=== PATIENT | female | born 1935 | race Caucasian/White ===

== ENCOUNTER 2018-06-06 09:58 | Emergency (ER) | payer MEDICARE, BC ==
[2018-06-06] MEDS ORDERED: Ketorolac INJ* 30 MG/ML 1 ML VIAL IV PUSH ONE (10:26)
--- NOTE | 2018-06-06 10:32 | ED ---
Complex/Multi-Sys Presentation - HPI Summary HPI Summary: A 82 y/o female presents to ED c/o of pain on the right side of face reaching 8/ 10 in severity. According to the patient, yesterday the right-sided pain of her face was exhibited, however she decided to sleep it off. This morning however, the pain became more severe. The whole right-side of her face was in pain coupled with a headache. It was painful to talk and chew. She stated, "My pain is on the entire right side of my face from the head down, I can't even chew oatmeal". The left side of her face does not hurt, but chewing on the left side brings on pain on the right side. Additional symptoms include SOB, however, denies any CP or vision changes. It was noted that the patient has a long list of cardiac history. Additionally, she has a appointment for her pacemaker on 06/11/2018. PMHx of leaky valve, LBBB, rheumatoid arthritis, DM (4 shots/ day). She takes prescribed medications for her Thyroid and arthritis such as Eliquis and Sulfasalazine. No Hx of shingles. - History Of Current Complaint Chief Complaint: EDGeneral Time Seen by Provider: 06/06/18 10:06 Hx Obtained From: Patient Onset/Duration: Sudden Onset, Lasting Days - Since 1 day ago (yesterday), Still Present, Worse Since - Yesterday Timing: Constant Severity Currently: Severe - 8/10 Location: Pain At: - Right side of face, Radiates To: - Headache Aggravating Factor(s): NOTHING Alleviating Factor(s): NOTHING Associated Signs And Symptoms: Positive: Headache, SOB, Other - NEGATIVE: Vision changes. Negative: Chest Pain - Allergies/Home Medications Allergies/Adverse Reactions: Allergies Allergy/AdvReac Type Severity Reaction Status Date / Time atorvastatin Allergy Intermediate Leg Cramps Verified 06/06/18 11:29 ezetimibe [From Zetia] Allergy Intermediate Itching Verified 06/06/18 11:29 losartan Allergy Intermediate Rash Verified 06/06/18 11:29 ARB-Angiotensin Receptor Allergy Unknown Unknown Verified 06/06/18 11:29 Antagonist Reaction Details gold Au 198 Allergy Unknown Unknown Verified 06/06/18 11:29 Reaction Details methotrexate Allergy Unknown Unknown Verified 06/06/18 11:29 Reaction Details Penicillins Allergy Unknown Unknown Verified 06/06/18 11:29 Reaction Details pravastatin Allergy Unknown Unknown Verified 06/06/18 11:29 Reaction Details ramipril Allergy Unknown Unknown Verified 06/06/18 11:29 Reaction Details amlodipine AdvReac Intermediate Headache Verified 06/06/18 11:29 diltiazem AdvReac Intermediate See Comment Verified 06/06/18 11:29 valsartan AdvReac Intermediate Coughing Verified 06/06/18 11:29 Home Medications: Home Medications Calcium 1,000 + D3 Caplet 1 tab PO BEDTIME 06/06/18 [History Confirmed 06/06/18] Furosemide 20 mg PO SEE INSTRUCTIONS 06/06/18 [History Confirmed 06/06/18] Insulin Aspart [Novolog Flexpen] 3 - 10 units SQ TID 06/06/18 [History Confirmed 06/06/18] Levothyroxine Sodium 75 mcg PO DAILY 06/06/18 [History Confirmed 06/06/18] hydroCHLOROthiazide [Hydrochlorothiazide] 2 tab PO DAILY 06/06/18 [History Confirmed 06/06/18] PMH/Surg Hx/FS Hx/Imm Hx Endocrine/Hematology History: Reports: Hx Anticoagulant Therapy - new starting yesterday, Hx Diabetes Denies: Hx Anemia, Hx Unexplained Bleeding Cardiovascular History: Reports: Hx Hypercholesterolemia, Hx Hypertension, Hx Rheumatic Fever, Hx Valvular Heart Disease - pt states "leaky valve", Other Cardiovascular Problems/Disorders - Left BBB Denies: Hx Aneurysm, Hx Angina, Hx Angioplasty, Hx Auto Implanted Cardiovert Defib, Hx Cardiac Arrest, Hx Cardiomegaly, Hx Congenital Heart Disease, Hx Congestive Heart Failure, Hx Coronary Artery Disease, Hx Deep Vein Thrombosis, Hx Embolism, Hx Hypotension, Hx Pacemaker/ICD, Hx Peripheral Vascular Disease, Hx Syncope GI History: Denies: Hx Jaundice History: Denies: Hx Renal Disease Musculoskeletal History: Reports: Hx Rheumatoid Arthritis Denies: Hx Arthritis, Hx Back Problems, Hx Bursitis, Hx Fibromyalgia, Hx Gout , Hx Orthopedic Injury, Hx Osteoporosis, Hx Scoliosis, Hx Tendonitis, Other Musculoskeletal History Sensory History: Denies: Hx Cataracts, Hx Glaucoma Opthamlomology History: Denies: Hx Cataracts, Hx Glaucoma Neurological History: Denies: Hx Headaches, Hx Seizures, Hx Transient Ischemic Attacks (TIA) Psychiatric History: Denies: Hx Anxiety, Hx Depression - Cancer History Hx Chemotherapy: No Hx Radiation Therapy: No Infectious Disease History: No Infectious Disease History: Denies: Traveled Outside the [place] in Last 30 Days - Family History Known Family History: Positive: Other - Prostate, skin and colon cancer Negative: Hypertension, Diabetes - Social History Alcohol Use: Daily Alcohol Amount: 4oz wine every night with dinner Substance Use Type: Reports: None Smoking Status (MU): Former Smoker Type: Cigarettes Have You Smoked in the Last Year: No Review of Systems Negative: Fever Positive: Other - NEGATIVE: Vision changes Negative: Chest Pain Positive: Shortness Of Breath Positive: Other - POSITIVE: Pain on right side of face, 8/10 in severity Positive: Headache All Other Systems Reviewed And Are Negative: Yes Physical Exam - Summary Physical Exam Summary: GENERAL: Patient is a well developed and nourished female who is lying comfortable in the stretcher. Patient is not in any acute respiratory distress. HEAD AND FACE: Normocephalic. Tenderness to palpation on right side of face. In particular, tenderness to palpation on right temporal artery. no rash EYES: PERRLA, EOMI x 2. EARS: Hearing grossly intact. TM clear, no vesicles seen MOUTH: Oropharynx within normal limits. NECK: Supple, trachea is midline, no adenopathy, no JVD, no carotid bruit. CHEST: Symmetric, no tenderness at palpation LUNGS: Clear to auscultation bilaterally. No wheezing or crackles. CVS: Regular rate and rhythm, S1 and S2 present, no murmurs or gallops appreciated. ABDOMEN: Soft, non-tender. Bowel sounds are normal. No abdominal abnormal pulsations. EXTREMITIES: Full ROM in all major joints, no edema, no cyanosis or clubbing. NEURO: Alert and oriented x 3. No acute neurological deficits. Speech is normal and follows commands. SKIN: Dry and warm Neuro exam extended: Cranial nerves II-XII grossly intact, no dysmetria finger to nose, nml heel to carter GCS: 15 Triage Information Reviewed: Yes Vital Signs On Initial Exam: Initial Vitals Temp Pulse Resp BP Pulse Ox 97.4 F 80 20 154/46 95 06/06/18 09:59 06/06/18 09:59 06/06/18 09:59 06/06/18 09:59 06/06/18 09:59 Vital Signs Reviewed: Yes Diagnostics - Vital Signs Vital Signs Temp Pulse Resp BP Pulse Ox 06/06/18 09:59 97.4 F 80 20 154/46 95 - Laboratory Result Diagrams: 06/06/18 10:49 06/06/18 10:49 Lab Statement: Any lab studies that have been ordered have been reviewed, and results considered in the medical decision making process. - CT BRAIN CT CT Interpretation Completed By: Radiologist - CT findings are most consistent with periventricular and subcortical microvascular disease. There are no prior CT examinations for comparison to determine chronicity. If the patient is exhibiting focal neurologic deficits MRI of the brain is recommended. ED physician reviewed this radiology report. - EKG 1014 Cardiac Rate: NL - atrial paced 77 BPM EKG Rhythm: Sinus Rhythm EKG Interpretation: LBBB, normal axis, atrial paced 77 BPM. Re-Evaluation - Re-Evaluation First Eval Re-Evaluation Time: 12:56 Comment: DISCUSSED PLAN AND DISCHARGE WITH PATIENT. PATIENT IS ADAMENT THAT SHE DOES NOT WANT STEROIDS. Complex Multi-Symp Course/Dx Course Of Treatment: A 82 y/o female presents to ED c/o of pain on the right side of face reaching 8/10 in severity. According to the patient, yesterday the right-sided pain of her face was exhibited, however she decided to sleep it off. This morning however, the pain became more severe. The whole right-side of her face was in pain coupled with a headache. A EKG revealed atrial-paced of 77 BPM, LBBB and normal axis. A Brain CT revealed CT findings are most consistent with periventricular and subcortical microvascular disease. There are no prior CT examinations for comparison to determine chronicity. Laboratory data reviewed and is unremarkable for a sodium of 128, anemia with a hemoglobin of 9 October compared to previous, elevated inflammatory markers with a sedimentation rate of 75 and a C-reactive protein of 48. I suspect patient's right-sided pain is most likely secondary to giant cell arteritis given jaw claudication, right-sided headache, elevated inflammatory markers. I discussed the results with the patient and my concerns in great details. In the ED course , the patient recieved Toradol and Solu-Medrol 500 cc of normal saline and reports feeling better. Patient care was dicussed with Dr. Sparkle Strong of vascular surgery at [place] who refered patient to call local [facility] for a temporal artery biopsy and further evaluation tmrw. Dr. Strong provided direct contact for the department. Patient will be discharged with a diagnosis of right-sided facial pain. Patient was adament that she does not want steroids because of concern for her diabetes. Patient is to follow up with PCP in 2 days and contact [facility] to set up an appointment. Pt is agreeable with this plan. - Diagnoses Provider Diagnoses: Right sided facial pain - Physician Notifications Discussed Care Of Patient With: Sparkle Strong Time Discussed With Above Provider: 12:49 Instructed by Provider To: Other - Dr. Strong recommended patient to call [facility] with the provided phone numbers to schedule an appointment for Temporal Artery Biopsy and further evaluation. Discharge - Sign-Out/Discharge Documenting (check all that apply): Patient Departure - DISCHARGE - Discharge Plan Condition: Stable Disposition: HOME Prescriptions: traMADol TAB* [Ultram*] 50 mg PO Q8H PRN #15 tab MDD 3 PRN Reason: Pain Patient Education Materials: Arthritis (ED), Atypical Facial Pain (ED) Referrals: Ever Wallace MD [Primary Care Provider] - 2 Days (FOLLOW UP WITH PRIMARY CARE PHYSICIAN IN 2-3 days.) Additional Instructions: CALL [facility] TO SET UP APPOINTMENT. PLEASE CALL OR . RETURN TO ED FOR ANY NEW OR WORSENING SYMPTOMS. - Billing Disposition and Condition Condition: STABLE Disposition: Home
[2018-06-06 11:00] LABS: ABS Basophils 0 10^3/ul (0-0.2); ABS Eosinophils 0 10^3/ul (0-0.6); ABS Lymphocytes 0.7 10^3/ul (1.0-4.8); ABS Monocytes 0.6 10^3/ul (0-0.8); ABS Neutrophils 4.4 10^3/ul (1.5-7.7); ABS Nucleated RBC 0 10^3/ul; Eosinophil % 0.1 % (0-6); Hematocrit 27 % (35-47); Mean Corpuscular HGB Conc 33 g/dl (31-36); Mean Corpuscular Hemoglobin 29 pg (27-31); Mean Corpuscular Volume 87 fL (80-97); Mean Platelet Volume 7.5 um3 (7.4-10.4); Nucleated Red Blood Cells % 0; Platelet Count 286 10^3/ul (150-450); Red Blood Count 3.12 10^6/ul (4.00-5.40); Red Cell Distribution Width 18 % (10.5-15); White Blood Count 5.7 10^3/ul (3.5-10.8)
[2018-06-06 11:16] LABS: EGFR Non-African American 67.5 (>60)
[2018-06-06] MEDS: methylPREDNISolone SOD 40 MG* 1 ML VIAL IV ONE ×2 (11:20→11:28)
[2018-06-06] MEDS ORDERED: methylPREDNISolone 125 MG* 2 ML VIAL ONE (11:26)
[2018-06-06] MEDS ORDERED: methylPREDNISolone 125 MG* 2 ML VIAL IV ONE (11:27)
--- NOTE | 2018-06-06 11:29 | RAD ---
INDICATION: Right-sided face pain COMPARISON: None. TECHNIQUE: Contiguous axial sections of the brain were obtained from the skull base to the vertex without contrast. FINDINGS: The ventricles, cisterns and sulci exhibit symmetrical involutional changes appropriate for the patient's age.. There is overall mild periventricular and subcortical white matter hypoattenuation most consistent with chronic microvascular disease. There are subcentimeter hypoattenuating foci in the bilateral basal ganglia that could be perivascular spaces or age indeterminant lacunar infarctions. Otherwise the cabrera-white matter differentiation is adequately maintained and there is no sulcal effacement. No significant focal abnormality or mass effect is present. There is no evidence for intracranial hemorrhage. There is surgical material overlying the subcutaneous tissue of the left temporal bone. No significant focal osseous abnormality is present. The visualized portion of the paranasal sinuses appear clear. The mastoid air cells are well aerated bilaterally. IMPRESSION: CT findings are most consistent with periventricular and subcortical microvascular disease. There are no prior CT examinations for comparison to determine chronicity. If the patient is exhibiting focal neurologic deficits MRI of the brain is recommended.
[2018-06-06 13:37] VITALS: BP 147/76
== END 2018-06-06 13:37 | disposition home or self-care (01) ==
LOC: ED 09:58
DX: G50.1 Atypical facial pain (principal); R06.02 Shortness of breath; E11.9 Type 2 diabetes mellitus without complications; Z79.4 Long term (current) use of insulin; I10 Essential (primary) hypertension; E78.00 Pure hypercholesterolemia, unspecified; I44.7 Left bundle-branch block, unspecified; I38 Endocarditis, valve unspecified; M06.9 Rheumatoid arthritis, unspecified; Z88.0 Allergy status to penicillin; Z88.8 Allergy status to other drugs, medicaments and biological substances; Z80.42 Family history of malignant neoplasm of prostate; Z80.0 Family history of malignant neoplasm of digestive organs; Z87.891 Personal history of nicotine dependence
CPT/HCPCS: 36415; 70450; 80053; 84484; 85025; 85652; 86140; 93005; 96374; 96375; 99283; J1885; J2920; J2930

== ENCOUNTER 2019-02-18 00:14 | Observation (INO) | payer MEDICARE, BC ==
--- OUTSIDE RECORDS SUMMARY | 2019-02-18 00:20 | XMS REPORT | Continuity of Care Document ---
:1935 External Reference #:[id number] Author Name Francoise Delacruz Care Team Providers Name Role Phone Ever Wallace MD Primary Care Physician Unavailable Payers Date Identification Numbers Payment Provider Subscriber Effective: 1999 Policy Number: [id number] Medicare Katheryn Tatum PayID: [id number] [address] [place] [address] Policy Number: [id number] [facility] Sven Tatum PayID: [id number] [address] [place] [address] Advance Directives Description No Information Available Problems Date Description Provider Status Onset: 02/04/2012 Left bundle branch block Miles Alicia M.D. Active Onset: 02/04/2012 Primary cardiomyopathy Miles Alicia M.D. Active Onset: 02/04/2012 Mitral valve disorder Miles Alicia M.D. Active Onset: 02/04/2012 Type 2 diabetes mellitus Miles Alicia M.D. Active Onset: 08/29/2014 Essential hypertension Miles Alicia M.D. 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 [employer] Tobacco Use Start: Unknown End: Former Cigarette Smoker Unknown Smoking Status Reviewed: 01/28/19 Former Cigarette Smoker ETOH Use Consumes 1 glass of wine 4oz per day Tobacco Use Start: Unknown End: Patient is a former smoker Unknown Recreational Drug Use Denies Drug Use Exercise Type/Frequency Exercises rarely Allergies, Adverse Reactions, Alerts Date Description Reaction Status Severity Comments 09/10/2004 PCN Active rash 09/10/2004 Cozaar Active rash 09/10/2004 Cardizem CD Active felt poorly 04/30/2005 Lipitor Active leg aches 04/06/2006 zetia Active itchy, muscle pain 01/26/2008 Diovan Active cough 01/26/2008 Amlodipine Besylate Active cough headache 02/04/2012 Pravastatin leg cramps Active 08/24/2013 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 lasix Eliquis Active Tablets 5mg 60tabs 1 by I48.0 Miles 017 mouth F. Mauser, twice a M.D. day Aldactone Active Tablets 25mg 90tabs 2 by Miles Cannon mouth F. Maashish, every day M.D. Lasix Active Tablets 20mg 90tabs 2 tabs by Alesia Cannon mouth 3 Christiano, times N.P. weekly thu-thu- riday. may take an extra tab on non-lasix day if > 3lb weight gain. Coreg Active Tablets 12.5mg 270tab take 2 Miles Cannon s tablets F. Mauser, every M.D. morning, and 1 tablet every evening by mouth Vitamin B-12 Active Tablets 1000mcg 100tab 1 by Miles Reynolds Sub s mouth F. Mauser, every day M.D. Sulfasalazine Active Tablets 500mg 120tab take 2 Z79.899 Zsofia 004 s tabs in Eliecer, the [employer] morning and 2 tabs in the evening for a total of 4 daily tabs daily ongoing M05.79 multivitamin 09/09/2004 Active one po qd Miles Alicia M.D. Folic Acid 09/09/2004 Active Tablets 1mg 100 two times a Miles tab week nubia Rose M.D. Calcium + D Active Tablets 600-2 1 po qhs Unknown 00mg- Unit Flax Seed Meal Active 2 tablespoons Unknown per day Dandelion Root Active Capsules 520mg 1 po qd Unknown Garlic Active 2 cloves Unknown daily Novolog Flexpen Active Solution 100Un Inject 3-10 Unknown Pen-Inject it/ML Units Three Times Daily Or as Directed - Max Of 50 Units P Lantus Solostar Active Solution 100Un Inject 12 Unknown Pen-Inject it/ML Units AT Bedtime Levothyroxine Sodium Active Tablets 75mcg 1 by mouth Unknown every day Cpap Active Device 13 cm h2o Unknown Iron Active Tablets 325(6 1 by mouth Unknown 5Fe) every other mg day Vitamin C-Macy Hips Active Tablets ER 500mg 1 tablet by Unknown TR mouth daily Vitamin C 01/12/2019 - Hx Miles 01/11/2019 Luciano Alicia M.D. Hydroxychloroquine 06/22/2018 - Hx Tablets 200mg 180 take one Z7 Zsofia Sulfate 08/31/2018 tab tablet by 9. Eliecer, s mouth daily 89 [employer] for one week 9 than increase to 1 tab twice a day M05.79 Simponi Aria 10/23/2017 - Hx Solution 50mg/4ML 2 mg/kg iv Meet 03/05/2018 infusion at [facility], week 0, week M.D. 4 and then every 8 weeks (not taking) Leflunomide 09/11/2017 - Hx Tablets 10mg 30 take one M0 Meet 09/25/2017 ta capsule/table 5. angel Greene t daily by 78 M.D. mouth Hydrochlorothiazide 05/09/2016 - Hx Tablets 12.5mg 18 2 by mouth [facility] 01/12/2019 0t every day ab Beata Rose s Coreg 04/03/2016 - Hx Tablets 25mg 1 by mouth [facility] 04/29/2016 twice a day Luciano Alicia M.D. Ramipril 12/07/2013 - Hx Capsules 2.5mg 1 po qod [facility] 01/11/2014 Luciano Alicia M.D. Amlodipine Besylate 12/28/2007 - Hx Tablets 2.5mg 90 1 po qd [facility] 01/26/2008 angel Martinez M.D. Diovan 12/08/2007 - Hx Tablets 40mg 14 1 po qd [facility] 12/28/2007 angel Martinez M.D. Lisinopril 04/28/2007 - Hx Tablets 2.5mg 90 1 po qd [facility] 12/08/2007 angel Martinez M.D. Niaspan 01/11/2007 - Hx Tablets 500mg 90 1 Tablet By [facility] 02/16/2007 ta angel Garnica Bedtime Beata Zetia 12/04/2006 - Hx Tablets 10mg 90 1 po qd [facility] 01/26/2008 angel Martinez M.D. Questran 10/09/2006 - Hx Powder 4gm 60 1 po bid [facility] 11/01/2007 shane Quesada M.D. Flax Seed Meal 04/06/2006 - Hx Cream 2 tablespoons [facility] 09/26/2009 po qd Luciano Alicia M.D. Coreg 09/29/2005 - Hx Tablets 12.5mg 18 2 tabs po bid [facility] 04/03/2016 0t ab Beata Rose s Zetia 09/29/2005 - Hx Tablets 10mg 90 1 po qd [facility] 12/30/2005 angel Martinez M.D. Coreg 06/23/2005 - Hx Tablets 6.25mg 1 po bid Miles 09/29/2005 Luciano Alicia M.D. Coreg 04/30/2005 - Hx Tablets 12.5mg 18 1 po bid [facility] 06/23/2005 0t ab Beata Rose s Garlic 04/29/2005 - Hx 1000mg two po qd [facility] 09/26/2009 Luciano Alicia M.D. Coreg 03/13/2005 - Hx Tablets 6.25mg 1 po bid Miles 04/30/2005 Luciano Alicia M.D. Coreg 01/27/2005 - Hx Tablets 12.5mg 18 1 po bid [facility] 03/13/2005 0t ab Beata Rose s Lipitor 10/02/2004 - Hx Tablets 10mg 1 po qd [facility] 04/30/2005 Luciano Alicia M.D. Coreg 10/02/2004 - Hx Tablets 3.125mg 60 1 po bid [facility] 10/02/2004 angel Martinez M.D. Coreg 10/02/2004 - Hx Tablets 6.25mg 90 1 po bid [facility] 01/27/2005 angel Martinez M.D. Calcium 09/10/2004 - Hx Tablets 1 PO qd [facility] 04/04/2011 Luciano Alicia M.D. Humalog 09/10/2004 - Hx Injection 100Units/M tid [facility] 04/16/2015 Kelin Alicia M.D. Humulin N 09/10/2004 - Hx Injection 100Units/M hs [facility] 04/16/2015 Kelin Alicia M.D. Sulfasalazine 09/09/2004 - Hx Tablets 500mg 36 2 po bid [facility] 09/10/2004 0t ab Beata Rose s Evista 09/09/2004 - Hx Tablets 60mg 1 PO qd [facility] 09/15/2008 Luciano Alicia M.D. vitamin E 09/09/2004 - Hx 400iu one qd [facility] 09/10/2004 Luciano Alicia M.D. calcium and vitamin D 09/09/2004 - Hx 600mg bid [facility] 09/10/2004 Luciano Alicia M.D. HCTZ 09/09/2004 - Hx Capsules 12.5mg 18 2 by mouth [facility] 05/09/2016 0c every day julián Rose M.D. Lipitor 09/09/2004 - Hx Tablets 20mg 30 1 po qd Miles 10/02/2004 angel Martinez M.D. Flax Seed Oil - Hx Unknown 04/04/2011 Garlic - Hx Capsules 1000mg qd Unknown 05/04/2012 Simvastatin - Hx Tablets 10mg 1 po qhs Unknown 04/04/2011 Pravastatin Sodium - Hx Tablets 20mg 90 1 tablet by Unknown 02/04/2012 ta mouth once bs daily at bedtime Amoxicillin - Hx Capsules 1 tab by Unknown 04/02/2016 mouth 3 times per day every Vitamin C - Hx Tablets 500mg 1 by mouth Unknown 01/12/2019 every day Eliquis - Hx Tablets 5mg 1 by mouth Unknown 04/29/2016 twice a day 04/25/16 Hold Eliquis - Hx Tablets 5mg 18 1 by mouth Miles 10/08/2017 0t q12 hours ab Beata Rose s Turmeric Curcumin - Hx Capsules 500mg 1 by mouth Unknown 12/23/2017 every day Cinnamon - Hx Capsules 500mg 1 by mouth Unknown 03/05/2018 every day Immunizations CPT Code Status Date Vaccine Lot # [id number] Given 10/06/2007 Influenza Virus 3Yrs & Over [id number] Given 10/06/2007 Influenza Virus 3Yrs & Over [id number] Vital Signs Date Vital Result Comment 01/28/2019 11:01am Height 61 inches 5'1" Weight 177.00 lb Heart Rate 72 /min BP Systolic Sitting 142 mmHg Ra, reg BP Diastolic Sitting 78 mmHg Ra, reg BP Systolic Standing 152 mmHg Ra, reg BP Diastolic Standing 68 mmHg Ra, reg BMI (Body Mass Index) 33.4 kg/m2 Ejection Fraction 50%-55% 09/17/18 echo 01/12/2019 10:36am Height 61 inches 5'1" Weight 177.12 lb with shoes Heart Rate 70 /min BP Systolic Sitting 116 mmHg BP Diastolic Sitting 80 mmHg BMI (Body Mass Index) 33.5 kg/m2 Ejection Fraction 50-55% echo 09/17/18 10/12/2018 10:53am Height 61 inches 5'1" Weight 175.00 lb with shoes Heart Rate 68 /min BP Systolic Sitting 128 mmHg lue reg cuff BP Diastolic Sitting 58 mmHg lue reg cuff BP Systolic Standing 124 mmHg lue reg cuff BP Diastolic Standing 58 mmHg lue reg cuff BMI (Body Mass Index) 33.1 kg/m2 Ejection Fraction 50-55% 09/03/2018 2:27pm Height 61 inches 5'1" Weight 175.00 lb with shoes Heart Rate 64 /min BP Systolic 128 mmHg lue/reg cuff BP Diastolic 64 mmHg lue/reg cuff BMI (Body Mass Index) 33.1 kg/m2 Ejection Fraction 30-35% Echo. 04/28/2018 08/31/2018 1:24pm Height 61 inches 5'1" Weight 176.00 lb Heart Rate 60 /min BP Systolic Sitting 142 mmHg BP Diastolic Sitting 64 mmHg Respiratory Rate 14 /min BMI (Body Mass Index) 33.3 kg/m2 06/22/2018 2:51pm Height 61 inches 5'1" Weight 176.00 lb Heart Rate 61 /min BP Systolic Sitting 120 mmHg BP Diastolic Sitting 62 mmHg Pain Level 5 O2 % BldC Oximetry 94 % BMI (Body Mass Index) 33.3 kg/m2 06/22/2018 10:19am Height 61 inches 5'1" Weight 175.50 lb Heart Rate 72 /min BP Systolic Sitting 122 mmHg reu lg cuff BP Diastolic Sitting 68 mmHg reu lg cuff Respiratory Rate 16 /min BMI (Body Mass Index) 33.2 kg/m2 Ejection Fraction 30-35% 04/28/2018 echo 05/13/2018 10:12am Height 61 inches 5'1" Weight 172.00 lb per pt Heart Rate 70 /min BP Systolic Sitting 122 mmHg Lue lg cuff BP Diastolic Sitting 64 mmHg Lue lg cuff Respiratory Rate 18 /min BMI (Body Mass Index) 32.5 kg/m2 Ejection Fraction 30-35% as of 04/28/18 echo 05/12/2018 10:24am Height 61 inches 5'1" Weight 176.25 lb Heart Rate 66 /min BP Systolic Sitting 162 mmHg Lue reg cuff BP Diastolic Sitting 80 mmHg Lue reg cuff Respiratory Rate 18 /min O2 % BldC Oximetry 96 % On Ra BMI (Body Mass Index) 33.3 kg/m2 03/30/2018 1:26pm Height 61 inches 5'1" Weight 176.50 lb with shoes Heart Rate 80 /min BP Systolic Sitting 144 mmHg Lue reg cuff BP Diastolic Sitting 80 mmHg Lue reg cuff BMI (Body Mass Index) 33.3 kg/m2 Ejection Fraction 35-40% date 09/30/2017 ECHO 03/05/2018 10:54am Height 61 inches 5'1" Weight 176.00 lb Heart Rate 80 /min BP Systolic Sitting 152 mmHg BP Diastolic Sitting 66 mmHg Respiratory Rate 14 /min Pain Level 4 BMI (Body Mass Index) 33.3 kg/m2 10/20/2017 4:16pm Height 61 inches 5'1" Weight 171.00 lb Heart Rate 68 /min BP Systolic Sitting 136 mmHg BP Diastolic Sitting 76 mmHg Respiratory Rate 15 /min Pain Level 3 BMI (Body Mass Index) 32.3 kg/m2 10/09/2017 1:58pm Height 61 inches 5'1" Weight 173.50 lb with shoes Heart Rate 68 /min BP Systolic Sitting 135 mmHg LA reg cuff BP Diastolic Sitting 78 mmHg LA reg cuff BMI (Body Mass Index) 32.8 kg/m2 Ejection Fraction 35%-40% echo 09/30/17 09/11/2017 3:08pm Height 61 inches 5'1" Weight 169.00 lb w/ shoes Heart Rate 78 /min reg BP Systolic Sitting 130 mmHg Lue, lg cuff BP Diastolic Sitting 86 mmHg Lue, lg cuff Respiratory Rate 16 /min BMI (Body Mass Index) 31.9 kg/m2 Ejection Fraction 40-45% as of 04/08/17 echo 09/11/2017 10:43am Height 61 inches 5'1" Weight 172.00 lb Heart Rate 32 /min BP Systolic Sitting 140 mmHg BP Diastolic Sitting 66 mmHg Respiratory Rate 14 /min Pain Level 5 BMI (Body Mass Index) 32.5 kg/m2 05/06/2017 9:41am Height 61 inches 5'1" Weight 169.00 lb Heart Rate 80 /min BP Systolic Sitting 122 mmHg BP Diastolic Sitting 58 mmHg Respiratory Rate 16 /min O2 % BldC Oximetry 97 % room air BMI (Body Mass Index) 31.9 kg/m2 03/04/2017 10:46am Height 61 inches 5'1" Weight 165.00 lb w/shoes Heart Rate 88 /min BP Systolic Sitting 178 mmHg LA reg cuff BP Diastolic Sitting 76 mmHg LA reg cuff BP Systolic Standing 137 mmHg la repeat sitting BP Diastolic Standing 58 mmHg la repeat sitting BMI (Body Mass Index) 31.2 kg/m2 Ejection Fraction 55% Luca 08/07/16 12/05/2016 2:50pm Height 61 inches 5'1" Weight 164.00 lb with shoes Heart Rate 72 /min BP Systolic Sitting 138 mmHg LA, regular BP Diastolic Sitting 70 mmHg LA, regular BMI (Body Mass Index) 31.0 kg/m2 Ejection Fraction 55% Luca 08/07/16 11/07/2016 1:36pm Height 61 inches 5'1" Weight 164.00 lb with boots Heart Rate 78 /min BP Systolic Sitting 110 mmHg LA lrg cuff BP Diastolic Sitting 58 mmHg LA lrg cuff BMI (Body Mass Index) 31.0 kg/m2 Ejection Fraction 55% Luca 08/07/16 10/21/2016 1:13pm Height 61 inches 5'1" Weight 159.00 lb Heart Rate 76 /min BP Systolic Sitting 140 mmHg BP Diastolic Sitting 80 mmHg Respiratory Rate 16 /min O2 % BldC Oximetry 97 % BMI (Body Mass Index) 30.0 kg/m2 08/25/2016 8:22am Height 61 inches 5'1" Weight 159.00 lb Heart Rate 78 /min BP Systolic Sitting 142 mmHg left arm, reg cuff BP Diastolic Sitting 64 mmHg left arm, reg cuff Respiratory Rate 16 /min BMI (Body Mass Index) 30.0 kg/m2 Ejection Fraction 55% 08/07/16 Luca 07/22/2016 10:03am Height 61 inches 5'1" Weight 161.00 lb Heart Rate 66 /min BP Systolic 112 mmHg BP Diastolic 80 mmHg Respiratory Rate 14 /min O2 % BldC Oximetry 94 % BMI (Body Mass Index) 30.4 kg/m2 06/17/2016 8:43am Height 61 inches 5'1" Weight 161.00 lb w/ shoes Heart Rate 64 /min reg BP Systolic Sitting 114 mmHg Lue, reg cuff BP Diastolic Sitting 76 mmHg Lue, reg cuff BP Systolic Standing 110 mmHg Lue BP Diastolic Standing 80 mmHg Lue Respiratory Rate 16 /min BMI (Body Mass Index) 30.4 kg/m2 Ejection Fraction 40% as of 02/29/16 echo 06/09/2016 8:56am Height 61 inches 5'1" Weight 161.25 lb Heart Rate 97 /min BP Systolic 154 mmHg BP Diastolic 62 mmHg Respiratory Rate 14 /min O2 % BldC Oximetry 98 % BMI (Body Mass Index) 30.5 kg/m2 Neck Circumference in inches 15 05/14/2016 9:10am Height 61 inches 5'1" Weight 161.25 lb with shoes Heart Rate 64 /min irreg BP Systolic 161 mmHg home unit, [place] BP Diastolic 65 mmHg home unit, LA BP Systolic Sitting 162 mmHg LA, regular BP Diastolic Sitting 64 mmHg LA, regular BMI (Body Mass Index) 30.5 kg/m2 Ejection Fraction 55% echo 03/04/16 strong 04/29/2016 8:41am Height 61 inches 5'1" Weight 169.00 lb w/shoes Heart Rate 84 /min BP Systolic Sitting 172 mmHg LA reg cuff BP Diastolic Sitting 70 mmHg LA reg cuff BMI (Body Mass Index) 31.9 kg/m2 Ejection Fraction 55%-75% Echo 03/04/16 04/15/2016 4:59pm Height 61 inches 5'1" Heart Rate 80 /min BP Systolic 124 mmHg LA, home unit BP Diastolic 50 mmHg LA, home unit BP Systolic Sitting 116 mmHg LA BP Diastolic Sitting 64 mmHg LA BP Systolic Lying Down 118 mmHg BP Diastolic Lying Down 70 mmHg 04/03/2016 9:47am Height 61 inches 5'1" Weight 159.50 lb with shoes Heart Rate 82 /min BP Systolic 152 mmHg LA reg cuff BP Diastolic 68 mmHg LA reg cuff BMI (Body Mass Index) 30.1 kg/m2 Ejection Fraction 55%-75% echo 03/04/16 03/12/2016 11:13am Height 61 inches 5'1" Weight 159.00 lb w/shoes Heart Rate 62 /min BP Systolic Sitting 144 mmHg LA reg cuff BP Diastolic Sitting 70 mmHg LA reg cuff BMI (Body Mass Index) 30.0 kg/m2 Ejection Fraction 40% Echo 02/29/16 02/27/2016 10:34am Height 61 inches 5'1" Weight 162.25 lb w/shoes Heart Rate 80 /min BP Systolic Sitting 154 mmHg LA reg cuff BP Diastolic Sitting 66 mmHg LA reg cuff BMI (Body Mass Index) 30.7 kg/m2 Ejection Fraction 40-45% echo 11/03/14 04/17/2015 2:58pm Height 61 inches 5'1" Weight 154.75 lb with shoes Heart Rate 60 /min BP Systolic Sitting 136 mmHg LA reg cuff BP Diastolic Sitting 70 mmHg LA reg cuff BP Systolic Standing 134 mmHg LA reg cuff BP Diastolic Standing 70 mmHg LA reg cuff Respiratory Rate 16 /min BMI (Body Mass Index) 29.2 kg/m2 Ejection Fraction 40-45% date 11/03/14 08/29/2014 2:32pm Height 61 inches 5'1" Weight 151.75 lb Heart Rate 72 /min BP Systolic 160 mmHg LA reg cuff BP Diastolic 64 mmHg LA reg cuff Respiratory Rate 15 /min BMI (Body Mass Index) 28.7 kg/m2 02/22/2014 2:13pm Height 61 inches 5'1" Weight 159.25 lb with shoes ( 153lbs at home today) Heart Rate 56 /min 64 sit and stand HR reg BP Systolic Sitting 130 mmHg LA reg cuff BP Diastolic Sitting 70 mmHg LA reg cuff BP Systolic Standing 124 mmHg LA reg cuff BP Diastolic Standing 70 mmHg LA reg cuff Respiratory Rate 16 /min BMI (Body Mass Index) 30.1 kg/m2 10/07/2013 1:48pm Heart Rate 76 /min BP Systolic Sitting 156 mmHg BP Diastolic Sitting 68 mmHg Respiratory Rate 20 /min 08/24/2013 10:57am Height 62 inches 5'2" Weight 157.00 lb Heart Rate 57 /min BP Systolic 168 mmHg BP Diastolic 70 mmHg Respiratory Rate 16 /min BMI (Body Mass Index) 28.7 kg/m2 11/25/2012 2:18pm Height 62 inches 5'2" Weight 155.00 lb Heart Rate 60 /min BP Systolic 128 mmHg BP Diastolic 76 mmHg BMI (Body Mass Index) 28.3 kg/m2 05/12/2012 2:51pm Height 62 inches 5'2" Weight 155.00 lb Heart Rate 62 /min BP Systolic 122 mmHg BP Diastolic 64 mmHg BMI (Body Mass Index) 28.3 kg/m2 02/04/2012 11:15am Height 62 inches 5'2" Weight 158.00 lb Heart Rate 57 /min BP Systolic 122 mmHg BP Diastolic 74 mmHg BMI (Body Mass Index) 28.9 kg/m2 04/04/2011 2:50pm Height 62 inches 5'2" Weight 155.00 lb Heart Rate 66 /min BP Systolic Sitting 142 mmHg BP Diastolic Sitting 72 mmHg BMI (Body Mass Index) 28.3 kg/m2 09/26/2009 3:26pm Height 62 inches 5'2" Weight 152.00 lb Heart Rate 66 /min BP Systolic Sitting 130 mmHg BP Diastolic Sitting 75 mmHg BMI (Body Mass Index) 27.8 kg/m2 09/15/2008 9:08am Height 62 inches 5'2" Weight 151.00 lb Heart Rate 71 /min BP Systolic Sitting 164 mmHg L BP Diastolic Sitting 70 mmHg L BMI (Body Mass Index) 27.6 kg/m2 01/26/2008 10:29am Height 62 inches 5'2" Weight 152.00 lb Heart Rate 64 /min BP Systolic Sitting 130 mmHg L BP Diastolic Sitting 60 mmHg L BMI (Body Mass Index) 27.8 kg/m2 11/01/2007 3:17pm Height 62 inches 5'2" Weight 150.00 lb Heart Rate 72 /min BP Systolic Sitting 140 mmHg BP Diastolic Sitting 60 mmHg Respiratory Rate 16 /min BMI (Body Mass Index) 27.4 kg/m2 04/28/2007 2:38pm Height 62 inches 5'2" Weight 150.00 lb Heart Rate 65 /min BP Systolic Sitting 160 mmHg L BP Diastolic Sitting 72 mmHg L BMI (Body Mass Index) 27.4 kg/m2 10/07/2006 11:17am Height 62 inches 5'2" Weight 143.00 lb Heart Rate 69 /min BP Systolic Sitting 144 mmHg L BP Diastolic Sitting 60 mmHg L BMI (Body Mass Index) 26.2 kg/m2 04/06/2006 2:38pm Height 62 inches 5'2" Weight 154.00 lb Heart Rate 72 /min BP Systolic Sitting 130 mmHg BP Diastolic Sitting 70 mmHg Respiratory Rate 18 /min BMI (Body Mass Index) 28.2 kg/m2 09/29/2005 3:10pm Height 62 inches 5'2" Weight 154.00 lb Heart Rate 78 /min regular BP Systolic Sitting 130 mmHg BP Diastolic Sitting 70 mmHg BP Systolic Standing 110 mmHg BP Diastolic Standing 74 mmHg BMI (Body Mass Index) 28.2 kg/m2 06/23/2005 2:56pm Height 62 inches 5'2" Weight 153.00 lb Heart Rate 74 /min BP Systolic Sitting 122 mmHg BP Diastolic Sitting 74 mmHg BP Systolic Standing 126 mmHg BP Diastolic Standing 78 mmHg BMI (Body Mass Index) 28.0 kg/m2 04/30/2005 9:45am Height 62 inches 5'2" Weight 152.00 lb Heart Rate 71 /min BP Systolic Sitting 142 mmHg R BP Diastolic Sitting 70 mmHg R BP Systolic Standing 140 mmHg R BP Diastolic Standing 60 mmHg R O2 % BldC Oximetry 99 % BMI (Body Mass Index) 27.8 kg/m2 01/27/2005 1:55pm Height 62 inches 5'2" Weight 149.00 lb Heart Rate 68 /min BP Systolic Sitting 158 mmHg BP Diastolic Sitting 80 mmHg BP Systolic Standing 150 mmHg BP Diastolic Standing 80 mmHg BMI (Body Mass Index) 27.2 kg/m2 10/02/2004 10:27am Height 62 inches 5'2" Weight 148.00 lb Heart Rate 60 /min regular BP Systolic Sitting 130 mmHg BP Diastolic Sitting 70 mmHg BP Systolic Standing 134 mmHg BP Diastolic Standing 72 mmHg BMI (Body Mass Index) 27.1 kg/m2 09/10/2004 2:12pm Height 62 inches 5'2" Weight 148.00 lb Heart Rate 74 /min BP Systolic Sitting 168 mmHg left arm, right arm 164/70 BP Diastolic Sitting 78 mmHg left arm, right arm 164/70 BP Systolic Standing 162 mmHg BP Diastolic Standing 74 mmHg O2 % BldC Oximetry 98 % BMI (Body Mass Index) 27.1 kg/m2 Results Test Date Facility Test Result H/L Range Note Laboratory test 01/21/2019 [facility] B-Type 262 pg/mL High <= [address] [place] [address] Peptide BNP [phone] Basic Metabolic 01/21/2019 [facility] Sodium 131 mmol/L Low 135-[address] [place] [address] [phone] Potassium 4.1 mmol/L N 3.5-5.0 Chloride 98 mmol/L Low 101-111 Co2 Carbon Dioxide 25 mmol/L N 22-32 Anion Gap 8 mmol/L N 2-11 Glucose 99 mg/dL N 70-100 Blood Urea Nitrogen 12 mg/dL N 6-24 Creatinine 0.81 mg/dL N 0.51-0.95 BUN/Creatinine Ratio 14.8 N 8-20 Calcium 9.7 mg/dL N 8.6-10.3 Egfr Non- 67.4 >60 Egfr 81.5 >60 1 CBC Auto Diff 01/21/2019 [facility] White Blood 4.6 10^3/uL N 3.5-10.[address] [place] [address] [phone] Red Blood Count 3.06 10^6/uL Low 4.00-5.40 Hemoglobin 9.4 g/dL Low 12.0-16.0 Hematocrit 29 % Low 35-47 Mean Corpuscular Volume 94 fL N 80-97 Mean Corpuscular Hemoglobin 31 pg N 27-31 Mean Corpuscular HGB Conc 33 g/dL N 31-36 Red Cell Distribution Width 18 % High 10.5-15 Platelet Count 296 10^3/uL N 150-450 Mean Platelet Volume 8.2 fL N 7.4-10.4 Abs Neutrophils 3.3 10^3/uL N 1.5-7.7 Abs Lymphocytes 0.8 10^3/uL Low 1.0-4.8 Abs Monocytes 0.4 10^3/uL N 0-0.8 Abs Eosinophils 0 10^3/uL N 0-0.6 Abs Basophils 0 10^3/uL N 0-0.2 Abs Nucleated RBC 0 10^3/uL Granulocyte % 72.0 % Lymphocyte % 17.7 % Monocyte % 9.6 % Eosinophil % 0.1 % Basophil % 0.6 % Nucleated Red Blood Cells % 0.1 Laboratory test 01/21/2019 [facility] Erythrocyte Sed 68 mm/Hr High 0-30 [address] [place] [address] [phone] CBC Auto Diff 09/24/2018 [facility] White Blood 5.6 N 3.5- 10.[address] Count 10^3/[place] [address] [phone] Red Blood Count 3.29 10^6/uL Low 4.00-5.40 Hemoglobin 9.6 g/dL Low 12.0-16.0 Hematocrit 30 % Low 35-47 Mean Corpuscular Volume 90 fL N 80-97 Mean Corpuscular Hemoglobin 29 pg N 27-31 Mean Corpuscular HGB Conc 32 g/dL N 31-36 Red Cell Distribution Width 20 % High 10.5-15 Platelet Count 294 10^3/uL N 150-450 Mean Platelet Volume 8.0 um3 N 7.4-10.4 Abs Neutrophils 4.5 10^3/uL N 1.5-7.7 Abs Lymphocytes 0.6 10^3/uL Low 1.0-4.8 Abs Monocytes 0.5 10^3/uL N 0-0.8 Abs Eosinophils 0 10^3/uL N 0-0.6 Abs Basophils 0 10^3/uL N 0-0.2 Abs Nucleated RBC 0 10^3/uL Granulocyte % 79.3 % N 38-83 Lymphocyte % 11.3 % Low 25-47 Monocyte % 8.6 % High 0-7 Eosinophil % 0.1 % N 0-6 Basophil % 0.7 % N 0-2 Nucleated Red Blood Cells % 0 Iron & Iron Binding 09/24/2018 [facility] Iron 76 g/dL N 50- [address] [place] [address] [phone] Unsaturated Iron Binding < 360 g/dL Total Iron Binding Capacity 375 g/dL N 250-450 Transferrin 268 mg/dL N 203-362 % Iron Saturation 20 % N 15-55 Laboratory test 09/24/2018 [facility] Erythrocyte Sed 72 mm/Hr High 0-[address] [place] [address] [phone] CBC Auto Diff 09/15/2018 [facility] White Blood 4.5 N 3.5- 10.[address] Count 10^3/[place] [address] [phone] Red Blood Count 3.23 10^6/uL Low 4.00-5.40 Hemoglobin 9.4 g/dL Low 12.0-16.0 Hematocrit 29 % Low 35-47 Mean Corpuscular Volume 89 fL N 80-97 Mean Corpuscular Hemoglobin 29 pg N 27-31 Mean Corpuscular HGB Conc 33 g/dL N 31-36 Red Cell Distribution Width 21 % High 10.5-15 Platelet Count 317 10^3/uL N 150-450 Mean Platelet Volume 7.7 um3 N 7.4-10.4 Abs Neutrophils 3.2 10^3/uL N 1.5-7.7 Abs Lymphocytes 0.8 10^3/uL Low 1.0-4.8 Abs Monocytes 0.5 10^3/uL N 0-0.8 Abs Eosinophils 0 10^3/uL N 0-0.6 Abs Basophils 0 10^3/uL N 0-0.2 Abs Nucleated RBC 0 10^3/uL Granulocyte % 71.1 % N 38-83 Lymphocyte % 17.3 % Low 25-47 Monocyte % 10.7 % High 0-7 Eosinophil % 0.2 % N 0-6 Basophil % 0.7 % N 0-2 Nucleated Red Blood Cells % 0.1 Laboratory test 09/15/2018 [facility] B-Type 346 pg/mL High [address] [place] [address] Peptide BNP [phone] Basic Metabolic 09/15/2018 [facility] Sodium 133 mmol/L Low 135-[address] [place] [address] [phone] Potassium 4.0 mmol/L N 3.5-5.0 Chloride 95 mmol/L Low 101-111 Co2 Carbon Dioxide 30 mmol/L N 22-32 Anion Gap 8 mmol/L N 2-11 Glucose 146 mg/dL High 70-100 Blood Urea Nitrogen 14 mg/dL N 6-24 Creatinine 0.83 mg/dL N 0.51-0.95 BUN/Creatinine Ratio 16.9 N 8-20 Calcium 9.5 mg/dL N 8.6-10.3 Egfr Non- 65.5 >60 Egfr 79.2 >60 4 Iron & Iron Binding 09/15/2018 [facility] Iron 67 g/dL N 50- 212 Capacity [address] [place] [address] [phone] Unsaturated Iron Binding 324 g/dL Total Iron Binding Capacity 391 g/dL N 250-450 Transferrin 279 mg/dL N 203-362 % Iron Saturation 17 % N 15-55 Laboratory test 09/15/2018 [facility] Ferritin 40.4 ng/mL N 11 -[address] [place] [address] [phone] Erythrocyte Sed Rate 92 mm/Hr High 0-40 Basic Metabolic 08/10/2018 [facility] Sodium 128 mmol/L Low 135-[address] [place] [address] [phone] Potassium 3.8 mmol/L N 3.5-5.0 Chloride 92 mmol/L Low 101-111 Co2 Carbon Dioxide 27 mmol/L N 22-32 Anion Gap 9 mmol/L N 2-11 Glucose 277 mg/dL High 70-100 Blood Urea Nitrogen 11 mg/dL N 6-24 Creatinine 0.76 mg/dL N 0.51-0.95 BUN/Creatinine Ratio 14.5 N 8-20 Calcium 9.3 mg/dL N 8.6-10.3 Egfr Non- 72.7 >60 Egfr 87.9 >60 5 Laboratory test finding 08/10/2018 [facility] LDH 216 U/L N 140-[address] [place] [address] [phone] Iron & Iron Binding 08/10/2018 [facility] Iron 63 g/dL N 50- [address] [place] [address] [phone] Unsaturated Iron Binding 360 g/dL Total Iron Binding Capacity 423 g/dL N 250-450 Transferrin 302 mg/dL N 203-362 % Iron Saturation 15 % N 15-55 Laboratory test 08/10/2018 [facility] TSH (Thyroid 4.48 mcIU/mL N 0.34-5.[address] Stim Horm) [place] [address] [phone] Ferritin 23.1 ng/mL N 11-307 Folic Acid (Folate) > 20.00 ng/mL >3.99 CBC Auto 08/10/2018 [facility] White Blood 3.2 10^3/uL Low 3.5 -10.[address] [place] [address] [phone] Red Blood Count 3.52 10^6/uL Low 4.00-5.40 Hemoglobin 9.6 g/dL Low 12.0-16.0 Hematocrit 29 % Low 35-47 Mean Corpuscular Volume 84 fL N 80-97 Mean Corpuscular Hemoglobin 27 pg N 27-31 Mean Corpuscular HGB Conc 33 g/dL N 31-36 Red Cell Distribution Width 19 % High 10.5-15 Platelet Count 267 10^3/uL N 150-450 Mean Platelet Volume 8.1 um3 N 7.4-10.4 Abs Neutrophils 2.0 10^3/uL N 1.5-7.7 Abs Lymphocytes 0.8 10^3/uL Low 1.0-4.8 Abs Monocytes 0.5 10^3/uL N 0-0.8 Abs Eosinophils 0 10^3/uL N 0-0.6 Abs Basophils 0 10^3/uL N 0-0.2 Abs Nucleated RBC 0 10^3/uL Granulocyte % 60.3 % N 38-83 Lymphocyte % 24.2 % Low 25-47 Monocyte % 14.3 % High 0-7 Eosinophil % 0.1 % N 0-6 Basophil % 1.1 % N 0-2 Nucleated Red Blood Cells % 0.1 Laboratory test 08/10/2018 [facility] Erythrocyte Sed 68 mm/Hr High 0-[address] [place] [address] [phone] Fructosamine 315 mcmol/L Abnormal 200 - 285 6 Haptoglobin 189 mg/dL 30 - 200 7 Laboratory test 06/23/2018 [facility] Magnesium 1.9 mg/dL N 1.9-2.[address] [place] [address] [phone] Comp Metabolic 06/23/2018 [facility] Sodium 129 mmol/L Low 135 -[address] [place] [address] [phone] Potassium 3.8 mmol/L N 3.5-5.0 Chloride 92 mmol/L Low 101-111 Co2 Carbon Dioxide 29 mmol/L N 22-32 Anion Gap 8 mmol/L N 2-11 Glucose 264 mg/dL High 70-100 Blood Urea Nitrogen 13 mg/dL N 6-24 Creatinine 0.80 mg/dL N 0.51-0.95 BUN/Creatinine Ratio 16.3 N 8-20 Calcium 9.4 mg/dL N 8.6-10.3 Total Protein 6.6 g/dL N 6.4-8.9 Albumin 3.7 g/dL N 3.2-5.2 Globulin 2.9 g/dL N 2-4 Albumin/Globulin Ratio 1.3 N 1-3 Total Bilirubin 0.30 mg/dL N 0.2-1.0 Alkaline Phosphatase 89 U/L N 34-104 Alt 9 U/L N 7-52 Ast 19 U/L N 13-39 Egfr Non- 68.5 >60 Egfr 82.9 >60 8 Laboratory test 06/23/2018 [facility] C Reactive 22.29 mg/L High <8.[address] [place] [address] [phone] CBC Auto Diff 06/23/2018 [facility] White Blood 4.0 N 3.5- 10.[address] Count 10^3/[place] [address] [phone] Red Blood Count 3.20 10^6/uL Low 4.00-5.40 Hemoglobin 9.0 g/dL Low 12.0-16.0 Hematocrit 28 % Low 35-47 Mean Corpuscular Volume 86 fL N 80-97 Mean Corpuscular Hemoglobin 28 pg N 27-31 Mean Corpuscular HGB Conc 33 g/dL N 31-36 Red Cell Distribution Width 18 % High 10.5-15 Platelet Count 296 10^3/uL N 150-450 Mean Platelet Volume 7.9 um3 N 7.4-10.4 Abs Neutrophils 2.9 10^3/uL N 1.5-7.7 Abs Lymphocytes 0.7 10^3/uL Low 1.0-4.8 Abs Monocytes 0.4 10^3/uL N 0-0.8 Abs Eosinophils 0 10^3/uL N 0-0.6 Abs Basophils 0 10^3/uL N 0-0.2 Abs Nucleated RBC 0 10^3/uL Granulocyte % 71.4 % N 38-83 Lymphocyte % 17.4 % Low 25-47 Monocyte % 10.4 % High 0-7 Eosinophil % 0.1 % N 0-6 Basophil % 0.7 % N 0-2 Nucleated Red Blood Cells % 0.1 Laboratory test 06/23/2018 [facility] Erythrocyte Sed 76 mm/Hr High 0-[address] [place] [address] [phone] Basic Metabolic 05/29/2018 [facility] Sodium 131 Low 135-[address] mmol/[place] [address] [phone] Potassium 3.7 mmol/L N 3.5-5.0 Chloride 92 mmol/L Low 101-111 Co2 Carbon Dioxide 31 mmol/L N 22-32 Anion Gap 8 mmol/L N 2-11 Glucose 324 mg/dL High 70-100 Blood Urea Nitrogen 16 mg/dL N 6-24 Creatinine 0.91 mg/dL N 0.51-0.95 BUN/Creatinine Ratio 17.6 N 8-20 Calcium 9.5 mg/dL N 8.6-10.3 Egfr Non- 59.0 >60 Egfr 71.4 >60 9 CBC No Diff 05/29/2018 [facility] White Blood 3.1 10^3/uL Low 3.5-10.[address] [place] [address] [phone] Red Blood Count 4.02 10^6/uL N 4.00-5.40 Hemoglobin 11.4 g/dL Low 12.0-16.0 Hematocrit 36 % N 35-47 Mean Corpuscular Volume 90 fL N 80-97 Mean Corpuscular Hemoglobin 28 pg N 27-31 Mean Corpuscular HGB Conc 32 g/dL N 31-36 Red Cell Distribution Width 18 % High 10.5-15 Platelet Count 229 10^3/uL N 150-450 Mean Platelet Volume 7.8 um3 N 7.4-10.4 Laboratory test 05/29/2018 [facility] Erythrocyte Sed 78 mm/Hr High 0-[address] [place] [address] [phone] Laboratory test 05/29/2018 [facility] B-Type 230 pg/mL High [address] [place] [address] Peptide BNP [phone] Laboratory test 05/13/2018 [facility] B-Type <pending> finding [address] [place] [address] Peptide BNP [phone] CBC Auto Diff 03/05/2018 [facility] White Blood 5.0 N 3.5- 10.[address] Count 10^3/[place] [address] [phone] Red Blood Count 3.44 10^6/uL Low 4.0-5.4 Hemoglobin 9.8 g/dL Low 12.0-16.0 Hematocrit 30 % Low 35-47 Mean Corpuscular Volume 87 fL N 80-97 Mean Corpuscular Hemoglobin 28 pg N 27-31 Mean Corpuscular HGB Conc 33 g/dL N 31-36 Red Cell Distribution Width 19 % High 10.5-15 Platelet Count 316 10^3/uL N 150-450 Mean Platelet Volume 8.2 um3 N 7.4-10.4 Abs Neutrophils 3.4 10^3/uL N 1.5-7.7 Abs Lymphocytes 1.1 10^3/uL N 1.0-4.8 Abs Monocytes 0.5 10^3/uL N 0-0.8 Abs Eosinophils 0 10^3/uL N 0-0.6 Abs Basophils 0 10^3/uL N 0-0.2 Abs Nucleated RBC 0 10^3/uL Granulocyte % 68.3 % N 38-83 Lymphocyte % 22.1 % Low 25-47 Monocyte % 9.0 % High 0-7 Eosinophil % 0 % N 0-6 Basophil % 0.6 % N 0-2 Nucleated Red Blood Cells % 0.1 Laboratory test 03/05/2018 [facility] B-Type 265 pg/mL High [address] [place] [address] Peptide BNP [phone] Magnesium 2.1 mg/dL N 1.9-2.7 Laboratory test 03/05/2018 [facility] Erythrocyte Sed 69 mm/Hr High 0-[address] Rate [place], [place] [id number] [phone] C Reactive Protein 12.73 mg/L High < 5.00 12 Comp Metabolic Panel 03/05/2018 [facility] Sodium 132 mmol/L Low 139-[address] [place], [place] [id number] [phone] Potassium 4.1 mmol/L N 3.5-5.0 Chloride 96 mmol/L Low 101-111 Co2 Carbon Dioxide 29 mmol/L N 22-32 Anion Gap 7 mmol/L N 2-11 Glucose 209 mg/dL High 70-100 Blood Urea Nitrogen 16 mg/dL N 6-24 Creatinine 0.85 mg/dL N 0.51-0.95 BUN/Creatinine Ratio 18.8 N 8-20 Calcium 9.7 mg/dL N 8.6-10.3 Total Protein 7.3 g/dL N 6.4-8.9 Albumin 4.2 g/dL N 3.2-5.2 Globulin 3.1 g/dL N 2-4 Albumin/Globulin Ratio 1.4 N 1-3 Total Bilirubin 0.30 mg/dL N 0.2-1.0 Alkaline Phosphatase 91 U/L N 34-104 Alt 11 U/L N 7-52 Ast 21 U/L N 13-39 Egfr Non- 63.9 >60 Egfr 82.1 >60 13 Laboratory test 03/05/2018 [facility] TSH (Thyroid 8.13 High 0.34-5.[address] Stim Horm) mcIU/[place] [address] [phone] CBC Auto Diff 01/19/2018 [facility] White Blood 6.0 10^3/uL N 3.5-10.[address] [place] [address] [phone] Red Blood Count 3.37 10^6/uL Low 4.0-5.4 Hemoglobin 9.5 g/dL Low 12.0-16.0 Hematocrit 29 % Low 35-47 Mean Corpuscular Volume 87 fL N 80-97 Mean Corpuscular Hemoglobin 28 pg N 27-31 Mean Corpuscular HGB Conc 33 g/dL N 31-36 Red Cell Distribution Width 18 % High 10.5-15 Platelet Count 285 10^3/uL N 150-450 Mean Platelet Volume 8 um3 N 7.4-10.4 Abs Neutrophils 4.2 10^3/uL N 1.5-7.7 Abs Lymphocytes 1.1 10^3/uL N 1.0-4.8 Abs Monocytes 0.6 10^3/uL N 0-0.8 Abs Eosinophils 0 10^3/uL N 0-0.6 Abs Basophils 0 10^3/uL N 0-0.2 Abs Nucleated RBC 0 10^3/uL Granulocyte % 69.9 % N 38-83 Lymphocyte % 18.9 % Low 25-47 Monocyte % 10.6 % High 0-7 Eosinophil % 0.1 % N 0-6 Basophil % 0.5 % N 0-2 Nucleated Red Blood Cells % 0 Comp Metabolic Panel 01/19/2018 [facility] Sodium 131 mmol/L Low 133-[address] [place] [address] [phone] Potassium 4.2 mmol/L N 3.5-5.0 Chloride 94 mmol/L Low 101-111 Co2 Carbon Dioxide 30 mmol/L N 22-32 Anion Gap 7 mmol/L N 2-11 Glucose 97 mg/dL N 70-100 Blood Urea Nitrogen 14 mg/dL N 6-24 Creatinine 0.85 mg/dL N 0.51-0.95 BUN/Creatinine Ratio 16.5 N 8-20 Calcium 9.9 mg/dL N 8.6-10.3 Total Protein 7.2 g/dL N 6.4-8.9 Albumin 4.0 g/dL N 3.2-5.2 Globulin 3.2 g/dL N 2-4 Albumin/Globulin Ratio 1.3 N 1-3 Total Bilirubin 0.40 mg/dL N 0.2-1.0 Alkaline Phosphatase 68 U/L N 34-104 Alt 12 U/L N 7-52 Ast 20 U/L N 13-39 Egfr Non- 63.9 >60 Egfr 82.1 >60 14 Laboratory test 01/19/2018 [facility] Erythrocyte Sed 65 mm/Hr High 0-40 [address] [place] [address] [phone] C Reactive Protein 13.97 mg/L High < 5.00 16 Quantiferon Gold 10/22/2017 [facility] M tuberculosis Negative Negative [address] [place] [address] [phone] TB Ag minus Nil Result 0.01 IU/mL TB Mitogen minus Nil Result > 10.00 IU/mL TB Nil Result 0.06 IU/mL 18 Comp Metabolic Panel 10/22/2017 [facility] Sodium 131 mmol/L Low 133-[address] [place] [address] [phone] Potassium 4.1 mmol/L N 3.5-5.0 Chloride 95 mmol/L Low 101-111 Co2 Carbon Dioxide 30 mmol/L N 22-32 Anion Gap 6 mmol/L N 2-11 Glucose 117 mg/dL High 70-100 Blood Urea Nitrogen 13 mg/dL N 6-24 Creatinine 0.86 mg/dL N 0.51-0.95 BUN/Creatinine Ratio 15.1 N 8-20 Calcium 9.3 mg/dL N 8.6-10.3 Total Protein 7.1 g/dL N 6.4-8.9 Albumin 4.0 g/dL N 3.2-5.2 Globulin 3.1 g/dL N 2-4 Albumin/Globulin Ratio 1.3 N 1-3 Total Bilirubin 0.40 mg/dL N 0.2-1.0 Alkaline Phosphatase 78 U/L N 34-104 Alt 10 U/L N 7-52 Ast 21 U/L N 13-39 Egfr Non- 63.0 >60 Egfr 81.0 >60 19 Vitamin B12 And 10/22/2017 [facility] Vitamin B12 834 pg/mL N 180-914 20 Folate Serum [address] [place] [address] [phone] Folic Acid (Folate) > 20.00 ng/mL >3.99 21 Iron & Iron Binding 10/22/2017 [facility] Iron 75 g/dL N 50- [address] [place] [address] [phone] Unsaturated Iron Binding 344 g/dL Total Iron Binding Capacity 419 g/dL N 250-450 % Iron Saturation 18 % N 15-55 CBC Auto Diff 10/22/2017 [facility] White Blood 5.2 10^3/uL N 3.5-10.[address] [place] [address] [phone] Red Blood Count 3.05 10^6/uL Low 4.0-5.4 Hemoglobin 9.0 g/dL Low 12.0-16.0 Hematocrit 28 % Low 35-47 Mean Corpuscular Volume 91 fL N 80-97 Mean Corpuscular Hemoglobin 30 pg N 27-31 Mean Corpuscular HGB Conc 33 g/dL N 31-36 Red Cell Distribution Width 19 % High 10.5-15 Platelet Count 304 10^3/uL N 150-450 Mean Platelet Volume 8 um3 N 7.4-10.4 Abs Neutrophils 3.5 10^3/uL N 1.5-7.7 Abs Lymphocytes 1.1 10^3/uL N 1.0-4.8 Abs Monocytes 0.5 10^3/uL N 0-0.8 Abs Eosinophils 0 10^3/uL N 0-0.6 Abs Basophils 0 10^3/uL N 0-0.2 Abs Nucleated RBC 0 10^3/uL Granulocyte % 67.3 % N 38-83 Lymphocyte % 21.7 % Low 25-47 Monocyte % 10.4 % High 1-9 Eosinophil % 0.1 % N 0-6 Basophil % 0.5 % N 0-2 Nucleated Red Blood Cells % 0 Laboratory test 10/22/2017 [facility] C Reactive 12.78 mg/L High < 5.00 [address] [place] [address] [phone] Erythrocyte Sed Rate 77 mm/Hr High 0-40 23 Laboratory test 09/11/2017 [facility] Erythrocyte Sed 77 mm/Hr High 0-[address] [place] [address] [phone] C Reactive Protein 21.64 mg/L High < 5.00 24 Rheumatoid Factor 18 IU/mL Abnormal <15 25 Cyclic Citrullinated Pep Igg >250.0 U Abnormal 26 CBC Auto Diff 09/11/2017 [facility] White Blood 5.0 10^3/uL N 3.5-10.[address] [place] [address] [phone] Red Blood Count 3.39 10^6/uL Low 4.0-5.4 Hemoglobin 9.6 g/dL Low 12.0-16.0 Hematocrit 29 % Low 35-47 Mean Corpuscular Volume 87 fL N 80-97 Mean Corpuscular Hemoglobin 28 pg N 27-31 Mean Corpuscular HGB Conc 33 g/dL N 31-36 Red Cell Distribution Width 20 % High 10.5-15 Platelet Count 316 10^3/uL N 150-450 Mean Platelet Volume 8 um3 N 7.4-10.4 Abs Neutrophils 3.3 10^3/uL N 1.5-7.7 Abs Lymphocytes 1.2 10^3/uL N 1.0-4.8 Abs Monocytes 0.5 10^3/uL N 0-0.8 Abs Eosinophils 0 10^3/uL N 0-0.6 Abs Basophils 0 10^3/uL N 0-0.2 Abs Nucleated RBC 0 10^3/uL N Granulocyte % 66.4 % N 38-83 Lymphocyte % 23.5 % Low 25-47 Monocyte % 9.5 % High 1-9 Eosinophil % 0.1 % N 0-6 Basophil % 0.5 % N 0-2 Nucleated Red Blood Cells % 0 N Comp Metabolic Panel 09/11/2017 [facility] Sodium 132 mmol/L Low 133-[address] [place] [address] [phone] Potassium 3.9 mmol/L N 3.5-5.0 Chloride 95 mmol/L Low 101-111 Co2 Carbon Dioxide 31 mmol/L N 22-32 Anion Gap 6 mmol/L N 2-11 Glucose 118 mg/dL High 70-100 Blood Urea Nitrogen 14 mg/dL N 6-24 Creatinine 0.79 mg/dL N 0.51-0.95 BUN/Creatinine Ratio 17.7 N 8-20 Calcium 10.0 mg/dL N 8.6-10.3 Total Protein 7.4 g/dL N 6.4-8.9 Albumin 4.0 g/dL N 3.2-5.2 Globulin 3.4 g/dL N 2-4 Albumin/Globulin Ratio 1.2 N 1-3 Total Bilirubin 0.40 mg/dL N 0.2-1.0 Alkaline Phosphatase 82 U/L N 34-104 Alt 12 U/L N 7-52 Ast 20 U/L N 13-39 Egfr Non- 69.5 N >60 Egfr 89.4 N >60 27 Iron & Iron Binding 09/11/2017 [facility] Iron 67 g/dL N 50- [address] [place] [address] [phone] Unsaturated Iron Binding 347 g/dL N Total Iron Binding Capacity 414 g/dL N 250-450 % Iron Saturation 16 % N 15-55 Protein 09/11/2017 [facility] Total 7.6 g/dL N 6.3 - Electrophoresis [address] Protein(Pep) 7.9 [place] [address] [phone] Albumin 3.5 g/dL N 3.4-4.7 Alpha-1 Globulin 0.3 g/dL N 0.1-0.3 Alpha-2 Globulin 1.1 g/dL Abnormal 0.6-1.0 Beta Globulin 1.2 g/dL N 0.7-1.2 Gamma Globulin 1.6 g/dL N 0.6-1.6 Albumin/Globulin Ratio 0.84 N Impression See Comment N 28 Laboratory test 09/11/2017 [facility] Creatine 70 U/L N 10- [address] Kinase(CK) [place] [address] [phone] Laboratory test 03/06/2017 [facility] Erythrocyte Sed 81 mm/Hr High 0-[address] [place] [address] [phone] CBC Auto Diff 03/06/2017 [facility] White Blood 4.6 N 3.5- 10.[address] Count 10^3/[place] [address] [phone] Red Blood Count 3.55 10^6/uL Low 4.0-5.4 Hemoglobin 9.7 g/dL Low 12.0-16.0 Hematocrit 31 % Low 35-47 Mean Corpuscular Volume 86 fL N 80-97 Mean Corpuscular Hemoglobin 27 pg N 27-31 Mean Corpuscular HGB Conc 32 g/dL N 31-36 Red Cell Distribution Width 19 % High 10.5-15 Platelet Count 290 10^3/uL N 150-450 Mean Platelet Volume 8 um3 N 7.4-10.4 Abs Neutrophils 3.1 10^3/uL N 1.5-7.7 Abs Lymphocytes 1.0 10^3/uL N 1.0-4.8 Abs Monocytes 0.5 10^3/uL N 0-0.8 Abs Eosinophils 0 10^3/uL N 0-0.6 Abs Basophils 0 10^3/uL N 0-0.2 Abs Nucleated RBC 0 10^3/uL N Granulocyte % 67.8 % N 38-83 Lymphocyte % 20.5 % Low 25-47 Monocyte % 11.0 % High 1-9 Eosinophil % 0.1 % N 0-6 Basophil % 0.6 % N 0-2 Nucleated Red Blood Cells % 0 N Laboratory test 03/06/2017 [facility] Magnesium 2.0 mg/dL N 1.9-2.7 finding [address] [place] [address] [phone] B-Type Natriuretic Peptide BNP 174 pg/mL High 29 Comp Metabolic Panel 03/06/2017 [facility] Sodium 132 mmol/L Low 133-145 [address] [place] [address] [phone] Potassium 4.1 mmol/L N 3.5-5.0 Chloride 96 mmol/L Low 101-111 Co2 Carbon Dioxide 30 mmol/L N 22-32 Anion Gap 6 mmol/L N 2-11 Glucose 170 mg/dL High 70-100 Blood Urea Nitrogen 10 mg/dL N 6-24 Creatinine 0.79 mg/dL N 0.51-0.95 BUN/Creatinine Ratio 12.7 N 8-20 Calcium 9.7 mg/dL N 8.6-10.3 Total Protein 7.4 g/dL N 6.4-8.9 Albumin 3.9 g/dL N 3.2-5.2 Globulin 3.5 g/dL N 2-4 Albumin/Globulin Ratio 1.1 N 1-3 Total Bilirubin 0.40 mg/dL N 0.2-1.0 Alkaline Phosphatase 80 U/L N 34-104 Alt 11 U/L N 7-52 Ast 20 U/L N 13-39 Egfr Non- 69.7 N >60 Egfr 89.6 N >60 30 Lipid Profile 03/06/2017 [facility] Triglycerides 99 mg/dL N 31 (Trig/Chol/HDL) [address] [place] [address] [phone] Cholesterol 222 mg/dL N 32 HDL Cholesterol 62.3 mg/dL N 33 LDL Cholesterol 140 mg/dL N 34 Lipid Panel - 03/06/2017 [facility] Creatine 50 U/L N 10-[address] Kinase(CK) [place] [address] [phone] CBC Auto Diff 12/08/2016 [facility] White Blood Count 4.9 N 3.5-10.[address] 10^3/[place] [address] [phone] Red Blood Count 3.62 10^6/uL Low 4.0-5.4 Hemoglobin 10.0 g/dL Low 12.0-16.0 Hematocrit 32 % Low 35-47 Mean Corpuscular Volume 87 fL N 80-97 Mean Corpuscular Hemoglobin 28 pg N 27-31 Mean Corpuscular HGB Conc 32 g/dL N 31-36 Red Cell Distribution Width 18 % High 10.5-15 Platelet Count 290 10^3/uL N 150-450 Mean Platelet Volume 8 um3 N 7.4-10.4 Abs Neutrophils 3.5 10^3/uL N 1.5-7.7 Abs Lymphocytes 0.9 10^3/uL Low 1.0-4.8 Abs Monocytes 0.4 10^3/uL N 0-0.8 Abs Eosinophils 0 10^3/uL N 0-0.6 Abs Basophils 0 10^3/uL N 0-0.2 Abs Nucleated RBC 0 10^3/uL N Granulocyte % 71.1 % N 38-83 Lymphocyte % 19.3 % Low 25-47 Monocyte % 8.9 % N 1-9 Eosinophil % 0 % N 0-6 Basophil % 0.7 % N 0-2 Nucleated Red Blood Cells % 0 N Basic Metabolic 12/08/2016 [facility] Sodium 132 mmol/L Low 133-[address] [place] [address] [phone] Potassium 4.1 mmol/L N 3.5-5.0 Chloride 96 mmol/L Low 101-111 Co2 Carbon Dioxide 30 mmol/L N 22-32 Anion Gap 6 mmol/L N 2-11 Glucose 322 mg/dL High 70-100 Blood Urea Nitrogen 13 mg/dL N 6-24 Creatinine 0.78 mg/dL N 0.51-0.95 BUN/Creatinine Ratio 16.7 N 8-20 Calcium 9.5 mg/dL N 8.6-10.3 Egfr Non- 70.7 N >60 Egfr 90.9 N >60 35 Laboratory test 12/08/2016 [facility] B-Type 180 pg/mL High [address] [place] [address] Peptide BNP [phone] Magnesium 1.9 mg/dL N 1.9-2.7 37 Erythrocyte Sed Rate 78 mm/Hr High 0-40 Lipid Profile 12/08/2016 [facility] Triglycerides 84 mg/dL N 38 (Trig/Chol/HDL) [address] [place] [address] [phone] Cholesterol 209 mg/dL N 39 HDL Cholesterol 62.2 mg/dL N 40 LDL Cholesterol 130 mg/dL N 41 CBC No Diff 07/29/2016 [facility] White Blood 4.9 10^3/uL N 3.5-10.[address] [place] [address] [phone] Red Blood Count 3.64 10^6/uL Low 4.0-5.4 Hemoglobin 9.8 g/dL Low 12.0-16.0 Hematocrit 31 % Low 35-47 Mean Corpuscular Volume 84 fL N 80-97 Mean Corpuscular Hemoglobin 27 pg N 27-31 Mean Corpuscular HGB Conc 32 g/dL N 31-36 Red Cell Distribution Width 20 % High 10.5-15 Platelet Count 315 10^3/uL N 150-450 Mean Platelet Volume 8 um3 N 7.4-10.4 Inr/Protime 07/29/2016 [facility] Inr 1.00 N 0.89-1.[address] [place] [address] [phone] Laboratory test 07/29/2016 [facility] Partial 53.0 High 26.0- 36.[address] [address] Time PTT [phone] Basic Metabolic 07/29/2016 [facility] Sodium 131 mmol/L Low 133-[address] [place] [address] [phone] Potassium 4.3 mmol/L N 3.5-5.0 Chloride 97 mmol/L Low 101-111 Co2 Carbon Dioxide 28 mmol/L N 22-32 Anion Gap 6 mmol/L N 2-11 Glucose 186 mg/dL High 70-100 Blood Urea Nitrogen 13 mg/dL N 6-24 Creatinine 0.75 mg/dL N 0.51-0.95 BUN/Creatinine Ratio 17.3 N 8-20 Calcium 9.4 mg/dL N 8.6-10.3 Egfr Non- 74.2 N >60 Egfr 95.4 N >60 42 Laboratory test 07/18/2016 [facility] Point of Care 232 mg/dL High 74-106 43 finding 101 [facility] [place] [place] [address] [phone] Laboratory test 05/15/2016 [facility] Magnesium 2.1 mg/dL N 1.9-2.[address] [place] [address] [phone] CBC Auto Diff 05/15/2016 [facility] White Blood 5.2 N 3.5- 10.[address] Count 10^3/[place] [address] [phone] Red Blood Count 3.94 10^6/uL Low 4.0-5.4 Hemoglobin 10.0 g/dL Low 12.0-16.0 Hematocrit 32 % Low 35-47 Mean Corpuscular Volume 81 fL N 80-97 Mean Corpuscular Hemoglobin 25 pg Low 27-31 Mean Corpuscular HGB Conc 31 g/dL N 31-36 Red Cell Distribution Width 19 % High 10.5-15 Platelet Count 315 10^3/uL N 150-450 Mean Platelet Volume 8 um3 N 7.4-10.4 Abs Neutrophils 3.6 10^3/uL N 1.5-7.7 Abs Lymphocytes 1.0 10^3/uL N 1.0-4.8 Abs Monocytes 0.5 10^3/uL N 0-0.8 Abs Eosinophils 0 10^3/uL N 0-0.6 Abs Basophils 0 10^3/uL N 0-0.2 Abs Nucleated RBC 0 10^3/uL N Granulocyte % 69.8 % N 38-83 Lymphocyte % 19.9 % Low 25-47 Monocyte % 9.4 % High 1-9 Eosinophil % 0.1 % N 0-6 Basophil % 0.8 % N 0-2 Nucleated Red Blood Cells % 0 N Laboratory test 05/15/2016 [facility] Erythrocyte Sed 66 mm/Hr High 0-[address] [place] [address] [phone] CRP High Sensitivity 20.22 mg/L N 44 Comp Metabolic Panel 05/15/2016 [facility] Sodium 131 mmol/L Low 133-[address] [place] [address] [phone] Potassium 4.2 mmol/L N 3.5-5.0 Chloride 96 mmol/L Low 101-111 Co2 Carbon Dioxide 30 mmol/L N 22-32 Anion Gap 5 mmol/L N 2-11 Glucose 217 mg/dL High 70-100 Blood Urea Nitrogen 12 mg/dL N 6-24 Creatinine 0.74 mg/dL N 0.51-0.95 BUN/Creatinine Ratio 16.2 N 8-20 Calcium 9.6 mg/dL N 8.6-10.3 Total Protein 7.2 g/dL N 6.4-8.9 Albumin 3.9 g/dL N 3.2-5.2 Globulin 3.3 g/dL N 2-4 Albumin/Globulin Ratio 1.2 N 1-3 Total Bilirubin 0.40 mg/dL N 0.2-1.0 Alkaline Phosphatase 78 U/L N 34-104 Alt 8 U/L N 7-52 Ast 17 U/L N 13-39 Egfr Non- 75.3 N >60 Egfr 96.9 N >60 45 Laboratory test 05/15/2016 [facility] B-Type 458 pg/mL High [address] [place] [address] Peptide BNP [phone] Laboratory test 04/25/2016 [facility] Magnesium 1.9 mg/dL N 1.9-[address] [place] [address] [phone] Comp Metabolic 04/25/2016 [facility] Sodium 131 mmol/L Low 133 -[address] [place] [address] [phone] Potassium 4.2 mmol/L N 3.5-5.0 Chloride 97 mmol/L Low 101-111 Co2 Carbon Dioxide 28 mmol/L N 22-32 Anion Gap 6 mmol/L N 2-11 Glucose 183 mg/dL High 70-100 Blood Urea Nitrogen 12 mg/dL N 6-24 Creatinine 0.69 mg/dL N 0.51-0.95 BUN/Creatinine Ratio 17.4 N 8-20 Calcium 9.3 mg/dL N 8.6-10.3 Total Protein 6.8 g/dL N 6.4-8.9 Albumin 3.7 g/dL N 3.2-5.2 Globulin 3.1 g/dL N 2-4 Albumin/Globulin Ratio 1.2 N 1-3 Total Bilirubin 0.30 mg/dL N 0.2-1.0 Alkaline Phosphatase 73 U/L N 34-104 Alt 8 U/L N 7-52 Ast 16 U/L N 13-39 Egfr Non- 81.7 N >60 Egfr 105.0 N >60 47 Laboratory test 04/25/2016 [facility] B-Type 391 pg/mL High [address] [place] [address] Peptide BNP [phone] Order 04/04/2016 [facility] Overnight <pending> [address] [place] [address] [phone] Laboratory test 03/12/2016 [facility] TSH (Thyroid 3.58 N 0.34 - finding [address] Stim Horm) ?IU/mL 5.60 [place] [place] [address] [phone] Erythrocyte Sed Rate 69 mm/Hr High 0-40 C Reactive Protein 24.66 mg/L High < 5.00 49 CBC Auto Diff 03/12/2016 [facility] White Blood 4.5 10^3/uL N 3.5-10.[address] [place] [address] [phone] Red Blood Count 3.73 10^6/uL Low 4.0-5.4 Hemoglobin 9.8 g/dL Low 12.0-16.0 Hematocrit 31 % Low 35-47 Mean Corpuscular Volume 84 fL N 80-97 Mean Corpuscular Hemoglobin 26 pg Low 27-31 Mean Corpuscular HGB Conc 31 g/dL N 31-36 Red Cell Distribution Width 18 % High 10.5-15 Platelet Count 260 10^3/uL N 150-450 Mean Platelet Volume 9 um3 N 7.4-10.4 Abs Neutrophils 2.8 10^3/uL N 1.5-7.7 Abs Lymphocytes 1.1 10^3/uL N 1.0-4.8 Abs Monocytes 0.5 10^3/uL N 0-0.8 Abs Eosinophils 0 10^3/uL N 0-0.6 Abs Basophils 0 10^3/uL N 0-0.2 Abs Nucleated RBC 0 10^3/uL N Granulocyte % 63.2 % N 38-83 Lymphocyte % 24.6 % Low 25-47 Monocyte % 11.4 % High 1-9 Eosinophil % 0 % N 0-6 Basophil % 0.8 % N 0-2 Nucleated Red Blood Cells % 0.1 N Comp Metabolic Panel 03/12/2016 [facility] Sodium 130 mmol/L Low 133-[address] [place] [address] [phone] Potassium 4.1 mmol/L N 3.5-5.0 Chloride 95 mmol/L Low 101-111 Co2 Carbon Dioxide 29 mmol/L N 22-32 Anion Gap 6 mmol/L N 2-11 Glucose 239 mg/dL High 70-100 Blood Urea Nitrogen 12 mg/dL N 6-24 Creatinine 0.77 mg/dL N 0.51-0.95 BUN/Creatinine Ratio 15.6 N 8-20 Calcium 9.3 mg/dL N 8.6-10.3 Total Protein 7.0 g/dL N 6.4-8.9 Albumin 3.8 g/dL N 3.2-5.2 Globulin 3.2 g/dL N 2-4 Albumin/Globulin Ratio 1.2 N 1-3 Total Bilirubin 0.30 mg/dL N 0.2-1.0 Alkaline Phosphatase 78 U/L N 34-104 Alt 10 U/L N 7-52 Ast 18 U/L N 13-39 Egfr Non- 71.9 N >60 Egfr 92.5 N >60 50 Surgical 01/12/2015 [facility] S RUN DATE: [address] 01/16/ <[place] [address] NOTE> [phone] Laboratory test 12/13/2014 [facility] Erythrocyte Sed 75 mm/Hr High 0-[address] [place] [address] [phone] CBC No Diff 11/26/2013 [facility] White Blood 4.9 10^3/uL 4.8 -[address] Count 0.8 [place] [address] [phone] Red Blood Count 3.85 10^6/uL Low 4.0-5.4 Hemoglobin 11.2 g/dL Low 12.0-16.0 Hematocrit 34 % Low 35-47 Mean Corpuscular Volume 88 fL 80-97 Mean Corpuscular Hemoglobin 29 pg 27-31 Mean Corpuscular HGB Conc 33 g/dL 31-36 Red Cell Distribution Width 17 % High 10.5-15 Platelet Count 294 10^3/uL 150-450 Mean Platelet Volume 9 um3 7.4-10.4 Laboratory test 11/26/2013 [facility] Erythrocyte Sed 61 mm/Hr High 0-[address] [place] [address] [phone] Comp Metabolic 11/26/2013 [facility] Sodium 131 Low 133-[address] mmol/[place] [address] [phone] Potassium 4.1 mmol/L 3.5-5.0 Chloride 97 mmol/L Low 101-111 Co2 Carbon Dioxide 29.0 mmol/L 22-32 Anion Gap 5.0 mmol/L 2-11 Glucose 363 mg/dL High 70-100 Blood Urea Nitrogen 13 mg/dL 6-24 Creatinine 0.80 mg/dL 0.50-1.40 BUN/Creatinine Ratio 16.3 8-20 Calcium 9.4 mg/dL 8.1-9.9 Total Protein 6.5 g/dL 6.2-8.1 Albumin 3.6 g/dL 3.2-5.2 Globulin 2.9 g/dL 2-4 Albumin/Globulin Ratio 1.2 1-3 Total Bilirubin 0.6 mg/dL 0.4-1.5 Alkaline Phosphatase 80 U/L 30-110 Alt 14 U/L 14-54 Ast 21 U/L 12-42 Egfr Non- 69.2 >60 Egfr 89.0 >60 52 Lipid Profile 11/26/2013 [facility] Triglycerides 56 mg/dL 40 -200 (Trig/Chol/HDL) [address] [place] [address] [phone] Cholesterol 228 mg/dL High Less than 200 HDL Cholesterol 72 mg/dL High 40-60 53 Cholesterol/HDL Ratio 3.2 Average 1-4.44 LDL Cholesterol 144.8 High Less Than 100 54 Liver Function 11/26/2013 [facility] Direct < 0.1 mg/dL Low 0.1-0.[address] Bilirubin [place], [place] [id number] [phone] Indirect Bilirubin (SEE NOTE) mg/dL 0.3-1.0 55 Laboratory test 11/26/2013 [facility] TSH (Thyroid 3.60 0.34- 5.[address] Stimulating miu/[place] [address] Horm) [phone] Urine 11/26/2013 [facility] Ur Microalbumin 100.0 [address] (mg/L) mg/[place] [address] [phone] Urine Creatinine 53.7 mg/dL Urine Microalbumin/Creatinine 186.2 High Less Than 31 Laboratory test 10/29/2012 [facility] Erythrocyte Sed 64 mm/Hr High 0-[address] Rate [place], [place] [id number] [phone] CBC Auto Diff 10/29/2012 [facility] White Blood 4.7 Low 4.8- 10.[address] Count 10^3/[place] [address] [phone] Red Blood Count 3.64 10^6/uL Low 4.0-5.4 Hemoglobin 10.5 g/dL Low 12.0-16.0 Hematocrit 32 % Low 35-47 Mean Corpuscular Volume 87 fL 80-97 Mean Corpuscular Hemoglobin 29 pg 27-31 Mean Corpuscular HGB Conc 33 g/dL 31-36 Red Cell Distribution Width 17 % High 10.5-15 Platelet Count 278 10^3/uL 150-450 Mean Platelet Volume 9 um3 7.4-10.4 Abs Neutrophils 3.0 10^3/uL 1.5-7.7 Abs Lymphocytes 1.2 10^3/uL 1.0-4.8 Abs Monocytes 0.5 10^3/uL 0-0.8 Abs Eosinophils 0 10^3/uL 0-0.6 Abs Basophils 0 10^3/uL 0-0.2 Abs Nucleated RBC 0 10^3/uL Granulocyte % 63.8 % 38-83 Lymphocyte % 24.7 % Low 25-47 Monocyte % 10.6 % High 1-9 Eosinophil % 0.2 % 0-6 Basophil % 0.7 % 0-2 Nucleated Red Blood Cells % 0 Laboratory test 10/29/2012 [facility] Liver Panel 0 mg/dL Low 0.1-0.5 57 finding [address] [place] [address] [phone] TSH (Thyroid Stimulating Horm) 5.13 MIU/ML 0.34-5.60 58 Direct Bilirubin 0 mg/dL Low 0.1-0.5 59 Lipid Profile 10/29/2012 [facility] Triglycerides 79 mg/dL 40 -200 (Trig/Chol/HDL) [address] [place] [address] [phone] Cholesterol 236 mg/dL High Less than 200 HDL Cholesterol 60 mg/dL 40-60 60 Cholesterol/HDL Ratio 3.9 Average 1-4.44 LDL Cholesterol 160.2 mg/dL High Less Than 100 61 Comp Metabolic Panel 10/29/2012 [facility] Sodium 132 mmol/L Low 133-145 [address] [place] [address] [phone] Potassium 4.4 mmol/L 3.5-5.0 Chloride 95 mmol/L Low 101-111 Co2 Carbon Dioxide 29.0 mmol/L 22-32 Anion Gap 8.0 mmol/L 2-11 Glucose 303 mg/dL High 70-100 Blood Urea Nitrogen 14 mg/dL 6-24 Creatinine 0.80 mg/dL 0.50-1.40 BUN/Creatinine Ratio 17.5 8-20 Calcium 9.3 mg/dL 8.1-9.9 Total Protein 6.7 g/dL 6.2-8.1 Albumin 3.5 g/dL 3.2-5.2 Globulin 3.2 g/dL 2-4 Albumin/Globulin Ratio 1.1 1-3 Total Bilirubin 0.7 mg/dL 0.4-1.5 Alkaline Phosphatase 100 U/L 30-110 Alt 14 U/L 14-54 Ast 23 U/L 12-42 Egfr Non- 69.4 >60 Egfr 89.2 >60 62 Urine Microalbumin 10/29/2012 [facility] Ur Microalbumin 36.0 mg /L [address] (Mg/L) [place] [address] [phone] Urine Creatinine 53.0 mg/dL Urine Microalbumin/Creatinine 67.9 UG/MG High Less Than 31 CBC Auto Diff 05/04/2012 [facility] White Blood 5.1 CUMM 4.8- 10.[address] [place] [address] [phone] Red Cell Count 3.76 CUMM Low 4.2-5.4 Hemoglobin 10.6 g/dL Low 12.0-16.0 Hematocrit 32 % Low 35-47 Mean Corpuscular Volume 85 um3 79-97 Mean Corpuscular Hemoglob 28 pg 27-31 Mean Corpuscular HGB Cone 33 g/dL 32-36 Redcell Distribution WDTH 17 % High 10.5-15 Platelet Count 281 CUMM 150-450 Mean Platelet Volume 7.9 um3 7.4-10.4 Gran % 66.0 % 38-83 Lymph % 24.8 % Low 25-47 Mononuclear % 8.7 % 1-9 Eosinophil % 0.1 % 0-6 Basophil % 0.4 % 0-2 Abs Lymphs 1.3 1.0-4.8 Abs Mononuclear 0.4 0-0.8 Absolute Neutrophil Count 3.4 1.5-7.7 Abs Eosinophils 0 0-0.6 Abs Basophils 0 0-0.2 Laboratory test 05/04/2012 [facility] Troponin-I 0.03 NG/ML 0 -0.06 [address] [place] [address] [phone] Basic Metabolic 05/04/2012 [facility] Sodium 133 mmol/L Low 135-[address] [place] [address] [phone] Potassium 4.0 mmol/L 3.5-5.0 Chloride 95 mmol/L Low 101-111 Co2 (Carbon Dioxide) 30.0 mmol/L 22-32 Anion Gap 8.0 mmol/L 2-11 65 Glucose 196 mg/dL High 70-100 BUN 14 mg/dL 6-24 Creatinine 0.7 mg/dL 0.50-1.40 One Over Creatinine 1.42 BUN/Creatinine Ratio 20.0 8-20 Calcium 9.4 mg/dL 8.1-9.9 eGFR Non- 81.1 > 60 eGFR 104.3 > 60 66 Laboratory test finding 02/26/2011 [facility] Alt (SGPT) 15 U/L 14-54 [address] [place] [address] [phone] Ast (Sgot) 20 U/L 12-42 Lipid Profile 02/26/2011 [facility] Triglyceride 61 mg/dL 40- 200 (Trig/Chol/HDL) [address] [place] [address] [phone] Cholesterol 188 mg/dL Less Than 200 67 High Density Lipoprotein 70 mg/dL High 40-60 68 Cholesterol/HDL Ratio 2.69 AVERAGE 1-4.44 Low Density Lipoprotein 106 mg/dL High Less Than 100 69 Basic Metabolic 10/24/2009 [facility] Sodium 134 mmol/L Low 135-145 Panel [address] [place] [address] [phone] Potassium 4.3 mmol/L 3.5-5.0 Chloride 98 mmol/L Low 101-111 Co2 (Carbon Dioxide) 31.0 mmol/L 22-32 Anion Gap 5.0 mmol/L 2-11 70 Glucose 256 mg/dL High 70-100 71 BUN 13 mg/dL 6-24 Creatinine 0.80 mg/dL 0.50-1.40 One Over Creatinine 1.20 BUN/Creatinine Ratio 16.3 8-20 Calcium 9.4 mg/dL 8.1-9.9 72 eGFR Non- 74.3 > 60 eGFR 89.9 > 60 73 Lipid Profile 10/24/2009 [facility] Triglyceride 66 mg/dL 40- 200 (Trig/Chol/HDL) [address] [place] [address] [phone] Cholesterol 205 mg/dL High Less Than 200 74 High Density Lipoprotein 68 mg/dL High 40-60 75 Cholesterol/HDL Ratio 3.01 AVERAGE 1-4.44 Low Density Lipoprotein 124 mg/dL High Less Than 100 76 Laboratory test 10/24/2009 [facility] LDL Direct 126 mg/dL High Less Than [address] [place] [address] [phone] Alt (SGPT) 16 U/L 14-54 Ast (Sgot) 25 U/L 12-42 Erythrocyte Sed Rate 54 MM/HR High 0-40 Lipid Profile 06/08/2009 [facility] Triglyceride 69 mg/dL 40- 200 78 (Trig/Chol/HDL) [address] [place] [address] [phone] Cholesterol 218 mg/dL High Less Than 200 79 High Density Lipoprotein 56 mg/dL 40-60 80 Cholesterol/HDL Ratio 3.89 AVERAGE 1-4.44 Low Density Lipoprotein 148 mg/dL High Less Than 100 81 Lipid Panel - 06/08/2009 [facility] CPK (Creatine 53 U/L 0- [address] Kinase) [place] [address] [phone] Comp Metabolic 06/08/2009 [facility] Sodium 137 135-[address] mmol/[place] [address] [phone] Potassium 5.5 mmol/L High 3.5-5.0 Chloride 99 mmol/L Low 101-111 Co2 (Carbon Dioxide) 31.0 mmol/L 22-32 Anion Gap 7.0 mmol/L 2-11 82 Glucose 198 mg/dL High 70-100 83 BUN 9 mg/dL 6-24 Creatinine 0.80 mg/dL 0.50-1.40 One Over Creatinine 1.20 BUN/Creatinine Ratio 11.3 8-20 Calcium 9.8 mg/dL 8.1-9.9 84 Total Protein 6.8 GM/DL 6.2-8.1 Albumin 3.6 GM/DL 3.2-5.2 Globulin 3.2 GM/DL 2-4 Albumin/Globulin Ratio 1.1 1-3 Bilirubin Total 0.5 mg/dL 0.4-1.5 85 Alkaline Phosphatase 78 U/L 30-110 Alt (SGPT) 16 U/L 14-54 Ast (Sgot) 20 U/L 12-42 eGFR Non- 74.5 > 60 eGFR 90.2 > 60 86 Laboratory 06/08/2009 [facility] TSH 3.97 0.34-5.60 test finding [address] MIU/[place] [address] [phone] Laboratory 10/19/2007 [facility] Hemoglobin A1c 6.3 % High < 6.0 87 test finding [address] [place] [address] [phone] Lipid Profile 10/19/2007 [facility] Cholesterol/HD 3.39 1- 4.44 (Trig/Chol/HDL [address] L Ratio AVERAGE ) [place] [address] [phone] Cholesterol 193 mg/dL Less Than 200 88 Triglyceride 81 mg/dL 40-200 High Density Lipoprotein 57 mg/dL 40-60 Low Density Lipoprotein 120 mg/dL High Less Than 100 89 Comp Metabolic Panel 10/19/2007 [facility] One Over Creatinine 1.[address] [place] [address] [phone] Anion Gap 5.0 mmol/L 2-11 90 Albumin/Globulin Ratio 0.9 Low 1-3 Albumin 3.4 GM/DL 3.2-5.2 Alkaline Phosphatase 61 U/L 30-110 Alt (SGPT) 16 U/L 14-54 Ast (Sgot) 22 U/L 12-42 BUN 12 mg/dL 6-24 Calcium 9.3 mg/dL 8.7-10.2 Chloride 98 mmol/L Low 101-111 Co2 (Carbon Dioxide) 31.0 mmol/L 22-32 Globulin 3.6 GM/DL 2-4 Glucose 240 mg/dL High 70-105 Potassium 4.5 mmol/L 3.5-5.0 Sodium 134 mmol/L Low 135-145 Bilirubin Total 0.5 mg/dL 0.4-1.5 Total Protein 7.0 GM/DL 6.2-8.1 BUN/Creatinine Ratio 12.0 8-20 Creatinine 1.0 mg/dL 0.5-1.4 Laboratory test 10/19/2007 [facility] Erythrocyte Sed 55 MM/HR High 0-[address] [place] [address] [phone] CPK (Creatine Kinase) 66 U/L 0-170 Lipid Profile 03/10/2007 [facility] Cholesterol/HDL 3.25 1- 4.44 (Trig/Chol/HDL) [address] [place] [address] [phone] Cholesterol 192 mg/dL Less Than 200 91 Triglyceride 54 mg/dL 40-200 High Density Lipoprotein 59 mg/dL 40-60 Low Density Lipoprotein 122 mg/dL High Less Than 100 92 Comp Metabolic Panel 03/10/2007 [facility] One Over Creatinine 1.[address] [place] [address] [phone] Anion Gap 8.0 mmol/L 2-11 93 Albumin/Globulin Ratio 1.1 1-3 Albumin 3.5 GM/DL 3.2-5.2 Alkaline Phosphatase 75 U/L 30-110 Alt (SGPT) 15 U/L 14-54 Ast (Sgot) 19 U/L 12-42 BUN 13 mg/dL 6-24 Calcium 9.5 mg/dL 8.7-10.2 Chloride 100 mmol/L Low 101-111 Co2 (Carbon Dioxide) 30.0 mmol/L 22-32 Globulin 3.3 GM/DL 2-4 Glucose 358 mg/dL High 70-105 Potassium 4.5 mmol/L 3.5-5.0 Sodium 138 mmol/L 135-145 Bilirubin Total 0.5 mg/dL 0.4-1.5 Total Protein 6.8 GM/DL 6.2-8.1 BUN/Creatinine Ratio 16.3 8-20 Creatinine 0.8 mg/dL 0.5-1.4 Laboratory test 03/10/2007 [facility] CPK (Creatine 56 U/L 0- [address] Kinase) [place] [address] [phone] Laboratory test 03/10/2007 [facility] Erythrocyte Sed 63 MM/HR High 0-[address] [place] [address] [phone] Hemoglobin A1c 7.4 % High <6.0 94 Comp Metabolic Panel 10/08/2006 [facility] One Over Creatinine 1.[address] [place] [address] [phone] Anion Gap 2.0 mmol/L 2-11 95 Albumin/Globulin Ratio 1.0 1-3 Albumin 3.5 GM/DL 3.2-5.2 Alkaline Phosphatase 82 U/L 30-110 Alt (SGPT) 19 U/L 14-54 Ast (Sgot) 27 U/L 12-42 BUN 16 mg/dL 6-24 Calcium 8.9 mg/dL 8.7-10.2 Chloride 98 mmol/L Low 101-111 Co2 (Carbon Dioxide) 32.0 mmol/L 22-32 Globulin 3.4 GM/DL 2-4 Glucose 283 mg/dL High 70-105 Potassium 4.1 mmol/L 3.5-5.0 Sodium 132 mmol/L Low 135-145 Bilirubin Total 0.5 mg/dL 0.4-1.5 Total Protein 6.9 GM/DL 6.2-8.1 BUN/Creatinine Ratio 16.0 8-20 Creatinine 1.0 mg/dL 0.5-1.4 Lipid Profile 10/08/2006 [facility] Cholesterol/HDL 3.55 1- 4.44 (Trig/Chol/HDL) [address] [place] [address] [phone] Cholesterol 213 mg/dL High Less Than 200 96 Triglyceride 79 mg/dL 40-200 High Density Lipoprotein 60 mg/dL 40-60 97 Low Density Lipoprotein 137 mg/dL High Less Than 100 98 Laboratory test 10/08/2006 [facility] CPK (Creatine 50 U/L 0- [address] Kinase) [place] [address] [phone] Erythrocyte Sed Rate 59 MM/HR High 0-40 Hemoglobin A1c 7.2 % High <6.0 99 Laboratory test 04/27/2006 [facility] BNP Evaluatr 135.75 High 7.5-[address] pg/[place] [address] [phone] Basic Metabolic 04/27/2006 [facility] One Over 1.[address] [place] [address] [phone] Anion Gap 7.0 mmol/L 2-11 100 BUN 11 mg/dL 6-24 Calcium 9.6 mg/dL 8.7-10.2 Chloride 102 mmol/L 101-111 Co2 (Carbon Dioxide) 30.0 mmol/L 22-32 Glucose 137 mg/dL High 70-105 Potassium 4.3 mmol/L 3.5-5.0 Sodium 139 mmol/L 135-145 BUN/Creatinine Ratio 15.7 8-20 Creatinine 0.7 mg/dL 0.5-1.4 Liver Function 04/27/2006 [facility] Albumin/Globulin Ratio 1.2 1-[address] [place] [address] [phone] Albumin 3.6 GM/DL 3.2-5.2 Alkaline Phosphatase 69 U/L 30-110 Alt (SGPT) 16 U/L 14-54 Ast (Sgot) 22 U/L 12-42 Bilirubin Direct < 0.1 mg/dL Low 0.1-0.5 Globulin 3.1 GM/DL 2-4 Bilirubin Total 0.5 mg/dL 0.4-1.5 Total Protein 6.7 GM/DL 6.2-8.1 Laboratory test 04/27/2006 [facility] Erythrocyte Sed 52 MM/HR High 0-[address] [place] [address] [phone] Lipid Profile 04/27/2006 [facility] Cholesterol/HDL 3.58 1- 4.44 (Trig/Chol/HDL) [address] [place] [address] [phone] Cholesterol 222 mg/dL High Less Than 200 101 Triglyceride 76 mg/dL 40-200 High Density Lipoprotein 62 mg/dL High 40-60 102 Low Density Lipoprotein 145 mg/dL High Less Than 100 103 Laboratory test 04/27/2006 [facility] Hemoglobin A1c 6.9 % High <6.0 [address] [place] [address] [phone] 1 Because ethnic data is not always readily available, this report includes an eGFR for both -Americans and non- Americans. The National Kidney Disease Education Program (NKDEP) does not endorse the use of the MDRD equation for patients that are not between the ages of 18 and 70, are , have extremes of body size, muscle mass, or nutritional status, or are non- or non-. According to the National Kidney Foundation, irrespective of diagnosis, the stage of the disease is based on the level of kidney function: Stage Description GFR(mL/min/1.73 m(2)) 1 Kidney damage with normal or decreased GFR 90 2 Kidney damage with mild decrease in GFR 60-89 3 Moderate decrease in GFR 30-59 4 Severe decrease in GFR 15-29 5 Kidney failure <15 (or dialysis) 2 Test Performed by: [facility] [address] [place], [place] [address] Bola Quinones M.D. Director of Laboratory 3 >100 to <200 pg/mL: likely compensated congestive heart failure (CHF) 200 to 400 pg/mL: likely moderate CHF >400 pg/mL: likely moderate to severe CHF 4 Because ethnic data is not always readily available, this report includes an eGFR for both -Americans and non- Americans. The National Kidney Disease Education Program (NKDEP) does not endorse the use of the MDRD equation for patients that are not between the ages of 18 and 70, are , have extremes of body size, muscle mass, or nutritional status, or are non- or non-. According to the National Kidney Foundation, irrespective of diagnosis, the stage of the disease is based on the level of kidney function: Stage Description GFR(mL/min/1.73 m(2)) 1 Kidney damage with normal or decreased GFR 90 2 Kidney damage with mild decrease in GFR 60-89 3 Moderate decrease in GFR 30-59 4 Severe decrease in GFR 15-29 5 Kidney failure <15 (or dialysis) 5 Because ethnic data is not always readily available, this report includes an eGFR for both -Americans and non- Americans. The National Kidney Disease Education Program (NKDEP) does not endorse the use of the MDRD equation for patients that are not between the ages of 18 and 70, are , have extremes of body size, muscle mass, or nutritional status, or are non- or non-. According to the National Kidney Foundation, irrespective of diagnosis, the stage of the disease is based on the level of kidney function: Stage Description GFR(mL/min/1.73 m(2)) 1 Kidney damage with normal or decreased GFR 90 2 Kidney damage with mild decrease in GFR 60-89 3 Moderate decrease in GFR 30-59 4 Severe decrease in GFR 15-29 5 Kidney failure <15 (or dialysis) 6 Test Performed by: [address] [address] 7 Test Performed by: [address] [address] 8 Because ethnic data is not always readily available, this report includes an eGFR for both -Americans and non- Americans. The National Kidney Disease Education Program (NKDEP) does not endorse the use of the MDRD equation for patients that are not between the ages of 18 and 70, are , have extremes of body size, muscle mass, or nutritional status, or are non- or non-. According to the National Kidney Foundation, irrespective of diagnosis, the stage of the disease is based on the level of kidney function: Stage Description GFR(mL/min/1.73 m(2)) 1 Kidney damage with normal or decreased GFR 90 2 Kidney damage with mild decrease in GFR 60-89 3 Moderate decrease in GFR 30-59 4 Severe decrease in GFR 15-29 5 Kidney failure <15 (or dialysis) 9 Because ethnic data is not always readily available, this report includes an eGFR for both -Americans and non- Americans. The National Kidney Disease Education Program (NKDEP) does not endorse the use of the MDRD equation for patients that are not between the ages of 18 and 70, are , have extremes of body size, muscle mass, or nutritional status, or are non- or non-. According to the National Kidney Foundation, irrespective of diagnosis, the stage of the disease is based on the level of kidney function: Stage Description GFR(mL/min/1.73 m(2)) 1 Kidney damage with normal or decreased GFR 90 2 Kidney damage with mild decrease in GFR 60-89 3 Moderate decrease in GFR 30-59 4 Severe decrease in GFR 15-29 5 Kidney failure <15 (or dialysis) 10 >100 to <200 pg/mL: likely compensated congestive heart failure (CHF) 200 to 400 pg/mL: likely moderate CHF >400 pg/mL: likely moderate to severe CHF 11 >100 to <200 pg/mL: likely compensated congestive heart failure (CHF) 200 to 400 pg/mL: likely moderate CHF >400 pg/mL: likely moderate to severe CHF 12 Acute inflammation: >10.00 13 Because ethnic data is not always readily available, this report includes an eGFR for both -Americans and non- Americans. The National Kidney Disease Education Program (NKDEP) does not endorse the use of the MDRD equation for patients that are not between the ages of 18 and 70, are , have extremes of body size, muscle mass, or nutritional status, or are non- or non-. According to the National Kidney Foundation, irrespective of diagnosis, the stage of the disease is based on the level of kidney function: Stage Description GFR(mL/min/1.73 m(2)) 1 Kidney damage with normal or decreased GFR 90 2 Kidney damage with mild decrease in GFR 60-89 3 Moderate decrease in GFR 30-59 4 Severe decrease in GFR 15-29 5 Kidney failure <15 (or dialysis) 14 Because ethnic data is not always readily available, this report includes an eGFR for both -Americans and non- Americans. The National Kidney Disease Education Program (NKDEP) does not endorse the use of the MDRD equation for patients that are not between the ages of 18 and 70, are , have extremes of body size, muscle mass, or nutritional status, or are non- or non-. According to the National Kidney Foundation, irrespective of diagnosis, the stage of the disease is based on the level of kidney function: Stage Description GFR(mL/min/1.73 m(2)) 1 Kidney damage with normal or decreased GFR 90 2 Kidney damage with mild decrease in GFR 60-89 3 Moderate decrease in GFR 30-59 4 Severe decrease in GFR 15-29 5 Kidney failure <15 (or dialysis) 15 System Event: N Abn NRBC Pattern Low Events: N 16 Acute inflammation: >10.00 17 No interferon-gamma response to M. tuberculosis antigens was detected. Infection with M. tuberculosis is unlikely. A negative result alone does not exclude infection with M. tuberculosis. For detailed information regarding test interpretation see: [email or web address] 18 Test Performed by: [facility] [address] [place] [address] 19 Because ethnic data is not always readily available, this report includes an eGFR for both -Americans and non- Americans. The National Kidney Disease Education Program (NKDEP) does not endorse the use of the MDRD equation for patients that are not between the ages of 18 and 70, are , have extremes of body size, muscle mass, or nutritional status, or are non- or non-. According to the National Kidney Foundation, irrespective of diagnosis, the stage of the disease is based on the level of kidney function: Stage Description GFR(mL/min/1.73 m(2)) 1 Kidney damage with normal or decreased GFR 90 2 Kidney damage with mild decrease in GFR 60-89 3 Moderate decrease in GFR 30-59 4 Severe decrease in GFR 15-29 5 Kidney failure <15 (or dialysis) 20 Normal Range 180 to 914 Indeterminate Range 145 to 180 Deficient Range <145 21 Please check labs this month 22 Acute inflammation: >10.00 23 Please check labs this month 24 Acute inflammation: >10.00 25 Test Performed by: [place] [address] 26 Interpretation: Strong Positive (>=60.0) REFERENCE VALUE <20.0 (Negative) Test Performed by: [place] [address] 27 Because ethnic data is not always readily available, this report includes an eGFR for both -Americans and non- Americans. The National Kidney Disease Education Program (NKDEP) does not endorse the use of the MDRD equation for patients that are not between the ages of 18 and 70, are , have extremes of body size, muscle mass, or nutritional status, or are non- or non-. According to the National Kidney Foundation, irrespective of diagnosis, the stage of the disease is based on the level of kidney function: Stage Description GFR(mL/min/1.73 m(2)) 1 Kidney damage with normal or decreased GFR 90 2 Kidney damage with mild decrease in GFR 60-89 3 Moderate decrease in GFR 30-59 4 Severe decrease in GFR 15-29 5 Kidney failure <15 (or dialysis) 28 RESULT: No apparent monoclonal protein on serum electrophoresis. Test Performed by: [address] [address] 29 >100 to <200 pg/mL: likely compensated congestive heart failure (CHF) 200 to 400 pg/mL: likely moderate CHF >400 pg/mL: likely moderate to severe CHF 30 Because ethnic data is not always readily available, this report includes an eGFR for both -Americans and non- Americans. The National Kidney Disease Education Program (NKDEP) does not endorse the use of the MDRD equation for patients that are not between the ages of 18 and 70, are , have extremes of body size, muscle mass, or nutritional status, or are non- or non-. According to the National Kidney Foundation, irrespective of diagnosis, the stage of the disease is based on the level of kidney function: Stage Description GFR(mL/min/1.73 m(2)) 1 Kidney damage with normal or decreased GFR 90 2 Kidney damage with mild decrease in GFR 60-89 3 Moderate decrease in GFR 30-59 4 Severe decrease in GFR 15-29 5 Kidney failure <15 (or dialysis) 31 Desirable <150 Borderline high 150-199 High 200-499 Very High >500 32 Desirable <200 Borderline high 200-239 High >239 33 Low <40 Desirable: 40-60 High: >60 34 Desirable: <100 mg/dL Near Optimal: 100-129 mg/dL Borderline High: 130-159 mg/dL High: 160-189 mg/dL Very High: >189 mg/dL 35 Because ethnic data is not always readily available, this report includes an eGFR for both -Americans and non- Americans. The National Kidney Disease Education Program (NKDEP) does not endorse the use of the MDRD equation for patients that are not between the ages of 18 and 70, are , have extremes of body size, muscle mass, or nutritional status, or are non- or non-. According to the National Kidney Foundation, irrespective of diagnosis, the stage of the disease is based on the level of kidney function: Stage Description GFR(mL/min/1.73 m(2)) 1 Kidney damage with normal or decreased GFR 90 2 Kidney damage with mild decrease in GFR 60-89 3 Moderate decrease in GFR 30-59 4 Severe decrease in GFR 15-29 5 Kidney failure <15 (or dialysis) 36 >100 to <200 pg/mL: likely compensated congestive heart failure (CHF) 200 to 400 pg/mL: likely moderate CHF >400 pg/mL: likely moderate to severe CHF 37 FASTING 38 Desirable <150 Borderline high 150-199 High 200-499 Very High >500 39 Desirable <200 Borderline high 200-239 High >239 40 Low <40 Desirable: 40-60 High: >60 41 Desirable: <100 mg/dL Near Optimal: 100-129 mg/dL Borderline High: 130-159 mg/dL High: 160-189 mg/dL Very High: >189 mg/dL 42 Because ethnic data is not always readily available, this report includes an eGFR for both -Americans and non- Americans. The National Kidney Disease Education Program (NKDEP) does not endorse the use of the MDRD equation for patients that are not between the ages of 18 and 70, are , have extremes of body size, muscle mass, or nutritional status, or are non- or non-. According to the National Kidney Foundation, irrespective of diagnosis, the stage of the disease is based on the level of kidney function: Stage Description GFR(mL/min/1.73 m(2)) 1 Kidney damage with normal or decreased GFR 90 2 Kidney damage with mild decrease in GFR 60-89 3 Moderate decrease in GFR 30-59 4 Severe decrease in GFR 15-29 5 Kidney failure <15 (or dialysis) 43 Repair Service Dispatcher: [id number] KAVIN ALLEN 44 Low risk: <1.00 Average risk: 1.00-3.00 High risk: >3.00 45 Because ethnic data is not always readily available, this report includes an eGFR for both -Americans and non- Americans. The National Kidney Disease Education Program (NKDEP) does not endorse the use of the MDRD equation for patients that are not between the ages of 18 and 70, are , have extremes of body size, muscle mass, or nutritional status, or are non- or non-. According to the National Kidney Foundation, irrespective of diagnosis, the stage of the disease is based on the level of kidney function: Stage Description GFR(mL/min/1.73 m(2)) 1 Kidney damage with normal or decreased GFR 90 2 Kidney damage with mild decrease in GFR 60-89 3 Moderate decrease in GFR 30-59 4 Severe decrease in GFR 15-29 5 Kidney failure <15 (or dialysis) 46 >100 to <200 pg/mL: likely compensated congestive heart failure (CHF) 200 to 400 pg/mL: likely moderate CHF >400 pg/mL: likely moderate to severe CHF 47 Because ethnic data is not always readily available, this report includes an eGFR for both -Americans and non- Americans. The National Kidney Disease Education Program (NKDEP) does not endorse the use of the MDRD equation for patients that are not between the ages of 18 and 70, are , have extremes of body size, muscle mass, or nutritional status, or are non- or non-. According to the National Kidney Foundation, irrespective of diagnosis, the stage of the disease is based on the level of kidney function: Stage Description GFR(mL/min/1.73 m(2)) 1 Kidney damage with normal or decreased GFR 90 2 Kidney damage with mild decrease in GFR 60-89 3 Moderate decrease in GFR 30-59 4 Severe decrease in GFR 15-29 5 Kidney failure <15 (or dialysis) 48 >100 to <200 pg/mL: likely compensated congestive heart failure (CHF) 200 to 400 pg/mL: likely moderate CHF >400 pg/mL: likely moderate to severe CHF 49 Acute inflammation: >10.00 50 Because ethnic data is not always readily available, this report includes an eGFR for both -Americans and non- Americans. The National Kidney Disease Education Program (NKDEP) does not endorse the use of the MDRD equation for patients that are not between the ages of 18 and 70, are , have extremes of body size, muscle mass, or nutritional status, or are non- or non-. According to the National Kidney Foundation, irrespective of diagnosis, the stage of the disease is based on the level of kidney function: Stage Description GFR(mL/min/1.73 m(2)) 1 Kidney damage with normal or decreased GFR 90 2 Kidney damage with mild decrease in GFR 60-89 3 Moderate decrease in GFR 30-59 4 Severe decrease in GFR 15-29 5 Kidney failure <15 (or dialysis) 51 RUN DATE: 01/16/15 [facility] LAB LIVE PAGE 1 RUN TIME: [address] [place] [id number] Specimen Inquiry Name: KATHERYN TATUM : [address]: Floyd Lucero MD Acct: [id number] Unit: [id number] AGE: 79 Location: ENDO Re01/12/15 SEX: F Status: REG REF SPEC: [id number] CESIA: 01/12/[address] [facility] [address]: Floyd Lucero MD REQ: [id number] RECD: 01/12/15 STATUS: ANAT PATEL DR: Miles Contreras ASSOCIATE FINANCIAL REPRESENTATIVE _ ORDERED: [facility], LEVEL IV/2 An H. pylori immunostain, with appropriately reacting controls, is negative for Helicobacter organisms. Addendum Signed (signature on file) Ara Wilkerson MD 1556 FINAL DIAGNOSIS 1. Duodenum, biopsy: -- Benign duodenal mucosa with no significant pathologic abnormalities. -- No evidence of villous blunting or increased intraepithelial lymphocytes. 2. Stomach, biopsy: -- Antral-type gastric mucosa with mild to moderate chronic gastritis. COMMENT: An H. pylori immunostain is pending and the results will be reported in an addendum. CLINICAL HISTORY Anemia POST-OPERATIVE DIAGNOSIS Esophagus - normal, medium hiatal hernia; stomach - gastritis, biopsied; duodenum - biopsied GROSS DESCRIPTION 1. The specimen is received in formalin labeled, Biopsies Duodenum, and consists of three palmer irregular soft tissue fragments averaging 0.3 x 0.2 x 0.2 cm, which are submitted entirely in one cassette. CONTINUED ON NEXT PAGE * ML=Testing performed at Main Lab DEPARTMENT OF PATHOLOGY, [address] [place] [address] Bola Quinones M.D. Director [facility] # [id number] RUN DATE: 01/16/15 [facility] LAB LIVE PAGE 2 RUN TIME: [address] [place] [id number] Specimen Inquiry Patient: KATHERYN TATUM [id number] (Continued) GROSS DESCRIPTION (Continued) GROSS DESCRIPTION (Continued) 2. The specimen is received in formalin labeled, Biopsies Gastric, and consists of a 0.6 x 0.5 x 0.2 cm aggregate of multiple palmer irregular soft tissue fragments, which is submitted entirely in one cassette. Signed (signature on file) Ara Wilkerson MD 0938 END OF REPORT * ML=Testing performed at Main Lab DEPARTMENT OF PATHOLOGY, [address] [place] [address] Bola Quinones M.D. Director [facility] # [id number] 52 Because ethnic data is not always readily available, this report includes an eGFR for both -Americans and non- Americans. The National Kidney Disease Education Program (NKDEP) does not endorse the use of the MDRD equation for patients that are not between the ages of 18 and 70, are , have extremes of body size, muscle mass, or nutritional status, or are non- or non-. According to the National Kidney Foundation, irrespective of diagnosis, the stage of the disease is based on the level of kidney function: Stage Description GFR(mL/min/1.73 m(2)) 1 Kidney damage with normal or decreased GFR 90 2 Kidney damage with mild decrease in GFR 60-89 3 Moderate decrease in GFR 30-59 4 Severe decrease in GFR 15-29 5 Kidney failure <15 (or dialysis) 53 HDL Interpretation: Undesirable: High Risk: Less than 40 mg/dL Desirable: Low Risk: Greater than 60 mg/dL 54 LDL Interpretation: Low Risk Optimal Level: LDL Less than 100 mg/dL Near or Above Optimal: LDL 100-129 mg/dL Borderline High Risk: LDL 130-159 mg/dL High Risk: LDL 160-189 mg/dL Very High Risk: LDL Greater than 189 mg/dL 55 Unable to calculate Ind Bili as D Bili is <0.1 Unable to calculate Ind Bili as D Bili is <0.1 56 Microalbuminuria in a random sample is defined as: Microalbumin/Creatinine ratio of 30-299 ug/mg. 57 Fasting 58 Fasting 59 Fasting 60 HDL Interpretation: Undesirable: High Risk: Less than 40 MG/DL Desirable: Low Risk: Greater than 60 MG/DL 61 LDL Interpretation: Low Risk Optimal Level: LDL Less than 100 MG/DL Near or Above Optimal: LDL 100-129 MG/DL Borderline High Risk: LDL 130-159 MG/DL High Risk: LDL 160-189 MG/DL Very High Risk: LDL Greater than 189 MG/DL 62 Because ethnic data is not always readily available, this report includes an eGFR for both -Americans and non- Americans. The National Kidney Disease Education Program (NKDEP) does not endorse the use of the MDRD equation for patients that are not between the ages of 18 and 70, are , have extremes of body size, muscle mass, or nutritional status, or are non- or non-. According to the National Kidney Foundation, irrespective of diagnosis, the stage of the disease is based on the level of kidney function: Stage Description GFR(mL/min/1.73 m(2)) 1 Kidney damage with normal or decreased GFR 90 2 Kidney damage with mild decrease in GFR 60-89 3 Moderate decrease in GFR 30-59 4 Severe decrease in GFR 15-29 5 Kidney failure <15 (or dialysis) 63 Microalbuminuria in a random sample is defined as: Microalbumin/Creatinine ratio of 30-299 ug/mg. 64 New Reference Range and Interpretation effective 08/26/2002 TnI (ng/ml) INTERPRETATION Less Than 0.06 ng/mL NOT SUPPORTIVE OF DIAGNOSIS OF NM 0.06 - 0.50 ng/ml INDETERMINATE: SUGGEST SERIAL STUDIES IF CLINICALLY INDICATED. Greater than 0.5 ng/mL CONSISTENT WITH DIAGNOSIS OF NM . 65 Anion gap measurement may be of limited value in the presence of any alkalosis, especially in a combined acid base disorder. . 66 Because ethnic data is not always readily available, this report includes an eGFR for both -Americans and non- Americans. The National Kidney Disease Education Program (NKDEP) does not endorse the use of the MDRD equation for patients that are not between the ages of 18 and 70, are , have extremes of body size, muscle mass, or nutritional status, or are non- or non-. According to the National Kidney Foundation, irrespective of diagnosis, the stage of the disease is based on the level of kidney function: Stage Description GFR(mL/min/1.73 m(2)) 1 Kidney damage with normal or decreased GFR 90 2 Kidney damage with mild decrease in GFR 60-89 3 Moderate decrease in GFR 30-59 4 Severe decrease in GFR 15-29 5 Kidney failure <15 (or dialysis) 67 CHOLESTEROL INTERPRETATION: Desirable: Less than 200 MG/DL Borderline-High Risk: 200-239 MG/DL High-Risk: 240 MG/DL and over 68 HDL INTERPRETATION: Undesirable: High Risk: Less than 40 MG/DL Desirable: Low Risk: Greater than 60 MG/DL 69 LDL INTERPRETATION: Low Risk Optimal Level: LDL Less than 100 MG/DL Near or Above Optimal: LDL 100-129 MG/DL Borderline High Risk: LDL 130-159 MG/DL High Risk: LDL 160-189 MG/DL Very High Risk: LDL Greater than 189 MG/DL 70 Anion gap measurement may be of limited value in the presence of any alkalosis, especially in a combined acid base disorder. . 71 Note change in reference range as of 07/13/08. The change was based on recommendations from the [place] [employer]. 72 Please note change in reference range effective 08 . 73 Because ethnic data is not always readily available, this report includes an eGFR for both -Americans and non- Americans. The National Kidney Disease Education Program (NKDEP) does not endorse the use of the MDRD equation for patients that are not between the ages of 18 and 70, are , have extremes of body size, muscle mass, or nutritional status, or are non- or non-. According to the National Kidney Foundation, irrespective of diagnosis, the stage of the disease is based on the level of kidney function: Stage Description GFR(mL/min/1.73 m(2)) 1 Kidney damage with normal or decreased GFR 90 2 Kidney damage with mild decrease in GFR 60-89 3 Moderate decrease in GFR 30-59 4 Severe decrease in GFR 15-29 5 Kidney failure <15 (or dialysis) 74 CHOLESTEROL INTERPRETATION: Desirable: Less than 200 MG/DL Borderline-High Risk: 200-239 MG/DL High-Risk: 240 MG/DL and over 75 HDL INTERPRETATION: Undesirable: High Risk: Less than 40 MG/DL Desirable: Low Risk: Greater than 60 MG/DL 76 LDL INTERPRETATION: Low Risk Optimal Level: LDL Less than 100 MG/DL Near or Above Optimal: LDL 100-129 MG/DL Borderline High Risk: LDL 130-159 MG/DL High Risk: LDL 160-189 MG/DL Very High Risk: LDL Greater than 189 MG/DL 77 LDL INTERPRETATION: Low Risk Optimal Level: LDL Less than 100 MG/DL Near or Above Optimal: LDL 100-129 MG/DL Borderline High Risk: LDL 130-159 MG/DL High Risk: LDL 160-189 MG/DL Very High Risk: LDL Greater than 189 MG/DL 78 FASTING 79 CHOLESTEROL INTERPRETATION: Desirable: Less than 200 MG/DL Borderline-High Risk: 200-239 MG/DL High-Risk: 240 MG/DL and over 80 HDL INTERPRETATION: Undesirable: High Risk: Less than 40 MG/DL Desirable: Low Risk: Greater than 60 MG/DL 81 LDL INTERPRETATION: Low Risk Optimal Level: LDL Less than 100 MG/DL Near or Above Optimal: LDL 100-129 MG/DL Borderline High Risk: LDL 130-159 MG/DL High Risk: LDL 160-189 MG/DL Very High Risk: LDL Greater than 189 MG/DL 82 Anion gap measurement may be of limited value in the presence of any alkalosis, especially in a combined acid base disorder. . 83 Note change in reference range as of 07/13/08. The change was based on recommendations from the [place] [employer]. 84 Please note change in reference range effective 08 . 85 A metabolite of Naproxen, O-desmethylnaproxen, has been shown to interfere with the Jendrassik-Adrian method for measuring total bilirubin. Samples from patients who have taken Naproxen have shown spurious elevation in total bilirubin levels. 86 Because ethnic data is not always readily available, this report includes an eGFR for both -Americans and non- Americans. The National Kidney Disease Education Program (NKDEP) does not endorse the use of the MDRD equation for patients that are not between the ages of 18 and 70, are , have extremes of body size, muscle mass, or nutritional status, or are non- or non-. According to the National Kidney Foundation, irrespective of diagnosis, the stage of the disease is based on the level of kidney function: Stage Description GFR(mL/min/1.73 m(2)) 1 Kidney damage with normal or decreased GFR 90 2 Kidney damage with mild decrease in GFR 60-89 3 Moderate decrease in GFR 30-59 4 Severe decrease in GFR 15-29 5 Kidney failure <15 (or dialysis) 87 THERAPEUTIC TARGET FOR THE TREATMENT OF DIABETES MELLITUS PATIENTS IS <7% HBA1C, AND IN SELECTIVE PATIENTS <6.0%. PLEASE REFER TO [place] [employer] DIABETIC CARE GUIDELINES FOR FURTHER INFORMATION. 88 Classification: Desirable . 89 CALCULATED LDL APPROXIMATES THE VALUE OF A DIRECT LDL MEASUREMENT. Classification: Near or above optimal . 90 Anion gap measurement may be of limited value in the presence of any alkalosis, especially in a combined acid base disorder. . 91 Classification: Desirable . 92 CALCULATED LDL APPROXIMATES THE VALUE OF A DIRECT LDL MEASUREMENT. Classification: Near or above optimal . 93 Anion gap measurement may be of limited value in the presence of any alkalosis, especially in a combined acid base disorder. . 94 THERAPEUTIC TARGET FOR THE TREATMENT OF DIABETES MELLITUS PATIENTS IS <7% HBA1C, AND IN SELECTIVE PATIENTS <6.0%. PLEASE REFER TO [place] [employer] DIABETIC CARE GUIDELINES FOR FURTHER INFORMATION. 95 Anion gap measurement may be of limited value in the presence of any alkalosis, especially in a combined acid base disorder. . 96 Classification: Borderline High . 97 Classification: High . 98 CALCULATED LDL APPROXIMATES THE VALUE OF A DIRECT LDL MEASUREMENT. Classification: Borderline High . 99 THERAPEUTIC TARGET FOR THE TREATMENT OF DIABETES MELLITUS PATIENTS IS <7% HBA1C, AND IN SELECTIVE PATIENTS <6.0%. PLEASE REFER TO [place] [employer] DIABETIC CARE GUIDELINES FOR FURTHER INFORMATION. 100 Anion gap measurement may be of limited value in the presence of any alkalosis, especially in a combined acid base disorder. . 101 Classification: Borderline High . 102 Classification: High . 103 CALCULATED LDL APPROXIMATES THE VALUE OF A DIRECT LDL MEASUREMENT. Classification: Borderline High . 104 THERAPEUTIC TARGET FOR THE TREATMENT OF DIABETES MELLITUS PATIENTS IS <7% HBA1C, AND IN SELECTIVE PATIENTS <6.0%. PLEASE REFER TO [place] DIABETIC CARE GUIDELINES FOR FURTHER INFORMATION. Procedures Date Code Description Status 01/14/2019 [id number] Diabetic Retinal Eye Exam Completed 01/12/2019 92948 EKG Tracing & Interpretation Completed 12/16/2018 95318 Icd Check Remote Up To 90 Days Single,Dual,Multiple Completed Lead 12/16/2018 36717 Icd Check Remote Up To 90 Days Single,Dual,Multiple Completed Lead 12/16/2018 26413 Interrogation Device Eval Remote Up To 30 Days Completed Analysis,Rev,RP 12/16/2018 89434 Interrogation Device Eval Remote Up To 30 Days Completed Analysis,Rev,RP 12/16/2018 48627 Icd Eval Sing,Dual,Multi Lead Remote Recpt Transm Tech Completed Rev Tech S 12/16/2018 58691 Icd Eval Sing,Dual,Multi Lead Remote Recpt Transm Tech Completed Rev Tech S 10/18/2018 38202 Interrogation Device Eval Remote Up To 30 Days Completed Analysis,Rev,RP 10/18/2018 82937 Implantable Cardio System Loop Recorder Sys Remota Completed Data Acquistio 10/18/2018 95996 Interrogation Device Eval Remote Up To [address] Completed Analysis,Rev,RP 10/18/2018 78469 Implantable Cardio System Loop Recorder Sys Remota Completed Data Acquistio 09/17/2018 60791 ECHO Transthoracic, Real-Time 2D With Doppler And Completed Color Flow 09/17/2018 99159 ECHO Transthoracic, Real-Time 2D With Doppler And Completed Color Flow 09/14/2018 55619 Icd Eval With Iterative Adjustmt Multiple Lead System Completed 09/14/2018 80716 Interrogation Implant Cardiovasc Monitor System Incl Completed Analysis Int 09/14/2018 37653 Icd Eval With Iterative Adjustmt Multiple Lead System Completed 09/14/2018 54948 Interrogation Implant Cardiovasc Monitor System Incl Completed Analysis Int 09/03/2018 72411 EKG Tracing & Interpretation Completed 05/03/2018 91102 Pace Maker Eval W/Iterative Adjment Dual Lead Completed 05/03/2018 36235 Pace Maker Eval W/Iterative Adjment Dual Lead Completed 04/28/2018 99346 ECHO Transthoracic, Real-Time 2D With Doppler And Completed Color Flow 04/28/2018 27229 ECHO Transthoracic, Real-Time 2D With Doppler And Completed Color Flow 03/30/2018 77934 EKG Tracing & Interpretation Completed 10/29/2017 38108 Pace Maker Eval W/Iterative Adjment Dual Lead Completed 10/09/2017 40888 EKG Tracing & Interpretation Completed 09/30/2017 71405 ECHO Transthoracic, Real-Time 2D With Doppler And Completed Color Flow 09/30/2017 04682 ECHO Transthoracic, Real-Time 2D With Doppler And Completed Color Flow 09/29/2017 05338 Holter Monitor Review (24 hr)dr review & interp only Completed 09/28/2017 84855 ECG Monitor/Recording W/Visual Superimposition Completed Scanning 09/11/2017 63618 Interrogation Device Eval In Person W/DR Completed Analysis,Single,Dual,Mul 09/11/2017 96077 EKG Tracing & Interpretation Completed 05/07/2017 63724 Pace Maker Eval W/Iterative Adjment Dual Lead Completed 04/08/2017 90108 ECHO Transthoracic, Real-Time 2D With Doppler And Completed Color Flow 03/04/2017 39567 EKG Tracing & Interpretation Completed 12/25/2016 [id number] Diabetic Retinal Eye Exam Completed 11/11/2016 65026 Pace Maker Eval W/Iterative Adjment Dual Lead Completed 11/07/2016 42756 EKG Tracing & Interpretation Completed 09/23/2016 40772 Pace Maker Eval W/Iterative Adjment Dual Lead Completed 07/25/2016 09783 ECHO Transthoracic, Real-Time 2D With Doppler And Completed Color Flow 07/18/2016 06051 Color Flow Doppler/Interp & Reprt Completed 07/18/2016 40128 Pulse Wave/Continuous-Interp.RPT Completed 07/18/2016 24791 Echocardiography, Transesophageal, Real Time W/Image Completed 2D W/W/O M-M 07/14/2016 99115 ECHO Stress Test Incl Perf Contiuous ekg Monitoring Completed W/Phys Superv 06/26/2016 21252 Polysomnography Sleep Staging 4+ Parameters Completed 05/09/2016 77941 Treadmill Interp/Report Only Completed 05/09/2016 78029 Stress Test Supervsn W/Out I/R Completed 04/29/2016 52775 EKG Tracing & Interpretation Completed 04/15/2016 95225 Pace Maker Eval W/Iterative Adjment Dual Lead Completed 03/12/2016 34918 EKG Tracing & Interpretation Completed 03/02/2016 42289 EKG, Interpretation Only Completed 02/29/2016 04648 ECHO Transthorasic Realtime 2D W Doppler & Color Flow Completed Hosp 02/29/2016 58859 EKG, Interpretation Only Completed 02/27/2016 27462 EKG Tracing & Interpretation Completed 04/17/2015 88330 EKG Tracing & Interpretation Completed 11/03/2014 28067 ECHO Transthoracic, Real-Time 2D With Doppler And Completed Color Flow 08/29/2014 45219 EKG Tracing & Interpretation Completed 02/22/2014 81492 EKG Tracing & Interpretation Completed 12/09/2013 97161 ECHO Transthoracic, Real-Time 2D With Doppler And Completed Color Flow 08/24/2013 16210 EKG Tracing & Interpretation Completed 11/25/2012 54703 EKG Tracing & Interpretation Completed 10/25/2012 60657 Rad Exam; Forearm Completed 09/01/2012 61170 Long Arm Cast Application Completed 09/01/2012 47228 Rad Exam; Forearm Completed 08/11/2012 21812 Long Arm Cast Application Completed 08/11/2012 42703 CLSD TRMT Radial & Ulnar Shaft Completed 08/11/2012 09237 Closed Treatment Ulnar Shaft Fracture Completed 05/12/2012 75354 EKG Tracing & Interpretation Completed 04/13/2012 92561 ECHO Transthoracic, Real-Time 2D With Doppler And Completed Color Flow 02/04/2012 93252 EKG Tracing & Interpretation Completed 06/04/2011 07029 ECHO Transthoracic, Real-Time 2D With Doppler And Completed Color Flow 04/04/2011 35093 EKG Tracing & Interpretation Completed 10/24/2009 85181 ECHO Transthoracic, Real-Time 2D With Doppler And Completed Color Flow 09/26/2009 15496 EKG Tracing & Interpretation Completed 10/31/2008 47625 Color Doppler Completed 10/31/2008 70364 Pulse Doppler & Continuous Wave Completed 10/31/2008 76809 Echocardiogram Completed 10/31/2008 53598 Echocardiogram Completed 10/31/2008 46121 Color Doppler Completed 09/15/2008 87224 EKG Tracing & Interpretation Completed 12/27/2007 98853 Color Doppler Completed 12/27/2007 87118 Color Doppler Completed 12/27/2007 46700 Color Doppler Completed 12/27/2007 50614 Pulse Doppler & Continuous Wave Completed 12/27/2007 40736 Pulse Doppler & Continuous Wave Completed 12/27/2007 83356 Echocardiogram Completed 12/27/2007 97382 Echocardiogram Completed 12/27/2007 40990 Echocardiogram Completed 11/01/2007 77581 EKG Tracing & Interpretation Completed 04/28/2007 48325 EKG Tracing & Interpretation Completed 04/28/2007 18677 EKG Tracing & Interpretation Completed 10/07/2006 48971 EKG Tracing & Interpretation Completed 10/07/2006 97267 EKG Tracing & Interpretation Completed 05/06/2006 78695 Color Doppler Completed 05/06/2006 70556 Pulse Doppler & Continuous Wave Completed 05/06/2006 25129 Pulse Doppler & Continuous Wave Completed 05/06/2006 11545 Echocardiogram Completed 04/06/2006 75869 EKG Tracing & Interpretation Completed 04/30/2005 90442 EKG Tracing & Interpretation Completed 02/07/2005 50865 Color Doppler Completed 02/07/2005 61918 Pulse Doppler & Continuous Wave Completed 02/07/2005 52281 Echocardiogram Completed 01/27/2005 37371 EKG Tracing & Interpretation Completed 09/10/2004 82280 EKG Tracing & Interpretation Completed 08/12/2004 44324 Color Doppler Completed 08/12/2004 53863 Pulse Doppler & Continuous Wave Completed 08/12/2004 20002 Echocardiogram Completed Encounters Type Date Location Provider Dx Diagnosis Office Visit 01/12/2019 [facility] Miles Wolf I42.9 Cardiomyopathy , 11:00a Beata Alicia unspecified I48.0 Paroxysmal atrial fibrillation I49.5 Sick sinus syndrome Z95.810 Presence of automatic (implantable) cardiac defibrillator I34.0 Nonrheumatic mitral (valve) insufficiency E11.65 Type 2 diabetes mellitus with hyperglycemia I50.22 Chronic systolic (congestive) heart failure I44.7 Left bundle-branch block, unspecified Office Visit 10/12/2018 Zara Segovia I42.9 Cardiomyopathy, 11:00a Cardiology Magdiel Alvarado N.P. 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 I34.0 Nonrheumatic mitral (valve) insufficiency I48.0 Paroxysmal atrial fibrillation I49.5 Sick sinus syndrome E11.65 Type 2 diabetes mellitus with hyperglycemia Office Visit 09/03/2018 [facility] Miles Wolf E11.65 Type 2 diabetes 2:40p Cardiology Beata Alicia mellitus with hyperglycemia M05.79 Rheu arthritis w rheu factor mult site w/o org/sys involv I50.22 Chronic systolic (congestive) heart failure E66.09 Other obesity due to excess calories M06.9 Rheumatoid arthritis, unspecified I42.9 Cardiomyopathy, unspecified Z95.810 Presence of automatic (implantable) cardiac defibrillator I34.0 Nonrheumatic mitral (valve) insufficiency Office Visit 08/31/2018 1:30p Rheumatology Divya Gonzáles M05.79 Rheu arthritis [facility] rheu factor mult site w/o org/sys involv E11.65 Type 2 diabetes mellitus with hyperglycemia R21 Rash and other nonspecific skin eruption E66.09 Other obesity due to excess calories Z79.899 Other longterm (current) drug therapy Office Visit 06/22/2018 3:00p Rheumatology Divya Gonzáles M05.79 Rheu arthritis [facility] rheu factor mult site w/o org/sys involv Z79.899 Other longterm (current) drug therapy Office Visit 06/22/2018 Zara Segovia I42.9 Cardiomyopathy, 10:30a [facility]iology Of Christiano N.P. unspecified [facility] I48.0 Paroxysmal atrial fibrillation I49.5 Sick sinus syndrome R06.02 Shortness of breath I34.0 Nonrheumatic mitral (valve) insufficiency Z95.0 Presence of cardiac pacemaker Office Visit 05/13/2018 Zara Segovia I42.9 Cardiomyopathy, 10:30a [facility] Of Christiano, N.P. unspecified [facility] I48.0 Paroxysmal atrial fibrillation I49.5 Sick sinus syndrome Z95.0 Presence of cardiac pacemaker I34.0 Nonrheumatic mitral (valve) insufficiency R06.02 Shortness of breath Office Visit 05/12/2018 10:30a Pulmonology And Daphne G47.33 Obstructive sleep Sleep Services Of [facility] Anita apnea (adult) [facility] (pediatric) E66.09 Other obesity due to excess calories Office Visit 03/30/2018 1:40p [facility] Miles Wolf M06.9 Rheumatoid Beata Alicia arthritis, unspecified D64.9 Anemia, unspecified I42.9 Cardiomyopathy, unspecified I49.5 Sick sinus syndrome I48.0 Paroxysmal atrial fibrillation I50.22 Chronic systolic (congestive) heart failure Office Visit 03/05/2018 10:40a Rheumatology Meet M06.9 Rheumatoid Services Of [facility] Beata Greene arthritis, unspecified D64.9 Anemia, unspecified Z79.899 Other longterm (current) drug therapy M79.1 Myalgia R63.5 Abnormal weight gain Office Visit 10/20/2017 4:00p Rheumatology Meet M06.9 Rheumatoid Services Of Gini Greene M.D. arthritis, unspecified D64.9 Anemia, unspecified M25.552 Pain in left hip Z79.899 Other terminal supervisor (current) drug therapy Office Visit 10/09/2017 2:00p [facility] Miles Wolf I44.7 Left bundle-branch Cardiology Beata Alicia block, unspecified I42.9 Cardiomyopathy, unspecified I34.0 Nonrheumatic mitral (valve) insufficiency I48.0 Paroxysmal atrial fibrillation Office Visit 09/11/2017 3:20p Shanta Wolf I44.7 Left bundle-branch Cardiology Beata Alicia block, unspecified M06.9 Rheumatoid arthritis, unspecified R94.31 Abnormal electrocardiogram [ECG] [EKG] I42.9 Cardiomyopathy, unspecified Z95.0 Presence of cardiac pacemaker R00.1 Bradycardia, unspecified Office Visit 09/11/2017 11:00a Rheumatology Meet M06.9 Rheumatoid Services Of Gini Greene M.D. arthritis, unspecified Z79.899 Other terminal supervisor (current) drug therapy D64.9 Anemia, unspecified M25.552 Pain in left hip M79.1 Myalgia Office Visit 05/06/2017 9:45a Pulmonology And Daphne G47.33 Obstructive sleep [facility] Anita apnea (adult) 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 (pediatric) Office Visit 07/14/2016 8:15a [facility] Miles Wolf G47.33 Obstructive sleep Of Gini Alicia M.D. apnea (adult) (pediatric) I10 Essential (primary) hypertension I34.0 Nonrheumatic mitral (valve) insufficiency R06.00 Dyspnea, unspecified E66.9 Obesity, unspecified R60.0 Localized edema I49.5 Sick sinus syndrome I42.9 Cardiomyopathy, unspecified Office Visit 06/17/2016 9:00a [facility] Fior Chavez, I10 Essential (primary) Of [facility] PA hypertension I34.0 Nonrheumatic mitral (valve) insufficiency I48.0 Paroxysmal atrial fibrillation Z95.0 Presence of cardiac pacemaker D64.9 Anemia, unspecified Office Visit 06/09/2016 8:45a [facility] And Daphne G47.9 Sleep disorder, [facility] Anita 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 R09.02 Hypoxemia Office Visit 05/14/2016 9:00a [facility] Miles Wolf I10 Essential (primary) Beata Alicia hypertension I34.0 Nonrheumatic mitral (valve) insufficiency I50.9 Heart failure, unspecified R06.02 Shortness of breath Office Visit 04/29/2016 8:40a [facility] Miles Wolf I10 Essential (primary) Beata Alicia hypertension Z95.0 Presence of cardiac pacemaker I48.0 Paroxysmal atrial fibrillation I50.9 Heart failure, unspecified G47.9 Sleep disorder, unspecified Office Visit 04/15/2016 2:00p [facility] Nurse Visit I10 Essential (primary) cc hypertension Office Visit 04/03/2016 10:00a [facility] Fior Chavez I48.91 Unspecified atrial PA fibrillation I49.5 Sick sinus syndrome Z95.0 Presence of cardiac pacemaker I34.0 Nonrheumatic mitral (valve) insufficiency D64.9 Anemia, unspecified I10 Essential (primary) hypertension Office Visit 03/12/2016 11:00a [facility] Miles Wolf I49.5 Sick sinus Beata Alicia syndrome I48.0 Paroxysmal atrial fibrillation I48.91 Unspecified atrial fibrillation M06.9 Rheumatoid arthritis, unspecified I34.0 Nonrheumatic mitral (valve) insufficiency Office Visit 03/03/2016 1:46p [facility] Calvin Brambila I49.5 Sick sinus Of Gini Ludwig M.D. syndrome I48.0 Paroxysmal atrial fibrillation I42.9 Cardiomyopathy, unspecified Office Visit 03/02/2016 [facility] Diego SSarah I48.0 Paroxysmal atrial 11:35a Camila Bray M.D. fibrillation Office Visit 03/01/2016 [facility] Diego SSarah I42.9 Cardiomyopathy, 11:25a Cardiology Beata Bray unspecified I34.0 Nonrheumatic mitral (valve) insufficiency I48.0 Paroxysmal atrial fibrillation Office Visit 02/29/2016 [facility] Michelle I48.91 Unspecified atrial 10:03a Assoc,pc Rooth, DO fibrillation Hospitalists I45.5 Other specified heart block M06.9 Rheumatoid arthritis, unspecified Office Visit 02/29/2016 4:39p [facility] Fletcher Segovia I48.0 Paroxysmal atrial Of Sql Application Developer Arana, DO fibrillation FACC R55 Syncope and collapse I42.9 Cardiomyopathy, unspecified I49.5 Sick sinus syndrome Office Visit 02/27/2016 10:30a [facility] Fior Chavez I42.9 Cardiomyopathy, Cardiology PA unspecified I44.7 Left bundle-branch block, unspecified I34.0 Nonrheumatic mitral (valve) insufficiency I36.1 Nonrheumatic tricuspid (valve) insufficiency I48.0 Paroxysmal atrial fibrillation Office Visit 04/17/2015 Zara Wolf 425.4 Cardiomyopathy Other 3:20p Cardiology Magdiel Alicia M.D. Prim Sql Application Developer 424.0 Mitral Valve Disorder 426.3 Left Bundle Branch Block Other Office Visit 08/29/2014 2:20p [facility] Miles Wolf 426.3 Left Bundle Beata Alicia Branch Block Other 425.4 Cardiomyopathy Other Prim 401.9 Hypertension Unspec Office Visit 02/22/2014 [facility] Miles Wolf 425.4 Cardiomyopathy Other 2:20p Cardiology Beata Alicia Prim 426.3 Left Bundle Branch Block Other 401.1 Hypertension Benign 714.0 Rheumatoid Arthritis Office Visit 10/07/2013 1:30p [facility] Nurse Visit cc 401.1 Hypertension Benign Office Visit 08/24/2013 10:40a [facility] Miles Wolf 424.0 Mitral Valve Beata Alicia Disorder 425.4 Cardiomyopathy Other Prim 426.3 Left Bundle Branch Block Other Office Visit 11/25/2012 2:20p [facility] Miles Wolf 714.0 Rheumatoid Beata Alicia Arthritis 424.0 Mitral Valve Disorder 425.4 Cardiomyopathy Other Prim 426.3 Left Bundle Branch Block Other Office Visit 05/12/2012 3:00p [facility] Miles Wolf 424.0 Mitral Valve Beata Alicia Disorder 425.4 Cardiomyopathy Other Prim 426.3 Left Bundle Branch Block Other 250.00 Diabetes Mellitus W/O Compl Type II Or Unspec Controlled 272.0 Hypercholesterolemia Pure Office Visit 02/04/2012 11:20a [facility] Miles Wolf 426.3 Left Bundle Beata Alicia Branch Block Other 425.4 Cardiomyopathy Other Prim 424.0 Mitral Valve Disorder 250.00 Diabetes Mellitus W/O Compl Type II Or Unspec Controlled Office Visit 04/04/2011 3:00p [facility] Miles Wolf 424.0 Mitral Valve Beata Alicia Disorder 426.3 Left Bundle Branch Block Other 425.4 Cardiomyopathy Other Prim 272.0 Hypercholesterolemia Pure 250.00 Diabetes Mellitus W/O Compl Type II Or Unspec Controlled Office Visit 09/26/2009 3:20p [facility] Miles Wolf 426.3 Left Bundle Mauser MSarahD. Branch Block Other 424.0 Mitral Valve Disorder 425.4 Cardiomyopathy Other Prim 401.1 Hypertension Benign Office Visit 09/15/2008 9:00a [facility] Miles Wolf 426.3 Left Bundle Mauser MSarahD. Branch Block Other 424.0 Mitral Valve Disorder 425.4 Cardiomyopathy Other Prim 272.0 Hypercholesterolemia Pure 401.1 Hypertension Benign Office Visit 01/26/2008 10:10a [facility] Miles Wolf 426.3 Left Bundle Mauser MSarahD. Branch Block Other 424.0 Mitral Valve Disorder 425.4 Cardiomyopathy Other Prim 401.1 Hypertension Benign Office Visit 11/01/2007 3:00p [facility] Miles Wolf 426.3 Left Bundle Madanisr MSarahD. Branch Block Other 424.0 Mitral Valve Disorder 401.1 Hypertension Benign 272.0 Hypercholesterolemia Pure Office Visit 04/28/2007 2:00p [facility] Miles Wolf 426.3 Left Bundle Maral MSarahDSarah Branch Block Other 424.0 Mitral Valve Disorder Office Visit 10/07/2006 11:00a [facility] Miles Wolf 424.0 Mitral Valve Tre Alicia. Disorder 401.1 Hypertension Benign 272.0 Hypercholesterolemia Pure 250.00 Diabetes Mellitus W/O Compl Type II Or Unspec Controlled Office Visit 04/06/2006 Shanta Wlof 786.09 Dyspnea & 2:20p Camila Alicia M.D. Respiratory Abnormalities Other 424.0 Mitral Valve Disorder 401.1 Hypertension Benign Office Visit 09/29/2005 3:00p [facility] Miles Wolf 414.8 Ischemic Heart Beata Alicia Disease Chronic Other Spec Forms 424.0 Mitral Valve Disorder Office Visit 06/23/2005 Shanta Wolf 425.4 Cardiomyopathy Other 2:40p Camila Alicia M.D. 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 Office Visit 01/27/2005 1:40p [facility] Miles Wolf 424.0 Mitral Valve Beata Alicia Disorder 425.9 Cardiomyopathy Secondary Unspecified 250.00 Diabetes Mellitus W/O Compl Type II Or Unspec Controlled Office Visit 10/02/2004 [facility] Miles Wolf 425.4 Cardiomyopathy Other 10:30a Cardiology Beata Alicia Prim 401.1 Hypertension Benign 250.00 Diabetes Mellitus W/O Compl Type II Or Unspec Controlled Office Visit 09/10/2004 [facility] Miles Wolf 425.9 Cardiomyopathy 2:20p Cardiology Beata Alicia Secondary Unspecified 401.1 Hypertension Benign 250.00 Diabetes Mellitus W/O Compl Type II Or Unspec Controlled Plan of Treatment Future Appointment(s):05/03/2019 3:20 pm - Miles Alicia M.D. at [facility]02/25/2019 11:00 am - [facility] Pacer Schedule at [facility] 11:00 am - [place] ECHO Schedule at [facility]03/21/2019 6:00 am - Remote Device Checks at [facility]02/16/2019 7:40 am - Remote Device Checks at [facility]05/12/2019 10:45 am - Daphne Howard MD at [facility]01/28/2019 - Alesia Alvarado N.P.I42.9 Cardiomyopathy, unspecifiedFollow up:04/2019 JF keep echo appt.Recommendations:Continue aldactone 2 tabs daily. Check BPs at home and bring in list to echo appt on 02/11 If BP is elevated at home, we can try to increase carvedilol (evening dose ideally BP should be close to 120s/70s.I48.0 Paroxysmal atrial vmiwaoobhxflV82.5 Sick sinus wnjyuurhY99.810 Presence of automatic (implantable) cardiac mzegxkaqszmdnZ08.0 Nonrheumatic mitral (valve) wabsmgdrfzjelO29.7 Left bundle-branch block, unspecified
[2019-02-18] MEDS ORDERED: Morphine 4 MG/ML VIAL (1 ml) 4 MG/ML VIAL IV ONE (00:28)
--- NOTE | 2019-02-18 00:39 | ED ---
Lower Extremity - HPI Summary HPI Summary: This patient is a 83 year old female brought in by ambulance to [facility] with a chief complaint of right thigh pain since 2300 tonight. Patient denies any mechanism of injury. 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 Patient states she sat down and couldnt get up. The pain is localized in her right thigh and radiates down. The pain is rated 10/10 in severity. Symptoms aggravated by nothing. Symptoms alleviated by nothing. Patient denies any other medical complaints at this time. - History of Current Complaint Stated Complaint: CANT MOVE HER LEG PER PT Time Seen by Provider: 02/18/19 00:24 Hx Obtained From: Patient Mechanism Of Injury: Unknown Onset of Pain: Immediate Onset/Duration: Hours Severity Currently: Severe Pain Intensity: 10 Pain Scale Used: 0-10 Numeric Timing: Constant Location: Is Discrete @ - right thigh Associated Signs And Symptoms: Positive: Negative - Fever Aggravating Factor(s): Nothing Alleviating Factor(s): Nothing - Allergies/Home Medications Allergies/Adverse Reactions: Allergies Allergy/AdvReac Type Severity Reaction Status Date / Time ciprofloxacin Allergy Severe Rash Verified 02/18/19 15:05 atorvastatin Allergy Intermediate Leg Cramps Verified 06/06/18 11:29 ezetimibe [From Zetia] Allergy Intermediate Itching Verified 06/06/18 11:29 losartan Allergy Intermediate Rash Verified 06/06/18 11:29 ARB-Angiotensin Receptor Allergy Unknown Unknown Verified 06/06/18 11:29 Antagonist Reaction Details gold Au 198 Allergy Unknown Unknown Verified 06/06/18 11:29 Reaction Details methotrexate Allergy Unknown Unknown Verified 06/06/18 11:29 Reaction Details Penicillins Allergy Unknown Unknown Verified 06/06/18 11:29 Reaction Details pravastatin Allergy Unknown Unknown Verified 06/06/18 11:29 Reaction Details ramipril Allergy Unknown Unknown Verified 06/06/18 11:29 Reaction Details amlodipine AdvReac Intermediate Headache Verified 06/06/18 11:29 diltiazem AdvReac Intermediate See Comment Verified 06/06/18 11:29 valsartan AdvReac Intermediate Coughing Verified 06/06/18 11:29 PMH/Surg Hx/FS Hx/Imm Hx Previously Healthy: No Endocrine/Hematology History: Reports: Hx Anticoagulant Therapy - new starting yesterday, Hx Diabetes Denies: Hx Anemia, Hx Unexplained Bleeding Cardiovascular History: Reports: Hx Hypercholesterolemia, Hx Hypertension, Hx Rheumatic Fever, Hx Valvular Heart Disease - pt states "leaky valve", Other Cardiovascular Problems/Disorders - Left BBB Denies: Hx Aneurysm, Hx Angina, Hx Angioplasty, Hx Auto Implanted Cardiovert Defib, Hx Cardiac Arrest, Hx Cardiomegaly, Hx Congenital Heart Disease, Hx Congestive Heart Failure, Hx Coronary Artery Disease, Hx Deep Vein Thrombosis, Hx Embolism, Hx Hypotension, Hx Pacemaker/ICD, Hx Peripheral Vascular Disease, Hx Syncope GI History: Denies: Hx Jaundice History: Denies: Hx Renal Disease Musculoskeletal History: Reports: Hx Rheumatoid Arthritis Denies: Hx Arthritis, Hx Back Problems, Hx Bursitis, Hx Fibromyalgia, Hx Gout , Hx Orthopedic Injury, Hx Osteoporosis, Hx Scoliosis, Hx Tendonitis, Other Musculoskeletal History Sensory History: Denies: Hx Cataracts, Hx Glaucoma Opthamlomology History: Denies: Hx Cataracts, Hx Glaucoma Neurological History: Denies: Hx Headaches, Hx Seizures, Hx Transient Ischemic Attacks (TIA) Psychiatric History: Denies: Hx Anxiety, Hx Depression - Cancer History Hx Chemotherapy: No Hx Radiation Therapy: No Infectious Disease History: No Infectious Disease History: Denies: Traveled Outside the [place] in Last 30 Days - Family History Known Family History: Positive: Other - Prostate, skin and colon cancer Negative: Hypertension, Diabetes - Social History Lives: With Family Alcohol Use: Daily Alcohol Amount: 4oz wine every night with dinner Hx Substance Use: No Substance Use Type: Reports: None Hx Tobacco Use: Yes Smoking Status (MU): Former Smoker Type: Cigarettes Have You Smoked in the Last Year: No Review of Systems Negative: Fever Positive: Other - right thigh pain All Other Systems Reviewed And Are Negative: Yes Physical Exam - Summary Physical Exam Summary: Appearance: Well-appearing, Well-nourished, lying in bed comfortably Skin: Warm, dry, no obvious rash Eyes: sclera anicteric, no conjunctival pallor ENT: mucous membranes moist, pharynx appears normal Neck: Supple, nontender Respiratory: Clear to auscultation, no signs of respiratory distress Cardiovascular: Normal S1, S2. No murmurs. Normal distal pulses in tibial and radial bilaterally. Abdomen: Soft, nontender, normal active bowel sounds present Musculoskeletal: Right leg is warm, no swelling noted, Diffuse tenderness about thigh, Pain with ROM of hip. Good perfusion all the down to foot Neurological: A&Ox3, awake and alert, mentation is normal, speech is fluent and appropriate Psychiatric: affect is normal, does not appear anxious or depressed Triage Information Reviewed: Yes Vital Signs On Initial Exam: Initial Vitals Temp Pulse Resp BP Pulse Ox 98.7 F 75 22 203/101 97 02/18/19 00:20 02/18/19 00:20 02/18/19 00:20 02/18/19 00:20 02/18/19 00:20 Vital Signs Reviewed: Yes Diagnostics - Vital Signs Vital Signs Temp Pulse Resp BP Pulse Ox 02/18/19 00:21 74 203/101 98 02/18/19 00:20 98.7 F 75 22 203/101 97 - Laboratory Result Diagrams: 02/18/19 01:12 02/18/19 01:12 Lab Statement: Any lab studies that have been ordered have been reviewed, and results considered in the medical decision making process. Lower Extremity Course/Dx - Course Course Of Treatment: This patient is a 83 year old female brought in by ambulance to [facility] with a chief complaint of right thigh pain since 2300 tonight. Patient denies any mechanism of injury. 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 Patient states she sat down and couldnt get up. The pain is localized in her right thigh and radiates down. Bloodwork Obtained. Urinalysis Obtained. Patient will be signed out to Dr. Hernandez at end of shift, pending Knee XR, Femur XR, Hip/Pelvis XR. - Diagnoses Provider Diagnoses: Right thigh pain Discharge - Sign-Out/Discharge Documenting (check all that apply): Sign-Out Patient Signing out patient TO: Shen Hernandez Patient Received Moderate/Deep Sedation with Procedure: No - Discharge Plan Condition: Stable Disposition: ADMITTED TO [facility] - Billing Disposition and Condition Condition: STABLE Disposition: Admitted to [facility] - Attestation Statements Document Initiated by Scribe: Yes Documenting Scribe: Zach Bryant Provider For Whom Scribe is Documenting (Include Credential): Ahmet Marquez MD Scribe Attestation: Zach Harper, scribed for Ahmet Marquez MD on 02/19/19 at 0218. Scribe Documentation Reviewed: Yes Provider Attestation: The documentation as recorded by the scribe, Zach Bryant accurately reflects the service I personally performed and the decisions made by me, Ahmet Marquez MD Status of Elizabeth Document: Viewed
[2019-02-18 01:20] LABS: ABS Basophils 0 10^3/ul (0-0.2); ABS Eosinophils 0 10^3/ul (0-0.6); ABS Lymphocytes 0.7 10^3/ul (1.0-4.8); ABS Monocytes 0.6 10^3/ul (0-0.8); ABS Neutrophils 4.7 10^3/ul (1.5-7.7); ABS Nucleated RBC 0 10^3/ul; Eosinophil % 0 %; Hematocrit 27 % (33-41); Lymphocyte % 11.3 %; Mean Corpuscular HGB Conc 33 g/dL (31-36); Mean Corpuscular Hemoglobin 30 pg (27-31); Mean Corpuscular Volume 92 fL (80-97); Mean Platelet Volume 7.7 fL (7.4-10.4); Nucleated Red Blood Cells % 0; Platelet Count 258 10^3/uL (150-450); Red Blood Count 2.96 10^6 /uL (3.70-4.87); Red Cell Distribution Width 17 % (10.5-15)
[2019-02-18 01:38] LABS: Calcium 9.5 mg/dL (8.6-10.3); EGFR African American 89.1 (>60); EGFR Non-African American 73.6 (>60); Potassium 3.9 mmol/L (3.5-5.0)
[2019-02-18] MEDS ORDERED: oxyCODONE/Acetamin 5/325 MG* TAB PO ONE ×2 (04:48→06:43)
[2019-02-18] MEDS ORDERED: Levothyroxine TAB* 75 MCG TAB PO ONE (06:00)
[2019-02-18 06:50] LABS: C Reactive Protein 22.99 mg/L (<8.01)
--- NOTE | 2019-02-18 07:49 | ED ---
Progress - Progress Note Progress Note: Re-evaluation done at 0723. Pt is an 83 y/o F signed out from Dr. Marquez pending imaging results. The pt states that she usually walks 30 minutes a day throughout her house, and after she did that yesterday, she was in intense pain on sitting down. The pain is located beginning at her pubic region and spreading through her R hip and thigh. She denies falling or twisting anything, and denies pain in her R knee, calf, or foot, back pain, cough, sob, significant weight gain from baseline, fever, chills, erythema of eyes, sore throat, CP, abdominal pain, N/V, dysuria, hematuria, rash, or dizziness. She was in [facility] two years ago to fix her heart valve, and since then she has gained about 30 pounds. She has hx of rheumatoid arthritis that causes normal pain when she sits for too long, but she sees Dr. Greene and has not experienced this acute pain before. Lying still alleviates sx, and movement or touch aggravates the sx. She also reports hx of edema, using a cpap at night, and she has a pacemaker, defibrillator, leaky valve, and LBBB. She is on anticoagulant therapy (eliquis) and has DM. - Results/Orders Results/Orders: Knee XR No joint effusion or fracture is noted. Femur XR No fracture of the R femur is noted. Hip/Pelvis XR No fracture of the R hip. Moderate degenerative changes are noted. ED physician has reviewed these reports. Lower Extremity CT 1. No cortical disruption or suspicious trabecular irregularity to suggest fracture. 2. The RIGHT hip is remarkable for severe superior and axial joint space narrowing with associated subchondral cystic change with dominant 1.4 cm subchondral cyst at the femoral head. Only minimal osteophytosis. Evidence for small hip joint effusion. 3. The RIGHT knee is remarkable for mild to moderate tricompartmental joint space narrowing. Paucity of osteophytosis. Chondrocalcinosis at the lateral meniscus indicating degeneration. 4. Diffuse moderate skeletal muscle atrophy. Peripheral vascular calcifications. 5. Incidental complex appearing 3.9 x 5.2 cm RIGHT ovarian lesion with hypodense , hyperdense, and calcified elements. Consider pelvic ultrasound for further assessment. 7. Negative for ascites within the [id number]. Pelvic CT Degenerative changes of both hips. Subchondral cyst formation in the right acetabulum and right femoral head is noted. - Consult/PCP Time Called: 09:46 Consult/PCP: Dr. Beasley Consult Reason/Comments: Spoke with Dr. Beasley who will accept the pt to [facility]. Course/Dx - Course Course Of Treatment: Pt is an 83 y/o F signed out from Dr. Marquez pending imaging results. The pain is located beginning at her pubic region and spreading through her R hip and thigh. She denies falling or twisting anything, and denies pain in her R knee, calf, or foot, back pain, cough, sob, significant weight gain from baseline, fever, chills, erythema of eyes, sore throat, CP, abdominal pain, N/V, dysuria, hematuria, rash, or dizziness. Lying still alleviates sx, and movement or touch aggravates the sx. Hx includes rheumatoid arthritis, DM, pacemaker, defibrillator, leaky valve, valve replacement, LBBB, anticoagulant therapy (eliquis), and chronic edema. Current plan is to pend results from knee, hip, and femur X-rays, as well as order a US to rule out DVT, check the pt's BNP, and order a CXR. The pt's BNP is 331. A CXR shows: 1. Stigmata of obstructive lung disease. 2. Mild cardiomegaly. 3. No acute cardiopulmonary process evident. A venous doppler study shows no evidence for DVT. Spoke with Dr. Beasley at 0946 who will be the accepting physician to [facility]. - Diagnoses Provider Diagnoses: Right thigh pain Discharge - Sign-Out/Discharge Documenting (check all that apply): Patient Departure, Receiving Sign-Out Receiving patient FROM: Ahmet Marquez - Discharge Plan Condition: Good Disposition: ADMITTED TO [facility] - Billing Disposition and Condition Condition: GOOD Disposition: Admitted to [facility] - Attestation Statements Document Initiated by Scribe: Yes Documenting Scribe: Michelle Dodson Provider For Whom Elizabeth is Documenting (Include Credential): Shen Hernandez MD. Scribe Attestation: Michelle Harper scribed for Shen Hernandez MD. on 02/21/19 at 1043. Scribe Documentation Reviewed: Yes Provider Attestation: The documentation as recorded by the Michelle benavidez accurately reflects the service I personally performed and the decisions made by me, Shen Hernandez MD. Status of Scribe Document: Viewed
[2019-02-18] MEDS ORDERED: Hydrochlorothiazide TAB* 25 MG PO ONE (07:50)
[2019-02-18] MEDS ORDERED: Carvedilol TAB* 6.25 MG PO ONE ×2 (07:51→11:00)
[2019-02-18] MEDS ORDERED: Insulin ASPART (NF) 100 UNIT/ML VIAL SUBCUT ONE (09:18)
[2019-02-18] MEDS ORDERED: Carvedilol TAB* 25 MG PO ONE (09:18)
[2019-02-18] MEDS ORDERED: HYDROcodone/ACETAMIN 5-325 MG* 1 TAB PO ONE (09:23)
[2019-02-18] MEDS ORDERED: Morphine 4 MG/ML VIAL (1 ml) 4 MG/ML VIAL IV PRN (12:13)
[2019-02-18] MEDS ORDERED: HYDROcodone/ACETAMIN 5-325 MG* 1 TAB PO PRN (12:20)
[2019-02-18] MEDS ORDERED: Dextrose 50% Syringe 50 ML* 25 GM/50 ML SYRINGE IV PUSH PRN (12:20)
[2019-02-18 12:42] LABS: Urine Appearance Cloudy; Urine Bacteria Absent (Absent); Urine Bilirubin Negative (Negative); Urine Blood Negative (Negative); Urine Color Amber; Urine Glucose 1+(50 mg/dL) (Negative); Urine Ketones Trace (Negative); Urine Nitrite Negative (Negative); Urine Protein 2+(100 mg/dL) (Negative); Urine Red Blood Cell Absent (Absent); Urine Squamous Epithelial Cell Present (Absent); Urine Transitional Epithelial Present (Absent); Urine Urobilinogen Negative (Negative); Urine White Blood Cell 2+(11-20/hpf) (Absent)
[2019-02-18] MEDS ORDERED: Furosemide TAB* 40 MG PO SCH (14:00)
[2019-02-18] MEDS ORDERED: Potassium Chlor TAB* 20 MEQ TAB.ER PO SCH (14:00)
[2019-02-18] MEDS: Insulin LISPRO* 1 UNITS UNIT SUBCUT SCH ×3 (15:00→17:57)
--- NOTE | 2019-02-18 15:18 | HP ---
CC: Dr. Wallace; Dr. Alicia.* HISTORY AND PHYSICAL: DATE OF ADMISSION: 02/18/19 PRIMARY CARE PROVIDER: Dr. Wallace. ATTENDING PHYSICIAN: Dr. Beasley * (dictated by Jyoti Randle NP) CHIEF COMPLAINT: Right hip pain. HISTORY OF PRESENT ILLNESS: Ms. Tatum is an 83-year-old female with a past medical history significant for atrial fibrillation, diabetes, RA; she presented to the ED on 02/18/19 at 0000. The patient presented to the ED due to right thigh pain and "sat down and could not get up." The patient reports she was in her normal state of health, did her normal 30 minutes of walking prior to dinner. The patient sat down at dinner and afterwards could not get up due to pain. The patient's helped her move the chair and slide onto the couch, but when she could not get up off the couch, they decided to call 911. It should be mentioned that patient did take a tramadol in the meantime with no relief prior to calling 911. The patient presented to the emergency department and rated pain at 10/10. The patient required morphine IV and Percocet p.o. The patient reports pain is still not improved with movement, but is less severe now with rest. While in the emergency department, the patient had multiple imaging including knee x-ray, femur x-ray, hip pelvis x-ray , which were unremarkable. Given continuation of pain and severity patient underwent CT of her pelvis and lower extremity. The patient was initially considered for MRI, but cannot have one due to her pacemaker. The patient's CT of her pelvis revealed degenerative changes in both hips and a subchondral cyst formation in the right acetabulum and right femoral head. The patient's pelvic x-ray did not suggest fracture, but did reveal that the right hip is remarkable for severe superior and axial joint space narrowing with associated subchondral cyst change with dominant 1.4 cm subchondral cyst at the femoral head, only minimal osteophytosis and evidence of small hip joint effusion. The patient also had an incidental finding of a 3.9 x 5.2 cm right ovarian lesion with hypodense, hyperdense, and calcified elements. Given these findings and her uncontrolled pain and inability to move, the hospitalist team are asked to admit. PAST MEDICAL HISTORY: 1. Atrial fibrillation with pacemaker/defibrillator and on Eliquis. 2. Diabetes, insulin independent. 3. Rheumatoid arthritis. 4. Leaky mitral valve. 5. Left bundle-branch block. 6. ZABRINA, with CPAP. PAST SURGICAL HISTORY: Unknown. HOME MEDICATIONS: 1. Vitamin C. 2. Potassium chloride 20 mEq Thursday, Thursday, Thursday with Lasix. 3. Eliquis 5 mg 1 by mouth twice a day. 4. Spironolactone 2 tabs by mouth every day 25 mg. 5. Lasix 20 mg 2 tabs by mouth 3 times weekly Thursday, Thursday, and Thursday. May take extra tab on non Lasix days if greater than 3 pound weight gain. 6. Coreg 12.5 mg, take 2 tabs every morning and 1 tablet every evening. 7. Vitamin B12, 1000 mcg 1 by mouth every day. 8. Sulfazine 500 mg two 2 tabs in the morning and 2 tabs in the evening for a total of 4 daily tabs. 9. Multivitamin 1 tab by mouth every day. 10. Folic acid 1 mg 2 times a week. 11. Calcium Plus D 600/200 mg 1 by mouth every night. 12. Flaxseed Meal 1 to 2 tablespoons per day. 13. Dandelion Root 520 mg 1 by mouth every day. 14. Garlic 2 cloves daily. 15. NovoLog FlexPen 3 to 10 units 3 times daily or as directed, max 50 units. 15. Lantus SoloSTAR 12 units at bedtime. 17. Levothyroxine 75 mcg 1 by mouth every day. 18. CPAP every night 13 cm H2O. 19. Iron 325 mg 1 by mouth every day. ALLERGIES: PENICILLIN, COZAAR CARDIZEM, LIPITOR, ZETIA, DIOVAN, AMLODIPINE, PRAVASTATIN, ARB'S, RAMIPRIL, HYDROXYCHLOROQUINE SULFATE, CIPROFLOXACIN. FAMILY HISTORY: Mother at age 40 due to pulmonary embolism. Father due to an accident at a young age. SOCIAL HISTORY: The patient lives at home with her of 50 years. 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 She quit smoking about 40 years ago. She only smoked about 10 years at a time. The patient reports 4 ounces of wine every evening. Healthcare proxy will be her , [place]. She is a full code. REVIEW OF SYSTEMS: The patient reports 10/10 pain in right hip and anterior thigh with movement. The patient reports 1/10 pain with lying still. The patient denies numbness and tingling. The patient denies weakness. A 14-point review of systems and all others were negative PHYSICAL EXAMINATION GENERAL: Ms. Tatum is an 83-year-old well-developed, well-nourished elderly woman sitting in bed, in no acute distress, is lying still, appears stated age. VITAL SIGNS: Temp 98.7, HR 64, RR 16, O2 saturation 99% on room air, BP 152/88. HEENT: PERRLA. EOMs intact. Oral mucosa is moist without lesion. Posterior pharynx is clear. NECK: Supple. No lymphadenopathy. RESPIRATORY: Symmetrical chest expansion. No accessory muscle use. Lungs are clear to auscultation. No wheezes, rubs or rhonchi. CARDIOVASCULAR: S1 and S2 present. No murmurs, rubs or gallops. No JVD. ABDOMEN: Soft, nontender to palpation. Bowel sounds normoactive throughout. No bruits appreciated. EXTREMITIES: Skin is warm and smooth bilaterally. No edema. No clubbing or cyanosis. Pedal pulses are 2+ bilaterally. MUSCULOSKELETAL: Very limited range of motion to left lower extremity, reports "severe pain" with any movement of right hip. No pain or deformities palpated. NEURO: She is awake, alert and oriented x4. Motor strength is 4/5 in upper and lower extremities. Sensation intact. SKIN: Grossly intact, no lesions. LABORATORY DATA/DIAGNOSTIC STUDIES: Sodium 132, potassium 3.9, chloride 100, carbon dioxide 26, BUN 12, creatinine 0.75, glucose 180. C-reactive protein is 22.99. BNP is 331. WBC 6, hemoglobin 9, hematocrit 27, platelets 258. Knee x-ray: No effusion or fracture noted. Femur x-ray: No fracture of right femur is noted. Hip or pelvis x-ray no fracture of right hip, moderate degenerative changes are noted. Lower extremity CT: No cortical disruption or suspicious trabecular irregularities suggest fracture. The right hip is remarkable for severe superior and axial joint space narrowing with associated subchondral cyst change with dominant 1.4 cm subchondral cyst at the femoral head, only minimal osteophytosis evidenced for a hip small effusion. Right knee is remarkable for mild to moderate tricompartmental space narrowing, paucity of osteophytes. Chondrocalcinosis at the lateral meniscus indicating degeneration. Diffuse moderate skeletomuscular atrophy. Peripheral vascular calcifications. Incidental complex appearing 3.9 x 5.2 right ovarian lesion with hypodense, hyperdense calcified elements, consider pelvic ultrasound for further assessment. Negative for ascites within field of view. Pelvic CT: Degenerative changes in both hip. Subchondral cyst information in the right acetabulum and right femoral head is noted. ASSESSMENT AND PLAN: Ms. Tatum is an 83-year-old female with a past medical history significant for atrial fibrillation, diabetes, rheumatoid arthritis, obstructive sleep apnea; who presented to the emergency department today with right hip pain, inability to walk, and was found to have a right subchondral cyst. The patient will be admitted OBV. 1. Right hip pain: The patient has a right subchondral cyst as mentioned above on CT. The patient will be admitted for physical therapy, occupational therapy, and pain control. I will contact Ortho for a consultation. 2. Incidental complex-appearing right ovarian lesion. I have ordered a pelvic ultrasound for further assessment. 3. Atrial fibrillation: The patient has a pacemaker and defibrillator. The patient is on Eliquis, which she will continue. The patient does not require tele at at this time. 4. Diabetes. We will continue patient's home regimen, but slightly reduced, given possibly different eating style here in the hospital and current pain. The patient will be given 10 units of Lantus in the evening and be placed on a sliding scale. The patient will be placed on consistent carb diet. 5. Rheumatoid arthritis. We will continue the patient's sulfasalazine. 6. Mitral valve leakage: Follow up with Cardiology, Dr. Alicia, as needed. 7. Left bundle-branch block. The patient has history of this. No need for further intervention at this time. 8. Obstructive sleep apnea: The patient has a CPAP at home, which she wears religiously, but unfortunately she has not brought it with her. I have ordered the patient to have a hospital CPAP while in the hospital. 9. Pain control: The patient reports morphine to help relieve pain. Therefore , it will be ordered p.r.n. I also ordered oral pain medications. 10. FEN: As mentioned above, the patient will be placed on a consistent carb diet. 11. Code status: The patient is a full code. 12. DVT prophylaxis: Based on the DVT risk assessment, the patient is a high risk. The patient is already on Eliquis. TIME SPENT: Approximately 60 minutes was spent on this admission, greater than half of that spent with the patient and caregiver obtaining my history and performing physical exam and reviewing my plan of care. The case has been reviewed with my attending, Dr. Beasley, who agrees with my plan. JYOTI RANDLE, CLINICAL SUPPORT ASSOCIATE [id number]/CPS #: [id number] EVAN
--- NOTE | 2019-02-18 16:44 | CONSULT ---
Consult Consult: HPI Summary: This patient is a 83 year old female brought in by ambulance to [facility] with a chief complaint of right thigh pain since 2300 yesterday evening. Patient denies any mechanism of injury. 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 Pt states that she walked down 17 steps and started to feel pain. She then was walking around her house praying for 30 min. She states that she then sat down for dinner and that she was unable to get back up due to groin and thigh pain. The pain is rated 10/10 in severity. Symptoms aggravated by nothing. Symptoms alleviated by nothing. Patient denies any other medical complaints at this time. Allergies Allergy/AdvReac Type Severity Reaction Status Date / Time atorvastatin Allergy Intermediate Leg Cramps Verified 06/06/18 11:29 ezetimibe [From Zetia] Allergy Intermediate Itching Verified 06/06/18 11:29 losartan Allergy Intermediate Rash Verified 06/06/18 11:29 ARB-Angiotensin Receptor Allergy Unknown Unknown Verified 06/06/18 11:29 Antagonist Reaction Details gold Au 198 Allergy Unknown Unknown Verified 06/06/18 11:29 Reaction Details methotrexate Allergy Unknown Unknown Verified 06/06/18 11:29 Reaction Details Penicillins Allergy Unknown Unknown Verified 06/06/18 11:29 Reaction Details pravastatin Allergy Unknown Unknown Verified 06/06/18 11:29 Reaction Details ramipril Allergy Unknown Unknown Verified 06/06/18 11:29 Reaction Details amlodipine AdvReac Intermediate Headache Verified 06/06/18 11:29 diltiazem AdvReac Intermediate See Comment Verified 06/06/18 11:29 valsartan AdvReac Intermediate Coughing Verified 06/06/18 11:29 PMHx: 1. Rheumatoid arthritis 2. Diabetes Mellitus 3. Left Bundle Branch Block 4. Hypercholesterolemia 5. Hypertension 6.Rheumatic Fever 7.Valvular Heart Disease Active Medications Generic Name Dose Route Start Last Admin Trade Name Freq PRN Reason Stop Dose Admin Hydrocodone Bitart/Acetaminophen 1 tab 02/18/19 12:20 [place] 5-325 Tab* PO Q4H PRN PAIN Apixaban 5 mg 02/18/19 21:00 Eliquis* PO BID BARBIE Calcium/Vitamin D 1 tab 02/18/19 21:00 [place] D Tab 250/125* PO BEDTIME BARBIE Carvedilol 25 mg 02/19/19 09:00 Coreg Tab* PO DAILY [facility] Carvedilol 12.5 mg 02/18/19 21:00 Coreg Tab* PO 2100 [facility] Cyanocobalamin 1,000 mcg 02/19/19 09:00 Vitamin B12 Tab* PO DAILY [facility] Dextrose 12.5 gm 02/18/19 12:20 D50w Syringe 50 Ml* IV PUSH .FOR FS < 60 - SS PRN FS < 60 Ferrous Sulfate 325 mg 02/19/19 09:00 Ferrous Sulfate Tab* PO Q48H BARBIE Folic Acid 1 mg 02/20/19 09:00 Folvite Tab* PO SuWe BARBIE Furosemide 40 mg 02/18/19 14:00 02/18/19 14:46 Lasix Tab* PO 40 mg MoWeFr BARBIE Administration Insulin Glargine 10 units 02/18/19 21:00 Lantus(*) SUBCUT BEDTIME [facility] Insulin Human Lispro 0 units 02/18/19 16:30 02/18/19 15:00 Humalog* SUBCUT 3 units AC [facility] Administration Protocol Levothyroxine Sodium 75 mcg 02/19/19 06:00 Synthroid Tab* PO DAILY@0600 [facility] Morphine Sulfate 2 mg 02/18/19 12:13 Morphine 4 Mg/Ml Vial (1 Ml) IV Q4H PRN PAIN - MILD Potassium Chloride 20 meq 02/18/19 14:00 02/18/19 14:46 Klor Con Er Tab* PO 20 meq MoWeFr BARBIE Administration Spironolactone 50 mg 02/19/19 09:00 Aldactone Tab* PO DAILY [facility] Sulfasalazine 1,000 mg 02/18/19 21:00 Azulfidine Tab* PO BID [facility] Family Hx: Admits to a family history of prostate cancer, skin cancer and colon cancer. Social Hx: Lives with . Drinks 4oz of wine every night. Denies any current smoking. Denies nay drug use. ROS: General: Denies fevers, chills or night sweats HEENT: Denies RAMSAY or lightheadedness Cardiothoracic: Denies chest pain, heart palpitations Pulmonary: Denies any SOB or cough GI: Denies any N/V/C/D MSK: Admits to right groin and anterior thigh pain Physical Exam Summary: Appearance: Well-appearing, Well-nourished, lying in bed comfortably Skin: Warm, dry, no obvious rash Musculoskeletal: Right leg is warm, no swelling noted, Diffuse tenderness about thigh, Pain with ROM of hip. Flexion to 45, IR and ER are 10 each with severe pain. Good perfusion all the down to foot Neurological: A&Ox3, awake and alert, mentation is normal, speech is fluent and appropriate Psychiatric: affect is normal, does not appear anxious or depressed Imaging: Xrays of the femur, knee and hip were obtained and reviewed. There is no evidence of fracture. No acute osseous abnormalities are seen. There is narrowing of joint spaces in the knee and in the hip. Spurring is present tri compartmental in the knee. Ct scan of the pelvis and the hip were obtained and reviewed today. Degenerative changes of both hips. Subchondral cyst formation in the right acetabulum and right femoral head is noted Assessment/Plan: Possible rheumatoid arthritis pain of the hip. Given her history of RA and that this pain has occurred before we feel this is an exacerbation of hip pain resulting from rheumatoid. Given her concomitant medical problems and medications we do not recommend a cortisone injection at this time. We feel supportive care and possibly obtaining input from her primary portfolio accountant to discuss treatment options. She is welcome to follow up with the orthopedic office at any time.
[2019-02-18] MEDS ORDERED: sulfaSALAzine TAB* 500 MG PO SCH (21:00)
[2019-02-18] MEDS ORDERED: Insulin GLARGINE(*) 1 UNITS UNIT SUBCUT SCH (21:00)
[2019-02-18] MEDS: Apixaban* 5 MG TAB PO SCH (21:06)
[2019-02-18] MEDS: Carvedilol TAB* 25 MG PO SCH (21:07)
[2019-02-18] MEDS: Calcium/Vitamin D TAB 250/125* TAB PO SCH (21:08)
[2019-02-19] MEDS ORDERED: Levothyroxine TAB* 75 MCG TAB PO ONE (06:00)
[2019-02-19 06:11] LABS: ABS Basophils 0 10^3/ul (0-0.2); ABS Eosinophils 0 10^3/ul (0-0.6); ABS Lymphocytes 0.7 10^3/ul (1.0-4.8); ABS Monocytes 0.5 10^3/ul (0-0.8); ABS Nucleated RBC 0 10^3/ul; Eosinophil % 0 %; Hematocrit 27 % (33-41); Lymphocyte % 10.7 %; Mean Corpuscular HGB Conc 33 g/dL (31-36); Mean Corpuscular Hemoglobin 31 pg (27-31); Mean Corpuscular Volume 93 fL (80-97); Mean Platelet Volume 8.2 fL (7.4-10.4); Nucleated Red Blood Cells % 0.1; Platelet Count 254 10^3/uL (150-450); Red Blood Count 2.95 10^6 /uL (3.70-4.87); Red Cell Distribution Width 17 % (10.5-15); White Blood Count 6.2 10^3/uL (3.5-10.8)
[2019-02-19 06:28] LABS: BUN/Creatinine Ratio 16.5 (8-20); Calcium 9.3 mg/dL (8.6-10.3); EGFR African American 71.3 (>60); EGFR Non-African American 58.9 (>60); Potassium 4.3 mmol/L (3.5-5.0)
[2019-02-19] MEDS: Levothyroxine TAB* 75 MCG TAB PO SCH (06:42)
--- NOTE | 2019-02-19 08:09 | PN ---
Progress Note - Progress Note Date of Service: 02/19/19 Note: Pt seen and examined. at bedside. Patient with history of RA, cardiac issues, and diabetes (runs 200-300s). She has hip pain periodically but worse after sitting yesterday. No falls. No numbness or tingling. no fevers or chills. Temp Pulse Resp BP Pulse Ox 98.1 F 80 16 151/41 94 02/19/19 07:26 02/19/19 07:26 02/19/19 07:26 02/19/19 07:26 02/19/19 07:26 NAD. bilateral hips skin intact. no erythema or warmth. SILT grossly about 1st dws, medial, lateral, dorsal, and plantar foot. 2+ PT pulse. calf soft nontender. Some discomfort on log roll. Flexion to about 45 degrees with discomfort. AAOx3. pleasant mood. normal affect. conversant Laboratory Results - last 24 hr 02/18/19 02/18/19 02/18/19 01:12 09:34 12:26 WBC RBC Hgb Hct MCV MCH MCHC RDW Plt Count MPV Neut % (Auto) Lymph % (Auto) [place] % (Auto) Eos % (Auto) Baso % (Auto) Absolute Neuts (auto) Absolute Lymphs (auto) Absolute Monos (auto) Absolute Eos (auto) Absolute Basos (auto) Absolute Nucleated RBC Nucleated RBC % Sodium Potassium Chloride Carbon Dioxide Anion Gap BUN Creatinine Est GFR ( Amer) Est GFR (Non-Af Amer) BUN/Creatinine Ratio Glucose POC Glucose (mg/dL) 149 H Calcium B-Natriuretic Peptide 331 H Urine Color Abbi Urine Appearance Cloudy Urine pH 5.0 Ur Specific [place] 1.020 Urine Protein 2+(100 mg/dl) A Urine Ketones Trace A Urine Blood Negative Urine Nitrate Negative Urine Bilirubin Negative Urine Urobilinogen Negative Ur Leukocyte Esterase Trace A Urine WBC (Auto) 2+(11-20/hpf) A Urine RBC (Auto) Absent Ur Squamous Epith Cells Present A Ur Transition Epith Cell Present A Urine Bacteria Absent Urine Glucose 1+(50 mg/dl) A Urine Ascorbic Acid * A 02/18/19 02/18/19 02/18/19 14:27 17:48 21:12 WBC RBC Hgb Hct MCV MCH MCHC RDW Plt Count MPV Neut % (Auto) Lymph % (Auto) [place] % (Auto) Eos % (Auto) Baso % (Auto) Absolute Neuts (auto) Absolute Lymphs (auto) Absolute Monos (auto) Absolute Eos (auto) Absolute Basos (auto) Absolute Nucleated RBC Nucleated RBC % Sodium Potassium Chloride Carbon Dioxide Anion Gap BUN Creatinine Est GFR ( Amer) Est GFR (Non-Af Amer) BUN/Creatinine Ratio Glucose POC Glucose (mg/dL) 153 H 118 H 248 H Calcium B-Natriuretic Peptide Urine Color Urine Appearance Urine pH Ur Specific [place] Urine Protein Urine Ketones Urine Blood Urine Nitrate Urine Bilirubin Urine Urobilinogen Ur Leukocyte Esterase Urine WBC (Auto) Urine RBC (Auto) Ur Squamous Epith Cells Ur Transition Epith Cell Urine Bacteria Urine Glucose Urine Ascorbic Acid 02/19/19 02/19/19 05:38 05:38 WBC 6.2 RBC 2.95 L Hgb 9.0 L Hct 27 L MCV 93 MCH 31 MCHC 33 RDW 17 H Plt Count 254 MPV 8.2 Neut % (Auto) 80.5 Lymph % (Auto) 10.7 [place] % (Auto) 8.4 Eos % (Auto) 0 Baso % (Auto) 0.4 Absolute Neuts (auto) 5.0 Absolute Lymphs (auto) 0.7 L Absolute Monos (auto) 0.5 Absolute Eos (auto) 0 Absolute Basos (auto) 0 Absolute Nucleated RBC 0 Nucleated RBC % 0.1 Sodium 130 L Potassium 4.3 Chloride 97 L Carbon Dioxide 23 Anion Gap 10 BUN 15 Creatinine 0.91 Est GFR ( Amer) 71.3 Est GFR (Non-Af Amer) 58.9 BUN/Creatinine Ratio 16.5 Glucose 427 H POC Glucose (mg/dL) Calcium 9.3 B-Natriuretic Peptide Urine Color Urine Appearance Urine pH Ur Specific [place] Urine Protein Urine Ketones Urine Blood Urine Nitrate Urine Bilirubin Urine Urobilinogen Ur Leukocyte Esterase Urine WBC (Auto) Urine RBC (Auto) Ur Squamous Epith Cells Ur Transition Epith Cell Urine Bacteria Urine Glucose Urine Ascorbic Acid CRP 22 CT scans negative for fracture or effusion. Advanced DJD of both hips A/P 83 yo F with bilateral severe hip OA and hip pain PT/OT WBAT consider intraarticular steroid injection although warned risks of spiking sugars for about 1 week. would probably wait until sugars better controlled and can be done in my office analgesia no evidence for fracture or infection. would consider conservative care. Please call with any questions and she can see me outpatient in 1 week [phone] discussed plan with patient who verbalized understanding. will see as needed
[2019-02-19] MEDS ORDERED: Ferrous Sulfate TAB* 325 MG PO SCH ×2 (09:00→18:00)
[2019-02-19] MEDS: Insulin LISPRO* 1 UNITS UNIT SUBCUT SCH ×5 (09:15→18:28)
[2019-02-19] MEDS ORDERED: Insulin LISPRO* 1 UNITS UNIT SUBCUT ONE (10:00)
[2019-02-19] MEDS: Cyanocobalamin TAB* 500 MCG PO SCH (10:01)
[2019-02-19] MEDS: Carvedilol TAB* 25 MG PO SCH ×2 (10:01→20:50)
[2019-02-19] MEDS: Spironolactone TAB* 25 MG PO SCH (10:04)
[2019-02-19] MEDS: Apixaban* 5 MG TAB PO SCH ×2 (10:28→22:23)
--- NOTE | 2019-02-19 11:28 | PN ---
Subjective - Subjective Reason for Note: Progress Note History: I am Katheryn Tatum's primary care physician and software design analyst. I last saw her in my office 02/14/2019 and she described no pain - she was doing well. She has longstanding labile T2D insulin dependent. I have reviewed the H and P and also the patient's account. She had a sudden onset of right hip/thigh pain. This has required IV opioids for pain relief. Any movement exacerbates the pain. She has not had pain like this before. She was given less insulin than usual and hence is hyperglycemic today Active Problems: Active Problems Acute right hip pain (Acute) M25.551 Pacemaker (Acute) Z95.0 Atrial fibrillation (Chronic) I48.91 Cardiomyopathy (Chronic) I42.9 Chronic anticoagulation (Chronic) Z79.01 Diabetes mellitus with insulin therapy (Chronic) E11.9, Z79.4 Essential hypertension (Chronic) I10 Hypercholesteremia (Chronic) E78.00 Mitral regurgitation (Chronic) Primary hypothyroidism (Chronic) E03.9 Rheumatoid arthritis (Chronic) M06.9 Type 2 diabetes mellitus (Chronic) Current Medications: Current Medications Hydrocodone Bitart/Acetaminophen ([place] 5-325 Tab*) 1 tab PO Q4H PRN PRN Reason: PAIN Apixaban (Eliquis*) 5 mg PO BID [facility] Last Admin: 02/19/19 10:28 Dose: 5 mg Calcium/Vitamin D (Oscal D Tab 250/125*) 1 tab PO BEDTIME [facility] Last Admin: 02/18/19 21:08 Dose: 1 tab Carvedilol (Coreg Tab*) 25 mg PO DAILY [facility] Last Admin: 02/19/19 10:01 Dose: 25 mg Carvedilol (Coreg Tab*) 12.5 mg PO 2100 [facility] Last Admin: 02/18/19 21:07 Dose: 12.5 mg Cyanocobalamin (Vitamin B12 Tab*) 1,000 mcg PO DAILY [facility] Last Admin: 02/19/19 10:01 Dose: 1,000 mcg Dextrose (D50w Syringe 50 Ml*) 12.5 gm IV PUSH .FOR FS < 60 - SS PRN PRN Reason: FS < 60 Ferrous Sulfate (Ferrous Sulfate Tab*) 325 mg PO Q48H [facility] Last Admin: 02/19/19 10:21 Dose: Not Given Folic Acid (Folvite Tab*) 1 mg PO SuWe [facility] Furosemide (Lasix Tab*) 40 mg PO MoWe [facility] Last Admin: 02/18/19 14:46 Dose: 40 mg Insulin Glargine (Lantus(*)) 10 units SUBCUT BEDTIME [facility] Last Admin: 02/18/19 22:39 Dose: 10 units Insulin Human Lispro (Humalog*) 0 units SUBCUT AC [facility]; Protocol Last Admin: 02/19/19 09:15 Dose: 6 units Levothyroxine Sodium (Synthroid Tab*) 75 mcg PO DAILY@0600 [facility] Last Admin: 02/19/19 06:42 Dose: 75 mcg Morphine Sulfate (Morphine 4 Mg/Ml Vial (1 Ml)) 2 mg IV Q4H PRN PRN Reason: PAIN - MILD Potassium Chloride (Klor Con Er Tab*) 20 meq PO Mo [facility] Last Admin: 02/18/19 14:46 Dose: 20 meq Spironolactone (Aldactone Tab*) 50 mg PO DAILY [facility] Last Admin: 02/19/19 10:04 Dose: 50 mg Sulfasalazine (Azulfidine Tab*) 1,000 mg PO BID [facility] Last Admin: 02/18/19 22:39 Dose: 1,000 mg Home Medications: Home Medications Medication Instructions Recorded Confirmed Type Apixaban* [Eliquis*] 5 mg PO BID 05/08/16 02/18/19 History Ascorbic Acid [Vitamin C] 1 tab PO QPM 05/08/16 02/18/19 History Carvedilol [Coreg] 2 tab PO SEE INSTRUCTIONS 05/08/16 02/18/19 History Flaxseed [Flax Seeds] 2 bulkform PO SEE INSTRUCTIONS 05/08/16 02/18/19 History Folic Acid TAB* [Folvite TAB*] 1 mg PO SEE INSTRUCTIONS 05/08/16 02/18/19 History Multivitamin [Multivitamins] 1 cap PO DAILY 05/08/16 02/18/19 History sulfaSALAzine TAB* [Azulfidine 1,000 mg PO BID 07/17/16 02/18/19 History TAB*] Calcium 1,000 + D3 Caplet 1 tab PO BEDTIME 06/06/18 02/18/19 History Insulin Aspart [Novolog Flexpen] 3 - 10 units SQ TID 06/06/18 02/18/19 History Levothyroxine Sodium 75 mcg PO DAILY 06/06/18 02/18/19 History Aldactone TAB 25 MG* 50 mg PO DAILY 02/18/19 02/18/19 History Garlic 2 each PO SEE INSTRUCTIONS 02/18/19 02/18/19 History Herbal Drugs 520 mg PO DAILY 02/18/19 02/18/19 History Iron 325 mg PO SEE INSTRUCTIONS 02/18/19 02/18/19 History Lantus Solostar 5x3 ML PENS 12 units SUBCUT QPM 02/18/19 02/18/19 History Lasix 40 mg PO SEE INSTRUCTIONS 02/18/19 02/18/19 History Potassium Chlor TAB 20 MEQ* 20 meq PO SEE INSTRUCTIONS 02/18/19 02/18/19 History Vitamin B-12 1,000 mcg PO DAILY 02/18/19 02/18/19 History Allergies: Allergies Allergy/AdvReac Type Severity Reaction Status Date / Time ciprofloxacin Allergy Severe Rash Verified 02/18/19 15:05 atorvastatin Allergy Intermediate Leg Cramps Verified 06/06/18 11:29 ezetimibe [From Zetia] Allergy Intermediate Itching Verified 06/06/18 11:29 losartan Allergy Intermediate Rash Verified 06/06/18 11:29 ARB-Angiotensin Receptor Allergy Unknown Unknown Verified 06/06/18 11:29 Antagonist Reaction Details gold Au 198 Allergy Unknown Unknown Verified 06/06/18 11:29 Reaction Details methotrexate Allergy Unknown Unknown Verified 06/06/18 11:29 Reaction Details Penicillins Allergy Unknown Unknown Verified 06/06/18 11:29 Reaction Details pravastatin Allergy Unknown Unknown Verified 06/06/18 11:29 Reaction Details ramipril Allergy Unknown Unknown Verified 06/06/18 11:29 Reaction Details amlodipine AdvReac Intermediate Headache Verified 06/06/18 11:29 diltiazem AdvReac Intermediate See Comment Verified 06/06/18 11:29 valsartan AdvReac Intermediate Coughing Verified 06/06/18 11:29 Objective - Vital Signs Vital Signs: Vital Signs 02/18/19 02/18/19 02/18/19 11:36 11:37 11:51 Temperature Pulse Rate 60 60 64 Respiratory Rate Blood Pressure 154/67 152/88 (mmHg) O2 Sat by Pulse 99 97 99 Oximetry 02/18/19 02/18/19 02/18/19 12:00 12:22 12:51 Temperature Pulse Rate 63 68 63 Respiratory Rate Blood Pressure 95/63 122/47 (mmHg) O2 Sat by Pulse 97 96 98 Oximetry 02/18/19 02/18/19 02/18/19 13:00 13:21 13:39 Temperature 97.0 F Pulse Rate 59 66 59 Respiratory 18 Rate Blood Pressure 149/75 141/44 (mmHg) O2 Sat by Pulse 97 99 Oximetry 02/18/19 02/18/19 02/18/19 13:57 14:00 20:05 Temperature 98.9 F 97.0 F 98.0 F Pulse Rate 66 59 69 Respiratory 18 18 20 Rate Blood Pressure 149/75 141/44 134/54 (mmHg) O2 Sat by Pulse 97 94 96 Oximetry 02/18/19 02/19/19 23:36 07:26 Temperature 97.7 F 98.1 F Pulse Rate 80 80 Respiratory 17 16 Rate Blood Pressure 148/46 151/41 (mmHg) O2 Sat by Pulse 97 94 Oximetry - Intake and Output Intake and Output: Intake & Output 02/16/19 02/17/19 02/18/19 02/19/19 11:59 11:59 11:59 11:59 Intake Total 230 Balance 230 Weight 171 lb 174 lb 9.6 oz Intake: Oral 230 Other: Estimated Void Medium # Bowel Movements 0 Estimated Stool Amount Medium # Voids 1 ADLs: Meal Record Start: 02/18/19 13: 39 Freq: DAILY@0900,1400,1800 Status: Active Protocol: Created 02/18/19 13:39 System (Rec: 02/18/19 13:39 System MED-M19) Document 02/18/19 14:00 [id number] (Rec: 02/18/19 16:50 [id number] MED-C02) Document 02/18/19 18:00 [id number] (Rec: 02/18/19 21:01 [id number] MED-C02) Intake and Output Start: 02/18/19 00: 29 Freq: Status: Active Protocol: Created 02/18/19 00:29 System (Rec: 02/18/19 00:29 System ED-C35) Intake and Output Start: 02/18/19 13: 39 Freq: DAILY@0600,1400,2200 Status: Active Protocol: Created 02/18/19 13:39 System (Rec: 02/18/19 13:39 System MED-M19) Document 02/18/19 22:00 [id number] (Rec: 02/18/19 23:03 [id number] MED-C02) Document 02/19/19 05:58 [id number] (Rec: 02/19/19 06:05 [id number] MED-C09) - Physical Exam General Physical Exam Comment: She has tenderness on her anterior right thigh and also over the hip. Her left hip has a full range of passive movement. The right hip starts to hurt after about 5 degrees of movement. There are no skin lesions/shingles. She has no swelling or warmth General: No Cyanosis, Yes Anemia, No Jaundice, No Lymphadenopathy, No Clubbing Lungs and Chest: Yes: Chest Expansion Full, Chest Expansion Symetrica, Percussion Note Resonant, Vessicular Breath Sounds. No: Crackles, Wheezes Heart Rate and Rhythm: Regular Additional Cardiovascular: Yes: Normal Heart Sounds. No: Heart Murmur, Pedal Edema Abdominal Exam: Yes: Soft, Bowel Sounds Present. No: Distention, Abdominal Tenderness Results - Results Lab Results: Laboratory Results - last 24 hr 02/18/19 02/18/19 02/18/19 12:26 14:27 17:48 WBC RBC Hgb Hct MCV MCH MCHC RDW Plt Count MPV Neut % (Auto) Lymph % (Auto) [place] % (Auto) Eos % (Auto) Baso % (Auto) Absolute Neuts (auto) Absolute Lymphs (auto) Absolute Monos (auto) Absolute Eos (auto) Absolute Basos (auto) Absolute Nucleated RBC Nucleated RBC % Sodium Potassium Chloride Carbon Dioxide Anion Gap BUN Creatinine Est GFR ( Amer) Est GFR (Non-Af Amer) BUN/Creatinine Ratio Glucose POC Glucose (mg/dL) 153 H 118 H Glucose Meter Confirm Calcium Urine Color Abbi Urine Appearance Cloudy Urine pH 5.0 Ur Specific [place] 1.020 Urine Protein 2+(100 mg/dl) A Urine Ketones Trace A Urine Blood Negative Urine Nitrate Negative Urine Bilirubin Negative Urine Urobilinogen Negative Ur Leukocyte Esterase Trace A Urine WBC (Auto) 2+(11-20/hpf) A Urine RBC (Auto) Absent Ur Squamous Epith Cells Present A Ur Transition Epith Cell Present A Urine Bacteria Absent Urine Glucose 1+(50 mg/dl) A Urine Ascorbic Acid * A 02/18/19 02/19/19 02/19/19 21:12 05:38 05:38 WBC 6.2 RBC 2.95 L Hgb 9.0 L Hct 27 L MCV 93 MCH 31 MCHC 33 RDW 17 H Plt Count 254 MPV 8.2 Neut % (Auto) 80.5 Lymph % (Auto) 10.7 [place] % (Auto) 8.4 Eos % (Auto) 0 Baso % (Auto) 0.4 Absolute Neuts (auto) 5.0 Absolute Lymphs (auto) 0.7 L Absolute Monos (auto) 0.5 Absolute Eos (auto) 0 Absolute Basos (auto) 0 Absolute Nucleated RBC 0 Nucleated RBC % 0.1 Sodium 130 L Potassium 4.3 Chloride 97 L Carbon Dioxide 23 Anion Gap 10 BUN 15 Creatinine 0.91 Est GFR ( Amer) 71.3 Est GFR (Non-Af Amer) 58.9 BUN/Creatinine Ratio 16.5 Glucose 427 H POC Glucose (mg/dL) 248 H Glucose Meter Confirm Calcium 9.3 Urine Color Urine Appearance Urine pH Ur Specific [place] Urine Protein Urine Ketones Urine Blood Urine Nitrate Urine Bilirubin Urine Urobilinogen Ur Leukocyte Esterase Urine WBC (Auto) Urine RBC (Auto) Ur Squamous Epith Cells Ur Transition Epith Cell Urine Bacteria Urine Glucose Urine Ascorbic Acid 02/19/19 02/19/19 08:04 08:23 WBC RBC Hgb Hct MCV MCH MCHC RDW Plt Count MPV Neut % (Auto) Lymph % (Auto) [place] % (Auto) Eos % (Auto) Baso % (Auto) Absolute Neuts (auto) Absolute Lymphs (auto) Absolute Monos (auto) Absolute Eos (auto) Absolute Basos (auto) Absolute Nucleated RBC Nucleated RBC % Sodium Potassium Chloride Carbon Dioxide Anion Gap BUN Creatinine Est GFR ( Amer) Est GFR (Non-Af Amer) BUN/Creatinine Ratio Glucose POC Glucose (mg/dL) > 444 H* Glucose Meter Confirm 433 H Calcium Urine Color Urine Appearance Urine pH Ur Specific [place] Urine Protein Urine Ketones Urine Blood Urine Nitrate Urine Bilirubin Urine Urobilinogen Ur Leukocyte Esterase Urine WBC (Auto) Urine RBC (Auto) Ur Squamous Epith Cells Ur Transition Epith Cell Urine Bacteria Urine Glucose Urine Ascorbic Acid Assessment - Problem List Assessment: Patient Problems Acute right hip pain (Acute) Pacemaker (Acute) Atrial fibrillation (Chronic) Cardiomyopathy (Chronic) Chronic anticoagulation (Chronic) Diabetes mellitus with insulin therapy (Chronic) Essential hypertension (Chronic) Hypercholesteremia (Chronic) Mitral regurgitation (Chronic) Primary hypothyroidism (Chronic) Rheumatoid arthritis (Chronic) Type 2 diabetes mellitus (Chronic) Heart block (Chronic) Plan: Acute right hip pain (Acute) She had a sudden onset of right hip and thigh pain. This was unprovoked. There is no evidence of any bony lesions. She has tenderness over her thigh and hip. She is unable to weight bear. 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 It isn't clear to me if this is due to a muscle/ligamental problem or whether it is pain from her severe hip disease. We are proceeding as if it is from the right hip joint. At present she is receiving analgesics. She is anticoagulated - I discussed with pharmacy the use of NSAIDs. This is not contraindicated. I discussed this with the patient - she was told not to take them with sulfasalazine, but she has not had any adverse problems. I will give her IV toradol followed by nabumetone- if this doesn't work I will try her on a pulse of steroids. Diabetes mellitus with insulin therapy (Chronic) I will restore her usual prescription. secondary diagnoses Pacemaker (Acute) Atrial fibrillation (Chronic) Cardiomyopathy (Chronic) Chronic anticoagulation (Chronic) Essential hypertension (Chronic) Hypercholesteremia (Chronic) Mitral regurgitation (Chronic) Primary hypothyroidism (Chronic) Rheumatoid arthritis (Chronic) Type 2 diabetes mellitus (Chronic) Heart block (Chronic) I discussed the above with the patient and her
[2019-02-19] MEDS ORDERED: Ketorolac INJ* 30 MG/ML 1 ML VIAL IM ONE (11:44)
[2019-02-19] MEDS ORDERED: Dextrose 50% Syringe 50 ML* 25 GM/50 ML SYRINGE IV PUSH PRN (11:50)
[2019-02-19] MEDS ORDERED: Ketorolac INJ* 30 MG/ML 1 ML VIAL IV ONE (12:30)
[2019-02-19] MEDS: Calcium/Vitamin D TAB 250/125* TAB PO SCH (20:50)
[2019-02-19] MEDS ORDERED: Insulin GLARGINE(*) 1 UNITS UNIT SUBCUT SCH (21:00)
[2019-02-20 03:38] VITALS: BP 152/42
[2019-02-20] MEDS: Levothyroxine TAB* 75 MCG TAB PO SCH (06:05)
[2019-02-20 08:22] LABS: ABS Basophils 0 10^3/ul (0-0.2); ABS Eosinophils 0 10^3/ul (0-0.6); ABS Lymphocytes 0.9 10^3/ul (1.0-4.8); ABS Monocytes 0.5 10^3/ul (0-0.8); ABS Neutrophils 3.2 10^3/ul (1.5-7.7); ABS Nucleated RBC 0 10^3/ul; Eosinophil % 0 %; Hematocrit 28 % (33-41); Hemoglobin 9.3 g/dL (12.0-16.0); Lymphocyte % 19.3 %; Mean Corpuscular HGB Conc 33 g/dL (31-36); Mean Corpuscular Hemoglobin 30 pg (27-31); Mean Corpuscular Volume 92 fL (80-97); Nucleated Red Blood Cells % 0.1; Platelet Count 252 10^3/uL (150-450); Red Blood Count 3.08 10^6 /uL (3.70-4.87); Red Cell Distribution Width 17 % (10.5-15); White Blood Count 4.7 10^3/uL (3.5-10.8)
[2019-02-20 08:30] LABS: BUN/Creatinine Ratio 23.6 (8-20); C Reactive Protein 114.37 mg/L (<8.01); Calcium 9.3 mg/dL (8.6-10.3); EGFR African American 73.1 (>60); EGFR Non-African American 60.4 (>60); Potassium 3.9 mmol/L (3.5-5.0)
[2019-02-20] MEDS: Spironolactone TAB* 25 MG PO SCH (08:58)
[2019-02-20] MEDS: Insulin LISPRO* 1 UNITS UNIT SUBCUT SCH ×4 (08:58→13:15)
[2019-02-20] MEDS: Cyanocobalamin TAB* 500 MCG PO SCH (08:58)
[2019-02-20] MEDS: Carvedilol TAB* 25 MG PO SCH (08:58)
[2019-02-20] MEDS ORDERED: Folic Acid TAB* 1 MG PO SCH (09:00)
[2019-02-20] MEDS ORDERED: Nabumetone TAB* 500 MG PO SCH ×2 (09:00→21:00)
[2019-02-20] MEDS: Apixaban* 5 MG TAB PO SCH (11:16)
--- NOTE | 2019-02-20 11:39 | PN ---
Subjective - Subjective Reason for Note: Discharge Note History: Discharge summary: She responded very well to the IV ketorelac. She has some residual pain, but it is very much better. She is asking to go home. She had her first dose of nabumetone. Thus far, no bleeding complications/cardiac symptoms. She is feeling well - no fevers/sweats. Appetite is good - dislikes the food!. She has no other aches/pains. Active Problems: Active Problems Acute right hip pain (Acute) M25.551 Pacemaker (Acute) Z95.0 Atrial fibrillation (Chronic) I48.91 Cardiomyopathy (Chronic) I42.9 Chronic anticoagulation (Chronic) Z79.01 Diabetes mellitus with insulin therapy (Chronic) E11.9, Z79.4 Essential hypertension (Chronic) I10 Hypercholesteremia (Chronic) E78.00 Mitral regurgitation (Chronic) Primary hypothyroidism (Chronic) E03.9 Rheumatoid arthritis (Chronic) M06.9 Type 2 diabetes mellitus (Chronic) Current Medications: Current Medications Hydrocodone Bitart/Acetaminophen ([place] 5-325 Tab*) 1 tab PO Q4H PRN PRN Reason: PAIN Apixaban (Eliquis*) 5 mg PO BID@1030,2230 [facility] Last Admin: 02/20/19 11:16 Dose: 5 mg Calcium/Vitamin D (Oscal D Tab 250/125*) 1 tab PO BEDTIME [facility] Last Admin: 02/19/19 20:50 Dose: 1 tab Carvedilol (Coreg Tab*) 25 mg PO DAILY [facility] Last Admin: 02/20/19 08:58 Dose: 25 mg Carvedilol (Coreg Tab*) 12.5 mg PO 2100 [facility] Last Admin: 02/19/19 20:50 Dose: 12.5 mg Cyanocobalamin (Vitamin B12 Tab*) 1,000 mcg PO DAILY [facility] Last Admin: 02/20/19 08:58 Dose: 1,000 mcg Dextrose (D50w Syringe 50 Ml*) 12.5 gm IV PUSH .FOR FS < 60 - SS PRN PRN Reason: FS < 60 Ferrous Sulfate (Ferrous Sulfate Tab*) 325 mg PO Q48HR@1800 [facility] Last Admin: 02/19/19 20:57 Dose: 325 mg Folic Acid (Folvite Tab*) 1 mg PO SuWe [facility] Last Admin: 02/20/19 08:58 Dose: 1 mg Furosemide (Lasix Tab*) 40 mg PO MoWeFr [facility] Last Admin: 02/18/19 14:46 Dose: 40 mg Insulin Glargine (Lantus(*)) 14 units SUBCUT BEDTIME [facility] Last Admin: 02/19/19 22:24 Dose: 14 units Insulin Human Lispro (Humalog*) 0 units SUBCUT [facility]; Protocol Last Admin: 02/20/19 08:58 Dose: 9 units Insulin Human Lispro (Humalog*) 0 units SUBCUT [facility]; Protocol Last Admin: 02/20/19 08:59 Dose: 5 units Levothyroxine Sodium (Synthroid Tab*) 75 mcg PO DAILY@0600 [facility] Last Admin: 02/20/19 06:05 Dose: 75 mcg Morphine Sulfate (Morphine 4 Mg/Ml Vial (1 Ml)) 2 mg IV Q4H PRN PRN Reason: PAIN - MILD Nabumetone (Relafen Tab*) 500 mg PO BID [facility] Last Admin: 02/20/19 09:07 Dose: 500 mg Potassium Chloride (Klor Con Er Tab*) 20 meq PO MoWeFr [facility] Last Admin: 02/18/19 14:46 Dose: 20 meq Spironolactone (Aldactone Tab*) 50 mg PO DAILY [facility] Last Admin: 02/20/19 08:58 Dose: 50 mg Home Medications: Home Medications Medication Instructions Recorded Confirmed Type Apixaban* [Eliquis*] 5 mg PO BID 05/08/16 02/18/19 History Ascorbic Acid [Vitamin C] 1 tab PO QPM 05/08/16 02/18/19 History Carvedilol [Coreg] 2 tab PO SEE INSTRUCTIONS 05/08/16 02/18/19 History Flaxseed [Flax Seeds] 2 bulkform PO SEE INSTRUCTIONS 05/08/16 02/18/19 History Folic Acid TAB* [Folvite TAB*] 1 mg PO SEE INSTRUCTIONS 05/08/16 02/18/19 History Multivitamin [Multivitamins] 1 cap PO DAILY 05/08/16 02/18/19 History sulfaSALAzine TAB* [Azulfidine 1,000 mg PO BID 07/17/16 02/18/19 History TAB*] Calcium 1,000 + D3 Caplet 1 tab PO BEDTIME 06/06/18 02/18/19 History Insulin Aspart [Novolog Flexpen] 3 - 10 units SQ TID 06/06/18 02/18/19 History Levothyroxine Sodium 75 mcg PO DAILY 06/06/18 02/18/19 History Aldactone TAB 25 MG* 50 mg PO DAILY 02/18/19 02/18/19 History Garlic 2 each PO SEE INSTRUCTIONS 02/18/19 02/18/19 History Herbal Drugs 520 mg PO DAILY 02/18/19 02/18/19 History Iron 325 mg PO SEE INSTRUCTIONS 02/18/19 02/18/19 History Lantus Solostar 5x3 ML PENS 12 units SUBCUT QPM 02/18/19 02/18/19 History Lasix 40 mg PO SEE INSTRUCTIONS 02/18/19 02/18/19 History Potassium Chlor TAB 20 MEQ* 20 meq PO SEE INSTRUCTIONS 02/18/19 02/18/19 History Vitamin B-12 1,000 mcg PO DAILY 02/18/19 02/18/19 History Allergies: Allergies Allergy/AdvReac Type Severity Reaction Status Date / Time ciprofloxacin Allergy Severe Rash Verified 02/18/19 15:05 atorvastatin Allergy Intermediate Leg Cramps Verified 06/06/18 11:29 ezetimibe [From Zetia] Allergy Intermediate Itching Verified 06/06/18 11:29 losartan Allergy Intermediate Rash Verified 06/06/18 11:29 ARB-Angiotensin Receptor Allergy Unknown Unknown Verified 06/06/18 11:29 Antagonist Reaction Details gold Au 198 Allergy Unknown Unknown Verified 06/06/18 11:29 Reaction Details methotrexate Allergy Unknown Unknown Verified 06/06/18 11:29 Reaction Details Penicillins Allergy Unknown Unknown Verified 06/06/18 11:29 Reaction Details pravastatin Allergy Unknown Unknown Verified 06/06/18 11:29 Reaction Details ramipril Allergy Unknown Unknown Verified 06/06/18 11:29 Reaction Details amlodipine AdvReac Intermediate Headache Verified 06/06/18 11:29 diltiazem AdvReac Intermediate See Comment Verified 06/06/18 11:29 valsartan AdvReac Intermediate Coughing Verified 06/06/18 11:29 Objective - Vital Signs Vital Signs: Vital Signs 02/19/19 02/19/19 02/19/19 15:30 15:40 19:48 Temperature 97.7 F 98.3 F Pulse Rate 64 78 Respiratory 20 22 Rate Blood Pressure 118/43 132/50 132/41 (mmHg) O2 Sat by Pulse 94 95 Oximetry 02/19/19 02/19/19 02/20/19 20:00 23:02 00:27 Temperature 99.1 F 99.1 F Pulse Rate 65 66 Respiratory 22 16 16 Rate Blood Pressure 137/40 137/40 (mmHg) O2 Sat by Pulse 96 95 Oximetry 02/20/19 02/20/19 03:25 03:44 Temperature 98.5 F 98.5 F Pulse Rate 72 72 Respiratory 18 18 Rate Blood Pressure 152/42 152/42 (mmHg) O2 Sat by Pulse 97 97 Oximetry - Intake and Output Intake and Output: Intake & Output 02/17/19 02/18/19 02/19/19 02/20/19 11:59 11:59 11:59 11:59 Intake Total 230 1070 Balance 230 1070 Weight 171 lb 174 lb 9.6 oz Intake: IVPB 10 NS 10 Oral 230 1060 Other: Estimated Void Medium Small # Bowel Movements 0 Estimated Stool Amount Medium # Voids 1 0 ADLs: Meal Record Start: 02/18/19 13: 39 Freq: DAILY@0900,1400,1800 Status: Active Protocol: Created 02/18/19 13:39 System (Rec: 02/18/19 13:39 System MED-M19) Document 02/18/19 14:00 [id number] (Rec: 02/18/19 16:50 [id number] MED-C02) Document 02/18/19 18:00 [id number] (Rec: 02/18/19 21:01 [id number] MED-C02) Document 02/19/19 09:00 [id number] (Rec: 02/19/19 11:35 [id number] MED-C09) Document 02/19/19 14:00 [id number] (Rec: 02/19/19 14:24 [id number] MED-C09) Document 02/19/19 18:00 [id number] (Rec: 02/19/19 19:01 [id number] MED-C11) Document 02/20/19 09:00 [id number] (Rec: 02/20/19 10:21 [id number] MED-C09) Intake and Output Start: 02/18/19 00: 29 Freq: Status: Active Protocol: Created 02/18/19 00:29 System (Rec: 02/18/19 00:29 System ED-C35) Intake and Output Start: 02/18/19 13: 39 Freq: DAILY@0600,1400,2200 Status: Active Protocol: Created 02/18/19 13:39 System (Rec: 02/18/19 13:39 System MED-M19) Document 02/18/19 22:00 [id number] (Rec: 02/18/19 23:03 [id number] MED-C02) Document 02/19/19 05:58 [id number] (Rec: 02/19/19 06:05 [id number] MED-C09) Document 02/19/19 21:39 [id number] (Rec: 02/19/19 23:15 [id number] MED-C09) Document 02/20/19 05:50 [id number] (Rec: 02/20/19 05:50 [id number] MED-C02) - Physical Exam General Physical Exam Comment: She has mild tenderness of the right thigh, but normal active ROM of hip. General: No Cyanosis, Yes Anemia, No Jaundice, No Clubbing Lungs and Chest: Yes: Chest Expansion Full, Chest Expansion Symetrica, Percussion Note Resonant, Vessicular Breath Sounds. No: Crackles, Wheezes Heart Rate and Rhythm: Regular Additional Cardiovascular: Yes: Normal Heart Sounds. No: Heart Murmur, Pedal Edema Abdominal Exam: Yes: Bowel Sounds Present. No: Distention, Abdominal Mass, Abdominal Tenderness Results - Results Lab Results: Laboratory Results - last 24 hr 02/19/19 02/19/19 02/19/19 12:11 17:38 22:24 WBC RBC Hgb Hct MCV MCH MCHC RDW Plt Count MPV Neut % (Auto) Lymph % (Auto) [place] % (Auto) Eos % (Auto) Baso % (Auto) Absolute Neuts (auto) Absolute Lymphs (auto) Absolute Monos (auto) Absolute Eos (auto) Absolute Basos (auto) Absolute Nucleated RBC Nucleated RBC % Sodium Potassium Chloride Carbon Dioxide Anion Gap BUN Creatinine Est GFR ( Amer) Est GFR (Non-Af Amer) BUN/Creatinine Ratio Glucose POC Glucose (mg/dL) 340 H 262 H 208 H Calcium C-Reactive Protein 02/20/19 02/20/19 02/20/19 08:07 08:07 08:32 WBC 4.7 RBC 3.08 L Hgb 9.3 L Hct 28 L MCV 92 MCH 30 MCHC 33 RDW 17 H Plt Count 252 MPV 8.0 Neut % (Auto) 69.7 Lymph % (Auto) 19.3 [place] % (Auto) 10.6 Eos % (Auto) 0 Baso % (Auto) 0.4 Absolute Neuts (auto) 3.2 Absolute Lymphs (auto) 0.9 L Absolute Monos (auto) 0.5 Absolute Eos (auto) 0 Absolute Basos (auto) 0 Absolute Nucleated RBC 0 Nucleated RBC % 0.1 Sodium 131 L Potassium 3.9 Chloride 97 L Carbon Dioxide 25 Anion Gap 9 BUN 21 Creatinine 0.89 Est GFR ( Amer) 73.1 Est GFR (Non-Af Amer) 60.4 BUN/Creatinine Ratio 23.6 H Glucose 284 H POC Glucose (mg/dL) 294 H Calcium 9.3 C-Reactive Protein 114.37 H Assessment - Problem List Assessment: Patient Problems Acute right hip pain (Acute) Pacemaker (Acute) Atrial fibrillation (Chronic) Cardiomyopathy (Chronic) Chronic anticoagulation (Chronic) Diabetes mellitus with insulin therapy (Chronic) Essential hypertension (Chronic) Hypercholesteremia (Chronic) Mitral regurgitation (Chronic) Primary hypothyroidism (Chronic) Rheumatoid arthritis (Chronic) Type 2 diabetes mellitus (Chronic) Heart block (Chronic) Plan: Acute right hip pain (Acute) She has had great improvement of her pain with a single injection of IV ketorelac 30 mg. I have followed this with nabumetone. Clearly, I want to limit NSAIDs in a patient with heart disease who is taking an oral anticoagulant. I will taper this MARIBEL - I have warned her to contact me with any evidence of bruising/bleeding. She has had a significant jump in her CRP since admission She has no evidence of infection. This may be a result of the acute inflammatory injury, it may represent an acute exacerbation of RA manifest in her right hip. I am copying this note to her protein chemist, Dr. Greene. I will follow her in my office in 2 days and repeat the CRP. She is unable to have an MRI due to a pacemaker. I will hold back on other testing owing to her improved symptoms secondary diagnoses Pacemaker (Acute) Atrial fibrillation (Chronic) Cardiomyopathy (Chronic) Chronic anticoagulation (Chronic) Diabetes mellitus with insulin therapy (Chronic) Essential hypertension (Chronic) Hypercholesteremia (Chronic) Mitral regurgitation (Chronic) Primary hypothyroidism (Chronic) Rheumatoid arthritis (Chronic) Type 2 diabetes mellitus (Chronic) Heart block (Chronic) I explained the above to the patient and to her Sven and they agree with the plan
== END 2019-02-20 15:00 | disposition home or self-care (01) ==
LOC: ED 00:14 → MED 12:13
PROVIDERS: ADMIT Student in an Organized Health Care Education/Training Program; ATTEND Internal Medicine
DX: M25.551 Pain in right hip (principal); I48.91 Unspecified atrial fibrillation; Z79.01 Long term (current) use of anticoagulants; Z95.0 Presence of cardiac pacemaker; E11.9 Type 2 diabetes mellitus without complications; Z79.4 Long term (current) use of insulin; M06.9 Rheumatoid arthritis, unspecified; I05.9 Rheumatic mitral valve disease, unspecified; I44.7 Left bundle-branch block, unspecified; G47.33 Obstructive sleep apnea (adult) (pediatric); Z79.899 Other long term (current) drug therapy; Z88.0 Allergy status to penicillin; E03.9 Hypothyroidism, unspecified; E78.00 Pure hypercholesterolemia, unspecified; Z88.2 Allergy status to sulfonamides
CPT/HCPCS: 36415; 71045; 72192; 76856; 80048; 81003; 81015; 82550; 82947; 83880; 85025; 86140; 87077; 87086; 87186; 94660; 96372; 96374; 96375; 99285; A9270-GY; G0378; G8978-GP-CK; G8979-GP-CI; J1885; J2270

== ENCOUNTER → 2019-04-13 18:14 | Emergency (ER) | payer MEDICARE, BC ==
[~2019-04-13 18:14] MED LIST: Lidocaine 1% MPF* 2 ML VIAL INJ ONE; Lidocaine 1%* 5 ML VIAL ONE; Tetan/Diph/Pertus SYR(Tdap)* 0.5 ML SYR(BOOSTRIX) use SYR IM ONE
--- OUTSIDE RECORDS SUMMARY | 2019-04-13 18:40 | XMS REPORT | Continuity of Care Document ---
:1935 External Reference #:[id number] Author Name Vicenta Muñoz Care Team Providers Name Role Phone Ever Wallace MD Primary Care Physician Unavailable Payers Date Identification Numbers Payment Provider Subscriber Effective: 1999 Policy Number: [id number] Medicare Katheryn Tatum PayID: [id number] [address] [place] [address] Policy Number: [id number] [facility] Sven Tatum PayID: [id number] [address] [place] [address] Advance Directives Description No Information Available Problems Active Problems Provider Date Left bundle branch block Francisca Cota M.D. Onset: 02/04/2012 Primary cardiomyopathy Francisca Cota M.D. Onset: 02/04/2012 Mitral valve disorder Francisca Cota M.D. Onset: 02/04/2012 Type 2 diabetes mellitus Francisca Cota M.D. Onset: 02/04/2012 Essential hypertension Francisca Cota M.D. 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 [employer] Tobacco Use Start: Unknown End: Former Cigarette Smoker Unknown Smoking Status Reviewed: 03/25/19 Former Cigarette Smoker ETOH Use Consumes 1 glass of wine 4oz per day Tobacco Use Start: Unknown End: Patient is a former smoker Unknown Recreational Drug Use Denies Drug Use Exercise Type/Frequency Exercises rarely Allergies, Adverse Reactions, Alerts Active Allergies Reaction Severity Comments Date PCN rash 09/10/2004 Cozaar rash 09/10/2004 Cardizem CD felt poorly 09/10/2004 Lipitor leg aches 04/30/2005 zetia itchy, muscle 04/06/2006 pain Diovan cough 01/26/2008 Amlodipine Besylate cough headache 01/26/2008 Pravastatin leg cramps 02/04/2012 Angiotensin Receptor ?worsening of lichen 08/24/2013 Blockers planus Ramipril persistent cough Moderate 02/22/2014 Hydroxychloroquine Sulfate rash and pruritis 09/03/2018 Ciprofloxacin ithching 10/12/2018 Medications Active Medications SIG Qnty Indications Ordering Date Provider Leflunomide 1 by mouth every 30tabs M05.79 Zsofidoug Gonzáles, 03/25/2019 10mg day [employer] Tablets Potassium Chloride ER 1 by mouth mwf 90tabs Alesia Alvarado, 06/23/2018 with lasix N.P. 20Meq Tablets ER Eliquis 1 by mouth twice a 60tabs I48.0 Calvin Brambila 10/09/2017 5mg Tablets brant Ludwig M.D. Aldactone 2 by mouth every 90tabs Francisca Wolf 07/14/2016 25mg Tablets day Beata Cota Lasix 2 tabs by mouth 3 90tabs Alesia Alvarado, 05/09/2016 20mg Tablets times weekly N.P. [id number]. may take an extra tab on non-lasix day if > 3lb weight gain. Coreg take 2 tablets 270tabs Francisac Wolf 04/29/2016 12.5mg Tablets every morning, and Beata Cota 1 tablet every evening by mouth Vitamin B-12 1 by mouth every 100tabs Francisca Wolf 04/17/2015 1000mcg day Beata Cota Tablets Sub multivitamin one po qd Francisca Wolf 09/09/2004 Beata Cota Folic Acid two times a week 100tabs Francisca Wolf 09/09/2004 1mg Tablets Beata Cota Vitamin C-Macy Hips 1 tablet by mouth Unknown TR daily 500mg Tablets ER Iron 1 by mouth every Unknown 325(65Fe) mg other day Tablets Cpap 13 cm h2o Unknown Device Levothyroxine Sodium 1 by mouth every Unknown day 75mcg Tablets Lantus Solostar Inject 12 Units AT Unknown Bedtime 100Unit/ML Solution Pen-Inject Novolog Flexpen Inject 3-10 Units Unknown Three Times Daily 100Unit/ML Solution Or as Directed - Pen-Inject Max Of 50 Units P Garlic 2 cloves daily Unknown Dandelion Root 1 po qd Unknown 520mg Capsules Flax Seed Meal 2 tablespoons per Unknown day Calcium + D 1 po qhs Unknown [id number] Tablets History Medications Vitamin C Francisca Wolf 01/12/2019 - eBata Cota 01/11/2019 Hydroxychloroquine take one tablet 180tabs Z79.899 Divya Gonzáles, 2017 - Sulfate by mouth daily [employer] 08/31/2018 200mg Tablets for one week than increase to 1 tab twice a day M05.79 Simponi Aria 2 mg/kg iv Meet Greene, 10/23/2017 - 50mg/4ML Solution infusion at week M.D. 03/05/2018 0, week 4 and then every 8 weeks (not taking) Leflunomide take one 30tabs M05.79 Meet Greene, 09/11/2017 - 10mg Tablets capsule/tablet M.DSarah 09/25/2017 daily by mouth Hydrochlorothiazide 2 by mouth every 180tab Francisca Wolf 05/09/2016 - 12.5mg day s Beata Coat 01/12/2019 Tablets Coreg 1 by mouth twice Francisca Wolf 04/03/2016 - 25mg Tablets a day Beata Cota 04/29/2016 Ramipril 1 po qod Francisca Wolf 12/07/2013 - 2.5mg Capsules Beata Cota 01/11/2014 Amlodipine Besylate 1 po qd 90tabs Francisca Wolf 12/28/2007 - 2.5mg Tablets Beata Cota 01/26/2008 Diovan 1 po qd 14tabs Francisca Wolf 12/08/2007 - 40mg Tablets Beata Cota 12/28/2007 Lisinopril 1 po qd 90tabs Francisca Wolf 04/28/2007 - 2.5mg Tablets Beata Cota 12/08/2007 Niaspan 1 Tablet By Mouth 90tabs Francisca Wolf 01/11/2007 - 500mg Tablets At Bedtime Beata Cota 02/16/2007 Zetia 1 po qd 90tabs Francisca Wolf 12/04/2006 - 10mg Tablets Beata Cota 01/26/2008 Questran 1 po bid 60unit Francisca Wolf 10/09/2006 - 4gm Powder nubia Cota M.D. 11/01/2007 Flax Seed Meal 2 tablespoons po Francisca Wolf 04/06/2006 - Cream qd Beata Cota 09/26/2009 Coreg 2 tabs po bid 180tab Francisca FSarah 09/29/2005 - 12.5mg Tablets nubia Cota M.D. 04/03/2016 Zetia 1 po qd 90tabs Francisca FSarah 09/29/2005 - 10mg Tablets Beata Cota 12/30/2005 Coreg 1 po bid Francisca F. 06/23/2005 - 6.25mg Tablets Beata Cota 09/29/2005 Coreg 1 po bid 180tab Francisca FSarah 04/30/2005 - 12.5mg Tablets s Beata Cota 06/23/2005 Garlic two po qd Francisca FSarah 04/29/2005 - 1000mg Beata Cota 09/26/2009 Coreg 1 po bid Francisca FSarah 03/13/2005 - 6.25mg Tablets Beata Cota 04/30/2005 Coreg 1 po bid 180tab Francisca Wolf 01/27/2005 - 12.5mg Tablets s Beata Cota 03/13/2005 Coreg 1 po bid 90tabs Francisca Wolf 10/02/2004 - 6.25mg Tablets Beata Cota 01/27/2005 Coreg 1 po bid 60tabs Francisca Wolf 10/02/2004 - 3.125mg Tablets Beata Cota 10/02/2004 Lipitor 1 po qd Francisca Wolf 10/02/2004 - 10mg Tablets Beata Cota 04/30/2005 Calcium 1 PO qd Francisca Wolf 09/10/2004 - Tablets Beata Cota 04/04/2011 Sulfasalazine take 2 tabs in 120tab Z79.89 Zsofia Eliecer, 09/10/2004 - 500mg Tablets the morning and 2 s 9 [employer] 03/25/2019 tabs in the evening for a total of 4 daily tabs daily ongoing M05.79 Humalog tid Francisca Wolf 09/10/2004 - 100Units/ML Beata Cota 04/16/2015 Injection Humulin N hs Francisca Wolf 09/10/2004 - 100Units/ML Beata Cota 04/16/2015 Injection Lipitor 1 po qd 30tabs Francisca Wolf 09/09/2004 - 20mg Tablets Beata Cota 10/02/2004 HCTZ 2 by mouth every 180caps Francisca Wolf 09/09/2004 - 12.5mg Capsules day Beata Cota 05/09/2016 calcium and vitamin D bid Francisca Wolf 09/09/2004 - 600mg Beata Cota 09/10/2004 vitamin E one qd Francisca Wolf 09/09/2004 - 400iu Beata Cota 09/10/2004 Evista 1 PO qd Francisca Wolf 09/09/2004 - 60mg Tablets Beata Cota 09/15/2008 Sulfasalazine 2 po bid 360tabs Francisca Wolf 09/09/2004 - 500mg Tablets Beata Cota 09/10/2004 Flax Seed Oil Unknown - 04/04/2011 Garlic qd Unknown - 1000mg Capsules 05/04/2012 Simvastatin 1 po qhs Unknown - 10mg Tablets 04/04/2011 Pravastatin Sodium 1 tablet by 90tabs Unknown - 20mg mouth once daily 02/04/2012 Tablets at bedtime Amoxicillin 1 tab by mouth 3 Unknown - Capsules times per day 04/02/2016 every Vitamin C 1 by mouth every Unknown - 500mg Tablets day 01/12/2019 Eliquis 1 by mouth twice Unknown - 5mg Tablets a day 04/25/16 04/29/2016 Hold Eliquis 1 by mouth q12 180tabs Francisca Britt. - 5mg Tablets hours Beata Cota 10/08/2017 Turmeric Curcumin 1 by mouth every Unknown - 500mg day 12/23/2017 Capsules Cinnamon 1 by mouth every Unknown - 500mg Capsules day 03/05/2018 Immunizations CPT Code Status Date Vaccine Lot # [id number] Given 10/06/2007 Influenza Virus 3Yrs & Over 06131 Given 10/06/2007 Influenza Virus 3Yrs & Over [id number] Vital Signs Date Vital Result Comment 03/25/2019 10:56am Height 61 inches 5'1" Weight 170.25 lb Heart Rate 63 /min BP Systolic Sitting 132 mmHg BP Diastolic Sitting 66 mmHg O2 % BldC Oximetry 98 % BMI (Body Mass Index) 32.2 kg/m2 03/01/2019 3:26pm Height 61 inches 5'1" Weight 173.25 lb Heart Rate 67 /min BP Systolic Sitting 134 mmHg BP Diastolic Sitting 64 mmHg O2 % BldC Oximetry 97 % BMI (Body Mass Index) 32.7 kg/m2 01/28/2019 11:01am Height 61 inches 5'1" Weight [...] Test Result H/L Range Note Laboratory test 03/22/2019 [facility] Vitamin B12 659 pg/mL N 180-914 1 finding [address] [place] [address] [phone] Ferritin 63.9 ng/mL N 11-307 2 Hemoglobin A1c (Glyco HGB) 5.6 % N 4.0-5.6 3 Iron & Iron Binding 03/22/2019 [facility] Iron 61 g/dL N 50- 212 [address] [place] [address] [phone] Unsaturated Iron Binding < 320 g/dL Total Iron Binding Capacity 335 g/dL N 250-450 Transferrin 239 mg/dL N 203-362 % Iron Saturation 18 % N 15-55 Lipid Profile 03/22/2019 [facility] Triglycerides 77 mg/dL 4 (Trig/Chol/HDL) [address] [place] [address] [phone] Cholesterol 217 mg/dL 5 HDL Cholesterol 65.5 mg/dL 6 LDL Cholesterol 136 mg/dL 7 Laboratory test 03/22/2019 [facility] Erythrocyte Sed 59 mm/Hr High 0-[address] [place] [address] [phone] C Reactive Protein 12.08 mg/L High <8.01 8 Comp Metabolic Panel 03/22/2019 [facility] Sodium 134 mmol/L Low 135-[address] [place] [address] [phone] Potassium 4.4 mmol/L N 3.5-5.0 Chloride 99 mmol/L Low 101-111 Co2 Carbon Dioxide 27 mmol/L N 22-32 Anion Gap 8 mmol/L N 2-11 Glucose 347 mg/dL High 70-100 Blood Urea Nitrogen 16 mg/dL N 6-24 Creatinine 0.87 mg/dL N 0.51-0.95 BUN/Creatinine Ratio 18.4 N 8-20 Calcium 9.6 mg/dL N 8.6-10.3 Total Protein 6.9 g/dL N 6.4-8.9 Albumin 3.9 g/dL N 3.2-5.2 Globulin 3.0 g/dL N 2-4 Albumin/Globulin Ratio 1.3 N 1-3 Total Bilirubin 0.40 mg/dL N 0.2-1.0 Alkaline Phosphatase 75 U/L N 34-104 Alt 11 U/L N 7-52 Ast 19 U/L N 13-39 Egfr Non- 62.0 >60 Egfr 75.1 >60 9 CBC Auto Diff 03/22/2019 [facility] White Blood 4.2 10^3/uL N 3.5-10.[address] [place] [address] [phone] Red Blood Count 3.37 10^6/uL Low 3.70-4.87 Hemoglobin 9.6 g/dL Low 12.0-16.0 Hematocrit 30 % Low 33-41 Mean Corpuscular Volume 90 fL N 80-97 Mean Corpuscular Hemoglobin 28 pg N 27-31 Mean Corpuscular HGB Conc 32 g/dL N 31-36 Red Cell Distribution Width 17 % High 10.5-15 Platelet Count 275 10^3/uL N 150-450 Mean Platelet Volume 8.3 fL N 7.4-10.4 Abs Neutrophils 3.0 10^3/uL N 1.5-7.7 Abs Lymphocytes 0.8 10^3/uL Low 1.0-4.8 Abs Monocytes 0.4 10^3/uL N 0-0.8 Abs Eosinophils 0 10^3/uL N 0-0.6 Abs Basophils 0 10^3/uL N 0-0.2 Abs Nucleated RBC 0 10^3/uL Granulocyte % 71.7 % Lymphocyte % 17.8 % Monocyte % 9.9 % Eosinophil % 0 % Basophil % 0.6 % Nucleated Red Blood Cells % 0 Laboratory test 02/22/2019 [facility] C Reactive 39.80 High < 8.01 10, [address] Protein mg/[place] [address] [phone] Erythrocyte Sed Rate 75 mm/Hr High 0-30 12 Laboratory test 01/21/2019 [facility] B-Type 262 pg/mL High <= [address] [place] [address] Peptide BNP [phone] Basic Metabolic 01/21/2019 [facility] Sodium 131 Low 135-[address] mmol/[place] [address] [phone] Potassium 4.1 mmol/L N 3.5-5.0 Chloride 98 mmol/L Low 101-111 Co2 Carbon Dioxide 25 mmol/L N 22-32 Anion Gap 8 mmol/L N 2-11 Glucose 99 mg/dL N 70-100 Blood Urea Nitrogen 12 mg/dL N 6-24 Creatinine 0.81 mg/dL N 0.51-0.95 BUN/Creatinine Ratio 14.8 N 8-20 Calcium 9.7 mg/dL N 8.6-10.3 Egfr Non- 67.4 >60 Egfr 81.5 >60 13 CBC Auto Diff 01/21/2019 [facility] White Blood 4.6 10^3/uL N 3.5-10.[address] [place] [address] [phone] Red Blood Count 3.06 10^6/uL Low 4.00-5.40 [...] Blood Cells % 0.1 Laboratory test 01/21/2019 [facility] Erythrocyte Sed 68 mm/Hr High 0-30 [address] [place] [address] [phone] CBC Auto Diff 09/24/2018 [facility] White Blood 5.6 N 3.5- 10.[address] Count 10^3/[place] [address] [phone] Red Blood Count 3.29 10^6/uL Low 4.00-5.40 [...] % 0 Iron & Iron Binding 09/24/2018 [facility] Iron 76 g/dL N 50- [address] [place], [place] [id number] [phone] Unsaturated Iron Binding < 360 g/dL Total Iron Binding Capacity 375 g/dL N 250-450 Transferrin 268 mg/dL N 203-362 % Iron Saturation 20 % N 15-55 Laboratory test 09/24/2018 [facility] Erythrocyte Sed 72 mm/Hr High 0-[address] [place] [address] [phone] Laboratory test 09/15/2018 [facility] Ferritin 40.4 ng/mL N 11 -[address] [place] [address] [phone] Erythrocyte Sed Rate 92 mm/Hr High 0-40 Iron & Iron Binding 09/15/2018 [facility] Iron 67 g/dL N 50- [address] [place] [address] [phone] Unsaturated Iron Binding 324 g/dL Total Iron Binding Capacity 391 g/dL N 250-450 Transferrin 279 mg/dL N 203-362 % Iron Saturation 17 % N 15-55 Basic Metabolic 09/15/2018 [facility] Sodium 133 mmol/L Low 135-[address] [place] [address] [phone] Potassium 4.0 mmol/L N 3.5-5.0 Chloride 95 mmol/L Low 101-111 Co2 Carbon Dioxide 30 mmol/L N 22-32 Anion Gap 8 mmol/L N 2-11 Glucose 146 mg/dL High 70-100 Blood Urea Nitrogen 14 mg/dL N 6-24 Creatinine 0.83 mg/dL N 0.51-0.95 BUN/Creatinine Ratio 16.9 N 8-20 Calcium 9.5 mg/dL N 8.6-10.3 Egfr Non- 65.5 >60 Egfr 79.2 >60 15 Laboratory test 09/15/2018 [facility] B-Type 346 pg/mL High [address] [place] [address] Peptide BNP [phone] CBC Auto Diff 09/15/2018 [facility] White Blood 4.5 N 3.5-[address] Count 10^3/uL 0.8 [place], [place] [phone] Red Blood Count 3.23 10^6/uL Low 4.00-5.40 [...] Red Blood Cells % 0.1 Laboratory test finding 08/10/2018 [facility] LDH 216 U/L N 140-[address] [place] [address] [phone] Iron & Iron Binding 08/10/2018 [facility] Iron 63 g/dL N 50- [address] [place] [address] [phone] Unsaturated Iron Binding 360 g/dL Total Iron Binding Capacity 423 g/dL N 250-450 Transferrin 302 mg/dL N 203-362 % Iron Saturation 15 % N 15-55 Laboratory test 08/10/2018 [facility] TSH (Thyroid 4.48 mcIU/mL N 0.34-5.[address] Stim [place]) [place] [address] [phone] Ferritin 23.1 ng/mL N 11-307 Folic Acid (Folate) > 20.00 ng/mL >3.99 CBC Auto 08/10/2018 [facility] White Blood 3.2 10^3/uL Low 3.5 -10.[address] [place] [address] [phone] Red Blood Count 3.52 10^6/uL Low 4.00-5.40 [...] Blood Cells % 0.1 Laboratory test 08/10/2018 [facility] Erythrocyte Sed 68 mm/Hr High 0-[address] [place] [address] [phone] Fructosamine 315 mcmol/L Abnormal 200 - 285 17 Haptoglobin 189 mg/dL 30 - 200 18 Basic Metabolic 08/10/2018 [facility] Sodium 128 mmol/L Low 135-[address] [place] [address] [phone] Potassium 3.8 mmol/L N 3.5-5.0 Chloride 92 mmol/L Low 101-111 Co2 Carbon Dioxide 27 mmol/L N 22-32 Anion Gap 9 mmol/L N 2-11 Glucose 277 mg/dL High 70-100 Blood Urea Nitrogen 11 mg/dL N 6-24 Creatinine 0.76 mg/dL N 0.51-0.95 BUN/Creatinine Ratio 14.5 N 8-20 Calcium 9.3 mg/dL N 8.6-10.3 Egfr Non- 72.7 >60 Egfr 87.9 >60 19 Laboratory test 06/23/2018 [facility] Erythrocyte Sed 76 mm/Hr High 0-[address] [place] [address] [phone] CBC Auto Diff 06/23/2018 [facility] White Blood 4.0 N 3.5- 10.[address] Count 10^3/[place] [address] [phone] Red Blood Count 3.20 10^6/uL Low 4.00-5.40 [...] Blood Cells % 0.1 Laboratory test 06/23/2018 [facility] C Reactive 22.29 mg/L High <8.[address] [place] [address] [phone] Comp Metabolic 06/23/2018 [facility] Sodium 129 mmol/L Low 135 -[address] [place] [address] [phone] Potassium 3.8 mmol/L N 3.5-5.0 Chloride 92 [...] Egfr Non- 68.5 >60 Egfr 82.9 >60 20 Laboratory test 06/23/2018 [facility] Magnesium 1.9 mg/dL N 1.9-2.[address] [place] [address] [phone] Laboratory test 05/29/2018 [facility] B-Type 230 pg/mL High [address] [place] [address] Peptide BNP [phone] Laboratory test 05/29/2018 [facility] Erythrocyte Sed 78 mm/Hr High 0-[address] [place] [address] [phone] CBC No Diff 05/29/2018 [facility] White Blood 3.1 Low 3.5- 10.[address] Count 10^3/[place] [address] [phone] Red Blood Count 4.02 10^6/uL N 4.00-5.40 Hemoglobin 11.4 g/dL Low 12.0-16.0 Hematocrit 36 % N 35-47 Mean Corpuscular Volume 90 fL N 80-97 Mean Corpuscular Hemoglobin 28 pg N 27-31 Mean Corpuscular HGB Conc 32 g/dL N 31-36 Red Cell Distribution Width 18 % High 10.5-15 Platelet Count 229 10^3/uL N 150-450 Mean Platelet Volume 7.8 um3 N 7.4-10.4 Basic Metabolic 05/29/2018 [facility] Sodium 131 mmol/L Low 135-[address] [place] [address] [phone] Potassium 3.7 mmol/L N 3.5-5.0 Chloride 92 mmol/L Low 101-111 Co2 Carbon Dioxide 31 mmol/L N 22-32 Anion Gap 8 mmol/L N 2-11 Glucose 324 mg/dL High 70-100 Blood Urea Nitrogen 16 mg/dL N 6-24 Creatinine 0.91 mg/dL N 0.51-0.95 BUN/Creatinine Ratio 17.6 N 8-20 Calcium 9.5 mg/dL N 8.6-10.3 Egfr Non- 59.0 >60 Egfr 71.4 >60 22 Laboratory test 05/13/2018 [facility] B-Type <pending> finding [address] [place] [address] Peptide BNP [phone] CBC Auto Diff 03/05/2018 [facility] White Blood Count 5.0 10^3/ uL N 3.5-[address] 0.8 [place] [address] [phone] Red Blood Count 3.44 10^6/uL Low 4.0-5.4 [...] Blood Cells % 0.1 Laboratory test 03/05/2018 [facility] B-Type 265 pg/mL High [address] [place] [address] Peptide BNP [phone] Magnesium 2.1 mg/dL N 1.9-2.7 Laboratory test 03/05/2018 [facility] Erythrocyte Sed 69 mm/Hr High 0-[address] [place] [address] [phone] C Reactive Protein 12.73 mg/L High < 5.00 24 Comp Metabolic Panel 03/05/2018 [facility] Sodium 132 mmol/L Low 139-[address] [place] [address] [phone] Potassium 4.1 mmol/L N 3.5-5.0 Chloride 96 [...] Egfr Non- 63.9 >60 Egfr 82.1 >60 25 Laboratory test 03/05/2018 [facility] TSH (Thyroid 8.13 High 0.34-5.[address] Stim Horm) mcIU/[place] [address] [phone] CBC Auto Diff 01/19/2018 [facility] White Blood 6.0 10^3/uL N 3.5-10.[address] [place] [address] [phone] Red Blood Count 3.37 10^6/uL Low 4.0-5.4 [...] Cells % 0 Comp Metabolic Panel 01/19/2018 [facility] Sodium 131 mmol/L Low 133-[address] [place] [address] [phone] Potassium 4.2 mmol/L N 3.5-5.0 Chloride 94 [...] Egfr Non- 63.9 >60 Egfr 82.1 >60 26 Laboratory test 01/19/2018 [facility] Erythrocyte Sed 65 mm/Hr High 0-40 [address] [place] [address] [phone] C Reactive Protein 13.97 mg/L High < 5.00 28 Laboratory test 10/22/2017 [facility] C Reactive 12.78 mg/L High < 5.00 [address] [place] [address] [phone] Erythrocyte Sed Rate 77 mm/Hr High 0-40 30 CBC Auto Diff 10/22/2017 [facility] White Blood 5.2 10^3/uL N 3.5-10.[address] [place], [place] [address] [phone] Red Blood Count 3.05 10^6/uL Low 4.0-5.4 [...] Cells % 0 Iron & Iron Binding 10/22/2017 [facility] Iron 75 g/dL N 50- [address] [place] [address] [phone] Unsaturated Iron Binding 344 g/dL Total Iron Binding Capacity 419 g/dL N 250-450 % Iron Saturation 18 % N 15-55 Vitamin B12 And 10/22/2017 [facility] Vitamin B12 834 pg/mL N 180-914 31 Folate Serum [address] [place] [address] [phone] Folic Acid (Folate) > 20.00 ng/mL >3.99 32 Comp Metabolic Panel 10/22/2017 [facility] Sodium 131 mmol/L Low 133-[address] [place] [address] [phone] Potassium 4.1 mmol/L N 3.5-5.0 Chloride 95 [...] Egfr Non- 63.0 >60 Egfr 81.0 >60 33 Quantiferon Gold 10/22/2017 [facility] M tuberculosis Negative Negative [address] [place] [address] [phone] TB Ag minus Nil Result 0.01 IU/mL TB Mitogen minus Nil Result > 10.00 IU/mL TB Nil Result 0.06 IU/mL 35 Laboratory test 09/11/2017 [facility] Creatine 70 U/L N 10- [address] Kinase(CK) [place] [address] [phone] Protein 09/11/2017 [facility] Total 7.6 N 6.3 - 7.[address] Protein(Pep) g/[place] [address] [phone] Albumin 3.5 g/dL N 3.4-4.7 Alpha-1 Globulin 0.3 g/dL N 0.1-0.3 Alpha-2 Globulin 1.1 g/dL Abnormal 0.6-1.0 Beta Globulin 1.2 g/dL N 0.7-1.2 Gamma Globulin 1.6 g/dL N 0.6-1.6 Albumin/Globulin Ratio 0.84 N Impression See Comment N 36 Iron & Iron Binding 09/11/2017 [facility] Iron 67 g/dL N 50- 212 [address] [place] [address] [phone] Unsaturated Iron Binding 347 g/dL N Total Iron Binding Capacity 414 g/dL N 250-450 % Iron Saturation 16 % N 15-55 Comp Metabolic Panel 09/11/2017 [facility] Sodium 132 mmol/L Low 133-145 [address] [place] [address] [phone] Potassium 3.9 mmol/L N 3.5-5.0 Chloride 95 [...] 69.5 N >60 Egfr 89.4 N >60 37 CBC Auto Diff 09/11/2017 [facility] White Blood 5.0 10^3/uL N 3.5-10.[address] [place] [address] [phone] Red Blood Count 3.39 10^6/uL Low 4.0-5.4 [...] Blood Cells % 0 N Laboratory test 09/11/2017 [facility] Erythrocyte Sed 77 mm/Hr High 0-[address] [place] [address] [phone] C Reactive Protein 21.64 mg/L High < 5.00 38 Rheumatoid Factor 18 IU/mL Abnormal <15 39 Cyclic Citrullinated Pep Igg >250.0 U Abnormal 40 Lipid Panel - 03/06/2017 [facility] Creatine Kinase(CK) 50 U/L N 10-[address] [place] [address] [phone] Lipid Profile 03/06/2017 [facility] Triglycerides 99 mg/dL N 41 (Trig/Chol/HDL [address] ) [place] [address] [phone] Cholesterol 222 mg/dL N 42 HDL Cholesterol 62.3 mg/dL N 43 LDL Cholesterol 140 mg/dL N 44 Comp Metabolic Panel 03/06/2017 [facility] Sodium 132 mmol/L Low 133-[address] [place] [address] [phone] Potassium 4.1 mmol/L N 3.5-5.0 Chloride 96 [...] 69.7 N >60 Egfr 89.6 N >60 45 Laboratory test 03/06/2017 [facility] Magnesium 2.0 mg/dL N 1.9-2.[address] [place] [address] [phone] B-Type Natriuretic Peptide BNP 174 pg/mL High 46 CBC Auto Diff 03/06/2017 [facility] White Blood 4.6 10^3/uL N 3.5-10.[address] [place] [address] [phone] Red Blood Count 3.55 10^6/uL Low 4.0-5.4 [...] Cells % 0 N Laboratory test 03/06/2017 [facility] Erythrocyte Sed 81 mm/Hr High 0-[address] [place] [address] [phone] Lipid Profile 12/08/2016 [facility] Triglycerides 84 mg/dL N 47 (Trig/Chol/HDL) [address] [place], [place] [address] [phone] Cholesterol 209 mg/dL N 48 HDL Cholesterol 62.2 mg/dL N 49 LDL Cholesterol 130 mg/dL N 50 Laboratory test 12/08/2016 [facility] B-Type 180 pg/mL High [address] [place] [address] Peptide BNP [phone] Magnesium 1.9 mg/dL N 1.9-2.7 52 Erythrocyte Sed Rate 78 mm/Hr High 0-40 CBC Auto Diff 12/08/2016 [facility] White Blood 4.9 10^3/uL N 3.5-10.[address] [place] [address] [phone] Red Blood Count 3.62 10^6/uL Low 4.0-5.4 [...] Cells % 0 N Basic Metabolic 12/08/2016 [facility] Sodium 132 mmol/L Low 133-[address] [place] [address] [phone] Potassium 4.1 mmol/L N 3.5-5.0 Chloride 96 mmol/L Low 101-111 Co2 Carbon Dioxide 30 mmol/L N 22-32 Anion Gap 6 mmol/L N 2-11 Glucose 322 mg/dL High 70-100 Blood Urea Nitrogen 13 mg/dL N 6-24 Creatinine 0.78 mg/dL N 0.51-0.95 BUN/Creatinine Ratio 16.7 N 8-20 Calcium 9.5 mg/dL N 8.6-10.3 Egfr Non- 70.7 N >60 Egfr 90.9 N >60 53 Basic Metabolic 07/29/2016 [facility] Sodium 131 mmol/L Low 133-[address] [place] [address] [phone] Potassium 4.3 mmol/L N 3.5-5.0 Chloride 97 mmol/L Low 101-111 Co2 Carbon Dioxide 28 mmol/L N 22-32 Anion Gap 6 mmol/L N 2-11 Glucose 186 mg/dL High 70-100 Blood Urea Nitrogen 13 mg/dL N 6-24 Creatinine 0.75 mg/dL N 0.51-0.95 BUN/Creatinine Ratio 17.3 N 8-20 Calcium 9.4 mg/dL N 8.6-10.3 Egfr Non- 74.2 N >60 Egfr 95.4 N >60 54 Laboratory test 07/29/2016 [facility] Partial 53.0 High 26.0- 36.[address] [place] [address] PTT [phone] Inr/Protime 07/29/2016 [facility] Inr 1.00 N 0.89-1.[address] [place] [address] [phone] CBC No Diff 07/29/2016 [facility] White Blood 4.9 10^3/uL N 3.5-10.[address] [place] [address] [phone] Red Blood Count 3.64 10^6/uL Low 4.0-5.4 Hemoglobin 9.8 g/dL Low 12.0-16.0 Hematocrit 31 % Low 35-47 Mean Corpuscular Volume 84 fL N 80-97 Mean Corpuscular Hemoglobin 27 pg N 27-31 Mean Corpuscular HGB Conc 32 g/dL N 31-36 Red Cell Distribution Width 20 % High 10.5-15 Platelet Count 315 10^3/uL N 150-450 Mean Platelet Volume 8 um3 N 7.4-10.4 Laboratory test 07/18/2016 [facility] Point of Care 232 mg/dL High 74-106 [address] [place] [address] [phone] Laboratory test 05/15/2016 [facility] B-Type 458 pg/mL High [address] [place] [address] Peptide BNP [phone] Comp Metabolic 05/15/2016 [facility] Sodium 131 Low 133-[address] mmol/[place] [address] [phone] Potassium 4.2 mmol/L N 3.5-5.0 Chloride 96 [...] 75.3 N >60 Egfr 96.9 N >60 57 Laboratory test 05/15/2016 [facility] Magnesium 2.1 mg/dL N 1.9-2.[address] [place] [address] [phone] CBC Auto Diff 05/15/2016 [facility] White Blood 5.2 N 3.5- 10.[address] Count 10^3/[place] [address] [phone] Red Blood Count 3.94 10^6/uL Low 4.0-5.4 [...] Cells % 0 N Laboratory test 05/15/2016 [facility] Erythrocyte Sed 66 mm/Hr High 0-[address] [place] [address] [phone] CRP High Sensitivity 20.22 mg/L N 58 Laboratory test 04/25/2016 [facility] B-Type 391 pg/mL High [address] [place] [address] Peptide BNP [phone] Comp Metabolic 04/25/2016 [facility] Sodium 131 mmol/L Low 133 -[address] [place] [address] [phone] Potassium 4.2 mmol/L N 3.5-5.0 Chloride 97 [...] 81.7 N >60 Egfr 105.0 N >60 60 Laboratory test 04/25/2016 [facility] Magnesium 1.9 mg/dL N 1.9-2.[address] [place] [address] [phone] Order 04/04/2016 [facility] Overnight <pending> [address] [place] [address] [phone] Comp Metabolic 03/12/2016 [facility] Sodium 130 mmol/L Low 133 -[address] [place] [address] [phone] Potassium 4.1 mmol/L N 3.5-5.0 Chloride 95 [...] 71.9 N >60 Egfr 92.5 N >60 61 CBC Auto Diff 03/12/2016 [facility] White Blood 4.5 10^3/uL N 3.5-10.[address] [place] [address] [phone] Red Blood Count 3.73 10^6/uL Low 4.0-5.4 [...] Nucleated Red Blood Cells % 0.1 N Laboratory test 03/12/2016 [facility] TSH (Thyroid 3.58 ?IU/mL N 0.34-5.[address] [place]) [place] [address] [phone] Erythrocyte Sed Rate 69 mm/Hr High 0-40 C Reactive Protein 24.66 mg/L High < 5.00 62 Surgical 01/12/2015 [facility] S RUN DATE: [address] 02/24/ <[place] [address] NOTE> [phone] Laboratory test 12/13/2014 [facility] Erythrocyte Sed 75 mm/Hr High 0-[address] [place] [address] [phone] CBC No Diff 11/26/2013 [facility] White Blood 4.9 10^3/uL 4.8 -[address] Count 0.8 [place] [address] [phone] Red Blood Count 3.85 10^6/uL Low 4.0-5.4 Hemoglobin 11.2 g/dL Low 12.0-16.0 Hematocrit 34 % Low 35-47 Mean Corpuscular Volume 88 fL 80-97 Mean Corpuscular Hemoglobin 29 pg 27-31 Mean Corpuscular HGB Conc 33 g/dL 31-36 Red Cell Distribution Width 17 % High 10.5-15 Platelet Count 294 10^3/uL 150-450 Mean Platelet Volume 9 um3 7.4-10.4 Laboratory test 11/26/2013 [facility] Erythrocyte Sed 61 mm/Hr High 0-[address] [place] [address] [phone] Comp Metabolic 11/26/2013 [facility] Sodium 131 Low 133-[address] mmol/[place] [address] [phone] Potassium 4.1 mmol/L 3.5-5.0 Chloride 97 mmol/L [...] Egfr Non- 69.2 >60 Egfr 89.0 >60 64 Lipid Profile 11/26/2013 [facility] Triglycerides 56 mg/dL 40 -200 (Trig/Chol/HDL) [address] [place], [place] [id number] [phone] Cholesterol 228 mg/dL High Less than 200 HDL Cholesterol 72 mg/dL High 40-60 65 Cholesterol/HDL Ratio 3.2 Average 1-4.44 LDL Cholesterol 144.8 High Less Than 100 66 Liver Function 11/26/2013 [facility] Direct < 0.1 mg/dL Low 0.1-0.[address] [place] [address] [phone] Indirect Bilirubin (SEE NOTE) mg/dL 0.3-1.0 67 Laboratory test 11/26/2013 [facility] TSH (Thyroid 3.60 0.34- 5.[address] Stimulating miu/[place] [address] Horm) [phone] Urine 11/26/2013 [facility] Ur Microalbumin 100.0 [address] (mg/L) mg/L [place], [place] [address] [phone] Urine Creatinine 53.7 mg/dL Urine Microalbumin/Creatinine 186.2 High Less Than 31 Laboratory test 10/29/2012 [facility] Erythrocyte Sed 64 mm/Hr High 0-[address] [place] [address] [phone] CBC Auto Diff 10/29/2012 [facility] White Blood 4.7 Low 4.8- 10.[address] Count 10^3/uL [place], [place] [address]4042 [phone] Red Blood Count 3.64 10^6/uL Low 4.0-5.4 [...] Blood Cells % 0 Laboratory test 10/29/2012 [facility] Liver Panel 0 mg/dL Low 0.1-0.5 69 finding [address] [place] [address] [phone] TSH (Thyroid Stimulating Horm) 5.13 MIU/ML 0.34-5.60 70 Direct Bilirubin 0 mg/dL Low 0.1-0.5 71 Lipid Profile 10/29/2012 [facility] Triglycerides 79 mg/dL 40 -200 (Trig/Chol/HDL) [address] [place] [address] [phone] Cholesterol 236 mg/dL High Less than 200 HDL Cholesterol 60 mg/dL 40-60 72 Cholesterol/HDL Ratio 3.9 Average 1-4.44 LDL Cholesterol 160.2 mg/dL High Less Than 100 73 Comp Metabolic Panel 10/29/2012 [facility] Sodium 132 mmol/L Low 133-145 [address] [place] [address] [phone] Potassium 4.4 mmol/L 3.5-5.0 Chloride 95 mmol/L [...] Egfr Non- 69.4 >60 Egfr 89.2 >60 74 Urine Microalbumin 10/29/2012 [facility] Ur Microalbumin 36.0 mg /L [address] (Mg/[place]) [place] [address] [phone] Urine Creatinine 53.0 mg/dL Urine Microalbumin/Creatinine 67.9 UG/MG High Less Than 31 CBC Auto Diff 05/04/2012 [facility] White Blood 5.1 CUMM 4.8- 10.[address] [place] [address] [phone] Red Cell Count 3.76 CUMM Low 4.2-5.4 [...] Abs Basophils 0 0-0.2 Laboratory test 05/04/2012 [facility] Troponin-I 0.03 NG/ML 0 -0.06 [address] [place] [address] [phone] Basic Metabolic 05/04/2012 [facility] Sodium 133 mmol/L Low 135-[address] [place] [address] [phone] Potassium 4.0 mmol/L 3.5-5.0 Chloride 95 mmol/L Low 101-111 Co2 (Carbon Dioxide) 30.0 mmol/L 22-32 Anion Gap 8.0 mmol/L 2-11 77 Glucose 196 mg/dL High 70-100 BUN 14 mg/dL 6-24 Creatinine 0.7 mg/dL 0.50-1.40 One Over Creatinine 1.42 BUN/Creatinine Ratio 20.0 8-20 Calcium 9.4 mg/dL 8.1-9.9 eGFR Non- 81.1 > 60 eGFR 104.3 > 60 78 Laboratory test finding 02/26/2011 [facility] Alt (SGPT) 15 U/L 14-[address] [place] [address] [phone] Ast (Sgot) 20 U/L 12-42 Lipid Profile 02/26/2011 [facility] Triglyceride 61 mg/dL 40- 200 (Trig/Chol/HDL) [address] [place] [address] [phone] Cholesterol 188 mg/dL Less Than 200 79 High Density Lipoprotein 70 mg/dL High 40-60 80 Cholesterol/HDL Ratio 2.69 AVERAGE 1-4.44 Low Density Lipoprotein 106 mg/dL High Less Than 100 81 Laboratory test 10/24/2009 [facility] LDL Direct 126 mg/dL High Less Than [address] [place] [address] [phone] Alt (SGPT) 16 U/L 14-54 Ast (Sgot) 25 U/L 12-42 Erythrocyte Sed Rate 54 MM/HR High 0-40 Lipid Profile 10/24/2009 [facility] Triglyceride 66 mg/dL 40- 200 (Trig/Chol/HDL) [address] [place] [address] [phone] Cholesterol 205 mg/dL High Less Than 200 83 High Density Lipoprotein 68 mg/dL High 40-60 84 Cholesterol/HDL Ratio 3.01 AVERAGE 1-4.44 Low Density Lipoprotein 124 mg/dL High Less Than 100 85 Basic Metabolic 10/24/2009 [facility] Sodium 134 mmol/L Low 135-[address] [place] [address] [phone] Potassium 4.3 mmol/L 3.5-5.0 Chloride 98 mmol/L Low 101-111 Co2 (Carbon Dioxide) 31.0 mmol/L 22-32 Anion Gap 5.0 mmol/L 2-11 86 Glucose 256 mg/dL High 70-100 87 BUN 13 mg/dL 6-24 Creatinine 0.80 mg/dL 0.50-1.40 One Over Creatinine 1.20 BUN/Creatinine Ratio 16.3 8-20 Calcium 9.4 mg/dL 8.1-9.9 88 eGFR Non- 74.3 > 60 eGFR 89.9 > 60 89 Laboratory test 06/08/2009 [facility] TSH 3.97 MIU/ML 0.34- 5.60 [address] [place] [address] [phone] Lipid Panel - 06/08/2009 [facility] CPK 53 U/L 0-[address] ([place] [address] Kinase) [phone] Comp Metabolic 06/08/2009 [facility] Sodium 137 mmol/L 135- [address] [place] [address] [phone] Potassium 5.5 mmol/L High 3.5-5.0 Chloride 99 mmol/L Low 101-111 Co2 (Carbon Dioxide) 31.0 mmol/L 22-32 Anion Gap 7.0 mmol/L 2-11 91 Glucose 198 mg/dL High 70-100 92 BUN 9 mg/dL 6-24 Creatinine 0.80 mg/dL 0.50-1.40 One Over Creatinine 1.20 BUN/Creatinine Ratio 11.3 8-20 Calcium 9.8 mg/dL 8.1-9.9 93 Total Protein 6.8 GM/DL 6.2-8.1 Albumin 3.6 GM/DL 3.2-5.2 Globulin 3.2 GM/DL 2-4 Albumin/Globulin Ratio 1.1 1-3 Bilirubin Total 0.5 mg/dL 0.4-1.5 94 Alkaline Phosphatase 78 U/L 30-110 Alt (SGPT) 16 U/L 14-54 Ast (Sgot) 20 U/L 12-42 eGFR Non- 74.5 > 60 eGFR 90.2 > 60 95 Lipid Profile 06/08/2009 [facility] Triglyceride 69 mg/dL 40- 200 (Trig/Chol/HDL) [address] [place] [address] [phone] Cholesterol 218 mg/dL High Less Than 200 96 High Density Lipoprotein 56 mg/dL 40-60 97 Cholesterol/HDL Ratio 3.89 AVERAGE 1-4.44 Low Density Lipoprotein 148 mg/dL High Less Than 100 98 Laboratory test 10/19/2007 [facility] Hemoglobin A1c 6.3 % High <6.0 [address] [place] [address] [phone] Lipid Profile 10/19/2007 [facility] Cholesterol/HD 3.39 1- 4.44 (Trig/Chol/HDL) [address] [place] [address] [phone] Cholesterol 193 mg/dL Less Than 200 100 Triglyceride 81 mg/dL 40-200 High Density Lipoprotein 57 mg/dL 40-60 Low Density Lipoprotein 120 mg/dL High Less Than 100 101 Comp Metabolic Panel 10/19/2007 [facility] One Over Creatinine 1.[address] [place] [address] [phone] Anion Gap 5.0 mmol/L 2-11 102 Albumin/Globulin Ratio 0.9 Low 1-3 Albumin 3.4 [...] Creatinine 1.0 mg/dL 0.5-1.4 Laboratory test 10/19/2007 [facility] Erythrocyte Sed 55 MM/HR High 0-[address] [place] [address] [phone] CPK (Creatine Kinase) 66 U/L 0-170 Laboratory test 03/10/2007 [facility] CPK (Creatine 56 U/L 0- [address] Kinase) [place] [address] [phone] Comp Metabolic 03/10/2007 [facility] One Over 1.[address] [place] [address] [phone] Anion Gap 8.0 mmol/L 2-11 103 Albumin/Globulin Ratio 1.1 1-3 Albumin 3.5 GM/DL [...] Ratio 16.3 8-20 Creatinine 0.8 mg/dL 0.5-1.4 Lipid Profile 03/10/2007 [facility] Cholesterol/HDL 3.25 1- 4.44 (Trig/Chol/HDL) [address] [place] [address] [phone] Cholesterol 192 mg/dL Less Than 200 104 Triglyceride 54 mg/dL 40-200 High Density Lipoprotein 59 mg/dL 40-60 Low Density Lipoprotein 122 mg/dL High Less Than 100 105 Laboratory test 03/10/2007 [facility] Erythrocyte Sed 63 MM/HR High 0-[address] [place] [address] [phone] Hemoglobin A1c 7.4 % High <6.0 106 Comp Metabolic Panel 10/08/2006 [facility] One Over Creatinine 1.[address] [place] [address] [phone] Anion Gap 2.0 mmol/L 2-11 107 Albumin/Globulin Ratio 1.0 1-3 Albumin 3.5 GM/DL [...] Creatinine 1.0 mg/dL 0.5-1.4 Lipid Profile 10/08/2006 [facility] Cholesterol/HDL 3.55 1- 4.44 (Trig/Chol/HDL) [address] [place] [address] [phone] Cholesterol 213 mg/dL High Less Than 200 108 Triglyceride 79 mg/dL 40-200 High Density Lipoprotein 60 mg/dL 40-60 109 Low Density Lipoprotein 137 mg/dL High Less Than 100 110 Laboratory test 10/08/2006 [facility] CPK (Creatine 50 U/L 0- [address] Kinase) [place], [place] [id number] [phone] Erythrocyte Sed Rate 59 MM/HR High 0-40 Hemoglobin A1c 7.2 % High <6.0 111 Laboratory test 04/27/2006 [facility] Hemoglobin A1c 6.9 % High <6.0 [address] [place] [address] [phone] Lipid Profile 04/27/2006 [facility] Cholesterol/HD 3.58 1- 4.44 (Trig/Chol/HDL) [address] L Ratio [place]AGE [place], [place] [address] [phone] Cholesterol 222 mg/dL High Less Than 200 113 Triglyceride 76 mg/dL 40-200 High Density Lipoprotein 62 mg/dL High 40-60 114 Low Density Lipoprotein 145 mg/dL High Less Than 100 115 Laboratory test 04/27/2006 [facility] Erythrocyte Sed 52 MM/HR High 0-[address] [place], [place] [address] [phone] Liver Function 04/27/2006 [facility] Albumin/Globulin 1.2 1- [address] [place] [address] [phone] Albumin 3.6 GM/DL 3.2-5.2 Alkaline Phosphatase 69 U/L 30-110 Alt (SGPT) 16 U/L 14-54 Ast (Sgot) 22 U/L 12-42 Bilirubin Direct < 0.1 mg/dL Low 0.1-0.5 Globulin 3.1 GM/DL 2-4 Bilirubin Total 0.5 mg/dL 0.4-1.5 Total Protein 6.7 GM/DL 6.2-8.1 Basic Metabolic 04/27/2006 [facility] One Over Creatinine 1.[address] [place] [address] [phone] Anion Gap 7.0 mmol/L 2-11 116 BUN 11 mg/dL 6-24 Calcium 9.6 mg/dL 8.7-10.2 Chloride 102 mmol/L 101-111 Co2 (Carbon Dioxide) 30.0 mmol/L 22-32 Glucose 137 mg/dL High 70-105 Potassium 4.3 mmol/L 3.5-5.0 Sodium 139 mmol/L 135-145 BUN/Creatinine Ratio 15.7 8-20 Creatinine 0.7 mg/dL 0.5-1.4 Laboratory test 04/27/2006 [facility] BNP Evaluatr 135.75 High 7.5-[address] pg/[place] [address] [phone] 1 Normal Range 180 to 914 Indeterminate Range 145 to 180 Deficient Range <145 2 FASTING 3 Therapeutic target for the treatment of diabetes mellitus patients is <7% HBA1C, and in selective patients <6.0%. Please refer to [place] [employer] diabetic care guidelines for further information. 4 Desirable: <150 Borderline High: 150-199 High: 200-499 Very High: >500 5 Desirable: <200 Borderline High: 200-239 High: >239 6 Low: <40 Desirable: 40-60 High: >60 7 Desirable: <100 Near Optimal: 100-129 Borderline High: 130-159 High: 160-189 Very High: >189 8 FASTING 9 Because ethnic data is not always [...] 5 Kidney failure <15 (or dialysis) 10 CC RESULTS TO: FRANCISCA COTA [phone] [facility] [phone] 11 CC RESULTS TO: FRANCISCA COTA [phone] [facility] [phone] 12 Test Performed by: [facility] [address], [place] [address] Bola Quinones M.D. Director of Laboratory 13 Because ethnic data is not always [...] 5 Kidney failure <15 (or dialysis) 14 Test Performed by: [facility] [address] [place], [place] [address] Bola Quinones M.D. Director of Laboratory 15 Because ethnic data is not always readily [...] 15-29 5 Kidney failure <15 (or dialysis) 16 >100 to <200 pg/mL: likely compensated congestive heart failure (CHF) 200 to 400 pg/mL: likely moderate CHF >400 pg/mL: likely moderate to severe CHF 17 Test Performed by: [facility] [address] [place] [address] 18 Test Performed by: [facility] [address] [place] [address] 19 Because ethnic data is not always [...] 5 Kidney failure <15 (or dialysis) 20 Because ethnic data is not always readily [...] 15-29 5 Kidney failure <15 (or dialysis) 21 >100 to <200 pg/mL: likely compensated congestive heart failure (CHF) 200 to 400 pg/mL: likely moderate CHF >400 pg/mL: likely moderate to severe CHF 22 Because ethnic data is not always readily [...] 15-29 5 Kidney failure <15 (or dialysis) 23 >100 to <200 pg/mL: likely compensated congestive heart failure (CHF) 200 to 400 pg/mL: likely moderate CHF >400 pg/mL: likely moderate to severe CHF 24 Acute inflammation: >10.00 25 Because ethnic data is not always readily [...] 15-29 5 Kidney failure <15 (or dialysis) 26 Because ethnic data is not always readily [...] 15-29 5 Kidney failure <15 (or dialysis) 27 System Event: N Abn NRBC Pattern Low Events: N 28 Acute inflammation: >10.00 29 Acute inflammation: >10.00 30 Please check labs this month 31 Normal Range 180 to 914 Indeterminate Range 145 to 180 Deficient Range <145 32 Please check labs this month 33 Because ethnic data is not always readily [...] 15-29 5 Kidney failure <15 (or dialysis) 34 No interferon-gamma response to M. tuberculosis antigens was detected. Infection with M. tuberculosis is unlikely. A negative result alone does not exclude infection with M. tuberculosis. For detailed information regarding test interpretation see: [email or web address] 35 Test Performed by: [facility] [address] [place] [address] 36 RESULT: No apparent monoclonal protein on serum electrophoresis. Test Performed by: [facility] [id number] 37 Because ethnic data is not always readily [...] 15-29 5 Kidney failure <15 (or dialysis) 38 Acute inflammation: >10.00 39 Test Performed by: [place] [id number] Interpretation: Strong Positive (>=60.0) REFERENCE VALUE <20.0 (Negative) Test Performed by: [address] [address] 41 Desirable <150 Borderline high 150-199 High 200-499 Very High >500 42 Desirable <200 Borderline high 200-239 High >239 43 Low <40 Desirable: 40-60 High: >60 44 Desirable: <100 mg/dL Near Optimal: 100-129 mg/dL Borderline High: 130-159 mg/dL High: 160-189 mg/dL Very High: >189 mg/dL 45 Because ethnic data is not always [...] pg/mL: likely moderate to severe CHF 47 Desirable <150 Borderline high 150-199 High 200-499 Very High >500 48 Desirable <200 Borderline high 200-239 High >239 49 Low <40 Desirable: 40-60 High: >60 50 Desirable: <100 mg/dL Near Optimal: 100-129 mg/dL Borderline High: 130-159 mg/dL High: 160-189 mg/dL Very High: >189 mg/dL 51 >100 to <200 pg/mL: likely compensated congestive heart failure (CHF) 200 to 400 pg/mL: likely moderate CHF >400 pg/mL: likely moderate to severe CHF 52 FASTING 53 Because ethnic data is not always readily [...] 15-29 5 Kidney failure <15 (or dialysis) 54 Because ethnic data is not always readily [...] 15-29 5 Kidney failure <15 (or dialysis) 55 Summer Law Clerk: [id number] ALLEN 56 >100 to <200 pg/mL: likely compensated congestive heart failure (CHF) 200 to 400 pg/mL: likely moderate CHF >400 pg/mL: likely moderate to severe CHF 57 Because ethnic data is not always readily [...] 15-29 5 Kidney failure <15 (or dialysis) 58 Low risk: <1.00 Average risk: 1.00-3.00 High risk: >3.00 59 >100 to <200 pg/mL: likely compensated congestive heart failure (CHF) 200 to 400 pg/mL: likely moderate CHF >400 pg/mL: likely moderate to severe CHF 60 Because ethnic data is not always readily [...] 15-29 5 Kidney failure <15 (or dialysis) 61 Because ethnic data is not always readily [...] 15-29 5 Kidney failure <15 (or dialysis) 62 Acute inflammation: >10.00 63 RUN DATE: 01/16/15 [facility] LAB LIVE PAGE 1 RUN TIME: [address] [place] [id number] Specimen Inquiry Name: KATHERYN TATUM : [address]: Floyd Lucero MD Acct: [id number] Unit: [id number] AGE: 79 Location: ENDO Re01/12/15 SEX: F Status: REG REF SPEC: [id number] CESIA: 01/12/15-854 [facility] DR: Floyd Lucero MD REQ: [id number] RECD: 01/12/15 STATUS: ANAT PATEL DR: Francisca Contreras ANCILLARY SERVICES MANAGER _ ORDERED: [facility], LEVEL IV/2 An H. pylori [...] performed at Main Lab DEPARTMENT OF PATHOLOGY, [facility] [employer] [place], [place] [address] Bola Quinones M.D. Director [facility] # [id number] RUN DATE: 01/16/15 [facility] LAB LIVE PAGE 2 RUN TIME: 1878 [facility] [employer] [place], [place] [address] Specimen Inquiry Patient: KATHERYN TATUM [id number] (Continued) GROSS DESCRIPTION (Continued) GROSS DESCRIPTION (Continued) 2. The specimen is received in formalin labeled, Biopsies Gastric, and consists of a 0.6 x 0.5 x 0.2 cm aggregate of multiple palmer irregular soft tissue fragments, which is submitted entirely in one cassette. Signed (signature on file) Ara Wilkerson MD [id number] END OF REPORT * ML=Testing performed at Main Lab DEPARTMENT OF PATHOLOGY, [address] [place] [address] Bola Quinones M.D. Director [facility] # [id number] 64 Because ethnic data is not always readily [...] 15-29 5 Kidney failure <15 (or dialysis) 65 HDL Interpretation: Undesirable: High Risk: Less than 40 mg/dL Desirable: Low Risk: Greater than 60 mg/dL 66 LDL Interpretation: Low Risk Optimal Level: LDL Less than 100 mg/dL Near or Above Optimal: LDL 100-129 mg/dL Borderline High Risk: LDL 130-159 mg/dL High Risk: LDL 160-189 mg/dL Very High Risk: LDL Greater than 189 mg/dL 67 Unable to calculate Ind Bili as D Bili is <0.1 Unable to calculate Ind Bili as D Bili is <0.1 68 Microalbuminuria in a random sample is defined as: Microalbumin/Creatinine ratio of 30-299 ug/mg. 69 Fasting 70 Fasting 71 Fasting 72 HDL Interpretation: Undesirable: High Risk: Less than 40 MG/DL Desirable: Low Risk: Greater than 60 MG/DL 73 LDL Interpretation: Low Risk Optimal Level: LDL Less than 100 MG/DL Near or Above Optimal: LDL 100-129 MG/DL Borderline High Risk: LDL 130-159 MG/DL High Risk: LDL 160-189 MG/DL Very High Risk: LDL Greater than 189 MG/DL 74 Because ethnic data is not always readily [...] 15-29 5 Kidney failure <15 (or dialysis) 75 Microalbuminuria in a random sample is defined as: Microalbumin/Creatinine ratio of 30-299 ug/mg. 76 New Reference Range and Interpretation effective 08/26/2002 TnI (ng/ml) INTERPRETATION Less Than 0.06 ng/mL NOT SUPPORTIVE OF DIAGNOSIS OF RI 0.06 - 0.50 ng/ml INDETERMINATE: SUGGEST SERIAL STUDIES IF CLINICALLY INDICATED. Greater than 0.5 ng/mL CONSISTENT WITH DIAGNOSIS OF RI . 77 Anion gap measurement may be of limited value in the presence of any alkalosis, especially in a combined acid base disorder. . 78 Because ethnic data is not always readily [...] 15-29 5 Kidney failure <15 (or dialysis) 79 CHOLESTEROL INTERPRETATION: Desirable: Less than 200 [...] Risk: LDL Greater than 189 MG/DL 82 LDL INTERPRETATION: Low Risk Optimal Level: LDL Less than 100 MG/DL Near or Above Optimal: LDL 100-129 MG/DL Borderline High Risk: LDL 130-159 MG/DL High Risk: LDL 160-189 MG/DL Very High Risk: LDL Greater than 189 MG/DL 83 CHOLESTEROL INTERPRETATION: Desirable: Less than 200 MG/DL Borderline-High Risk: 200-239 MG/DL High-Risk: 240 MG/DL and over 84 HDL INTERPRETATION: Undesirable: High Risk: Less than 40 MG/DL Desirable: Low Risk: Greater than 60 MG/DL 85 LDL INTERPRETATION: Low Risk Optimal Level: LDL Less than 100 MG/DL Near or Above Optimal: LDL 100-129 MG/DL Borderline High Risk: LDL 130-159 MG/DL High Risk: LDL 160-189 MG/DL Very High Risk: LDL Greater than 189 MG/DL 86 Anion gap measurement may be of limited value in the presence of any alkalosis, especially in a combined acid base disorder. . 87 Note change in reference range as of 07/13/08. The change was based on recommendations from the [place] [employer]. 88 Please note change in reference range effective 08 . 89 Because ethnic data is not always readily [...] 15-29 5 Kidney failure <15 (or dialysis) 90 FASTING 91 Anion gap measurement may be of limited value in the presence of any alkalosis, especially in a combined acid base disorder. . 92 Note change in reference range as of 07/13/08. The change was based on recommendations from the [place] [employer]. 93 Please note change in reference range effective 08 . 94 A metabolite of Naproxen, O-desmethylnaproxen, has been shown to interfere with the Jendrassik-Adrian method for measuring total bilirubin. Samples from patients who have taken Naproxen have shown spurious elevation in total bilirubin levels. 95 Because ethnic data is not always readily [...] 15-29 5 Kidney failure <15 (or dialysis) 96 CHOLESTEROL INTERPRETATION: Desirable: Less than 200 MG/DL Borderline-High Risk: 200-239 MG/DL High-Risk: 240 MG/DL and over 97 HDL INTERPRETATION: Undesirable: High Risk: Less than 40 MG/DL Desirable: Low Risk: Greater than 60 MG/DL 98 LDL INTERPRETATION: Low Risk Optimal Level: LDL Less than 100 MG/DL Near or Above Optimal: LDL 100-129 MG/DL Borderline High Risk: LDL 130-159 MG/DL High Risk: LDL 160-189 MG/DL Very High Risk: LDL Greater than 189 MG/DL 99 THERAPEUTIC TARGET FOR THE TREATMENT OF DIABETES MELLITUS PATIENTS IS <7% HBA1C, AND IN SELECTIVE PATIENTS <6.0%. PLEASE REFER TO [employer] DIABETIC CARE GUIDELINES FOR FURTHER INFORMATION. 100 Classification: Desirable . 101 CALCULATED LDL APPROXIMATES THE VALUE OF A DIRECT LDL MEASUREMENT. Classification: Near or above optimal . 102 Anion gap measurement may be of limited value in the presence of any alkalosis, especially in a combined acid base disorder. . 103 Anion gap measurement may be of limited value in the presence of any alkalosis, especially in a combined acid base disorder. . 104 Classification: Desirable . 105 CALCULATED LDL APPROXIMATES THE VALUE OF A DIRECT LDL MEASUREMENT. Classification: Near or above optimal . 106 THERAPEUTIC TARGET FOR THE TREATMENT OF DIABETES MELLITUS PATIENTS IS <7% HBA1C, AND IN SELECTIVE PATIENTS <6.0%. PLEASE REFER TO [employer] [employer] DIABETIC CARE GUIDELINES FOR FURTHER INFORMATION. 107 Anion gap measurement may be of limited value in the presence of any alkalosis, especially in a combined acid base disorder. . 108 Classification: Borderline High . 109 Classification: High . 110 CALCULATED LDL APPROXIMATES THE VALUE OF A DIRECT LDL MEASUREMENT. Classification: Borderline High . 111 THERAPEUTIC TARGET FOR THE TREATMENT OF DIABETES MELLITUS PATIENTS IS <7% HBA1C, AND IN SELECTIVE PATIENTS <6.0%. PLEASE REFER TO [employer] DIABETIC CARE GUIDELINES FOR FURTHER INFORMATION. 112 THERAPEUTIC TARGET FOR THE TREATMENT OF DIABETES MELLITUS PATIENTS IS <7% HBA1C, AND IN SELECTIVE PATIENTS <6.0%. PLEASE REFER TO [employer] DIABETIC CARE GUIDELINES FOR FURTHER INFORMATION. 113 Classification: Borderline High . 114 Classification: High . 115 CALCULATED LDL APPROXIMATES THE VALUE OF A DIRECT LDL MEASUREMENT. Classification: Borderline High . 116 Anion gap measurement may be of limited value in the presence of any alkalosis, especially in a combined acid base disorder. . Procedures Date Code Description Status 02/25/2019 88047 Interrogation Implant Cardiovasc Monitor System Incl Completed Analysis Int 02/25/2019 49176 Interrogation Implant Cardiovasc Monitor System Incl Completed Analysis Int 02/25/2019 12342 Icd Eval With Iterative Adjustmt Multiple Lead System Completed 02/25/2019 54803 Icd Eval With Iterative Adjustmt Multiple Lead System Completed 02/11/2019 36071 ECHO Transthoracic, Real-Time 2D With Doppler And Completed Color Flow 02/11/2019 63861 ECHO Transthoracic, Real-Time 2D With Doppler And Completed Color Flow 01/14/2019 [id number] Diabetic Retinal Eye Exam Completed 01/12/2019 66633 EKG Tracing & Interpretation Completed 12/16/2018 44226 Icd Check Remote Up To 90 Days Single,Dual,Multiple Completed Lead 12/16/2018 07895 Icd Check Remote Up To 90 Days Single,Dual,Multiple Completed Lead 12/16/2018 23547 Interrogation Device Eval Remote Up To 30 Days Completed Analysis,Rev,RP 12/16/2018 71954 Interrogation Device Eval Remote Up To [address] Completed Analysis,Rev,RP 12/16/2018 59581 Icd Eval Sing,Dual,Multi Lead Remote Recpt Transm Tech Completed Rev Tech S 12/16/2018 12850 Icd Eval Sing,Dual,Multi Lead Remote Recpt Transm Tech Completed Rev Tech S 10/18/2018 13158 Interrogation Device Eval Remote Up To 30 Days Completed Analysis,Rev,RP 10/18/2018 52570 Implantable Cardio System Loop Recorder Sys Remota Completed Data Acquistio 10/18/2018 94229 Interrogation Device Eval Remote Up To [address] Completed Analysis,Rev,RP 10/18/2018 49948 Implantable Cardio System Loop Recorder Sys Remota Completed Data Acquistio 09/17/2018 83849 ECHO Transthoracic, Real-Time 2D With Doppler And Completed Color Flow 09/17/2018 81901 ECHO Transthoracic, Real-Time 2D With Doppler And Completed Color Flow 09/14/2018 88188 Icd Eval With Iterative Adjustmt Multiple Lead System Completed 09/14/2018 29738 Interrogation Implant Cardiovasc Monitor System Incl Completed Analysis Int 09/14/2018 74801 Icd Eval With Iterative Adjustmt Multiple Lead System Completed 09/14/2018 93491 Interrogation Implant Cardiovasc Monitor System Incl Completed Analysis Int 09/03/2018 33321 EKG Tracing & Interpretation Completed 05/03/2018 76851 Pace Maker Eval W/Iterative Adjment Dual Lead Completed 05/03/2018 69447 Pace Maker Eval W/Iterative Adjment Dual Lead Completed 04/28/2018 75034 ECHO Transthoracic, Real-Time 2D With Doppler And Completed Color Flow 04/28/2018 87343 ECHO Transthoracic, Real-Time 2D With Doppler And Completed Color Flow 03/30/2018 53329 EKG Tracing & Interpretation Completed 10/29/2017 77571 Pace Maker Eval W/Iterative Adjment Dual Lead Completed 10/09/2017 55015 EKG Tracing & Interpretation Completed 09/30/2017 65181 ECHO Transthoracic, Real-Time 2D With Doppler And Completed Color Flow 09/30/2017 61962 ECHO Transthoracic, Real-Time 2D With Doppler And Completed Color Flow 09/29/2017 30091 Holter Monitor Review (24 hr)dr review & interp only Completed 09/28/2017 49005 ECG Monitor/Recording W/Visual Superimposition Completed Scanning 09/11/2017 53931 Interrogation Device Eval In Person W/DR Completed Analysis,Single,Dual,Mul 09/11/2017 10069 EKG Tracing & Interpretation Completed 05/07/2017 99055 Pace Maker Eval W/Iterative Adjment Dual Lead Completed 04/08/2017 34676 ECHO Transthoracic, Real-Time 2D With Doppler And Completed Color Flow 03/04/2017 76082 EKG Tracing & Interpretation Completed 12/25/2016 [id number] Diabetic Retinal Eye Exam Completed 11/11/2016 58453 Pace Maker Eval W/Iterative Adjment Dual Lead Completed 11/07/2016 91534 EKG Tracing & Interpretation Completed 09/23/2016 64107 Pace Maker Eval W/Iterative Adjment Dual Lead Completed 07/25/2016 36427 ECHO Transthoracic, Real-Time 2D With Doppler And Completed Color Flow 07/18/2016 57712 Color Flow Doppler/Interp & Reprt Completed 07/18/2016 51341 Pulse Wave/Continuous-Interp.RPT Completed 07/18/2016 65105 Echocardiography, Transesophageal, Real Time W/Image Completed 2D W/W/O M-M 07/14/2016 76185 ECHO Stress Test Incl Perf Contiuous ekg Monitoring Completed W/Phys Superv 06/26/2016 62579 Polysomnography Sleep Staging 4+ Parameters Completed 05/09/2016 52554 Treadmill Interp/Report Only Completed 05/09/2016 23306 Stress Test Supervsn W/Out I/R Completed 04/29/2016 00149 EKG Tracing & Interpretation Completed 04/15/2016 77619 Pace Maker Eval W/Iterative Adjment Dual Lead Completed 03/12/2016 22865 EKG Tracing & Interpretation Completed 03/02/2016 76152 EKG, Interpretation Only Completed 02/29/2016 33544 ECHO Transthorasic Realtime 2D W Doppler & Color Flow Completed Hosp 02/29/2016 48868 EKG, Interpretation Only Completed 02/27/2016 46795 EKG Tracing & Interpretation Completed 04/17/2015 03320 EKG Tracing & Interpretation Completed 11/03/2014 36039 ECHO Transthoracic, Real-Time 2D With Doppler And Completed Color Flow 08/29/2014 57820 EKG Tracing & Interpretation Completed 02/22/2014 55849 EKG Tracing & Interpretation Completed 12/09/2013 07887 ECHO Transthoracic, Real-Time 2D With Doppler And Completed Color Flow 08/24/2013 90352 EKG Tracing & Interpretation Completed 11/25/2012 86258 EKG Tracing & Interpretation Completed 10/25/2012 76179 Rad Exam; Forearm Completed 09/01/2012 40201 Long Arm Cast Application Completed 09/01/2012 18433 Rad Exam; Forearm Completed 08/11/2012 59617 Long Arm Cast Application Completed 08/11/2012 62132 CLSD TRMT Radial & Ulnar Shaft Completed 08/11/2012 87330 Closed Treatment Ulnar Shaft Fracture Completed 05/12/2012 10395 EKG Tracing & Interpretation Completed 04/13/2012 21503 ECHO Transthoracic, Real-Time 2D With Doppler And Completed Color Flow 02/04/2012 13968 EKG Tracing & Interpretation Completed 06/04/2011 87360 ECHO Transthoracic, Real-Time 2D With Doppler And Completed Color Flow 04/04/2011 61511 EKG Tracing & Interpretation Completed 10/24/2009 55772 ECHO Transthoracic, Real-Time 2D With Doppler And Completed Color Flow 09/26/2009 54479 EKG Tracing & Interpretation Completed 10/31/2008 27337 Color Doppler Completed 10/31/2008 75562 Pulse Doppler & Continuous Wave Completed 10/31/2008 30956 Echocardiogram Completed 10/31/2008 71069 Echocardiogram Completed 10/31/2008 32522 Color Doppler Completed 09/15/2008 56510 EKG Tracing & Interpretation Completed 12/27/2007 20422 Color Doppler Completed 12/27/2007 95713 Color Doppler Completed 12/27/2007 88524 Color Doppler Completed 12/27/2007 07047 Pulse Doppler & Continuous Wave Completed 12/27/2007 48072 Pulse Doppler & Continuous Wave Completed 12/27/2007 79743 Echocardiogram Completed 12/27/2007 24286 Echocardiogram Completed 12/27/2007 40097 Echocardiogram Completed 11/01/2007 75081 EKG Tracing & Interpretation Completed 04/28/2007 88306 EKG Tracing & Interpretation Completed 04/28/2007 44240 EKG Tracing & Interpretation Completed 10/07/2006 68768 EKG Tracing & Interpretation Completed 10/07/2006 01846 EKG Tracing & Interpretation Completed 05/06/2006 49039 Color Doppler Completed 05/06/2006 49140 Pulse Doppler & Continuous Wave Completed 05/06/2006 77828 Pulse Doppler & Continuous Wave Completed 05/06/2006 76632 Echocardiogram Completed 04/06/2006 74788 EKG Tracing & Interpretation Completed 04/30/2005 48028 EKG Tracing & Interpretation Completed 02/07/2005 04290 Color Doppler Completed 02/07/2005 66321 Pulse Doppler & Continuous Wave Completed 02/07/2005 38977 Echocardiogram Completed 01/27/2005 48002 EKG Tracing & Interpretation Completed 09/10/2004 88939 EKG Tracing & Interpretation Completed 08/12/2004 51316 Color Doppler Completed 08/12/2004 04610 Pulse Doppler & Continuous Wave Completed 08/12/2004 55904 Echocardiogram Completed Encounters Type Date Location Provider Dx Diagnosis Office Visit 03/01/2019 Rheumatology Divya Gonzáles, M05.79 Rheu arthritis w 3:30p Services Of [facility] rheu factor mult site w/o org/sys involv I48.0 Paroxysmal atrial fibrillation I42.9 Cardiomyopathy, unspecified E11.9 Type 2 diabetes mellitus without complications Z79.899 Other [facility] (current) drug therapy M16.11 Unilateral primary osteoarthritis, right hip Office Visit 02/19/2019 Orthopedic Willie Mckinnon, M16.0 Bilateral primary 1:37p Services Of osteoarthritis of [place] hip Office Visit 02/18/2019 [facility] M25.551 Pain in right hip 8:44a Assoc,margret Duran, PSYCHIATRIC MENTAL HEALTH NURSE Hospitalists R26.2 Difficulty in walking, not elsewhere classified E11.9 Type 2 diabetes mellitus without complications M06.9 Rheumatoid arthritis, unspecified Office Visit 02/18/2019 1:35p Orthopedic Bladimir Mercer M05.751 Rheu arthritis w [facility] rheu factor of [place] right hip w/o org/sys involv Office Visit 01/28/2019 11:00a [facility] Alesia Segovia I42.9 Cardiomyopathy, Foster, N.P. unspecified I48.0 Paroxysmal atrial fibrillation I49.5 Sick sinus syndrome Z95.810 Presence of automatic (implantable) cardiac defibrillator I34.0 Nonrheumatic mitral (valve) insufficiency I44.7 Left bundle-branch block, unspecified Office Visit 01/12/2019 Shanta Wolf I42.9 Cardiomyopathy, 11:00a Cardiology Beata Cota unspecified I48.0 Paroxysmal atrial fibrillation I49.5 Sick sinus syndrome Z95.810 Presence of automatic (implantable) cardiac defibrillator I34.0 Nonrheumatic mitral (valve) insufficiency E11.65 Type 2 diabetes mellitus with hyperglycemia I50.22 Chronic systolic (congestive) heart failure I44.7 Left bundle-branch block, unspecified Office Visit 10/12/2018 Zara Segovia I42.9 Cardiomyopathy, 11:00a Cardiology Magdiel Alvarado N.Josue unspecified [facility] I34.0 Nonrheumatic mitral (valve) insufficiency I48.0 Paroxysmal atrial fibrillation I49.5 Sick sinus syndrome E11.65 Type 2 diabetes mellitus with hyperglycemia Office Visit 09/03/2018 Shanta Wolf E11.65 Type 2 diabetes 2:40p Cardiology Beata Cota mellitus with hyperglycemia M05.79 Rheu arthritis rheu factor mult site w/o org/sys involv I50.22 Chronic systolic (congestive) heart failure E66.09 Other obesity due to excess calories M06.9 Rheumatoid arthritis, unspecified I42.9 Cardiomyopathy, unspecified Z95.810 Presence of automatic (implantable) cardiac defibrillator I34.0 Nonrheumatic mitral (valve) insufficiency Office Visit 08/31/2018 1:30p Rheumatology Divya Gonzáles M05.79 Rheu arthritis Services Of [facility] rheu factor mult site w/o org/sys involv E11.65 Type 2 diabetes mellitus with hyperglycemia R21 Rash and other nonspecific skin eruption E66.09 Other obesity due to excess calories Z79.899 Other [facility] (current) drug therapy Office Visit 06/22/2018 3:00p Rheumatology Divya Gonzáles M05.79 Rheu arthritis [facility] Of [facility] rheu factor mult site w/o org/sys involv Z79.899 Other [facility]p (current) drug therapy Office Visit 06/22/2018 Zara Segovia I42.9 Cardiomyopathy, 10:30a Cardiology Of Christiano, N.P. unspecified [facility] I48.0 Paroxysmal atrial fibrillation I49.5 Sick sinus syndrome R06.02 Shortness of breath I34.0 Nonrheumatic mitral (valve) insufficiency Z95.0 Presence of cardiac pacemaker Office Visit 05/13/2018 Zara Segovia I42.9 Cardiomyopathy, 10:30a Cardiology Of Christiano, N.P. unspecified [facility] I48.0 Paroxysmal atrial fibrillation I49.5 Sick sinus syndrome Z95.0 Presence of cardiac pacemaker I34.0 Nonrheumatic mitral (valve) insufficiency R06.02 Shortness of breath Office Visit 05/12/2018 10:30a Pulmonology And Daphne G47.33 Obstructive sleep Sleep Services Of MD Anita apnea (adult) [facility] (pediatric) E66.09 Other obesity due to excess calories Office Visit 03/30/2018 1:40p [facility] Francisca Wolf M06.9 Rheumatoid Beata Cota arthritis, unspecified D64.9 Anemia, unspecified I42.9 Cardiomyopathy, unspecified I49.5 Sick sinus syndrome I48.0 Paroxysmal atrial fibrillation I50.22 Chronic systolic (congestive) heart failure Office Visit 03/05/2018 10:40a Rheumatology Meet Castellano6.9 Rheumatoid Services Of Gini Greene M.D. arthritis, unspecified D64.9 Anemia, unspecified Z79.899 Other parts counterman (current) drug therapy M79.1 Myalgia R63.5 Abnormal weight gain Office Visit 10/20/2017 4:00p Rheumatology Meet M06.9 Rheumatoid Services Of Gini Greene M.D. arthritis, unspecified D64.9 Anemia, unspecified M25.552 Pain in left hip Z79.899 Other m[facility]p (current) drug therapy Office Visit 10/09/2017 2:00p [facility] Francisca Wolf I44.7 Left bundle-branch Cardiology Beata Cota block, unspecified I42.9 Cardiomyopathy, unspecified I34.0 Nonrheumatic mitral (valve) insufficiency I48.0 Paroxysmal atrial fibrillation Office Visit 09/11/2017 11:00a Rheumatology Meet M06.9 Rheumatoid Services Of Gini Greene M.D. arthritis, unspecified Z79.899 Other parts counterman (current) drug therapy D64.9 Anemia, unspecified M25.552 Pain in left hip M79.1 Myalgia Office Visit 09/11/2017 3:20p [facility] Francisca Wolf I44.7 Left bundle-branch Cardiology Beata Cota block, unspecified M06.9 Rheumatoid arthritis, unspecified R94.31 Abnormal electrocardiogram [ECG] [EKG] I42.9 Cardiomyopathy, unspecified Z95.0 Presence of cardiac pacemaker R00.1 Bradycardia, unspecified Office Visit 05/06/2017 9:45a Pulmonology And Daphne G47.33 Obstructive sleep Sleep Services Of MD Anita apnea (adult) [facility] (pediatric) Office Visit 03/04/2017 11:00a [facility] Francisca Wolf 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 I34.0 Nonrheumatic mitral (valve) insufficiency Z95.0 Presence of cardiac pacemaker I42.9 Cardiomyopathy, unspecified Office Visit 12/05/2016 3:00p [facility] DAR Lei Z95.0 Presence of cardiac pacemaker I25.10 Athscl heart disease of [place] coronary artery w/o ang pctrs I34.0 Nonrheumatic mitral (valve) insufficiency I48.91 Unspecified atrial fibrillation E78.5 Hyperlipidemia, unspecified Office Visit 11/07/2016 2:00p [facility] Francisca Wolf I49.5 Sick sinus Beata Cota syndrome I25.10 Athscl heart disease of [place] coronary artery w/o ang pctrs I34.0 Nonrheumatic mitral (valve) insufficiency I44.7 Left bundle-branch block, unspecified G47.33 Obstructive sleep apnea (adult) (pediatric) I10 Essential (primary) hypertension I50.22 Chronic systolic (congestive) heart failure Office Visit 10/21/2016 Pulmonology And Daphne G47.33 Obstructive sleep 1:15p Sleep Services Of MD Anita apnea (adult) [facility] (pediatric) Office Visit 08/25/2016 [facility] Fior Chavez I34.0 Nonrheumatic mitral 8:30a PA (valve) insufficiency I48.91 Unspecified atrial fibrillation I25.10 Athscl heart disease of [place] coronary artery w/o ang pctrs Office Visit 07/22/2016 10:00a Pulmonology And Daphne G47.33 Obstructive sleep Sleep Services Of MD Anita apnea (adult) 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 apnea (adult) (pediatric) I10 Essential (primary) hypertension I34.0 Nonrheumatic mitral (valve) insufficiency R06.00 Dyspnea, unspecified E66.9 Obesity, unspecified R60.0 Localized edema I49.5 Sick sinus syndrome I42.9 Cardiomyopathy, unspecified Office Visit 06/17/2016 9:00a [facility] Fior Chavez I10 Essential (primary) Of [facility] PA hypertension I34.0 Nonrheumatic mitral (valve) insufficiency I48.0 Paroxysmal atrial fibrillation Z95.0 Presence of cardiac pacemaker D64.9 Anemia, unspecified Office Visit 06/09/2016 8:45a Pulmonology And Daphne G47.9 Sleep disorder, Sleep Services Of MD Anita unspecified Principal Account Clerk R09.02 Hypoxemia Office Visit 05/14/2016 9:00a [facility] Francisca Wolf I10 Essential (primary) Beata Cota hypertension I34.0 Nonrheumatic mitral (valve) insufficiency I50.9 Heart failure, unspecified R06.02 Shortness of breath Office Visit 04/29/2016 8:40a [facility] Francisca Wolf I10 Essential (primary) Beata Cota hypertension Z95.0 Presence of cardiac pacemaker I48.0 Paroxysmal atrial fibrillation I50.9 Heart failure, unspecified G47.9 Sleep disorder, unspecified Office Visit 04/15/2016 2:00p [facility] Nurse Visit I10 Essential (primary) cc hypertension Office Visit 04/03/2016 10:00a [facility] Fior Chavez, I48.91 Unspecified atrial PA fibrillation I49.5 Sick sinus syndrome Z95.0 Presence of cardiac pacemaker I34.0 Nonrheumatic mitral (valve) insufficiency D64.9 Anemia, unspecified I10 Essential (primary) hypertension Office Visit 03/12/2016 11:00a [facility] Francisca Wolf I49.5 Sick sinus Mauser, M.D. syndrome I48.0 Paroxysmal atrial fibrillation I48.91 Unspecified atrial fibrillation M06.9 Rheumatoid arthritis, unspecified I34.0 Nonrheumatic mitral (valve) insufficiency Office Visit 03/03/2016 1:46p [facility] Calvin Brambila I49.5 Sick sinus Of Gini Ludwig M.D. syndrome I48.0 Paroxysmal atrial fibrillation I42.9 Cardiomyopathy, unspecified Office Visit 03/02/2016 [facility] Diego S. I48.0 Paroxysmal atrial 11:35a Cardiology Beata Bray fibrillation Office Visit 03/01/2016 [facility] Diego SSarah I42.9 Cardiomyopathy, 11:25a Cardiology Beata Bray unspecified I34.0 Nonrheumatic mitral (valve) insufficiency I48.0 Paroxysmal atrial fibrillation Office Visit 02/29/2016 [facility] Michelle I48.91 Unspecified atrial 10:03a Assoc,pc Root, DO fibrillation Hospitalists I45.5 Other specified heart block M06.9 Rheumatoid arthritis, unspecified Office Visit 02/29/2016 4:39p [facility] Fletcher SSarah I48.0 Paroxysmal atrial Of Gini Arana, DO fibrillation FAC R55 Syncope and collapse I42.9 Cardiomyopathy, unspecified I49.5 Sick sinus syndrome Office Visit 02/27/2016 10:30a [facility] Fior Chavez, I42.9 Cardiomyopathy, Cardiology [place] unspecified I44.7 Left bundle-branch block, unspecified I34.0 Nonrheumatic mitral (valve) insufficiency I36.1 Nonrheumatic tricuspid (valve) insufficiency I48.0 Paroxysmal atrial fibrillation Office Visit 04/17/2015 [facility] Franicsca Wolf 425.4 Cardiomyopathy Other 3:20p Cardiology Magdiel Cota M.D. Prim Principal Account Clerk 424.0 Mitral Valve Disorder 426.3 Left Bundle Branch Block Other Office Visit 08/29/2014 2:20p [facility] Camila Wolf 426.3 Left Bundle Beata Cota Branch Block Other 425.4 Cardiomyopathy Other Prim 401.9 Hypertension Unspec Office Visit 02/22/2014 [facility] Francisca Wolf 425.4 Cardiomyopathy Other 2:20p Cardiology Beata Cota Prim 426.3 Left Bundle Branch Block Other 401.1 Hypertension Benign 714.0 Rheumatoid Arthritis Office Visit 10/07/2013 1:30p [facility] Nurse Visit cc 401.1 Hypertension Benign Office Visit 08/24/2013 10:40a [facility] Francisca Wolf 424.0 Mitral Valve Mauser, M.D. Disorder 425.4 Cardiomyopathy Other Prim 426.3 Left Bundle Branch Block Other Office Visit 11/25/2012 2:20p [facility] Francisca Wolf 714.0 Rheumatoid Mauser MSarahD. Arthritis 424.0 Mitral Valve Disorder 425.4 Cardiomyopathy Other Prim 426.3 Left Bundle Branch Block Other Office Visit 05/12/2012 3:00p [facility] Francisca Wolf 424.0 Mitral Valve Mauser, M.D. Disorder 425.4 Cardiomyopathy Other Prim 426.3 Left Bundle Branch Block Other 250.00 Diabetes Mellitus W/O Compl Type II Or Unspec Controlled 272.0 Hypercholesterolemia Pure Office Visit 02/04/2012 11:20a [facility] Francisca Wolf 426.3 Left Bundle Mauser MSarahD. Branch Block Other 425.4 Cardiomyopathy Other Prim 424.0 Mitral Valve Disorder 250.00 Diabetes Mellitus W/O Compl Type II Or Unspec Controlled Office Visit 04/04/2011 3:00p [facility] Francisca Wolf 424.0 Mitral Valve Mauser, MSarahD. Disorder 426.3 Left Bundle Branch Block Other 425.4 Cardiomyopathy Other Prim 272.0 Hypercholesterolemia Pure 250.00 Diabetes Mellitus W/O Compl Type II Or Unspec Controlled Office Visit 09/26/2009 3:20p [facility] Francisca Wolf 426.3 Left Bundle Mauser M.D. Branch Block Other 424.0 Mitral Valve Disorder 425.4 Cardiomyopathy Other Prim 401.1 Hypertension Benign Office Visit 09/15/2008 9:00a [facility] Francisca Wolf 426.3 Left Bundle Mauser, M.D. Branch Block Other 424.0 Mitral Valve Disorder 425.4 Cardiomyopathy Other Prim 272.0 Hypercholesterolemia Pure 401.1 Hypertension Benign Office Visit 01/26/2008 10:10a [facility] Francisca Wolf 426.3 Left Bundle Mauser MSarahD. Branch Block Other 424.0 Mitral Valve Disorder 425.4 Cardiomyopathy Other Prim 401.1 Hypertension Benign Office Visit 11/01/2007 3:00p [facility] Francisca Wolf 426.3 Left Bundle Beata Cota Branch Block Other 424.0 Mitral Valve Disorder 401.1 Hypertension Benign 272.0 Hypercholesterolemia Pure Office Visit 04/28/2007 2:00p [facility] Francisca Wolf 426.3 Left Bundle Beata Cota Branch Block Other 424.0 Mitral Valve Disorder Office Visit 10/07/2006 11:00a [facility] Francisca Wolf 424.0 Mitral Valve Beata Cota Disorder 401.1 Hypertension Benign 272.0 Hypercholesterolemia Pure 250.00 Diabetes Mellitus W/O Compl Type II Or Unspec Controlled Office Visit 04/06/2006 Shanta Wolf 786.09 Dyspnea & 2:20p Camila Cota M.D. Respiratory Abnormalities Other 424.0 Mitral Valve Disorder 401.1 Hypertension Benign Office Visit 09/29/2005 3:00p [facility] Francisca Wolf 414.8 Ischemic Heart Beata Cota Disease Chronic Other Spec Forms 424.0 Mitral Valve Disorder Office Visit 06/23/2005 Shanta Wolf 425.4 Cardiomyopathy Other 2:40p Camila Cota M.D. 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 Prim 401.1 Hypertension Benign 250.00 Diabetes Mellitus W/O Compl Type II Or Unspec Controlled Office Visit 09/10/2004 Shanta Wolf 425.9 Cardiomyopathy 2:20p Camila Cota M.D. Secondary Unspecified 401.1 Hypertension Benign 250.00 Diabetes Mellitus W/O Compl Type II Or Unspec Controlled Plan of Treatment Future Appointment(s):04/29/2019 11:00 am - BRYCE Gusman at [facility]05/20/2019 6:00 am - Remote Device Checks at [facility]05/03/2019 3:20 pm - Francisca Cota M.D. at [facility]2018 10:45 am - Daphne Howard MD at [facility]03/25 - Divya Gonzáles, FNPM05.79 Rheumatoid arthritis with rheumatoid factor of multiple siteNew Medication:Leflunomide 10 mg - 1 by mouth every dayComments:We discussed that we will need to stop the sulfasalazine per request of Dr. Wallace.We discussed to start on a medication called Leflunomide. Will start on a very low dose.We discussed any possible side effect.Please call if develop anyFollow up: 5 weeks Labs vgpuqZ38.0 Paroxysmal atrial ifyrrsqppgnhV97.9 Type 2 diabetes mellitus without wysginnghroasC83.9 Anemia, gkjzihoyxrsR79.899 Other parts counterman ( current) drug ojrfjyxW20.00 Insomnia, unspecifiedComments:Medications for insomnia can cause rebound insomnia. Avoid coffee, tea, coke, chocolate and other foods that have caffeine, alcohol and smoking from mid afternoon on.Stop watching TV an hour before you go to bed.You may take OTC melatonin at bed time or one glass of warn milk.A warm shower before sleep may help to relax and fall asleep.F41.9 Anxiety disorder, unspecified
--- OUTSIDE RECORDS SUMMARY | 2019-04-13 18:42 | XMS REPORT | Continuity of Care Document ---
:1935 External Reference #:[id number] Author Name WardGiovanna Care Team Providers Name Role Phone Ever Wallace MD Primary Care Physician Unavailable Payers Date Identification Numbers Payment Provider Subscriber Effective: 1999 Policy Number: [id number] Medicare Katheryn Tatum PayID: [id number] [address] [place] [address] Policy Number: [id number] [facility] Sven Tatum PayID: [id number] [address] [place] [address] Advance Directives Description No Information Available Problems [...] apnea syndrome Daphne Howard MD Onset: 07/22/2016 Family History Date Family Member(s) Observation Comments Father due to Fell Off Of Roof () Mother due to Heart Disease () Siblings 1 1 sister dx Afib, leaky valve Social History Type Date Description Comments Sex Unknown Marital Status Lives With 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 20Meq Tablets ER Eliquis 1 by mouth twice 60tabs I48.0 Francisca Wolf 10/09/2017 5mg Tablets a day Beata Cota Aldactone 2 by mouth every 90tabs Francisca Wolf 07/14/2016 25mg Tablets day Beata Cota Lasix 2 tabs by mouth 90tabs Alesia Alvarado, 05/09/2016 20mg Tablets 3 times weekly N.P. [id number]. may take an extra tab on non-lasix day if > 3lb weight gain. Coreg take 2 tablets 270tabs Francisca Wolf 04/29/2016 12.5mg Tablets every morning, Beata Cota and 1 tablet every evening by mouth Vitamin B-12 1 by mouth every 100tabs Francisca Wolf 04/17/2015 1000mcg day Beata Cota Tablets Sub Sulfasalazine take 2 tabs in 120tabs Z79.899 Zsofia Eliecer, 09/10/2004 500mg the morning and [employer] Tablets 2 tabs in the evening for a total of 4 daily tabs daily ongoing M05.79 multivitamin one po qd Francisca Wolf 09/09/2004 Beata Cota Folic Acid two times a week 100tabs Francisca Wolf 09/09/2004 1mg Tablets Beata Cota Vitamin C-Macy Hips TR 1 tablet by mouth Unknown 500mg daily Tablets ER Iron 1 by mouth every other Unknown 325(65Fe) mg Tablets day Cpap 13 cm h2o Unknown Device Levothyroxine Sodium 1 by mouth every day Unknown 75mcg Tablets Lantus Solostar Inject 12 Units AT Unknown 100Unit/ML Bedtime Solution Pen-Inject Novolog Flexpen Inject 3-10 Units Unknown 100Unit/ML Three Times Daily Or Solution Pen-Inject as Directed - Max Of 50 Units P Garlic 2 cloves daily Unknown Dandelion Root 1 po qd Unknown 520mg Capsules Flax Seed Meal 2 tablespoons per day Unknown Calcium + D 1 po qhs Unknown [id number] Tablets History Medications Vitamin C Francisca Wolf 01/12/2019 - Beata Cota 01/11/2019 Hydroxychloroquine take one tablet 180tabs Z79.899 Divya Gonzáles, 2017 - Sulfate by mouth daily [employer] 08/31/2018 200mg Tablets for one week than increase to 1 tab twice a day M05.79 Simponi Aria 2 mg/kg iv [facility], 10/23/2017 - 50mg/4ML Solution infusion at week M.D. 03/05/2018 0, week 4 and then every 8 weeks (not taking) Leflunomide take one 30tabs M05.79 [facility], 09/11/2017 - 10mg Tablets capsule/tablet M.D. 09/25/2017 daily by mouth Hydrochlorothiazide 2 by mouth every 180tab Francisca Wolf 05/09/2016 - 12.5mg day s Beata Cota 01/12/2019 Tablets Coreg 1 by mouth twice [...] 60unit Francisca Wolf 10/09/2006 - 4gm Powder s Beata Cota 11/01/2007 Flax Seed Meal 2 tablespoons po Francisca FSarah 04/06/2006 - Cream qd Beata Cota 09/26/2009 Coreg 2 tabs po bid 180tab Francisca Wolf 09/29/2005 - 12.5mg Tablets nubia Cota M.D. 04/03/2016 Zetia 1 po qd 90tabs Francisca FSarah 09/29/2005 - 10mg Tablets Beata Cota 12/30/2005 Coreg 1 po bid Francisca FSarah 06/23/2005 - 6.25mg Tablets Beata Cota 09/29/2005 [...] Cota 04/30/2005 Calcium 1 PO qd Francisca Wofl 09/10/2004 - Tablets Beata Cota 04/04/2011 Humalog tid Francisca Wolf 09/10/2004 - 100Units/ML Injection Beata Cota 04/16/2015 Humulin N hs Francisca Wolf 09/10/2004 - 100Units/ML Injection Beata Cota 04/16/2015 Lipitor 1 po qd 30tabs Francisca Wolf 09/09/2004 - 20mg Tablets Beata Cota 10/02/2004 HCTZ 2 by mouth every 180cap Francisca Wolf 09/09/2004 - 12.5mg Capsules day s Beata Cota 05/09/2016 calcium and vitamin D bid Francisca Wolf 09/09/2004 - 600mg Beata Cota 09/10/2004 vitamin E one qd Francisca Wolf 09/09/2004 - 400iu Beata Cota 09/10/2004 Evista 1 PO qd Francisca Wolf 09/09/2004 - 60mg Tablets Beata Cota 09/15/2008 Sulfasalazine 2 po bid 360tab Francisca Wolf 09/09/2004 - 500mg Tablets s Beata Cota 09/10/2004 Flax Seed Oil Unknown - 04/04/2011 Garlic qd Unknown - 1000mg Capsules 05/04/2012 Simvastatin 1 po qhs Unknown - 10mg Tablets 04/04/2011 Pravastatin Sodium 1 tablet by mouth 90tabs Unknown - 20mg Tablets once daily at 02/04/2012 bedtime Amoxicillin 1 tab by mouth 3 Unknown - Capsules times per day 04/02/2016 every Vitamin C 1 by mouth every Unknown - 500mg Tablets day 01/12/2019 Eliquis 1 by mouth twice Unknown - 5mg Tablets a day 04/25/16 Hold 04/29/2016 Eliquis 1 by mouth q12 180tab Francisca Wolf - 5mg Tablets hours nubia Cota M.D. 10/08/2017 Turmeric Curcumin 1 by mouth every Unknown - 500mg Capsules day 12/23/2017 Cinnamon 1 by mouth every Unknown - 500mg Capsules day 03/05/2018 Immunizations CPT Code Status Date Vaccine Lot # [id number] Given 10/06/2007 Influenza Virus 3Yrs & Over [id number] Given 10/06/2007 Influenza Virus 3Yrs & Over [id number] Vital Signs Date Vital Result Comment 03/01/2019 3:26pm Height 61 inches 5'1" Weight [...] Test Result H/L Range Note Laboratory test 02/22/2019 [facility] C Reactive 39.80 mg/L High <8.01 1, [address] [place] [address] [phone] Erythrocyte Sed Rate 75 mm/Hr High 0-30 3 Laboratory test 01/21/2019 [facility] B-Type 262 pg/mL High <= [address] [place] [address] Peptide BNP [phone] Basic Metabolic 01/21/2019 [facility] Sodium 131 Low 135-[address] mmol/[place] [address] [phone] Potassium 4.1 mmol/L N 3.5-5.0 Chloride 98 mmol/L Low 101-111 Co2 Carbon Dioxide 25 mmol/L N 22-32 Anion Gap 8 mmol/L N 2-11 Glucose 99 mg/dL N 70-100 Blood Urea Nitrogen 12 mg/dL N 6-24 Creatinine 0.81 mg/dL N 0.51-0.95 BUN/Creatinine Ratio 14.8 N 8-20 Calcium 9.7 mg/dL N 8.6-10.3 Egfr Non- 67.4 >60 Egfr 81.5 >60 4 Laboratory test 01/21/2019 [facility] Erythrocyte Sed 68 mm/Hr High 0-30 [address] [place] [address] [phone] CBC Auto Diff 01/21/2019 [facility] White Blood 4.6 N 3.5- 10.[address] Count 10^3/[place] [address] [phone] Red Blood Count 3.06 10^6/uL Low 4.00-5.40 [...] Red Blood Cells % 0.1 Laboratory test 09/24/2018 [facility] Erythrocyte Sed 72 mm/Hr High 0-[address] [place] [address] [phone] Iron & Iron 09/24/2018 [facility] Iron 76 g/dL N 50-[address] [place] [address] [phone] Unsaturated Iron Binding < 360 g/dL Total Iron Binding Capacity 375 g/dL N 250-450 Transferrin 268 mg/dL N 203-362 % Iron Saturation 20 % N 15-55 CBC Auto Diff 09/24/2018 [facility] White Blood 5.6 10^3/uL N 3.5-10.[address] [place] [address] [phone] Red Blood Count 3.29 10^6/uL Low 4.00-5.40 [...] 0-2 Nucleated Red Blood Cells % 0 CBC Auto Diff 09/15/2018 [facility] White Blood 4.5 10^3/uL N 3.5-10.[address] [place] [address] [phone] Red Blood Count 3.23 10^6/uL Low 4.00-5.40 [...] Blood Cells % 0.1 Laboratory test 09/15/2018 [facility] B-Type 346 pg/mL High [address] [place] [address] Peptide BNP [phone] Basic Metabolic 09/15/2018 [facility] Sodium 133 mmol/L Low 135-[address] [place] [address] [phone] Potassium 4.0 mmol/L N 3.5-5.0 Chloride 95 mmol/L Low 101-111 Co2 Carbon Dioxide 30 mmol/L N 22-32 Anion Gap 8 mmol/L N 2-11 Glucose 146 mg/dL High 70-100 Blood Urea Nitrogen 14 mg/dL N 6-24 Creatinine 0.83 mg/dL N 0.51-0.95 BUN/Creatinine Ratio 16.9 N 8-20 Calcium 9.5 mg/dL N 8.6-10.3 Egfr Non- 65.5 >60 Egfr 79.2 >60 7 Iron & Iron Binding 09/15/2018 [facility] Iron 67 g/dL N 50- [address] [place] [address] [phone] Unsaturated Iron Binding 324 g/dL Total Iron Binding Capacity 391 g/dL N 250-450 Transferrin 279 mg/dL N 203-362 % Iron Saturation 17 % N 15-55 Laboratory test 09/15/2018 [facility] Ferritin 40.4 ng/mL N 11 -[address] [place] [address] [phone] Erythrocyte Sed Rate 92 mm/Hr High 0-40 Laboratory test 08/10/2018 [facility] Erythrocyte Sed 68 mm/Hr High 0-[address] [place] [address] [phone] Fructosamine 315 mcmol/L Abnormal 200 - 285 8 Haptoglobin 189 mg/dL 30 - 200 9 CBC Auto 08/10/2018 [facility] White Blood 3.2 10^3/uL Low 3.5 -10.[address] [place] [address] [phone] Red Blood Count 3.52 10^6/uL Low 4.00-5.40 [...] Blood Cells % 0.1 Laboratory test 08/10/2018 [facility] TSH (Thyroid 4.48 mcIU/mL N 0.34-5.[address] Stim Horm) [place] [address] [phone] Ferritin 23.1 ng/mL N 11-307 Folic Acid (Folate) > 20.00 ng/mL >3.99 Iron & Iron Binding 08/10/2018 [facility] Iron 63 g/dL N 50- 212 [address] [place] [address] [phone] Unsaturated Iron Binding 360 g/dL Total Iron Binding Capacity 423 g/dL N 250-450 Transferrin 302 mg/dL N 203-362 % Iron Saturation 15 % N 15-55 Laboratory test 08/10/2018 [facility] LDH 216 U/L N 140-271 finding [address] [place] [address] [phone] Basic Metabolic 08/10/2018 [facility] Sodium 128 mmol/L Low 135-145 Panel [address] [place] [address] [phone] Potassium 3.8 mmol/L N 3.5-5.0 Chloride 92 mmol/L Low 101-111 Co2 Carbon Dioxide 27 mmol/L N 22-32 Anion Gap 9 mmol/L N 2-11 Glucose 277 mg/dL High 70-100 Blood Urea Nitrogen 11 mg/dL N 6-24 Creatinine 0.76 mg/dL N 0.51-0.95 BUN/Creatinine Ratio 14.5 N 8-20 Calcium 9.3 mg/dL N 8.6-10.3 Egfr Non- 72.7 >60 Egfr 87.9 >60 10 Laboratory test 06/23/2018 [facility] Erythrocyte Sed 76 mm/Hr High 0-[address] [place] [address] [phone] CBC Auto Diff 06/23/2018 [facility] White Blood 4.0 N 3.5- 10.[address] Count 10^3/[place] [address] [phone] Red Blood Count 3.20 10^6/uL Low 4.00-5.40 [...] Blood Cells % 0.1 Laboratory test 06/23/2018 [facility] C Reactive 22.29 mg/L High <8.[address] [place] [address] [phone] Comp Metabolic 06/23/2018 [facility] Sodium 129 mmol/L Low 135 -[address] [place] [address] [phone] Potassium 3.8 mmol/L N 3.5-5.0 Chloride 92 [...] Egfr Non- 68.5 >60 Egfr 82.9 >60 11 Laboratory test 06/23/2018 [facility] Magnesium 1.9 mg/dL N 1.9-2.[address] [place] [address] [phone] Laboratory test 05/29/2018 [facility] B-Type 230 pg/mL High [address] [place] [address] Peptide BNP [phone] Laboratory test 05/29/2018 [facility] Erythrocyte Sed 78 mm/Hr High 0-[address] [place] [address] [phone] CBC No Diff 05/29/2018 [facility] White Blood 3.1 Low 3.5- 10.[address] Count 10^3/[place] [address] [phone] Red Blood Count 4.02 10^6/uL N 4.00-5.40 Hemoglobin 11.4 g/dL Low 12.0-16.0 Hematocrit 36 % N 35-47 Mean Corpuscular Volume 90 fL N 80-97 Mean Corpuscular Hemoglobin 28 pg N 27-31 Mean Corpuscular HGB Conc 32 g/dL N 31-36 Red Cell Distribution Width 18 % High 10.5-15 Platelet Count 229 10^3/uL N 150-450 Mean Platelet Volume 7.8 um3 N 7.4-10.4 Basic Metabolic 05/29/2018 [facility] Sodium 131 mmol/L Low 135-[address] [place] [address] [phone] Potassium 3.7 mmol/L N 3.5-5.0 Chloride 92 mmol/L Low 101-111 Co2 Carbon Dioxide 31 mmol/L N 22-32 Anion Gap 8 mmol/L N 2-11 Glucose 324 mg/dL High 70-100 Blood Urea Nitrogen 16 mg/dL N 6-24 Creatinine 0.91 mg/dL N 0.51-0.95 BUN/Creatinine Ratio 17.6 N 8-20 Calcium 9.5 mg/dL N 8.6-10.3 Egfr Non- 59.0 >60 Egfr 71.4 >60 13 Laboratory test 05/13/2018 [facility] B-Type <pending> finding [address] [place] [address] Peptide BNP [phone] CBC Auto Diff 03/05/2018 [facility] White Blood Count 5.0 10^3/ uL N 3.5-[address] 0.8 [place] [address] [phone] Red Blood Count 3.44 10^6/uL Low 4.0-5.4 [...] Blood Cells % 0.1 Laboratory test 03/05/2018 [facility] B-Type 265 pg/mL High [address] [place] [address] Peptide BNP [phone] Magnesium 2.1 mg/dL N 1.9-2.7 Laboratory test 03/05/2018 [facility] Erythrocyte Sed 69 mm/Hr High 0-[address] [place] [address] [phone] C Reactive Protein 12.73 mg/L High < 5.00 15 Comp Metabolic Panel 03/05/2018 [facility] Sodium 132 mmol/L Low 139-[address] [place], [place] [address] [phone] Potassium 4.1 mmol/L N 3.5-5.0 Chloride 96 [...] Egfr Non- 63.9 >60 Egfr 82.1 >60 16 Laboratory test 03/05/2018 [facility] TSH (Thyroid 8.13 High 0.34-5.[address] Stim Horm) mcIU/[place] [address] [phone] CBC Auto Diff 01/19/2018 [facility] White Blood 6.0 10^3/uL N 3.5-10.[address] [place] [address] [phone] Red Blood Count 3.37 10^6/uL Low 4.0-5.4 [...] Cells % 0 Comp Metabolic Panel 01/19/2018 [facility] Sodium 131 mmol/L Low 133-[address] [place] [address] [phone] Potassium 4.2 mmol/L N 3.5-5.0 Chloride 94 [...] Egfr Non- 63.9 >60 Egfr 82.1 >60 17 Laboratory test 01/19/2018 [facility] Erythrocyte Sed 65 mm/Hr High 0-40 [address] [place] [address] [phone] C Reactive Protein 13.97 mg/L High < 5.00 19 Laboratory test 10/22/2017 [facility] C Reactive 12.78 mg/L High < 5.00 [address] Protein [place], [place] [address] [phone] Erythrocyte Sed Rate 77 mm/Hr High 0-40 21 CBC Auto Diff 10/22/2017 [facility] White Blood 5.2 10^3/uL N 3.5-10.[address] [place] [address] [phone] Red Blood Count 3.05 10^6/uL Low 4.0-5.4 [...] % 0 Iron & Iron Binding 10/22/2017 [facility] Iron 75 g/dL N 50- [address] [place] [address] [phone] Unsaturated Iron Binding 344 g/dL Total Iron Binding Capacity 419 g/dL N 250-450 % Iron Saturation 18 % N 15-55 Vitamin B12 And 10/22/2017 [facility] Vitamin B12 834 pg/mL N 180-914 [address] [place] [address] [phone] Folic Acid (Folate) > 20.00 ng/mL >3.99 23 Comp Metabolic Panel 10/22/2017 [facility] Sodium 131 mmol/L Low 133-[address] [place] [address] [phone] Potassium 4.1 mmol/L N 3.5-5.0 Chloride 95 [...] Egfr Non- 63.0 >60 Egfr 81.0 >60 24 Quantiferon Gold 10/22/2017 [facility] M tuberculosis Negative Negative [address] [place] [address] [phone] TB Ag minus Nil Result 0.01 IU/mL TB Mitogen minus Nil Result > 10.00 IU/mL TB Nil Result 0.06 IU/mL 26 Laboratory test 09/11/2017 [facility] Creatine 70 U/L N 10- [address] Kinase(CK) [place] [address] [phone] Protein 09/11/2017 [facility] Total 7.6 N 6.3 - 7.[address] Protein(Pep) g/[place] [address] [phone] Albumin 3.5 g/dL N 3.4-4.7 Alpha-1 Globulin 0.3 g/dL N 0.1-0.3 Alpha-2 Globulin 1.1 g/dL Abnormal 0.6-1.0 Beta Globulin 1.2 g/dL N 0.7-1.2 Gamma Globulin 1.6 g/dL N 0.6-1.6 Albumin/Globulin Ratio 0.84 N Impression See Comment N 27 Iron & Iron Binding 09/11/2017 [facility] Iron 67 g/dL N 50- 212 [address] [place] [address] [phone] Unsaturated Iron Binding 347 g/dL N Total Iron Binding Capacity 414 g/dL N 250-450 % Iron Saturation 16 % N 15-55 Comp Metabolic Panel 09/11/2017 [facility] Sodium 132 mmol/L Low 133-145 [address] [place] [address] [phone] Potassium 3.9 mmol/L N 3.5-5.0 Chloride 95 [...] 69.5 N >60 Egfr 89.4 N >60 28 CBC Auto Diff 09/11/2017 [facility] White Blood 5.0 10^3/uL N 3.5-10.[address] [place] [address] [phone] Red Blood Count 3.39 10^6/uL Low 4.0-5.4 [...] Cells % 0 N Laboratory test 09/11/2017 [facility] Erythrocyte Sed 77 mm/Hr High 0-[address] [place] [address] [phone] C Reactive Protein 21.64 mg/L High < 5.00 29 Rheumatoid Factor 18 IU/mL Abnormal <15 30 Cyclic Citrullinated Pep Igg >250.0 U Abnormal 31 Lipid Panel - 03/06/2017 [facility] Creatine Kinase(CK) 50 U/L N 10-[address] [place] [address] [phone] Lipid Profile 03/06/2017 [facility] Triglycerides 99 mg/dL N 32 (Trig/Chol/HDL [address] ) [place] [address] [phone] Cholesterol 222 mg/dL N 33 HDL Cholesterol 62.3 mg/dL N 34 LDL Cholesterol 140 mg/dL N 35 Comp Metabolic Panel 03/06/2017 [facility] Sodium 132 mmol/L Low 133-[address] [place] [address] [phone] Potassium 4.1 mmol/L N 3.5-5.0 Chloride 96 [...] 69.7 N >60 Egfr 89.6 N >60 36 Laboratory test 03/06/2017 [facility] Magnesium 2.0 mg/dL N 1.9-2.[address] [place] [address] [phone] B-Type Natriuretic Peptide BNP 174 pg/mL High 37 CBC Auto Diff 03/06/2017 [facility] White Blood 4.6 10^3/uL N 3.5-10.[address] [place] [address] [phone] Red Blood Count 3.55 10^6/uL Low 4.0-5.4 [...] Cells % 0 N Laboratory test 03/06/2017 [facility] Erythrocyte Sed 81 mm/Hr High 0-[address] [place] [address] [phone] Lipid Profile 12/08/2016 [facility] Triglycerides 84 mg/dL N 38 (Trig/Chol/HDL) [address] [place] [address] [phone] Cholesterol 209 mg/dL N 39 HDL Cholesterol 62.2 mg/dL N 40 LDL Cholesterol 130 mg/dL N 41 Laboratory test 12/08/2016 [facility] B-Type 180 pg/mL High [address] [place] [address] Peptide BNP [phone] Magnesium 1.9 mg/dL N 1.9-2.7 43 Erythrocyte Sed Rate 78 mm/Hr High 0-40 CBC Auto Diff 12/08/2016 [facility] White Blood 4.9 10^3/uL N 3.5-10.[address] [place] [address] [phone] Red Blood Count 3.62 10^6/uL Low 4.0-5.4 [...] Cells % 0 N Basic Metabolic 12/08/2016 [facility] Sodium 132 mmol/L Low 133-145 Panel [address] [place] [address] [phone] Potassium 4.1 mmol/L N 3.5-5.0 Chloride 96 mmol/L Low 101-111 Co2 Carbon Dioxide 30 mmol/L N 22-32 Anion Gap 6 mmol/L N 2-11 Glucose 322 mg/dL High 70-100 Blood Urea Nitrogen 13 mg/dL N 6-24 Creatinine 0.78 mg/dL N 0.51-0.95 BUN/Creatinine Ratio 16.7 N 8-20 Calcium 9.5 mg/dL N 8.6-10.3 Egfr Non- 70.7 N >60 Egfr 90.9 N >60 44 Basic Metabolic 07/29/2016 [facility] Sodium 131 mmol/L Low 133-145 Panel [address] [place] [address] [phone] Potassium 4.3 mmol/L N 3.5-5.0 Chloride 97 mmol/L Low 101-111 Co2 Carbon Dioxide 28 mmol/L N 22-32 Anion Gap 6 mmol/L N 2-11 Glucose 186 mg/dL High 70-100 Blood Urea Nitrogen 13 mg/dL N 6-24 Creatinine 0.75 mg/dL N 0.51-0.95 BUN/Creatinine Ratio 17.3 N 8-20 Calcium 9.4 mg/dL N 8.6-10.3 Egfr Non- 74.2 N >60 Egfr 95.4 N >60 45 Laboratory test 07/29/2016 [facility] Partial 53.0 High 26.0- 36.[address] [place] [address] PTT [phone] Inr/Protime 07/29/2016 [facility] Inr 1.00 N 0.89-1.[address] [place] [address] [phone] CBC No Diff 07/29/2016 [facility] White Blood 4.9 10^3/uL N 3.5-10.[address] [place] [address] [phone] Red Blood Count 3.64 10^6/uL Low 4.0-5.4 Hemoglobin 9.8 g/dL Low 12.0-16.0 Hematocrit 31 % Low 35-47 Mean Corpuscular Volume 84 fL N 80-97 Mean Corpuscular Hemoglobin 27 pg N 27-31 Mean Corpuscular HGB Conc 32 g/dL N 31-36 Red Cell Distribution Width 20 % High 10.5-15 Platelet Count 315 10^3/uL N 150-450 Mean Platelet Volume 8 um3 N 7.4-10.4 Laboratory test 07/18/2016 [facility] Point of Care 232 mg/dL High 74-106 [address] [place] [address] [phone] Laboratory test 05/15/2016 [facility] B-Type 458 pg/mL High [address] [place] [address] Peptide BNP [phone] Comp Metabolic 05/15/2016 [facility] Sodium 131 Low 133-[address] mmol/[place] [address] [phone] Potassium 4.2 mmol/L N 3.5-5.0 Chloride 96 [...] 75.3 N >60 Egfr 96.9 N >60 48 Laboratory test 05/15/2016 [facility] Magnesium 2.1 mg/dL N 1.9-2.[address] [place] [address] [phone] CBC Auto Diff 05/15/2016 [facility] White Blood 5.2 N 3.5- 10.[address] Count 10^3/[place] [address] [phone] Red Blood Count 3.94 10^6/uL Low 4.0-5.4 [...] Cells % 0 N Laboratory test 05/15/2016 [facility] Erythrocyte Sed 66 mm/Hr High 0-[address] [place] [address] [phone] CRP High Sensitivity 20.22 mg/L N 49 Laboratory test 04/25/2016 [facility] B-Type 391 pg/mL High [address] [place] [address] Peptide BNP [phone] Comp Metabolic 04/25/2016 [facility] Sodium 131 mmol/L Low 133 -[address] [place] [address] [phone] Potassium 4.2 mmol/L N 3.5-5.0 Chloride 97 [...] 81.7 N >60 Egfr 105.0 N >60 51 Laboratory test 04/25/2016 [facility] Magnesium 1.9 mg/dL N 1.9-2.[address] [place] [address] [phone] Order 04/04/2016 [facility] Overnight <pending> [address] [place] [address] [phone] Comp Metabolic 03/12/2016 [facility] Sodium 130 mmol/L Low 133 -[address] [place] [address] [phone] Potassium 4.1 mmol/L N 3.5-5.0 Chloride 95 [...] 71.9 N >60 Egfr 92.5 N >60 52 CBC Auto Diff 03/12/2016 [facility] White Blood 4.5 10^3/uL N 3.5-10.[address] [place] [address] [phone] Red Blood Count 3.73 10^6/uL Low 4.0-5.4 [...] Cells % 0.1 N Laboratory test 03/12/2016 [facility] TSH (Thyroid 3.58 ?IU/mL N 0.34-5.[address] Stim Horm) [place] [address] [phone] Erythrocyte Sed Rate 69 mm/Hr High 0-40 C Reactive Protein 24.66 mg/L High < 5.00 53 Surgical 01/12/2015 [facility] S RUN DATE: [address] 01/16/ <[place] [address] NOTE> [phone] Laboratory test 12/13/2014 [facility] Erythrocyte Sed 75 mm/Hr High 0-[address] [place] [address] [phone] CBC No Diff 11/26/2013 [facility] White Blood 4.9 10^3/uL 4.8 -[address] Count 0.8 [place] [address] [phone] Red Blood Count 3.85 10^6/uL Low 4.0-5.4 Hemoglobin 11.2 g/dL Low 12.0-16.0 Hematocrit 34 % Low 35-47 Mean Corpuscular Volume 88 fL 80-97 Mean Corpuscular Hemoglobin 29 pg 27-31 Mean Corpuscular HGB Conc 33 g/dL 31-36 Red Cell Distribution Width 17 % High 10.5-15 Platelet Count 294 10^3/uL 150-450 Mean Platelet Volume 9 um3 7.4-10.4 Laboratory test 11/26/2013 [facility] Erythrocyte Sed 61 mm/Hr High 0-[address] [place] [address] [phone] Comp Metabolic 11/26/2013 [facility] Sodium 131 Low 133-[address] mmol/[place] [address] [phone] Potassium 4.1 mmol/L 3.5-5.0 Chloride 97 mmol/L [...] Egfr Non- 69.2 >60 Egfr 89.0 >60 55 Lipid Profile 11/26/2013 [facility] Triglycerides 56 mg/dL 40 -200 (Trig/Chol/HDL) [address] [place] [address] [phone] Cholesterol 228 mg/dL High Less than 200 HDL Cholesterol 72 mg/dL High 40-60 56 Cholesterol/HDL Ratio 3.2 Average 1-4.44 LDL Cholesterol 144.8 High Less Than 100 57 Liver Function 11/26/2013 [facility] Direct < 0.1 mg/dL Low 0.1-0.[address] Bilirubin [place], [place] [id number] [phone] Indirect Bilirubin (SEE NOTE) mg/dL 0.3-1.0 58 Laboratory test 11/26/2013 [facility] TSH (Thyroid 3.60 0.34- 5.[address] Stimulating miu/[place] [address] Horm) [phone] Urine 11/26/2013 [facility] Ur Microalbumin 100.0 [address] (mg/L) mg/[place] [address] [phone] Urine Creatinine 53.7 mg/dL Urine Microalbumin/Creatinine 186.2 High Less Than 31 Laboratory test 10/29/2012 [facility] Erythrocyte Sed 64 mm/Hr High 0-[address] Rate [place], [place] [id number] [phone] CBC Auto Diff 10/29/2012 [facility] White Blood 4.7 Low 4.8- 10.[address] Count 10^3/uL [place], [place] [address] [phone] Red Blood Count 3.64 10^6/uL Low 4.0-5.4 [...] Blood Cells % 0 Laboratory test 10/29/2012 [facility] Liver Panel 0 mg/dL Low 0.1-0.5 60 finding [address] [place] [address] [phone] TSH (Thyroid Stimulating Horm) 5.13 MIU/ML 0.34-5.60 61 Direct Bilirubin 0 mg/dL Low 0.1-0.5 62 Lipid Profile 10/29/2012 [facility] Triglycerides 79 mg/dL 40 -200 (Trig/Chol/HDL) [address] [place] [address] [phone] Cholesterol 236 mg/dL High Less than 200 HDL Cholesterol 60 mg/dL 40-60 63 Cholesterol/HDL Ratio 3.9 Average 1-4.44 LDL Cholesterol 160.2 mg/dL High Less Than 100 64 Comp Metabolic Panel 10/29/2012 [facility] Sodium 132 mmol/L Low 133-145 [address] [place] [address] [phone] Potassium 4.4 mmol/L 3.5-5.0 Chloride 95 mmol/L [...] Egfr Non- 69.4 >60 Egfr 89.2 >60 65 Urine Microalbumin 10/29/2012 [facility] Ur Microalbumin 36.0 mg /L [address] (Mg/L) [place] [address] [phone] Urine Creatinine 53.0 mg/dL Urine Microalbumin/Creatinine 67.9 UG/MG High Less Than 31 CBC Auto Diff 05/04/2012 [facility] White Blood 5.1 CUMM 4.8- 10.[address] [place] [address] [phone] Red Cell Count 3.76 CUMM Low 4.2-5.4 [...] Abs Basophils 0 0-0.2 Laboratory test 05/04/2012 [facility] Troponin-I 0.03 NG/ML 0 -0.06 [address] [place] [address] [phone] Basic Metabolic 05/04/2012 [facility] Sodium 133 mmol/L Low 135-[address] [place] [address] [phone] Potassium 4.0 mmol/L 3.5-5.0 Chloride 95 mmol/L Low 101-111 Co2 (Carbon Dioxide) 30.0 mmol/L 22-32 Anion Gap 8.0 mmol/L 2-11 68 Glucose 196 mg/dL High 70-100 BUN 14 mg/dL 6-24 Creatinine 0.7 mg/dL 0.50-1.40 One Over Creatinine 1.42 BUN/Creatinine Ratio 20.0 8-20 Calcium 9.4 mg/dL 8.1-9.9 eGFR Non- 81.1 > 60 eGFR 104.3 > 60 69 Laboratory test finding 02/26/2011 [facility] Alt (SGPT) 15 U/L 14-54 [address] [place] [address] [phone] Ast (Sgot) 20 U/L 12-42 Lipid Profile 02/26/2011 [facility] Triglyceride 61 mg/dL 40- 200 (Trig/Chol/HDL) [address] [place] [address] [phone] Cholesterol 188 mg/dL Less Than 200 70 High Density Lipoprotein 70 mg/dL High 40-60 71 Cholesterol/HDL Ratio 2.69 AVERAGE 1-4.44 Low Density Lipoprotein 106 mg/dL High Less Than 100 72 Laboratory test 10/24/2009 [facility] LDL Direct 126 mg/dL High Less Than [address] [place] [address] [phone] Alt (SGPT) 16 U/L 14-54 Ast (Sgot) 25 U/L 12-42 Erythrocyte Sed Rate 54 MM/HR High 0-40 Lipid Profile 10/24/2009 [facility] Triglyceride 66 mg/dL 40- 200 (Trig/Chol/HDL) [address] [place] [address] [phone] Cholesterol 205 mg/dL High Less Than 200 74 High Density Lipoprotein 68 mg/dL High 40-60 75 Cholesterol/HDL Ratio 3.01 AVERAGE 1-4.44 Low Density Lipoprotein 124 mg/dL High Less Than 100 76 Basic Metabolic 10/24/2009 [facility] Sodium 134 mmol/L Low 135-145 Panel [address] [place] [address] [phone] Potassium 4.3 mmol/L 3.5-5.0 Chloride 98 mmol/L Low 101-111 Co2 (Carbon Dioxide) 31.0 mmol/L 22-32 Anion Gap 5.0 mmol/L 2-11 77 Glucose 256 mg/dL High 70-100 78 BUN 13 mg/dL 6-24 Creatinine 0.80 mg/dL 0.50-1.40 One Over Creatinine 1.20 BUN/Creatinine Ratio 16.3 8-20 Calcium 9.4 mg/dL 8.1-9.9 79 eGFR Non- 74.3 > 60 eGFR 89.9 > 60 80 Laboratory test 06/08/2009 [facility] TSH 3.97 MIU/ML 0.34- 5.60 [address] [place] [address] [phone] Lipid Panel - 06/08/2009 [facility] CPK 53 U/L 0-[address] ([place] [address] Kinase) [phone] Comp Metabolic 06/08/2009 [facility] Sodium 137 mmol/L 135- [address] [place] [address] [phone] Potassium 5.5 mmol/L High 3.5-5.0 Chloride 99 [...] > 60 eGFR 90.2 > 60 86 Lipid Profile 06/08/2009 [facility] Triglyceride 69 mg/dL 40- 200 (Trig/Chol/HDL) [address] [place] [address] [phone] Cholesterol 218 mg/dL High Less Than 200 87 High Density Lipoprotein 56 mg/dL 40-60 88 Cholesterol/HDL Ratio 3.89 AVERAGE 1-4.44 Low Density Lipoprotein 148 mg/dL High Less Than 100 89 Laboratory test 10/19/2007 [facility] Hemoglobin A1c 6.3 % High <6.0 [address] [place] [address] [phone] Lipid Profile 10/19/2007 [facility] Cholesterol/HD 3.39 1- 4.44 (Trig/Chol/HDL) [address] [address] [phone] Cholesterol 193 mg/dL Less Than 200 91 Triglyceride 81 mg/dL 40-200 High Density Lipoprotein 57 mg/dL 40-60 Low Density Lipoprotein 120 mg/dL High Less Than 100 92 Comp Metabolic Panel 10/19/2007 [facility] One Over Creatinine 1.[address] [place] [address] [phone] Anion Gap 5.0 mmol/L 2-11 93 Albumin/Globulin Ratio 0.9 Low 1-3 Albumin 3.4 [...] Creatinine 1.0 mg/dL 0.5-1.4 Laboratory test 10/19/2007 [facility] Erythrocyte Sed 55 MM/HR High 0-[address] [place] [address] [phone] CPK (Creatine Kinase) 66 U/L 0-170 Laboratory test 03/10/2007 [facility] CPK (Creatine 56 U/L 0- [address] Kinase) [place] [address] [phone] Comp Metabolic 03/10/2007 [facility] One Over 1.[address] [place] [address] [phone] Anion Gap 8.0 mmol/L 2-11 94 Albumin/Globulin Ratio 1.1 1-3 Albumin 3.5 GM/DL [...] Creatinine 0.8 mg/dL 0.5-1.4 Lipid Profile 03/10/2007 [facility] Cholesterol/HDL 3.25 1- 4.44 (Trig/Chol/HDL) [address] [place] [address] [phone] Cholesterol 192 mg/dL Less Than 200 95 Triglyceride 54 mg/dL 40-200 High Density Lipoprotein 59 mg/dL 40-60 Low Density Lipoprotein 122 mg/dL High Less Than 100 96 Laboratory test 03/10/2007 [facility] Erythrocyte Sed 63 MM/HR High 0-[address] [place] [address] [phone] Hemoglobin A1c 7.4 % High <6.0 97 Comp Metabolic Panel 10/08/2006 [facility] One Over Creatinine 1.[address] [place] [address] [phone] Anion Gap 2.0 mmol/L 2-11 98 Albumin/Globulin Ratio 1.0 1-3 Albumin 3.5 GM/DL [...] Creatinine 1.0 mg/dL 0.5-1.4 Lipid Profile 10/08/2006 [facility] Cholesterol/HDL 3.55 1- 4.44 (Trig/Chol/HDL) [address] Ratio [place]AGE [place], [place] [address] [phone] Cholesterol 213 mg/dL High Less Than 200 99 Triglyceride 79 mg/dL 40-200 High Density Lipoprotein 60 mg/dL 40-60 100 Low Density Lipoprotein 137 mg/dL High Less Than 100 101 Laboratory test 10/08/2006 [facility] CPK (Creatine 50 U/L 0- [address] Kinase) [place] [address] [phone] Erythrocyte Sed Rate 59 MM/HR High 0-40 Hemoglobin A1c 7.2 % High <6.0 102 Laboratory test 04/27/2006 [facility] Hemoglobin A1c 6.9 % High <6.0 [address] [place] [address] [phone] Lipid Profile 04/27/2006 [facility] Cholesterol/HD 3.58 1- 4.44 (Trig/Chol/HDL) [address] L Ratio [place], [place] [address] [phone] Cholesterol 222 mg/dL High Less Than 200 104 Triglyceride 76 mg/dL 40-200 High Density Lipoprotein 62 mg/dL High 40-60 105 Low Density Lipoprotein 145 mg/dL High Less Than 100 106 Laboratory test 04/27/2006 [facility] Erythrocyte Sed 52 MM/HR High 0-[address] [place] [address] [phone] Liver Function 04/27/2006 [facility] Albumin/Globulin 1.2 1- [address] [place] [address] [phone] Albumin 3.6 GM/DL 3.2-5.2 Alkaline Phosphatase 69 U/L 30-110 Alt (SGPT) 16 U/L 14-54 Ast (Sgot) 22 U/L 12-42 Bilirubin Direct < 0.1 mg/dL Low 0.1-0.5 Globulin 3.1 GM/DL 2-4 Bilirubin Total 0.5 mg/dL 0.4-1.5 Total Protein 6.7 GM/DL 6.2-8.1 Basic Metabolic 04/27/2006 [facility] One Over Creatinine 1.[address] [place] [address] [phone] Anion Gap 7.0 mmol/L 2-11 107 BUN 11 mg/dL 6-24 Calcium 9.6 mg/dL 8.7-10.2 Chloride 102 mmol/L 101-111 Co2 (Carbon Dioxide) 30.0 mmol/L 22-32 Glucose 137 mg/dL High 70-105 Potassium 4.3 mmol/L 3.5-5.0 Sodium 139 mmol/L 135-145 BUN/Creatinine Ratio 15.7 8-20 Creatinine 0.7 mg/dL 0.5-1.4 Laboratory test 04/27/2006 [facility] BNP Evaluatr 135.75 High 7.5-[address] pg/[place] [address] [phone] CC RESULTS TO: FRANCISCA COTA [phone] [facility] [phone] 2 CC RESULTS TO: FRANCISCA COTA [phone] [facility] [phone] 3 Test Performed by: [facility] [address] [place] [address] Bola Quinones M.D. Director of Laboratory 4 Because ethnic data is not always [...] 5 Kidney failure <15 (or dialysis) 5 Test Performed by: [facility] [address] [place] [address] Bola Quinones M.D. Director of Laboratory 6 >100 to <200 pg/mL: likely compensated congestive heart failure (CHF) 200 to 400 pg/mL: likely moderate CHF >400 pg/mL: likely moderate to severe CHF 7 Because ethnic data is not always readily [...] 15-29 5 Kidney failure <15 (or dialysis) 8 Test Performed by: [place] [address] 9 Test Performed by: [place] [address] 10 Because ethnic data is not always readily [...] 15-29 5 Kidney failure <15 (or dialysis) 11 Because ethnic data is not always readily [...] 15-29 5 Kidney failure <15 (or dialysis) 12 >100 to <200 pg/mL: likely compensated congestive heart failure (CHF) 200 to 400 pg/mL: likely moderate CHF >400 pg/mL: likely moderate to severe CHF 13 Because ethnic data is not always [...] 5 Kidney failure <15 (or dialysis) 14 >100 to <200 pg/mL: likely compensated congestive heart failure (CHF) 200 to 400 pg/mL: likely moderate CHF >400 pg/mL: likely moderate to severe CHF 15 Acute inflammation: >10.00 16 Because ethnic data is not always readily [...] 15-29 5 Kidney failure <15 (or dialysis) 17 Because ethnic data is not always readily [...] 15-29 5 Kidney failure <15 (or dialysis) 18 System Event: N Abn NRBC Pattern Low Events: N 19 Acute inflammation: >10.00 20 Acute inflammation: >10.00 21 Please check labs this month 22 Normal Range 180 to 914 Indeterminate Range 145 to 180 Deficient Range <145 23 Please check labs this month 24 Because ethnic data is not always readily [...] 15-29 5 Kidney failure <15 (or dialysis) 25 No interferon-gamma response to M. tuberculosis antigens was detected. Infection with M. tuberculosis is unlikely. A negative result alone does not exclude infection with M. tuberculosis. For detailed information regarding test interpretation see: [email or web address]/ [email or web address] 26 Test Performed by: [facility] [address] [place] [address] 27 RESULT: No apparent monoclonal protein on serum electrophoresis. Test Performed by: [facility], [place] [address] [place] [address] 28 Because ethnic data is not always readily [...] 15-29 5 Kidney failure <15 (or dialysis) 29 Acute inflammation: >10.00 30 Test Performed by: [place] [id number] Interpretation: Strong Positive (>=60.0) REFERENCE VALUE <20.0 (Negative) Test Performed by: [place] [id number] 32 Desirable <150 Borderline high 150-199 High 200-499 Very High >500 33 Desirable <200 Borderline high 200-239 High >239 34 Low <40 Desirable: 40-60 High: >60 35 Desirable: <100 mg/dL Near Optimal: 100-129 mg/dL Borderline High: 130-159 mg/dL High: 160-189 mg/dL Very High: >189 mg/dL 36 Because ethnic data is not always readily [...] 15-29 5 Kidney failure <15 (or dialysis) 37 >100 to <200 pg/mL: likely compensated congestive heart failure (CHF) 200 to 400 pg/mL: likely moderate CHF >400 pg/mL: likely moderate to severe CHF 38 Desirable <150 Borderline high 150-199 High 200-499 Very High >500 39 Desirable <200 Borderline high 200-239 High >239 40 Low <40 Desirable: 40-60 High: >60 41 Desirable: <100 mg/dL Near Optimal: 100-129 mg/dL Borderline High: 130-159 mg/dL High: 160-189 mg/dL Very High: >189 mg/dL 42 >100 to <200 pg/mL: likely compensated congestive heart failure (CHF) 200 to 400 pg/mL: likely moderate CHF >400 pg/mL: likely moderate to severe CHF 43 FASTING 44 Because ethnic data is not always readily [...] 15-29 5 Kidney failure <15 (or dialysis) 45 Because ethnic data is not always [...] 5 Kidney failure <15 (or dialysis) 46 Bus Van Driver: JORGE L ALLEN 47 >100 to <200 pg/mL: likely compensated congestive heart failure (CHF) 200 to 400 pg/mL: likely moderate CHF >400 pg/mL: likely moderate to severe CHF 48 Because ethnic data is not always readily [...] 15-29 5 Kidney failure <15 (or dialysis) 49 Low risk: <1.00 Average risk: 1.00-3.00 High risk: >3.00 50 >100 to <200 pg/mL: likely compensated congestive heart failure (CHF) 200 to 400 pg/mL: likely moderate CHF >400 pg/mL: likely moderate to severe CHF 51 Because ethnic data is not always readily [...] 15-29 5 Kidney failure <15 (or dialysis) 52 Because ethnic data is not always [...] 5 Kidney failure <15 (or dialysis) 53 Acute inflammation: >10.00 54 RUN DATE: 01/16/15 [facility] LAB LIVE PAGE 1 RUN TIME: [address] [place] [address] Specimen Inquiry Name: KATHERYN TATUM : [address]: Floyd Lucero MD Acct: [id number] Unit: [id number] AGE: 79 Location: ENDO Re01/12/15 SEX: F Status: REG REF SPEC: [id number] CESIA: 01/12/150855 [facility] DR: Floyd Lucero MD REQ: [id number] RECD: 01/12/15325 STATUS: ANAT PATEL DR: 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 pylori immunostain, with [...] performed at Main Lab DEPARTMENT OF PATHOLOGY, [facility] [employer] [facility] [place] [address] Boal Quinones M.D. Director [facility] # [id number] RUN DATE: 01/16/15 [facility] LAB LIVE PAGE 2 RUN TIME: 4931 [facility] [employer] [place], [place] [address] Specimen Inquiry Patient: KATHERYN TATUM Kelin [id number] (Continued) GROSS DESCRIPTION (Continued) GROSS DESCRIPTION (Continued) 2. The specimen is received in formalin labeled, Biopsies Gastric, and consists of a 0.6 x 0.5 x 0.2 cm aggregate of multiple palmer irregular soft tissue fragments, which is submitted entirely in one cassette. Signed (signature on file) Ara Wilkerson MD 0938 END OF REPORT * ML=Testing performed at Main Lab DEPARTMENT OF PATHOLOGY, [address] [place] [address] Bola Quinones M.D. Director [facility] # [id number] 55 Because ethnic data is not always readily [...] 15-29 5 Kidney failure <15 (or dialysis) 56 HDL Interpretation: Undesirable: High Risk: Less than 40 mg/dL Desirable: Low Risk: Greater than 60 mg/dL 57 LDL Interpretation: Low Risk Optimal Level: LDL Less than 100 mg/dL Near or Above Optimal: LDL 100-129 mg/dL Borderline High Risk: LDL 130-159 mg/dL High Risk: LDL 160-189 mg/dL Very High Risk: LDL Greater than 189 mg/dL 58 Unable to calculate Ind Bili as D Bili is <0.1 Unable to calculate Ind Bili as D Bili is <0.1 59 Microalbuminuria in a random sample is defined as: Microalbumin/Creatinine ratio of 30-299 ug/mg. 60 Fasting 61 Fasting 62 Fasting 63 HDL Interpretation: Undesirable: High Risk: Less than 40 MG/DL Desirable: Low Risk: Greater than 60 MG/DL 64 LDL Interpretation: Low Risk Optimal Level: LDL Less than 100 MG/DL Near or Above Optimal: LDL 100-129 MG/DL Borderline High Risk: LDL 130-159 MG/DL High Risk: LDL 160-189 MG/DL Very High Risk: LDL Greater than 189 MG/DL 65 Because ethnic data is not always readily [...] 15-29 5 Kidney failure <15 (or dialysis) 66 Microalbuminuria in a random sample is defined as: Microalbumin/Creatinine ratio of 30-299 ug/mg. 67 New Reference Range and Interpretation effective 08/26/2002 TnI (ng/ml) INTERPRETATION Less Than 0.06 ng/mL NOT SUPPORTIVE OF DIAGNOSIS OF [place] 0.06 - 0.50 ng/ml INDETERMINATE: SUGGEST SERIAL STUDIES IF CLINICALLY INDICATED. Greater than 0.5 ng/mL CONSISTENT WITH DIAGNOSIS OF [place] . 68 Anion gap measurement may be of limited value in the presence of any alkalosis, especially in a combined acid base disorder. . 69 Because ethnic data is not always readily [...] 15-29 5 Kidney failure <15 (or dialysis) 70 CHOLESTEROL INTERPRETATION: Desirable: Less than 200 MG/DL Borderline-High Risk: 200-239 MG/DL High-Risk: 240 MG/DL and over 71 HDL INTERPRETATION: Undesirable: High Risk: Less than 40 MG/DL Desirable: Low Risk: Greater than 60 MG/DL 72 LDL INTERPRETATION: Low Risk Optimal Level: LDL Less than 100 MG/DL Near or Above Optimal: LDL 100-129 MG/DL Borderline High Risk: LDL 130-159 MG/DL High Risk: LDL 160-189 MG/DL Very High Risk: LDL Greater than 189 MG/DL 73 LDL INTERPRETATION: Low Risk Optimal Level: LDL Less than 100 MG/DL Near or Above Optimal: LDL 100-129 MG/DL Borderline High Risk: LDL 130-159 MG/DL High Risk: LDL 160-189 MG/DL Very High Risk: LDL Greater than 189 MG/DL 74 CHOLESTEROL INTERPRETATION: Desirable: Less than 200 [...] Risk: LDL Greater than 189 MG/DL 77 Anion gap measurement may be of limited value in the presence of any alkalosis, especially in a combined acid base disorder. . 78 Note change in reference range as of 07/13/08. The change was based on recommendations from the [employer]. 79 Please note change in reference range effective 08 . 80 Because ethnic data is not always readily [...] 15-29 5 Kidney failure <15 (or dialysis) 81 FASTING 82 Anion gap measurement may be of limited value in the presence of any alkalosis, especially in a combined acid base disorder. . 83 Note change in reference range as of 07/13/08. The change was based on recommendations from the [place]. 84 Please note change in [...] 5 Kidney failure <15 (or dialysis) 87 CHOLESTEROL INTERPRETATION: Desirable: Less than 200 MG/DL Borderline-High Risk: 200-239 MG/DL High-Risk: 240 MG/DL and over 88 HDL INTERPRETATION: Undesirable: High Risk: Less than 40 MG/DL Desirable: Low Risk: Greater than 60 MG/DL 89 LDL INTERPRETATION: Low Risk Optimal Level: LDL Less than 100 MG/DL Near or Above Optimal: LDL 100-129 MG/DL Borderline High Risk: LDL 130-159 MG/DL High Risk: LDL 160-189 MG/DL Very High Risk: LDL Greater than 189 MG/DL 90 THERAPEUTIC TARGET FOR THE TREATMENT OF DIABETES MELLITUS PATIENTS IS <7% HBA1C, AND IN SELECTIVE PATIENTS <6.0%. PLEASE REFER TO [place] [employer] DIABETIC CARE GUIDELINES FOR FURTHER INFORMATION. 91 Classification: Desirable . 92 CALCULATED LDL APPROXIMATES THE VALUE OF A DIRECT LDL MEASUREMENT. Classification: Near or above optimal . 93 Anion gap measurement may be of limited value in the presence of any alkalosis, especially in a combined acid base disorder. . 94 Anion gap measurement may be of limited value in the presence of any alkalosis, especially in a combined acid base disorder. . 95 Classification: Desirable . 96 CALCULATED LDL APPROXIMATES THE VALUE OF A DIRECT LDL MEASUREMENT. Classification: Near or above optimal . 97 THERAPEUTIC TARGET FOR THE TREATMENT OF DIABETES MELLITUS PATIENTS IS <7% HBA1C, AND IN SELECTIVE PATIENTS <6.0%. PLEASE REFER TO [employer] DIABETIC CARE GUIDELINES FOR FURTHER INFORMATION. 98 Anion gap measurement may be of limited value in the presence of any alkalosis, especially in a combined acid base disorder. . 99 Classification: Borderline High . 100 Classification: High . 101 CALCULATED LDL APPROXIMATES THE VALUE OF A DIRECT LDL MEASUREMENT. Classification: Borderline High . 102 THERAPEUTIC TARGET FOR THE TREATMENT OF DIABETES MELLITUS PATIENTS IS <7% HBA1C, AND IN SELECTIVE PATIENTS <6.0%. PLEASE REFER TO [employer] DIABETIC CARE GUIDELINES FOR FURTHER INFORMATION. 103 THERAPEUTIC TARGET FOR THE TREATMENT OF DIABETES MELLITUS PATIENTS IS <7% HBA1C, AND IN SELECTIVE PATIENTS <6.0%. PLEASE REFER TO [employer] DIABETIC CARE GUIDELINES FOR FURTHER INFORMATION. 104 Classification: Borderline High . 105 Classification: High . 106 CALCULATED LDL APPROXIMATES THE VALUE OF A DIRECT LDL MEASUREMENT. Classification: Borderline High . 107 Anion gap measurement may be of limited value in the presence of any alkalosis, especially in a combined acid base disorder. . Procedures Date Code Description Status 02/25/2019 58627 Interrogation Implant Cardiovasc Monitor System Incl Completed Analysis Int 02/25/2019 31058 Interrogation Implant Cardiovasc Monitor System Incl Completed Analysis Int 02/25/2019 29738 Icd Eval With Iterative Adjustmt Multiple Lead System Completed 02/25/2019 22436 Icd Eval With Iterative Adjustmt Multiple Lead System Completed 02/11/2019 87002 ECHO Transthoracic, Real-Time 2D With Doppler And Completed Color Flow 02/11/2019 13575 ECHO Transthoracic, Real-Time 2D With Doppler And Completed Color Flow 01/14/2019 [id number] Diabetic Retinal Eye Exam Completed 01/12/2019 31122 EKG Tracing & Interpretation Completed 12/16/2018 82889 Icd Check Remote Up To 90 Days Single,Dual,Multiple Completed Lead 12/16/2018 58930 Icd Check Remote Up To 90 Days Single,Dual,Multiple Completed Lead 12/16/2018 26202 Interrogation Device Eval Remote Up To 30 Days Completed Analysis,Rev,RP 12/16/2018 30512 Interrogation Device Eval Remote Up To 30 Days Completed Analysis,Rev,RP 12/16/2018 95286 Icd Eval Sing,Dual,Multi Lead Remote Recpt Transm Tech Completed Rev Tech S 12/16/2018 36861 Icd Eval Sing,Dual,Multi Lead Remote Recpt Transm Tech Completed Rev Tech S 10/18/2018 05942 Interrogation Device Eval Remote Up To 30 Days Completed Analysis,Rev,RP 10/18/2018 27238 Implantable Cardio System Loop Recorder Sys Remota Completed Data Acquistio 10/18/2018 57752 Interrogation Device Eval Remote Up To 30 Days Completed Analysis,Rev,RP 10/18/2018 69495 Implantable Cardio System Loop Recorder Sys Remota Completed Data Acquistio 09/17/2018 47385 ECHO Transthoracic, Real-Time 2D With Doppler And Completed Color Flow 09/17/2018 77336 ECHO Transthoracic, Real-Time 2D With Doppler And Completed Color Flow 09/14/2018 97061 Icd Eval With Iterative Adjustmt Multiple Lead System Completed 09/14/2018 35722 Interrogation Implant Cardiovasc Monitor System Incl Completed Analysis Int 09/14/2018 82995 Icd Eval With Iterative Adjustmt Multiple Lead System Completed 09/14/2018 72122 Interrogation Implant Cardiovasc Monitor System Incl Completed Analysis Int 09/03/2018 02213 EKG Tracing & Interpretation Completed 05/03/2018 54549 Pace Maker Eval W/Iterative Adjment Dual Lead Completed 05/03/2018 67623 Pace Maker Eval W/Iterative Adjment Dual Lead Completed 04/28/2018 13617 ECHO Transthoracic, Real-Time 2D With Doppler And Completed Color Flow 04/28/2018 02237 ECHO Transthoracic, Real-Time 2D With Doppler And Completed Color Flow 03/30/2018 48348 EKG Tracing & Interpretation Completed 10/29/2017 [id number] Pace Maker Eval W/Iterative Adjment Dual Lead Completed 10/09/2017 17986 EKG Tracing & Interpretation Completed 09/30/2017 42331 ECHO Transthoracic, Real-Time 2D With Doppler And Completed Color Flow 09/30/2017 96177 ECHO Transthoracic, Real-Time 2D With Doppler And Completed Color Flow 09/29/2017 59589 Holter Monitor Review (24 hr)dr review & interp only Completed 09/28/2017 15939 ECG Monitor/Recording W/Visual Superimposition Completed Scanning 09/11/2017 46980 Interrogation Device Eval In Person W/DR Completed Analysis,Single,Dual,Mul 09/11/2017 56149 EKG Tracing & Interpretation Completed 05/07/2017 57531 Pace Maker Eval W/Iterative Adjment Dual Lead Completed 04/08/2017 97595 ECHO Transthoracic, Real-Time 2D With Doppler And Completed Color Flow 03/04/2017 08937 EKG Tracing & Interpretation Completed 12/25/2016 [id number] Diabetic Retinal Eye Exam Completed 11/11/2016 48522 Pace Maker Eval W/Iterative Adjment Dual Lead Completed 11/07/2016 21496 EKG Tracing & Interpretation Completed 09/23/2016 47010 Pace Maker Eval W/Iterative Adjment Dual Lead Completed 07/25/2016 67025 ECHO Transthoracic, Real-Time 2D With Doppler And Completed Color Flow 07/18/2016 06559 Color Flow Doppler/Interp & Reprt Completed 07/18/2016 79223 Pulse Wave/Continuous-Interp.RPT Completed 07/18/2016 82118 Echocardiography, Transesophageal, Real Time W/Image Completed 2D W/W/O M-M 07/14/2016 28715 ECHO Stress Test Incl Perf Contiuous ekg Monitoring Completed W/Phys Superv 06/26/2016 83295 Polysomnography Sleep Staging 4+ Parameters Completed 05/09/2016 88731 Treadmill Interp/Report Only Completed 05/09/2016 90622 Stress Test Supervsn W/Out I/R Completed 04/29/2016 33702 EKG Tracing & Interpretation Completed 04/15/2016 68843 Pace Maker Eval W/Iterative Adjment Dual Lead Completed 03/12/2016 96850 EKG Tracing & Interpretation Completed 03/02/2016 03151 EKG, Interpretation Only Completed 02/29/2016 04131 ECHO Transthorasic Realtime 2D W Doppler & Color Flow Completed Hosp 02/29/2016 56111 EKG, Interpretation Only Completed 02/27/2016 04532 EKG Tracing & Interpretation Completed 04/17/2015 01893 EKG Tracing & Interpretation Completed 11/03/2014 37632 ECHO Transthoracic, Real-Time 2D With Doppler And Completed Color Flow 08/29/2014 17116 EKG Tracing & Interpretation Completed 02/22/2014 71476 EKG Tracing & Interpretation Completed 12/09/2013 65600 ECHO Transthoracic, Real-Time 2D With Doppler And Completed Color Flow 08/24/2013 60001 EKG Tracing & Interpretation Completed 11/25/2012 69761 EKG Tracing & Interpretation Completed 10/25/2012 95200 Rad Exam; Forearm Completed 09/01/2012 70086 Long Arm Cast Application Completed 09/01/2012 28587 Rad Exam; Forearm Completed 08/11/2012 78812 Long Arm Cast Application Completed 08/11/2012 44128 CLSD TRMT Radial & Ulnar Shaft Completed 08/11/2012 59676 Closed Treatment Ulnar Shaft Fracture Completed 05/12/2012 73854 EKG Tracing & Interpretation Completed 04/13/2012 69950 ECHO Transthoracic, Real-Time 2D With Doppler And Completed Color Flow 02/04/2012 92953 EKG Tracing & Interpretation Completed 06/04/2011 69266 ECHO Transthoracic, Real-Time 2D With Doppler And Completed Color Flow 04/04/2011 69391 EKG Tracing & Interpretation Completed 10/24/2009 95790 ECHO Transthoracic, Real-Time 2D With Doppler And Completed Color Flow 09/26/2009 63711 EKG Tracing & Interpretation Completed 10/31/2008 67481 Color Doppler Completed 10/31/2008 32553 Pulse Doppler & Continuous Wave Completed 10/31/2008 96634 Echocardiogram Completed 10/31/2008 35532 Echocardiogram Completed 10/31/2008 70248 Color Doppler Completed 09/15/2008 38086 EKG Tracing & Interpretation Completed 12/27/2007 68164 Color Doppler Completed 12/27/2007 75859 Color Doppler Completed 12/27/2007 59879 Color Doppler Completed 12/27/2007 89694 Pulse Doppler & Continuous Wave Completed 12/27/2007 78178 Pulse Doppler & Continuous Wave Completed 12/27/2007 87151 Echocardiogram Completed 12/27/2007 00216 Echocardiogram Completed 12/27/2007 27347 Echocardiogram Completed 11/01/2007 87118 EKG Tracing & Interpretation Completed 04/28/2007 81231 EKG Tracing & Interpretation Completed 04/28/2007 00751 EKG Tracing & Interpretation Completed 10/07/2006 98344 EKG Tracing & Interpretation Completed 10/07/2006 32011 EKG Tracing & Interpretation Completed 05/06/2006 02452 Color Doppler Completed 05/06/2006 51436 Pulse Doppler & Continuous Wave Completed 05/06/2006 51533 Pulse Doppler & Continuous Wave Completed 05/06/2006 37167 Echocardiogram Completed 04/06/2006 95615 EKG Tracing & Interpretation Completed 04/30/2005 42887 EKG Tracing & Interpretation Completed 02/07/2005 96807 Color Doppler Completed 02/07/2005 16377 Pulse Doppler & Continuous Wave Completed 02/07/2005 17745 Echocardiogram Completed 01/27/2005 99541 EKG Tracing & Interpretation Completed 09/10/2004 98890 EKG Tracing & Interpretation Completed 08/12/2004 76869 Color Doppler Completed 08/12/2004 54288 Pulse Doppler & Continuous Wave Completed 08/12/2004 05638 Echocardiogram Completed Encounters Type Date Location Provider Dx Diagnosis Office Visit 02/18/2019 [facility] M25.551 Pain in right 8:44a 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,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, 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 Hospitalists R26.2 Difficulty in walking, not elsewhere classified E11.9 Type 2 diabetes mellitus without complications M06.9 Rheumatoid arthritis, unspecified Office Visit 01/28/2019 Shanta MasonSarah I42.9 Cardiomyopathy, 11:00a Cardiology Christiano N.Josue unspecified I48.0 Paroxysmal atrial fibrillation I49.5 Sick sinus syndrome Z95.810 Presence of automatic (implantable) cardiac defibrillator I34.0 Nonrheumatic mitral (valve) insufficiency I44.7 Left bundle-branch block, unspecified Office Visit 01/12/2019 Don[facility] Wolf I42.9 Cardiomyopathy, 11:00a Cardiology Beata Cota unspecified I48.0 Paroxysmal atrial fibrillation I49.5 Sick sinus syndrome Z95.810 Presence of automatic (implantable) cardiac defibrillator I34.0 Nonrheumatic mitral (valve) insufficiency E11.65 Type 2 diabetes mellitus with hyperglycemia I50.22 Chronic systolic (congestive) heart failure I44.7 Left bundle-branch block, unspecified Office Visit 10/12/2018 Zara MasonSarah I42.9 Cardiomyopathy, 11:00a Cardiology Of Christiano N.Josue unspecified [facility] I34.0 Nonrheumatic mitral (valve) insufficiency I48.0 Paroxysmal atrial fibrillation I49.5 Sick sinus syndrome E11.65 Type 2 diabetes mellitus with hyperglycemia Office Visit 09/03/2018 Shanta Wolf E11.65 Type 2 diabetes 2:40p Cardiology Beata Cota mellitus with hyperglycemia M05.79 Rheu arthritis w rheu factor mult site w/o org/sys involv I50.22 Chronic systolic (congestive) heart failure E66.09 Other obesity due to excess calories M06.9 Rheumatoid arthritis, unspecified I42.9 Cardiomyopathy, unspecified Z95.810 Presence of automatic (implantable) cardiac defibrillator I34.0 Nonrheumatic mitral (valve) insufficiency Office Visit 08/31/2018 1:30p Rheumatology Divya Gonzáles M05.79 Rheu arthritis Services [facility] w rheu factor mult site w/o org/sys involv E11.65 Type 2 diabetes mellitus with hyperglycemia R21 Rash and other nonspecific skin eruption E66.09 Other obesity due to excess calories Z79.899 Other remote computer terminal operator (current) drug therapy Office Visit 06/22/2018 3:00p Rheumatology Divya Gonzáles M05.79 Rheu arthritis Services Of [facility] CORPORATE BOND TRADER w rheu factor mult site w/o org/sys involv Z79.899 [facility] [place] drug therapy Office Visit 06/22/2018 Zara Jaya S. I42.9 Cardiomyopathy, 10:30a Cardiology Of Foster, N.P. unspecified [facility] I48.0 Paroxysmal atrial fibrillation I49.5 Sick sinus syndrome R06.02 Shortness of breath I34.0 Nonrheumatic mitral (valve) insufficiency Z95.0 Presence of cardiac pacemaker Office Visit 05/13/2018 Zara Jaya S. I42.9 Cardiomyopathy, 10:30a Cardiology Of Foster, N.P. unspecified [facility] I48.0 Paroxysmal atrial fibrillation I49.5 Sick sinus syndrome Z95.0 Presence of cardiac pacemaker I34.0 Nonrheumatic mitral (valve) insufficiency R06.02 Shortness of breath Office Visit 05/12/2018 10:30a Pulmonology And Daphne G47.33 Obstructive sleep Sleep Services Of MD Anita apnea (adult) [facility] (pediatric) E66.09 Other obesity due to excess calories Office Visit 03/30/2018 1:40p [facility] Francisca Wolf M06.9 Rheumatoid Beata Cota arthritis, unspecified D64.9 Anemia, unspecified I42.9 Cardiomyopathy, unspecified I49.5 Sick sinus syndrome I48.0 Paroxysmal atrial fibrillation I50.22 Chronic systolic (congestive) heart failure Office Visit 03/05/2018 10:40a Rheumatology Meet M06.9 Rheumatoid Services Of [facility] Beata Greene arthritis, unspecified D64.9 Anemia, unspecified Z79.899 [facility] [place] [facility] drug therapy M79.1 Myalgia R63.5 Abnormal weight gain Office Visit 10/20/2017 4:00p Rheumatology Meet M06.9 Rheumatoid Services [facility] Beata Greene arthritis, unspecified D64.9 Anemia, unspecified M25.552 Pain in left hip Z79.899 [facility] [place] drug therapy Office Visit 10/09/2017 2:00p [place] Francisca Wolf I44.7 Left bundle-branch Cardiology Beata Cota block, unspecified I42.9 Cardiomyopathy, unspecified I34.0 Nonrheumatic mitral (valve) insufficiency I48.0 Paroxysmal atrial fibrillation Office Visit 09/11/2017 11:00a Rheumatology Meet M06.9 Rheumatoid Services Of Gini Greene M.D. arthritis, unspecified Z79.899 Other remote computer terminal operator (current) drug therapy D64.9 Anemia, unspecified M25.552 Pain in left hip M79.1 Myalgia Office Visit 09/11/2017 3:20p [place] Francisca Wolf I44.7 Left bundle-branch Cardiology Beata Cota block, unspecified M06.9 Rheumatoid arthritis, unspecified R94.31 Abnormal electrocardiogram [ECG] [EKG] I42.9 Cardiomyopathy, unspecified Z95.0 Presence of cardiac pacemaker R00.1 Bradycardia, unspecified Office Visit 05/06/2017 9:45a Pulmonology And Daphne G47.33 Obstructive sleep Sleep Services Of [facility] Anita apnea (adult) [facility] (pediatric) Office Visit 03/04/2017 11:00a [facility] Francisca Wolf 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 I34.0 Nonrheumatic mitral (valve) insufficiency Z95.0 Presence of cardiac pacemaker I42.9 Cardiomyopathy, unspecified Office Visit 12/05/2016 3:00p [facility] DAR Lei Z95.0 Presence of cardiac pacemaker 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 I34.0 Nonrheumatic mitral (valve) insufficiency I48.91 Unspecified atrial fibrillation E78.5 Hyperlipidemia, unspecified Office Visit 11/07/2016 2:00p [facility] Francisca Wolf I49.5 Sick sinus Beata Cota syndrome 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 I34.0 Nonrheumatic mitral (valve) insufficiency I44.7 Left bundle-branch block, unspecified G47.33 Obstructive sleep apnea (adult) (pediatric) I10 Essential (primary) hypertension I50.22 Chronic systolic (congestive) heart failure Office Visit 10/21/2016 Pul[facility] And Daphne G47.33 Obstructive sleep 1:15p Sleep Services Of [facility] Anita apnea (adult) [facility] (pediatric) Office Visit 08/25/2016 [facility] Fior Chavez, I34.0 Nonrheumatic mitral 8:30a PA (valve) insufficiency I48.91 Unspecified atrial fibrillation 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 Office Visit 07/22/2016 10:00a Pulmonology And Daphne G47.33 Obstructive sleep Sleep Services Of [facility] apnea (adult) [facility] (pediatric) Office Visit 07/14/2016 8:15a [facility] Francisca Wolf G47.33 Obstructive sleep Of [facility] Beata Cota apnea (adult) (pediatric) I10 Essential (primary) hypertension I34.0 Nonrheumatic mitral (valve) insufficiency R06.00 Dyspnea, unspecified E66.9 Obesity, unspecified R60.0 Localized edema I49.5 Sick sinus syndrome I42.9 Cardiomyopathy, unspecified Office Visit 06/17/2016 9:00a [facility] Fior Chavez, I10 Essential (primary) Of [facility] PA hypertension I34.0 Nonrheumatic mitral (valve) insufficiency I48.0 Paroxysmal atrial fibrillation Z95.0 Presence of cardiac pacemaker D64.9 Anemia, unspecified Office Visit 06/09/2016 8:45a Pulmonology And Daphne G47.9 Sleep disorder, Sleep Services Of MD Anita unspecified Quarter Folder R09.02 Hypoxemia Office Visit 05/14/2016 9:00a [facility] Francisca Wolf I10 Essential (primary) Beata Cota hypertension I34.0 Nonrheumatic mitral (valve) insufficiency I50.9 Heart failure, unspecified R06.02 Shortness of breath Office Visit 04/29/2016 8:40a [facility] Francisca Wolf I10 Essential (primary) Beata Cota hypertension Z95.0 Presence of cardiac pacemaker I48.0 Paroxysmal atrial fibrillation I50.9 Heart failure, unspecified G47.9 Sleep disorder, unspecified Office Visit 04/15/2016 2:00p [facility] Nurse Visit I10 Essential (primary) cc hypertension Office Visit 04/03/2016 10:00a [facility] Fior Chavez, I48.91 Unspecified atrial PA fibrillation I49.5 Sick sinus syndrome Z95.0 Presence of cardiac pacemaker I34.0 Nonrheumatic mitral (valve) insufficiency D64.9 Anemia, unspecified I10 Essential (primary) hypertension Office Visit 03/12/2016 11:00a [facility] Francisca Wolf I49.5 Sick sinus Beata Cota syndrome I48.0 Paroxysmal atrial fibrillation I48.91 Unspecified atrial fibrillation M06.9 Rheumatoid arthritis, unspecified I34.0 Nonrheumatic mitral (valve) insufficiency Office Visit 03/03/2016 1:46p [facility] Calvin Brambila I49.5 Sick sinus Of Gini Ludwig M.D. syndrome I48.0 Paroxysmal atrial fibrillation I42.9 Cardiomyopathy, unspecified Office Visit 03/02/2016 [facility] Diego SSarah I48.0 Paroxysmal atrial 11:35a Cardiology Beata Bray fibrillation Office Visit 03/01/2016 [place] Diego Segovia I42.9 Cardiomyopathy, 11:25a Cardiology Beata Bray unspecified I34.0 Nonrheumatic mitral (valve) insufficiency I48.0 Paroxysmal atrial fibrillation Office Visit 02/29/2016 [facility] Michelle I48.91 Unspecified atrial 10:03a Assoc,pc Root, DO fibrillation Hospitalists I45.5 Other specified heart block M06.9 Rheumatoid arthritis, unspecified Office Visit 02/29/2016 4:39p [facility] Fletcher Segovia I48.0 Paroxysmal atrial Of Gini Arana, DO fibrillation FACC R55 Syncope and collapse I42.9 Cardiomyopathy, unspecified I49.5 Sick sinus syndrome Office Visit 02/27/2016 10:30a [facility] Fior Chavez, I42.9 Cardiomyopathy, Cardiology PA unspecified I44.7 Left bundle-branch block, unspecified I34.0 Nonrheumatic mitral (valve) insufficiency I36.1 Nonrheumatic tricuspid (valve) insufficiency I48.0 Paroxysmal atrial fibrillation Office Visit 04/17/2015 [facility] Francisca Wolf 425.4 Cardiomyopathy Other 3:20p Cardiology Magdiel Cota M.D. Prim Quarter Folder 424.0 Mitral Valve Disorder 426.3 Left Bundle Branch Block Other Office Visit 08/29/2014 2:20p [facility] Francisca Wolf 426.3 Left Bundle Mauser, M.D. Branch Block Other 425.4 Cardiomyopathy Other Prim 401.9 Hypertension Unspec Office Visit 02/22/2014 [place] Francisca Wolf 425.4 Cardiomyopathy Other 2:20p Cardiology Beata Cota Prim 426.3 Left Bundle Branch Block Other 401.1 Hypertension Benign 714.0 Rheumatoid Arthritis Office Visit 10/07/2013 1:30p [facility] Nurse Visit cc 401.1 Hypertension Benign Office Visit 08/24/2013 10:40a [facility] Francisca Wolf 424.0 Mitral Valve Beata Cota Disorder 425.4 Cardiomyopathy Other Prim 426.3 Left Bundle Branch Block Other Office Visit 11/25/2012 2:20p [facility] Francisca Wolf 714.0 Rheumatoid Beata Cota Arthritis 424.0 Mitral Valve Disorder 425.4 Cardiomyopathy Other Prim 426.3 Left Bundle Branch Block Other Office Visit 05/12/2012 3:00p [facility] Francisca Wolf 424.0 Mitral Valve Beata Cota Disorder 425.4 Cardiomyopathy Other Prim 426.3 Left Bundle Branch Block Other 250.00 Diabetes Mellitus W/O Compl Type II Or Unspec Controlled 272.0 Hypercholesterolemia Pure Office Visit 02/04/2012 11:20a [facility] Francisca Wolf 426.3 Left Bundle Beata Cota Branch Block Other 425.4 Cardiomyopathy Other Prim 424.0 Mitral Valve Disorder 250.00 Diabetes Mellitus W/O Compl Type II Or Unspec Controlled Office Visit 04/04/2011 3:00p [facility] Francisca Wolf 424.0 Mitral Valve Beata Cota Disorder 426.3 Left Bundle Branch Block Other 425.4 Cardiomyopathy Other Prim 272.0 Hypercholesterolemia Pure 250.00 Diabetes Mellitus W/O Compl Type II Or Unspec Controlled Office Visit 09/26/2009 3:20p [facility] Francisca Wolf 426.3 Left Bundle Beata Cota Branch Block Other 424.0 Mitral Valve Disorder 425.4 Cardiomyopathy Other Prim 401.1 Hypertension Benign Office Visit 09/15/2008 9:00a [facility] Francisca Wolf 426.3 Left Bundle Beata Cota Branch Block Other 424.0 Mitral Valve Disorder 425.4 Cardiomyopathy Other Prim 272.0 Hypercholesterolemia Pure 401.1 Hypertension Benign Office Visit 01/26/2008 10:10a [facility] Francisca Wolf 426.3 Left Bundle Beata Cota Branch Block Other 424.0 Mitral Valve Disorder 425.4 Cardiomyopathy Other Prim 401.1 Hypertension Benign Office Visit 11/01/2007 3:00p [facility] Francisca Wolf 426.3 Left Bundle Beata Cota Branch Block Other 424.0 Mitral Valve Disorder 401.1 Hypertension Benign 272.0 Hypercholesterolemia Pure Office Visit 04/28/2007 2:00p [facility] Francisca Wolf 426.3 Left Bundle Beata Cota Branch Block Other 424.0 Mitral Valve Disorder Office Visit 10/07/2006 11:00a [facility] Francisca Wolf 424.0 Mitral Valve Beata Cota Disorder 401.1 Hypertension Benign 272.0 Hypercholesterolemia Pure 250.00 Diabetes Mellitus W/O Compl Type II Or Unspec Controlled Office Visit 04/06/2006 Shanta Wolf 786.09 Dyspnea & 2:20p Camila Cota M.D. Respiratory Abnormalities Other 424.0 Mitral Valve Disorder 401.1 Hypertension Benign Office Visit 09/29/2005 3:00p [facility] Francisca Wolf 414.8 Ischemic Heart Beata Cota Disease Chronic Other Spec Forms 424.0 Mitral Valve Disorder Office Visit 06/23/2005 Shanta Wolf 425.4 Cardiomyopathy Other 2:40p Camila Cota M.D. 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 Prim 401.1 Hypertension Benign 250.00 Diabetes Mellitus W/O Compl Type II Or Unspec Controlled Office Visit 09/10/2004 Shanta Aquino F. 425.9 Cardiomyopathy 2:20p Cardiology Beata Cota Secondary Unspecified 401.1 Hypertension Benign 250.00 Diabetes Mellitus W/O Compl Type II Or Unspec Controlled Plan of Treatment Future Appointment(s):04/08/2019 10:30 am - BRYCE Gusman at [facility]05/20/2019 6:00 am - Remote Device Checks at [facility]05/03/2019 3:20 pm - Francisca Cota M.D. 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 that caused the severe RT leg pain that you were hospitalized for.You also appeared to have a urinary infection.It is likely that your elevated inflammatory marker was related to the urinary infection.The nabumetone is a NSAIDs similar to Ibuprofen and you cannot take this with the Eliquis.You should start back on Sulfasalazine 2 tabs in the morning and 2 tabs in the evening.You may take Tylenol 325 mg as needed for pain.Follow up:4 weeks labs voicxA13.551 Pain in right hipComments:You have severe osteoarthritis at your RT hip.As you do not want to do PT I am giving you a set of exercises to you to do them every days.I48.0 Paroxysmal atrial fibrillationComments:Your leg swelling is better because your heart function is better.The weight loss is caused by diet change and fluid lossI42.9 Cardiomyopathy, unspecifiedComments:I added the cholesterol test to your next lab workE11.9 Type 2 diabetes mellitus without complicationsComments:Please follow up with Dr. Wallace on the ddbmukndL29.899 [place] [facility] (current[facility] drug therapyComments:The sulfasalazine has no interaction with your other medications.
--- OUTSIDE RECORDS SUMMARY | 2019-04-13 18:42 | XMS REPORT | Continuity of Care Document ---
:1935 External Reference #:[id number] Author Name WardGiovanna Care Team Providers Name Role Phone Ever Wallace MD Primary Care Physician Unavailable Payers Date Identification Numbers Payment Provider Subscriber Effective: 1999 Policy Number: [id number] Medicare Katheryn Tatum PayID: [id number] [address] [place] [address] Policy Number: [id number] [facility] Sven Tatum PayID: [id number] [address] [place] [address] Advance Directives Description No Information Available Problems [...] 05/09/2016 20mg Tablets 3 times weekly N.P. [id number]. may take an extra tab on non-lasix [...] Zsofia Eliecer, 09/10/2004 500mg the morning and IMAGING AIDE Tablets 2 tabs in the evening for [...] Calcium + D 1 po qhs Unknown [id number] Tablets History Medications Vitamin C Francisca Wolf 01/12/2019 - Beata Cota 01/11/2019 Hydroxychloroquine take one tablet 180tabs Z79.899 Divya Gonzáles, 2017 - Sulfate by mouth daily IMAGING AIDE 08/31/2018 200mg Tablets for one week than [...] Wolf 09/10/2004 - Tablets Beata Cota 04/04/2011 Humalog [...] CPT Code Status Date Vaccine Lot # [id number] Given 10/06/2007 Influenza Virus 3Yrs & Over [id number] Given 10/06/2007 Influenza Virus 3Yrs & Over [id number] Vital Signs Date Vital Result Comment 03/01/2019 [...] Result H/L Range Note Laboratory test 02/22/2019 [facility] C Reactive 39.80 mg/L High <8.01 1, [address] [place] [address] [phone] Erythrocyte Sed Rate 75 mm/Hr High 0-30 3 Laboratory test 01/21/2019 [facility] B-Type 262 pg/mL High <= [address] [place] [address] Peptide BNP [phone] Basic Metabolic 01/21/2019 [facility] Sodium 131 Low 135-[address] mmol/[place] [address] [phone] Potassium 4.1 mmol/L N 3.5-5.0 Chloride 98 mmol/L Low 101-111 Co2 Carbon Dioxide 25 mmol/L N 22-32 Anion Gap 8 mmol/L N 2-11 Glucose 99 mg/dL N 70-100 Blood Urea Nitrogen 12 mg/dL N 6-24 Creatinine 0.81 mg/dL N 0.51-0.95 BUN/Creatinine Ratio 14.8 N 8-20 Calcium 9.7 mg/dL N 8.6-10.3 Egfr Non- 67.4 >60 Egfr 81.5 >60 4 Laboratory test 01/21/2019 [facility] Erythrocyte Sed 68 mm/Hr High 0-30 [address] [place] [address] [phone] CBC Auto Diff 01/21/2019 [facility] White Blood 4.6 N 3.5- 10.[address] Count 10^3/[place] [address] [phone] Red Blood Count 3.06 10^6/uL Low 4.00-5.40 [...] Blood Cells % 0.1 Laboratory test 09/24/2018 [facility] Erythrocyte Sed 72 mm/Hr High 0-[address] [place] [address] [phone] Iron & Iron 09/24/2018 [facility] Iron 76 g/dL N 50-[address] [place] [address] [phone] Unsaturated Iron Binding < 360 g/dL Total Iron Binding Capacity 375 g/dL N 250-450 Transferrin 268 mg/dL N 203-362 % Iron Saturation 20 % N 15-55 CBC Auto Diff 09/24/2018 [facility] White Blood 5.6 10^3/uL N 3.5-10.[address] [place] [address] [phone] Red Blood Count 3.29 10^6/uL Low 4.00-5.40 [...] Cells % 0 CBC Auto Diff 09/15/2018 [facility] White Blood 4.5 10^3/uL N 3.5-10.[address] [place] [address] [phone] Red Blood Count 3.23 10^6/uL Low 4.00-5.40 [...] Blood Cells % 0.1 Laboratory test 09/15/2018 [facility] B-Type 346 pg/mL High [address] [place] [address] Peptide BNP [phone] Basic Metabolic 09/15/2018 [facility] Sodium 133 mmol/L Low 135-[address] [place] [address] [phone] Potassium 4.0 mmol/L N 3.5-5.0 Chloride 95 mmol/L Low 101-111 Co2 Carbon Dioxide 30 mmol/L N 22-32 Anion Gap 8 mmol/L N 2-11 Glucose 146 mg/dL High 70-100 Blood Urea Nitrogen 14 mg/dL N 6-24 Creatinine 0.83 mg/dL N 0.51-0.95 BUN/Creatinine Ratio 16.9 N 8-20 Calcium 9.5 mg/dL N 8.6-10.3 Egfr Non- 65.5 >60 Egfr 79.2 >60 7 Iron & Iron Binding 09/15/2018 [facility] Iron 67 g/dL N 50- [address] [place] [address] [phone] Unsaturated Iron Binding 324 g/dL Total Iron Binding Capacity 391 g/dL N 250-450 Transferrin 279 mg/dL N 203-362 % Iron Saturation 17 % N 15-55 Laboratory test 09/15/2018 [facility] Ferritin 40.4 ng/mL N 11 -[address] [place] [address] [phone] Erythrocyte Sed Rate 92 mm/Hr High 0-40 Laboratory test 08/10/2018 [facility] Erythrocyte Sed 68 mm/Hr High 0-[address] [place] [address] [phone] Fructosamine 315 mcmol/L Abnormal 200 - 285 8 Haptoglobin 189 mg/dL 30 - 200 9 CBC Auto 08/10/2018 [facility] White Blood 3.2 10^3/uL Low 3.5 -10.[address] [place] [address] [phone] Red Blood Count 3.52 10^6/uL Low 4.00-5.40 [...] Blood Cells % 0.1 Laboratory test 08/10/2018 [facility] TSH (Thyroid 4.48 mcIU/mL N 0.34-5.[address] Stim Horm) [place] [address] [phone] Ferritin 23.1 ng/mL N 11-307 Folic Acid (Folate) > 20.00 ng/mL >3.99 Iron & Iron Binding 08/10/2018 [facility] Iron 63 g/dL N 50- 212 [address] [place] [address] [phone] Unsaturated Iron Binding 360 g/dL Total Iron Binding Capacity 423 g/dL N 250-450 Transferrin 302 mg/dL N 203-362 % Iron Saturation 15 % N 15-55 Laboratory test 08/10/2018 [facility] LDH 216 U/L N 140-271 finding [address] [place] [address] [phone] Basic Metabolic 08/10/2018 [facility] Sodium 128 mmol/L Low 135-145 Panel [address] [place] [address] [phone] Potassium 3.8 mmol/L N 3.5-5.0 Chloride 92 mmol/L Low 101-111 Co2 Carbon Dioxide 27 mmol/L N 22-32 Anion Gap 9 mmol/L N 2-11 Glucose 277 mg/dL High 70-100 Blood Urea Nitrogen 11 mg/dL N 6-24 Creatinine 0.76 mg/dL N 0.51-0.95 BUN/Creatinine Ratio 14.5 N 8-20 Calcium 9.3 mg/dL N 8.6-10.3 Egfr Non- 72.7 >60 Egfr 87.9 >60 10 Laboratory test 06/23/2018 [facility] Erythrocyte Sed 76 mm/Hr High 0-[address] [place] [address] [phone] CBC Auto Diff 06/23/2018 [facility] White Blood 4.0 N 3.5- 10.[address] Count 10^3/[place] [address] [phone] Red Blood Count 3.20 10^6/uL Low 4.00-5.40 [...] Blood Cells % 0.1 Laboratory test 06/23/2018 [facility] C Reactive 22.29 mg/L High <8.[address] [place] [address] [phone] Comp Metabolic 06/23/2018 [facility] Sodium 129 mmol/L Low 135 -[address] [place] [address] [phone] Potassium 3.8 mmol/L N 3.5-5.0 Chloride 92 [...] Egfr 82.9 >60 11 Laboratory test 06/23/2018 [facility] Magnesium 1.9 mg/dL N 1.9-2.[address] [place] [address] [phone] Laboratory test 05/29/2018 [facility] B-Type 230 pg/mL High [address] [place] [address] Peptide BNP [phone] Laboratory test 05/29/2018 [facility] Erythrocyte Sed 78 mm/Hr High 0-[address] [place] [address] [phone] CBC No Diff 05/29/2018 [facility] White Blood 3.1 Low 3.5- 10.[address] Count 10^3/[place] [address] [phone] Red Blood Count 4.02 10^6/uL N 4.00-5.40 Hemoglobin 11.4 g/dL Low 12.0-16.0 Hematocrit 36 % N 35-47 Mean Corpuscular Volume 90 fL N 80-97 Mean Corpuscular Hemoglobin 28 pg N 27-31 Mean Corpuscular HGB Conc 32 g/dL N 31-36 Red Cell Distribution Width 18 % High 10.5-15 Platelet Count 229 10^3/uL N 150-450 Mean Platelet Volume 7.8 um3 N 7.4-10.4 Basic Metabolic 05/29/2018 [facility] Sodium 131 mmol/L Low 135-[address] [place] [address] [phone] Potassium 3.7 mmol/L N 3.5-5.0 Chloride 92 mmol/L Low 101-111 Co2 Carbon Dioxide 31 mmol/L N 22-32 Anion Gap 8 mmol/L N 2-11 Glucose 324 mg/dL High 70-100 Blood Urea Nitrogen 16 mg/dL N 6-24 Creatinine 0.91 mg/dL N 0.51-0.95 BUN/Creatinine Ratio 17.6 N 8-20 Calcium 9.5 mg/dL N 8.6-10.3 Egfr Non- 59.0 >60 Egfr 71.4 >60 13 Laboratory test 05/13/2018 [facility] B-Type <pending> finding [address] [place] [address] Peptide BNP [phone] CBC Auto Diff 03/05/2018 [facility] White Blood Count 5.0 10^3/ uL N 3.5-[address] 0.8 [place] [address] [phone] Red Blood Count 3.44 10^6/uL Low 4.0-5.4 [...] Blood Cells % 0.1 Laboratory test 03/05/2018 [facility] B-Type 265 pg/mL High [address] [place] [address] Peptide BNP [phone] Magnesium 2.1 mg/dL N 1.9-2.7 Laboratory test 03/05/2018 [facility] Erythrocyte Sed 69 mm/Hr High 0-[address] [place] [address] [phone] C Reactive Protein 12.73 mg/L High < 5.00 15 Comp Metabolic Panel 03/05/2018 [facility] Sodium 132 mmol/L Low 139-[address] [place], [place] [id number] [phone] Potassium 4.1 mmol/L N 3.5-5.0 Chloride 96 [...] Egfr 82.1 >60 16 Laboratory test 03/05/2018 [facility] TSH (Thyroid 8.13 High 0.34-5.[address] Stim Horm) mcIU/[place] [address] [phone] CBC Auto Diff 01/19/2018 [facility] White Blood 6.0 10^3/uL N 3.5-10.[address] [place] [address] [phone] Red Blood Count 3.37 10^6/uL Low 4.0-5.4 [...] Cells % 0 Comp Metabolic Panel 01/19/2018 [facility] Sodium 131 mmol/L Low 133-[address] [place] [address] [phone] Potassium 4.2 mmol/L N 3.5-5.0 Chloride 94 [...] Egfr 82.1 >60 17 Laboratory test 01/19/2018 [facility] Erythrocyte Sed 65 mm/Hr High 0-40 [address] [place] [address] [phone] C Reactive Protein 13.97 mg/L High < 5.00 19 Laboratory test 10/22/2017 [facility] C Reactive 12.78 mg/L High < 5.00 [address] Protein [place], [place] [address] [phone] Erythrocyte Sed Rate 77 mm/Hr High 0-40 21 CBC Auto Diff 10/22/2017 [facility] White Blood 5.2 10^3/uL N 3.5-10.[address] [place] [address] [phone] Red Blood Count 3.05 10^6/uL Low 4.0-5.4 [...] % 0 Iron & Iron Binding 10/22/2017 [facility] Iron 75 g/dL N 50- [address] [place] [address] [phone] Unsaturated Iron Binding 344 g/dL Total Iron Binding Capacity 419 g/dL N 250-450 % Iron Saturation 18 % N 15-55 Vitamin B12 And 10/22/2017 [facility] Vitamin B12 834 pg/mL N 180-914 [address] [place] [address] [phone] Folic Acid (Folate) > 20.00 ng/mL >3.99 23 Comp Metabolic Panel 10/22/2017 [facility] Sodium 131 mmol/L Low 133-[address] [place] [address] [phone] Potassium 4.1 mmol/L N 3.5-5.0 Chloride 95 [...] Egfr 81.0 >60 24 Quantiferon Gold 10/22/2017 [facility] M tuberculosis Negative Negative [address] [place] [address] [phone] TB Ag minus Nil Result 0.01 IU/mL TB Mitogen minus Nil Result > 10.00 IU/mL TB Nil Result 0.06 IU/mL 26 Laboratory test 09/11/2017 [facility] Creatine 70 U/L N 10- [address] Kinase(CK) [place] [address] [phone] Protein 09/11/2017 [facility] Total 7.6 N 6.3 - 7.[address] Protein(Pep) g/[place] [address] [phone] Albumin 3.5 g/dL N 3.4-4.7 Alpha-1 Globulin 0.3 g/dL N 0.1-0.3 Alpha-2 Globulin 1.1 g/dL Abnormal 0.6-1.0 Beta Globulin 1.2 g/dL N 0.7-1.2 Gamma Globulin 1.6 g/dL N 0.6-1.6 Albumin/Globulin Ratio 0.84 N Impression See Comment N 27 Iron & Iron Binding 09/11/2017 [facility] Iron 67 g/dL N 50- 212 [address] [place] [address] [phone] Unsaturated Iron Binding 347 g/dL N Total Iron Binding Capacity 414 g/dL N 250-450 % Iron Saturation 16 % N 15-55 Comp Metabolic Panel 09/11/2017 [facility] Sodium 132 mmol/L Low 133-145 [address] [place] [address] [phone] Potassium 3.9 mmol/L N 3.5-5.0 Chloride 95 [...] N >60 28 CBC Auto Diff 09/11/2017 [facility] White Blood 5.0 10^3/uL N 3.5-10.[address] [place] [address] [phone] Red Blood Count 3.39 10^6/uL Low 4.0-5.4 [...] Cells % 0 N Laboratory test 09/11/2017 [facility] Erythrocyte Sed 77 mm/Hr High 0-[address] [place] [address] [phone] C Reactive Protein 21.64 mg/L High < 5.00 29 Rheumatoid Factor 18 IU/mL Abnormal <15 30 Cyclic Citrullinated Pep Igg >250.0 U Abnormal 31 Lipid Panel - 03/06/2017 [facility] Creatine Kinase(CK) 50 U/L N 10-[address] [place] [address] [phone] Lipid Profile 03/06/2017 [facility] Triglycerides 99 mg/dL N 32 (Trig/Chol/HDL [address] ) [place] [address] [phone] Cholesterol 222 mg/dL N 33 HDL Cholesterol 62.3 mg/dL N 34 LDL Cholesterol 140 mg/dL N 35 Comp Metabolic Panel 03/06/2017 [facility] Sodium 132 mmol/L Low 133-[address] [place] [address] [phone] Potassium 4.1 mmol/L N 3.5-5.0 Chloride 96 [...] 89.6 N >60 36 Laboratory test 03/06/2017 [facility] Magnesium 2.0 mg/dL N 1.9-2.[address] [place] [address] [phone] B-Type Natriuretic Peptide BNP 174 pg/mL High 37 CBC Auto Diff 03/06/2017 [facility] White Blood 4.6 10^3/uL N 3.5-10.[address] [place] [address] [phone] Red Blood Count 3.55 10^6/uL Low 4.0-5.4 [...] Cells % 0 N Laboratory test 03/06/2017 [facility] Erythrocyte Sed 81 mm/Hr High 0-[address] [place] [address] [phone] Lipid Profile 12/08/2016 [facility] Triglycerides 84 mg/dL N 38 (Trig/Chol/HDL) [address] [place] [address] [phone] Cholesterol 209 mg/dL N 39 HDL Cholesterol 62.2 mg/dL N 40 LDL Cholesterol 130 mg/dL N 41 Laboratory test 12/08/2016 [facility] B-Type 180 pg/mL High [address] [place] [address] Peptide BNP [phone] Magnesium 1.9 mg/dL N 1.9-2.7 43 Erythrocyte Sed Rate 78 mm/Hr High 0-40 CBC Auto Diff 12/08/2016 [facility] White Blood 4.9 10^3/uL N 3.5-10.[address] [place] [address] [phone] Red Blood Count 3.62 10^6/uL Low 4.0-5.4 [...] Cells % 0 N Basic Metabolic 12/08/2016 [facility] Sodium 132 mmol/L Low 133-145 Panel [address] [place] [address] [phone] Potassium 4.1 mmol/L N 3.5-5.0 Chloride 96 mmol/L Low 101-111 Co2 Carbon Dioxide 30 mmol/L N 22-32 Anion Gap 6 mmol/L N 2-11 Glucose 322 mg/dL High 70-100 Blood Urea Nitrogen 13 mg/dL N 6-24 Creatinine 0.78 mg/dL N 0.51-0.95 BUN/Creatinine Ratio 16.7 N 8-20 Calcium 9.5 mg/dL N 8.6-10.3 Egfr Non- 70.7 N >60 Egfr 90.9 N >60 44 Basic Metabolic 07/29/2016 [facility] Sodium 131 mmol/L Low 133-145 Panel [address] [place] [address] [phone] Potassium 4.3 mmol/L N 3.5-5.0 Chloride 97 mmol/L Low 101-111 Co2 Carbon Dioxide 28 mmol/L N 22-32 Anion Gap 6 mmol/L N 2-11 Glucose 186 mg/dL High 70-100 Blood Urea Nitrogen 13 mg/dL N 6-24 Creatinine 0.75 mg/dL N 0.51-0.95 BUN/Creatinine Ratio 17.3 N 8-20 Calcium 9.4 mg/dL N 8.6-10.3 Egfr Non- 74.2 N >60 Egfr 95.4 N >60 45 Laboratory test 07/29/2016 [facility] Partial 53.0 High 26.0- 36.[address] [address] PTT [phone] Inr/Protime 07/29/2016 [facility] Inr 1.00 N 0.89-1.[address] [place] [address] [phone] CBC No Diff 07/29/2016 [facility] White Blood 4.9 10^3/uL N 3.5-10.[address] [place] [address] [phone] Red Blood Count 3.64 10^6/uL Low 4.0-5.4 Hemoglobin 9.8 g/dL Low 12.0-16.0 Hematocrit 31 % Low 35-47 Mean Corpuscular Volume 84 fL N 80-97 Mean Corpuscular Hemoglobin 27 pg N 27-31 Mean Corpuscular HGB Conc 32 g/dL N 31-36 Red Cell Distribution Width 20 % High 10.5-15 Platelet Count 315 10^3/uL N 150-450 Mean Platelet Volume 8 um3 N 7.4-10.4 Laboratory test 07/18/2016 [facility] Point of Care 232 mg/dL High 74-106 [address] [place] [address] [phone] Laboratory test 05/15/2016 [facility] B-Type 458 pg/mL High [address] [place] [address] Peptide BNP [phone] Comp Metabolic 05/15/2016 [facility] Sodium 131 Low 133-[address] mmol/[place] [address] [phone] Potassium 4.2 mmol/L N 3.5-5.0 Chloride 96 [...] 96.9 N >60 48 Laboratory test 05/15/2016 [facility] Magnesium 2.1 mg/dL N 1.9-2.[address] [place] [address] [phone] CBC Auto Diff 05/15/2016 [facility] White Blood 5.2 N 3.5- 10.[address] Count 10^3/[place] [address] [phone] Red Blood Count 3.94 10^6/uL Low 4.0-5.4 [...] Cells % 0 N Laboratory test 05/15/2016 [facility] Erythrocyte Sed 66 mm/Hr High 0-[address] [place] [address] [phone] CRP High Sensitivity 20.22 mg/L N 49 Laboratory test 04/25/2016 [facility] B-Type 391 pg/mL High [address] [place] [address] Peptide BNP [phone] Comp Metabolic 04/25/2016 [facility] Sodium 131 mmol/L Low 133 -[address] [place] [address] [phone] Potassium 4.2 mmol/L N 3.5-5.0 Chloride 97 [...] 105.0 N >60 51 Laboratory test 04/25/2016 [facility] Magnesium 1.9 mg/dL N 1.9-2.[address] [place] [address] [phone] Order 04/04/2016 [facility] Overnight <pending> [address] [place] [address] [phone] Comp Metabolic 03/12/2016 [facility] Sodium 130 mmol/L Low 133 -[address] [place] [address] [phone] Potassium 4.1 mmol/L N 3.5-5.0 Chloride 95 [...] N >60 52 CBC Auto Diff 03/12/2016 [facility] White Blood 4.5 10^3/uL N 3.5-10.[address] [place] [address] [phone] Red Blood Count 3.73 10^6/uL Low 4.0-5.4 [...] Cells % 0.1 N Laboratory test 03/12/2016 [facility] TSH (Thyroid 3.58 ?IU/mL N 0.34-5.[address] Stim Horm) [place] [address] [phone] Erythrocyte Sed Rate 69 mm/Hr High 0-40 C Reactive Protein 24.66 mg/L High < 5.00 53 Surgical 01/12/2015 [facility] S RUN DATE: [address] 01/16/ <[place] [address] NOTE> [phone] Laboratory test 12/13/2014 [facility] Erythrocyte Sed 75 mm/Hr High 0-[address] [place] [address] [phone] CBC No Diff 11/26/2013 [facility] White Blood 4.9 10^3/uL 4.8 -[address] Count 0.8 [place] [address] [phone] Red Blood Count 3.85 10^6/uL Low 4.0-5.4 Hemoglobin 11.2 g/dL Low 12.0-16.0 Hematocrit 34 % Low 35-47 Mean Corpuscular Volume 88 fL 80-97 Mean Corpuscular Hemoglobin 29 pg 27-31 Mean Corpuscular HGB Conc 33 g/dL 31-36 Red Cell Distribution Width 17 % High 10.5-15 Platelet Count 294 10^3/uL 150-450 Mean Platelet Volume 9 um3 7.4-10.4 Laboratory test 11/26/2013 [facility] Erythrocyte Sed 61 mm/Hr High 0-[address] [place] [address] [phone] Comp Metabolic 11/26/2013 [facility] Sodium 131 Low 133-[address] mmol/[place] [address] [phone] Potassium 4.1 mmol/L 3.5-5.0 Chloride 97 mmol/L [...] Egfr 89.0 >60 55 Lipid Profile 11/26/2013 [facility] Triglycerides 56 mg/dL 40 -200 (Trig/Chol/HDL) [address] [place] [address] [phone] Cholesterol 228 mg/dL High Less than 200 HDL Cholesterol 72 mg/dL High 40-60 56 Cholesterol/HDL Ratio 3.2 Average 1-4.44 LDL Cholesterol 144.8 High Less Than 100 57 Liver Function 11/26/2013 [facility] Direct < 0.1 mg/dL Low 0.1-0.[address] Bilirubin [place], [place] [address] [phone] Indirect Bilirubin (SEE NOTE) mg/dL 0.3-1.0 58 Laboratory test 11/26/2013 [facility] TSH (Thyroid 3.60 0.34- 5.[address] Stimulating miu/[place] [address] Horm) [phone] Urine 11/26/2013 [facility] Ur Microalbumin 100.0 [address] (mg/L) mg/[place] [address] [phone] Urine Creatinine 53.7 mg/dL Urine Microalbumin/Creatinine 186.2 High Less Than 31 Laboratory test 10/29/2012 [facility] Erythrocyte Sed 64 mm/Hr High 0-[address] Rate [place], [place] [address] [phone] CBC Auto Diff 10/29/2012 [facility] White Blood 4.7 Low 4.8- 10.[address] Count 10^3/uL [place], [place] [address] [phone] Red Blood Count 3.64 10^6/uL Low 4.0-5.4 [...] Blood Cells % 0 Laboratory test 10/29/2012 [facility] Liver Panel 0 mg/dL Low 0.1-0.5 60 finding [address] [place] [address] [phone] TSH (Thyroid Stimulating Horm) 5.13 MIU/ML 0.34-5.60 61 Direct Bilirubin 0 mg/dL Low 0.1-0.5 62 Lipid Profile 10/29/2012 [facility] Triglycerides 79 mg/dL 40 -200 (Trig/Chol/HDL) [address] [place] [address] [phone] Cholesterol 236 mg/dL High Less than 200 HDL Cholesterol 60 mg/dL 40-60 63 Cholesterol/HDL Ratio 3.9 Average 1-4.44 LDL Cholesterol 160.2 mg/dL High Less Than 100 64 Comp Metabolic Panel 10/29/2012 [facility] Sodium 132 mmol/L Low 133-145 [address] [place] [address] [phone] Potassium 4.4 mmol/L 3.5-5.0 Chloride 95 mmol/L [...] Egfr 89.2 >60 65 Urine Microalbumin 10/29/2012 [facility] Ur Microalbumin 36.0 mg /L [address] (Mg/L) [place] [address] [phone] Urine Creatinine 53.0 mg/dL Urine Microalbumin/Creatinine 67.9 UG/MG High Less Than 31 CBC Auto Diff 05/04/2012 [facility] White Blood 5.1 CUMM 4.8- 10.[address] [place] [address] [phone] Red Cell Count 3.76 CUMM Low 4.2-5.4 [...] Abs Basophils 0 0-0.2 Laboratory test 05/04/2012 [facility] Troponin-I 0.03 NG/ML 0 -0.06 [address] [place] [address] [phone] Basic Metabolic 05/04/2012 [facility] Sodium 133 mmol/L Low 135-[address] [place] [address] [phone] Potassium 4.0 mmol/L 3.5-5.0 Chloride 95 mmol/L Low 101-111 Co2 (Carbon Dioxide) 30.0 mmol/L 22-32 Anion Gap 8.0 mmol/L 2-11 68 Glucose 196 mg/dL High 70-100 BUN 14 mg/dL 6-24 Creatinine 0.7 mg/dL 0.50-1.40 One Over Creatinine 1.42 BUN/Creatinine Ratio 20.0 8-20 Calcium 9.4 mg/dL 8.1-9.9 eGFR Non- 81.1 > 60 eGFR 104.3 > 60 69 Laboratory test finding 02/26/2011 [facility] Alt (SGPT) 15 U/L 14-54 [address] [place] [address] [phone] Ast (Sgot) 20 U/L 12-42 Lipid Profile 02/26/2011 [facility] Triglyceride 61 mg/dL 40- 200 (Trig/Chol/HDL) [address] [place] [address] [phone] Cholesterol 188 mg/dL Less Than 200 70 High Density Lipoprotein 70 mg/dL High 40-60 71 Cholesterol/HDL Ratio 2.69 AVERAGE 1-4.44 Low Density Lipoprotein 106 mg/dL High Less Than 100 72 Laboratory test 10/24/2009 [facility] LDL Direct 126 mg/dL High Less Than [address] [place] [address] [phone] Alt (SGPT) 16 U/L 14-54 Ast (Sgot) 25 U/L 12-42 Erythrocyte Sed Rate 54 MM/HR High 0-40 Lipid Profile 10/24/2009 [facility] Triglyceride 66 mg/dL 40- 200 (Trig/Chol/HDL) [address] [place] [address] [phone] Cholesterol 205 mg/dL High Less Than 200 74 High Density Lipoprotein 68 mg/dL High 40-60 75 Cholesterol/HDL Ratio 3.01 AVERAGE 1-4.44 Low Density Lipoprotein 124 mg/dL High Less Than 100 76 Basic Metabolic 10/24/2009 [facility] Sodium 134 mmol/L Low 135-145 Panel [address] [place] [address] [phone] Potassium 4.3 mmol/L 3.5-5.0 Chloride 98 mmol/L Low 101-111 Co2 (Carbon Dioxide) 31.0 mmol/L 22-32 Anion Gap 5.0 mmol/L 2-11 77 Glucose 256 mg/dL High 70-100 78 BUN 13 mg/dL 6-24 Creatinine 0.80 mg/dL 0.50-1.40 One Over Creatinine 1.20 BUN/Creatinine Ratio 16.3 8-20 Calcium 9.4 mg/dL 8.1-9.9 79 eGFR Non- 74.3 > 60 eGFR 89.9 > 60 80 Laboratory test 06/08/2009 [facility] TSH 3.97 MIU/ML 0.34- 5.60 [address] [place] [address] [phone] Lipid Panel - 06/08/2009 [facility] CPK 53 U/L 0-[address] ([place] [address] Kinase) [phone] Comp Metabolic 06/08/2009 [facility] Sodium 137 mmol/L 135- [address] [place] [address] [phone] Potassium 5.5 mmol/L High 3.5-5.0 Chloride 99 [...] 90.2 > 60 86 Lipid Profile 06/08/2009 [facility] Triglyceride 69 mg/dL 40- 200 (Trig/Chol/HDL) [address] [place] [address] [phone] Cholesterol 218 mg/dL High Less Than 200 87 High Density Lipoprotein 56 mg/dL 40-60 88 Cholesterol/HDL Ratio 3.89 AVERAGE 1-4.44 Low Density Lipoprotein 148 mg/dL High Less Than 100 89 Laboratory test 10/19/2007 [facility] Hemoglobin A1c 6.3 % High <6.0 [address] [place] [address] [phone] Lipid Profile 10/19/2007 [facility] Cholesterol/HD 3.39 1- 4.44 (Trig/Chol/HDL) [address] [place] [address] [phone] Cholesterol 193 mg/dL Less Than 200 91 Triglyceride 81 mg/dL 40-200 High Density Lipoprotein 57 mg/dL 40-60 Low Density Lipoprotein 120 mg/dL High Less Than 100 92 Comp Metabolic Panel 10/19/2007 [facility] One Over Creatinine 1.[address] [place] [address] [phone] Anion Gap 5.0 mmol/L 2-11 93 Albumin/Globulin [...] Creatinine 1.0 mg/dL 0.5-1.4 Laboratory test 10/19/2007 [facility] Erythrocyte Sed 55 MM/HR High 0-[address] [place] [address] [phone] CPK (Creatine Kinase) 66 U/L 0-170 Laboratory test 03/10/2007 [facility] CPK (Creatine 56 U/L 0- [address] Kinase) [place] [address] [phone] Comp Metabolic 03/10/2007 [facility] One Over 1.[address] [place] [address] [phone] Anion Gap 8.0 mmol/L 2-11 94 Albumin/Globulin [...] Creatinine 0.8 mg/dL 0.5-1.4 Lipid Profile 03/10/2007 [facility] Cholesterol/HDL 3.25 1- 4.44 (Trig/Chol/HDL) [address] [place] [address] [phone] Cholesterol 192 mg/dL Less Than 200 95 Triglyceride 54 mg/dL 40-200 High Density Lipoprotein 59 mg/dL 40-60 Low Density Lipoprotein 122 mg/dL High Less Than 100 96 Laboratory test 03/10/2007 [facility] Erythrocyte Sed 63 MM/HR High 0-[address] [place] [address] [phone] Hemoglobin A1c 7.4 % High <6.0 97 Comp Metabolic Panel 10/08/2006 [facility] One Over Creatinine 1.[address] [place] [address] [phone] Anion Gap 2.0 mmol/L 2-11 98 Albumin/Globulin [...] Creatinine 1.0 mg/dL 0.5-1.4 Lipid Profile 10/08/2006 [facility] Cholesterol/HDL 3.55 1- 4.44 (Trig/Chol/HDL) [address] Ratio [place], [place] [id number] [phone] Cholesterol 213 mg/dL High Less Than 200 99 Triglyceride 79 mg/dL 40-200 High Density Lipoprotein 60 mg/dL 40-60 100 Low Density Lipoprotein 137 mg/dL High Less Than 100 101 Laboratory test 10/08/2006 [facility] CPK (Creatine 50 U/L 0- [address] Kinase) [place] [address] [phone] Erythrocyte Sed Rate 59 MM/HR High 0-40 Hemoglobin A1c 7.2 % High <6.0 102 Laboratory test 04/27/2006 [facility] Hemoglobin A1c 6.9 % High <6.0 [address] [place] [address] [phone] Lipid Profile 04/27/2006 [facility] Cholesterol/HD 3.58 1- 4.44 (Trig/Chol/HDL) [address] L Ratio [place]AGE [place], [place] [id number] [phone] Cholesterol 222 mg/dL High Less Than 200 104 Triglyceride 76 mg/dL 40-200 High Density Lipoprotein 62 mg/dL High 40-60 105 Low Density Lipoprotein 145 mg/dL High Less Than 100 106 Laboratory test 04/27/2006 [facility] Erythrocyte Sed 52 MM/HR High 0-[address] [place] [address] [phone] Liver Function 04/27/2006 [facility] Albumin/Globulin 1.2 1- [address] [place] [address] [phone] Albumin 3.6 GM/DL 3.2-5.2 Alkaline Phosphatase 69 U/L 30-110 Alt (SGPT) 16 U/L 14-54 Ast (Sgot) 22 U/L 12-42 Bilirubin Direct < 0.1 mg/dL Low 0.1-0.5 Globulin 3.1 GM/DL 2-4 Bilirubin Total 0.5 mg/dL 0.4-1.5 Total Protein 6.7 GM/DL 6.2-8.1 Basic Metabolic 04/27/2006 [facility] One Over Creatinine 1.[address] [place] [address] [phone] Anion Gap 7.0 mmol/L 2-11 107 BUN 11 mg/dL 6-24 Calcium 9.6 mg/dL 8.7-10.2 Chloride 102 mmol/L 101-111 Co2 (Carbon Dioxide) 30.0 mmol/L 22-32 Glucose 137 mg/dL High 70-105 Potassium 4.3 mmol/L 3.5-5.0 Sodium 139 mmol/L 135-145 BUN/Creatinine Ratio 15.7 8-20 Creatinine 0.7 mg/dL 0.5-1.4 Laboratory test 04/27/2006 [facility] BNP Evaluatr 135.75 High 7.5-[address] pg/[place] [address] [phone] CC RESULTS TO: FRANCISCA COTA [phone] [facility]HE[facility] [phone] 2 CC RESULTS TO: FRANCISCA COTA [phone] [facility] [phone] 3 Test Performed by: [facility] [address] [place] [address] Bola Quinones M.D. Director of Laboratory 4 [...] <15 (or dialysis) 5 Test Performed by: [facility] [address] [place] [id number] Bola Quinones M.D. Director of Laboratory 6 [...] <15 (or dialysis) 8 Test Performed by: [place] [address] 9 Test Performed by: [place] [address] 10 Because ethnic data is not always [...] For detailed information regarding test interpretation see: [email or web address]/test-catalog/ [email or web address] 26 Test Performed by: [facility] [address] [place] [address] 27 RESULT: No apparent monoclonal protein on serum electrophoresis. Test Performed by: [facility] [address] [place] [address] 28 Because ethnic data is not always [...] Acute inflammation: >10.00 30 Test Performed by: [place] [id number] Interpretation: Strong Positive (>=60.0) REFERENCE VALUE <20.0 (Negative) Test Performed by: [place] [id number] Desirable <150 Borderline high 150-199 High [...] 5 Kidney failure <15 (or dialysis) 46 [employer] Clerk: JORGE L ALLEN 47 >100 to <200 [...] Acute inflammation: >10.00 54 RUN DATE: 01/16/15 [facility] LAB LIVE PAGE 1 RUN TIME: [address] [place] [address] Specimen Inquiry Name: KATHERYN TATUM : [address]: Floyd Lucero MD Acct: [id number] Unit: [id number] AGE: 79 Location: ENDO Re01/12/15 SEX: F Status: REG REF SPEC: [id number] CESIA: 01/12/150855 [facility] DR: Floyd Lucero MD REQ: [id number] RECD: 01/12/15628 STATUS: ANAT PATEL DR: Francisca Contreras MATERIAL CHASER _ ORDERED: [facility], LEVEL IV/2 An H. pylori immunostain, [...] performed at Main Lab DEPARTMENT OF PATHOLOGY, [facility] [employer] [place] [address] Bola Quinones M.D. Director [facility] # [id number] RUN DATE: 01/16/15 [facility] LAB LIVE PAGE 2 RUN TIME: 9241 [facility] [place], [place] [address] Specimen Inquiry Patient: KATHERYN TATUM Kelin [id number] (Continued) GROSS DESCRIPTION (Continued) GROSS DESCRIPTION (Continued) 2. The specimen is received in formalin labeled, Biopsies Gastric, and consists of a 0.6 x 0.5 x 0.2 cm aggregate of multiple palmer irregular soft tissue fragments, which is submitted entirely in one cassette. Signed (signature on file) Ara Wilkerson MD 0938 END OF REPORT * ML=Testing performed at Main Lab DEPARTMENT OF PATHOLOGY, [address] [place] [address] Bola Quinones M.D. Director [facility] # [id number] 55 Because ethnic data is not always [...] 0.06 ng/mL NOT SUPPORTIVE OF DIAGNOSIS OF [place] 0.06 - 0.50 ng/ml INDETERMINATE: SUGGEST SERIAL STUDIES IF CLINICALLY INDICATED. Greater than 0.5 ng/mL CONSISTENT WITH DIAGNOSIS OF [place] . 68 Anion gap measurement may be [...] change was based on recommendations from the [place] [employer]. 79 Please note change in [...] change was based on recommendations from the [place] [employer]. 84 Please note change in [...] IN SELECTIVE PATIENTS <6.0%. PLEASE REFER TO [place] [employer] DIABETIC CARE GUIDELINES FOR FURTHER [...] IN SELECTIVE PATIENTS <6.0%. PLEASE REFER TO [place] [employer] DIABETIC CARE GUIDELINES FOR FURTHER [...] IN SELECTIVE PATIENTS <6.0%. PLEASE REFER TO [place] [employer] DIABETIC CARE GUIDELINES FOR FURTHER INFORMATION. 103 THERAPEUTIC TARGET FOR THE TREATMENT OF DIABETES MELLITUS PATIENTS IS <7% HBA1C, AND IN SELECTIVE PATIENTS <6.0%. PLEASE REFER TO [place] [employer] DIABETIC CARE GUIDELINES FOR FURTHER INFORMATION. 104 Classification: Borderline High . 105 Classification: High . 106 CALCULATED LDL APPROXIMATES THE VALUE OF A DIRECT LDL MEASUREMENT. Classification: Borderline High . 107 Anion gap measurement may be of limited value in the presence of any alkalosis, especially in a combined acid base disorder. . Procedures Date Code Description Status 02/25/2019 63956 Interrogation Implant Cardiovasc Monitor System Incl Completed Analysis Int 02/25/2019 79120 Interrogation Implant Cardiovasc Monitor System Incl Completed Analysis Int 02/25/2019 93368 Icd Eval With Iterative Adjustmt Multiple Lead System Completed 02/25/2019 50925 Icd Eval With Iterative Adjustmt Multiple Lead System Completed 02/11/2019 42192 ECHO Transthoracic, Real-Time 2D With Doppler And Completed Color Flow 02/11/2019 94897 ECHO Transthoracic, Real-Time 2D With Doppler And Completed Color Flow 01/14/2019 [id number] Diabetic Retinal Eye Exam Completed 01/12/2019 51140 EKG Tracing & Interpretation Completed 12/16/2018 75649 Icd Check Remote Up To 90 Days Single,Dual,Multiple Completed Lead 12/16/2018 50917 Icd Check Remote Up To 90 Days Single,Dual,Multiple Completed Lead 12/16/2018 03771 Interrogation Device Eval Remote Up To 30 Days Completed Analysis,Rev,RP 12/16/2018 12917 Interrogation Device Eval Remote Up To 30 Days Completed Analysis,Rev,RP 12/16/2018 28066 Icd Eval Sing,Dual,Multi Lead Remote Recpt Transm Tech Completed Rev Tech S 12/16/2018 01490 Icd Eval Sing,Dual,Multi Lead Remote Recpt Transm Tech Completed Rev Tech S 10/18/2018 96175 Interrogation Device Eval Remote Up To 30 Days Completed Analysis,Rev,RP 10/18/2018 56151 Implantable Cardio System Loop Recorder Sys Remota Completed Data Acquistio 10/18/2018 00478 Interrogation Device Eval Remote Up To 30 Days Completed Analysis,Rev,RP 10/18/2018 65575 Implantable Cardio System Loop Recorder Sys Remota Completed Data Acquistio 09/17/2018 88873 ECHO Transthoracic, Real-Time 2D With Doppler And Completed Color Flow 09/17/2018 71083 ECHO Transthoracic, Real-Time 2D With Doppler And Completed Color Flow 09/14/2018 05339 Icd Eval With Iterative Adjustmt Multiple Lead System Completed 09/14/2018 12177 Interrogation Implant Cardiovasc Monitor System Incl Completed Analysis Int 09/14/2018 69172 Icd Eval With Iterative Adjustmt Multiple Lead System Completed 09/14/2018 71808 Interrogation Implant Cardiovasc Monitor System Incl Completed Analysis Int 09/03/2018 35393 EKG Tracing & Interpretation Completed 05/03/2018 70738 Pace Maker Eval W/Iterative Adjment Dual Lead Completed 05/03/2018 73315 Pace Maker Eval W/Iterative Adjment Dual Lead Completed 04/28/2018 45223 ECHO Transthoracic, Real-Time 2D With Doppler And Completed Color Flow 04/28/2018 62864 ECHO Transthoracic, Real-Time 2D With Doppler And Completed Color Flow 03/30/2018 85705 EKG Tracing & Interpretation Completed 10/29/2017 12671 Pace Maker Eval W/Iterative Adjment Dual Lead Completed 10/09/2017 65200 EKG Tracing & Interpretation Completed 09/30/2017 84206 ECHO Transthoracic, Real-Time 2D With Doppler And Completed Color Flow 09/30/2017 47805 ECHO Transthoracic, Real-Time 2D With Doppler And Completed Color Flow 09/29/2017 66426 Holter Monitor Review (24 hr)dr review & interp only Completed 09/28/2017 36653 ECG Monitor/Recording W/Visual Superimposition Completed Scanning 09/11/2017 44516 Interrogation Device Eval In Person W/DR Completed Analysis,Single,Dual,Mul 09/11/2017 41557 EKG Tracing & Interpretation Completed 05/07/2017 44573 Pace Maker Eval W/Iterative Adjment Dual Lead Completed 04/08/2017 10681 ECHO Transthoracic, Real-Time 2D With Doppler And Completed Color Flow 03/04/2017 50212 EKG Tracing & Interpretation Completed 12/25/2016 059636100 Diabetic Retinal Eye Exam Completed 11/11/2016 59535 Pace Maker Eval W/Iterative Adjment Dual Lead Completed 11/07/2016 23337 EKG Tracing & Interpretation Completed 09/23/2016 79772 Pace Maker Eval W/Iterative Adjment Dual Lead Completed 07/25/2016 57256 ECHO Transthoracic, Real-Time 2D With Doppler And Completed Color Flow 07/18/2016 42130 Color Flow Doppler/Interp & Reprt Completed 07/18/2016 42638 Pulse Wave/Continuous-Interp.RPT Completed 07/18/2016 69806 Echocardiography, Transesophageal, Real Time W/Image Completed 2D W/W/O M-M 07/14/2016 56134 ECHO Stress Test Incl Perf Contiuous ekg Monitoring Completed W/Phys Superv 06/26/2016 78287 Polysomnography Sleep Staging 4+ Parameters Completed 05/09/2016 21240 Treadmill Interp/Report Only Completed 05/09/2016 95519 Stress Test Supervsn W/Out I/R Completed 04/29/2016 05719 EKG Tracing & Interpretation Completed 04/15/2016 10278 Pace Maker Eval W/Iterative Adjment Dual Lead Completed 03/12/2016 39359 EKG Tracing & Interpretation Completed 03/02/2016 94188 EKG, Interpretation Only Completed 02/29/2016 64460 ECHO Transthorasic Realtime 2D W Doppler & Color Flow Completed Hosp 02/29/2016 68904 EKG, Interpretation Only Completed 02/27/2016 29601 EKG Tracing & Interpretation Completed 04/17/2015 14077 EKG Tracing & Interpretation Completed 11/03/2014 91818 ECHO Transthoracic, Real-Time 2D With Doppler And Completed Color Flow 08/29/2014 34004 EKG Tracing & Interpretation Completed 02/22/2014 28924 EKG Tracing & Interpretation Completed 12/09/2013 86192 ECHO Transthoracic, Real-Time 2D With Doppler And Completed Color Flow 08/24/2013 17249 EKG Tracing & Interpretation Completed 11/25/2012 68617 EKG Tracing & Interpretation Completed 10/25/2012 61144 Rad Exam; Forearm Completed 09/01/2012 53104 Long Arm Cast Application Completed 09/01/2012 51671 Rad Exam; Forearm Completed 08/11/2012 32982 Long Arm Cast Application Completed 08/11/2012 20046 CLSD TRMT Radial & Ulnar Shaft Completed 08/11/2012 06563 Closed Treatment Ulnar Shaft Fracture Completed 05/12/2012 37027 EKG Tracing & Interpretation Completed 04/13/2012 07448 ECHO Transthoracic, Real-Time 2D With Doppler And Completed Color Flow 02/04/2012 26940 EKG Tracing & Interpretation Completed 06/04/2011 74249 ECHO Transthoracic, Real-Time 2D With Doppler And Completed Color Flow 04/04/2011 55126 EKG Tracing & Interpretation Completed 10/24/2009 87628 ECHO Transthoracic, Real-Time 2D With Doppler And Completed Color Flow 09/26/2009 91518 EKG Tracing & Interpretation Completed 10/31/2008 90828 Color Doppler Completed 10/31/2008 02772 Pulse Doppler & Continuous Wave Completed 10/31/2008 30897 Echocardiogram Completed 10/31/2008 38738 Echocardiogram Completed 10/31/2008 80281 Color Doppler Completed 09/15/2008 62732 EKG Tracing & Interpretation Completed 12/27/2007 55838 Color Doppler Completed 12/27/2007 45205 Color Doppler Completed 12/27/2007 42482 Color Doppler Completed 12/27/2007 78393 Pulse Doppler & Continuous Wave Completed 12/27/2007 30777 Pulse Doppler & Continuous Wave Completed 12/27/2007 76837 Echocardiogram Completed 12/27/2007 94516 Echocardiogram Completed 12/27/2007 99255 Echocardiogram Completed 11/01/2007 15195 EKG Tracing & Interpretation Completed 04/28/2007 01748 EKG Tracing & Interpretation Completed 04/28/2007 71826 EKG Tracing & Interpretation Completed 10/07/2006 66046 EKG Tracing & Interpretation Completed 10/07/2006 75398 EKG Tracing & Interpretation Completed 05/06/2006 52343 Color Doppler Completed 05/06/2006 63929 Pulse Doppler & Continuous Wave Completed 05/06/2006 35361 Pulse Doppler & Continuous Wave Completed 05/06/2006 00321 Echocardiogram Completed 04/06/2006 78072 EKG Tracing & Interpretation Completed 04/30/2005 95958 EKG Tracing & Interpretation Completed 02/07/2005 63440 Color Doppler Completed 02/07/2005 80151 Pulse Doppler & Continuous Wave Completed 02/07/2005 25242 Echocardiogram Completed 01/27/2005 91223 EKG Tracing & Interpretation Completed 09/10/2004 47087 EKG Tracing & Interpretation Completed 08/12/2004 17641 Color Doppler Completed 08/12/2004 26663 Pulse Doppler & Continuous Wave Completed 08/12/2004 38417 Echocardiogram Completed Encounters Type Date Location Provider Dx Diagnosis Office Visit 02/18/2019 [facility] M25.551 Pain in right 8:44a Assoc,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[place], 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 Hospitalists R26.2 Difficulty in walking, not elsewhere classified E11.9 Type 2 diabetes mellitus without complications M06.9 Rheumatoid arthritis, unspecified Office Visit 01/28/2019 Shanta MasonSarah I42.9 Cardiomyopathy, 11:00a Cardiology Christiano N.Josue unspecified I48.0 Paroxysmal atrial fibrillation I49.5 Sick sinus syndrome Z95.810 Presence of automatic (implantable) cardiac defibrillator I34.0 Nonrheumatic mitral (valve) insufficiency I44.7 Left bundle-branch block, unspecified Office Visit 01/12/2019 [place] Wolf I42.9 Cardiomyopathy, 11:00a Cardiology Beata Cota unspecified I48.0 Paroxysmal atrial fibrillation I49.5 Sick sinus syndrome Z95.810 Presence of automatic (implantable) cardiac defibrillator I34.0 Nonrheumatic mitral (valve) insufficiency E11.65 Type 2 diabetes mellitus with hyperglycemia I50.22 Chronic systolic (congestive) heart failure I44.7 Left bundle-branch block, unspecified Office Visit 10/12/2018 Zara MasonSarah I42.9 Cardiomyopathy, 11:00a Cardiology Of Christiano N.Josue unspecified [facility] I34.0 Nonrheumatic mitral (valve) insufficiency I48.0 Paroxysmal [...] Rheumatology Divya Gonzáles M05.79 Rheu arthritis Services [facility] w rheu factor mult site w/o org/sys involv E11.65 Type 2 diabetes mellitus with hyperglycemia R21 Rash and other nonspecific skin eruption E66.09 Other obesity due to excess calories Z79.899 Other terminal operator (current) drug therapy Office Visit 06/22/2018 3:00p Rheumatology Divya Gonzáles M05.79 Rheu arthritis Services Of [facility] IMAGING AIDE w rheu factor mult site w/o org/sys involv Z79.899 Other longterm (current) drug therapy Office Visit 06/22/2018 Zara Jaya S. I42.9 Cardiomyopathy, 10:30a Cardiology Of Foster, N.P. unspecified [facility] I48.0 Paroxysmal atrial fibrillation I49.5 Sick sinus syndrome R06.02 Shortness of breath I34.0 Nonrheumatic mitral (valve) insufficiency Z95.0 Presence of cardiac pacemaker Office Visit 05/13/2018 Zara Jaya S. I42.9 Cardiomyopathy, 10:30a Cardiology Of [facility] N[facility] unspecified [facility] I48.0 Paroxysmal atrial fibrillation I49.5 Sick sinus syndrome Z95.0 Presence of cardiac pacemaker I34.0 Nonrheumatic mitral (valve) insufficiency R06.02 Shortness of breath Office Visit 05/12/2018 10:30a Pulmonology And Daphne G47.33 Obstructive sleep Sleep Services Of MD Anita apnea (adult) [facility] (pediatric) E66.09 Other obesity due to excess calories Office Visit 03/30/2018 1:40p [facility] Francisca Wolf M06.9 Rheumatoid Beata Cota arthritis, unspecified D64.9 Anemia, unspecified I42.9 Cardiomyopathy, unspecified I49.5 Sick sinus syndrome I48.0 Paroxysmal atrial fibrillation I50.22 Chronic systolic (congestive) heart failure Office Visit 03/05/2018 10:40a Rheumatology Meet M06.9 Rheumatoid Services Of [facility] Beata Greene arthritis, unspecified D64.9 Anemia, unspecified Z79.899 Other longterm (current) drug therapy M79.1 Myalgia R63.5 Abnormal weight gain Office Visit 10/20/2017 4:00p Rheumatology Meet M06.9 Rheumatoid Services Of [facility] Beata Greene arthritis, unspecified D64.9 Anemia, unspecified M25.552 Pain in left hip Z79.899 Other longterm (current) drug therapy Office Visit 10/09/2017 2:00p [place] Francisca Wolf I44.7 Left bundle-branch Cardiology Beata Cota block, unspecified I42.9 Cardiomyopathy, unspecified I34.0 Nonrheumatic mitral (valve) insufficiency I48.0 Paroxysmal atrial fibrillation Office Visit 09/11/2017 11:00a Rheumatology Meet M06.9 Rheumatoid Services Of Gini Greene M.D. arthritis, unspecified Z79.899 Other terminal operator (current) drug therapy D64.9 Anemia, unspecified M25.552 Pain in left hip M79.1 Myalgia Office Visit 09/11/2017 3:20p [place] Francisca Wolf I44.7 Left bundle-branch Cardiology Beata Cota block, unspecified M06.9 Rheumatoid arthritis, unspecified R94.31 Abnormal electrocardiogram [ECG] [EKG] I42.9 Cardiomyopathy, unspecified Z95.0 Presence of cardiac pacemaker R00.1 Bradycardia, unspecified Office Visit 05/06/2017 9:45a Pulmonology And Daphne G47.33 Obstructive sleep Sleep Services Of MD Anita apnea (adult) [facility] (pediatric) Office Visit 03/04/2017 11:00a [facility] Francisca Wolf 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 I34.0 Nonrheumatic mitral (valve) insufficiency Z95.0 Presence of cardiac pacemaker I42.9 Cardiomyopathy, unspecified Office Visit 12/05/2016 3:00p [facility] DAR Lei Z95.0 Presence of cardiac pacemaker 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 I34.0 Nonrheumatic mitral (valve) insufficiency I48.91 Unspecified atrial fibrillation E78.5 Hyperlipidemia, unspecified Office Visit 11/07/2016 2:00p [facility] Francisca Wolf I49.5 Sick sinus Beata Cota syndrome 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 I34.0 Nonrheumatic mitral (valve) insufficiency I44.7 Left bundle-branch block, unspecified G47.33 Obstructive sleep apnea (adult) (pediatric) I10 Essential (primary) hypertension I50.22 Chronic systolic (congestive) heart failure Office Visit 10/21/2016 Pulmonology And Daphne G47.33 Obstructive sleep 1:15p Sleep Services Of MD Anita apnea (adult) [facility] (pediatric) Office Visit 08/25/2016 [facility] Fior Chavez, I34.0 Nonrheumatic mitral 8:30a PA (valve) insufficiency I48.91 Unspecified atrial fibrillation 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 Francisca Wolf G47.33 Obstructive sleep Of [facility] Beata Cota apnea (adult) (pediatric) I10 Essential (primary) hypertension I34.0 Nonrheumatic mitral (valve) insufficiency R06.00 Dyspnea, unspecified E66.9 Obesity, unspecified R60.0 Localized edema I49.5 Sick sinus syndrome I42.9 Cardiomyopathy, unspecified Office Visit 06/17/2016 9:00a 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 R09.02 Hypoxemia Office Visit 05/14/2016 9:00a [facility] Francisca Wolf I10 Essential (primary) Beata Cota hypertension I34.0 Nonrheumatic mitral (valve) insufficiency I50.9 Heart failure, unspecified R06.02 Shortness of breath Office Visit 04/29/2016 8:40a [facility] Francisca Wolf I10 Essential (primary) Beata Cota hypertension Z95.0 Presence of cardiac pacemaker I48.0 Paroxysmal atrial fibrillation I50.9 Heart failure, unspecified G47.9 Sleep disorder, unspecified Office Visit 04/15/2016 2:00p [facility] Nurse Visit I10 Essential (primary) cc hypertension Office Visit 04/03/2016 10:00a [facility] Fior Chavez, I48.91 Unspecified atrial PA fibrillation I49.5 Sick sinus syndrome Z95.0 Presence of cardiac pacemaker I34.0 Nonrheumatic mitral (valve) insufficiency D64.9 Anemia, unspecified I10 Essential (primary) hypertension Office Visit 03/12/2016 11:00a [facility] Francisca Wolf I49.5 Sick sinus Beata Cota syndrome I48.0 Paroxysmal atrial fibrillation I48.91 Unspecified atrial fibrillation M06.9 Rheumatoid arthritis, unspecified I34.0 Nonrheumatic mitral (valve) insufficiency Office Visit 03/03/2016 1:46p [facility] Calvin Brambila I49.5 Sick sinus Of Gini Ludwig M.D. syndrome I48.0 Paroxysmal atrial fibrillation I42.9 Cardiomyopathy, unspecified Office Visit 03/02/2016 [place] SSarah I48.0 Paroxysmal atrial 11:35a Cardiology Beata Bray fibrillation Office Visit 03/01/2016 [place] Diego Segovia I42.9 Cardiomyopathy, 11:25a Cardiology Beata Bray unspecified I34.0 Nonrheumatic mitral (valve) insufficiency I48.0 Paroxysmal atrial fibrillation Office Visit 02/29/2016 [facility] Michelle I48.91 Unspecified atrial 10:03a Assoc,pc Root, DO fibrillation Hospitalists I45.5 Other specified heart block M06.9 Rheumatoid arthritis, unspecified Office Visit 02/29/2016 4:39p [facility] Fletcher Segovia I48.0 Paroxysmal atrial Of Gini Arana, DO fibrillation FACC R55 Syncope and collapse I42.9 Cardiomyopathy, unspecified I49.5 Sick sinus syndrome Office Visit 02/27/2016 10:30a [place] Fior Chavez, I42.9 Cardiomyopathy, Cardiology [place] unspecified I44.7 Left bundle-branch block, unspecified I34.0 Nonrheumatic mitral (valve) insufficiency I36.1 Nonrheumatic tricuspid (valve) insufficiency I48.0 Paroxysmal atrial fibrillation Office Visit 04/17/2015 [place] Francisca Wolf 425.4 Cardiomyopathy Other 3:20p Cardiology Magdiel Cota M.D. Prim Assembler Fitter 424.0 Mitral Valve Disorder 426.3 Left Bundle Branch Block Other Office Visit 08/29/2014 2:20p [facility] Francisca Wolf 426.3 Left Bundle Mauser, M.D. Branch Block Other 425.4 Cardiomyopathy Other Prim 401.9 Hypertension Unspec Office Visit 02/22/2014 [place] Francisca Wolf 425.4 Cardiomyopathy Other 2:20p Cardiology Beata Cota Prim 426.3 Left Bundle Branch Block Other 401.1 Hypertension Benign 714.0 Rheumatoid Arthritis Office Visit 10/07/2013 1:30p [facility] Nurse Visit cc 401.1 Hypertension Benign Office Visit 08/24/2013 10:40a [facility] Francisca Wolf 424.0 Mitral Valve Beata Cota Disorder 425.4 Cardiomyopathy Other Prim 426.3 Left Bundle Branch Block Other Office Visit 11/25/2012 2:20p [facility] Francisca Wolf 714.0 Rheumatoid Beata Cota Arthritis 424.0 Mitral Valve Disorder 425.4 Cardiomyopathy Other Prim 426.3 Left Bundle Branch Block Other Office Visit 05/12/2012 3:00p [facility] Francisca Wolf 424.0 Mitral Valve Beata Cota Disorder 425.4 Cardiomyopathy Other Prim 426.3 Left Bundle Branch Block Other 250.00 Diabetes Mellitus W/O Compl Type II Or Unspec Controlled 272.0 Hypercholesterolemia Pure Office Visit 02/04/2012 11:20a [facility] Francisca Wolf 426.3 Left Bundle Beata Cota Branch Block Other 425.4 Cardiomyopathy Other Prim 424.0 Mitral Valve Disorder 250.00 Diabetes Mellitus W/O Compl Type II Or Unspec Controlled Office Visit 04/04/2011 3:00p [facility] Francisca Wolf 424.0 Mitral Valve Beata Cota Disorder 426.3 Left Bundle Branch Block Other 425.4 Cardiomyopathy Other Prim 272.0 Hypercholesterolemia Pure 250.00 Diabetes Mellitus W/O Compl Type II Or Unspec Controlled Office Visit 09/26/2009 3:20p [facility] Francisca Wolf 426.3 Left Bundle Beata Cota Branch Block Other 424.0 Mitral Valve Disorder 425.4 Cardiomyopathy Other Prim 401.1 Hypertension Benign Office Visit 09/15/2008 9:00a [facility] Francisca Wolf 426.3 Left Bundle Beata Cota Branch Block Other 424.0 Mitral Valve Disorder 425.4 Cardiomyopathy Other Prim 272.0 Hypercholesterolemia Pure 401.1 Hypertension Benign Office Visit 01/26/2008 10:10a [facility] Francisca Wolf 426.3 Left Bundle Beata Cota Branch Block Other 424.0 Mitral Valve Disorder 425.4 Cardiomyopathy Other Prim 401.1 Hypertension Benign Office Visit 11/01/2007 3:00p [facility] Francisca Wolf 426.3 Left Bundle Beata Cota Branch Block Other 424.0 Mitral Valve Disorder 401.1 Hypertension Benign 272.0 Hypercholesterolemia Pure Office Visit 04/28/2007 2:00p [facility] Francisca Wolf 426.3 Left Bundle Beata Cota Branch Block Other 424.0 Mitral Valve Disorder Office Visit 10/07/2006 11:00a [facility] Francisca Wolf 424.0 Mitral Valve Beata Cota Disorder 401.1 Hypertension Benign 272.0 Hypercholesterolemia Pure 250.00 Diabetes Mellitus W/O Compl Type II Or Unspec Controlled Office Visit 04/06/2006 Shanta Wolf 786.09 Dyspnea & 2:20p Camila Cota M.D. Respiratory Abnormalities Other 424.0 Mitral Valve Disorder 401.1 Hypertension Benign Office Visit 09/29/2005 3:00p [facility] Francisca Wolf 414.8 Ischemic Heart Beata Cota Disease Chronic Other Spec Forms 424.0 Mitral Valve Disorder Office Visit 06/23/2005 Shanta Wolf 425.4 Cardiomyopathy Other 2:40p Camila Cota M.D. 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 at [facility]2018 10:45 am - Daphne Howard MD at Pulmonology [facility]03/01 - Divya Gonzáles, FNPM05.79 Rheumatoid arthritis with [...] as needed for pain.Follow up:4 weeks labs osphsS79.551 Pain in right hipComments:You have severe osteoarthritis [...] follow up with Dr. Wallace on the azidgitaC61.899 Other longterm (current) drug therapyComments:The sulfasalazine has no interaction with your other medications.
--- NOTE | 2019-04-13 22:20 | ED ---
Head Injury - HPI Summary HPI Summary: 83-year-old female presents for head injury that occurred around 3 PM this afternoon. States she was trying to squat next to a car, lost her balance, and fell forward hitting the left side of her head on concrete. Denies any loss of consciousness. Has full recollection of the event. States she did sustain a laceration to her left christian however bleeding was controlled prior to arrival. Unknown tetanus status. Patient is currently taking Eliquis. Denies headache, visual disturbances, dizziness, neck pain, nausea, vomiting, or any other injury. - History Of Current Complaint Chief Complaint: EDHeadInjury Stated Complaint: FALL, HEAD LAC PER PT Time Seen by Provider: 04/13/19 20:22 Hx Obtained From: Patient Pain Intensity: 2 - Allergies/Home Medications Allergies/Adverse Reactions: Allergies Allergy/AdvReac Type Severity Reaction Status Date / Time ciprofloxacin Allergy Severe Rash Verified 04/13/19 18:25 atorvastatin Allergy Intermediate Leg Cramps Verified 04/13/19 18:25 ezetimibe [From Zetia] Allergy Intermediate Itching Verified 04/13/19 18:25 losartan Allergy Intermediate Rash Verified 04/13/19 18:25 ARB-Angiotensin Receptor Allergy Unknown Unknown Verified 04/13/19 18:25 Antagonist Reaction Details gold Au 198 Allergy Unknown Unknown Verified 04/13/19 18:25 Reaction Details methotrexate Allergy Unknown Unknown Verified 04/13/19 18:25 Reaction Details Penicillins Allergy Unknown Unknown Verified 04/13/19 18:25 Reaction Details pravastatin Allergy Unknown Unknown Verified 04/13/19 18:25 Reaction Details ramipril Allergy Unknown Unknown Verified 04/13/19 18:25 Reaction Details amlodipine AdvReac Intermediate Headache Verified 04/13/19 18:25 diltiazem AdvReac Intermediate See Comment Verified 04/13/19 18:25 valsartan AdvReac Intermediate Coughing Verified 04/13/19 18:25 PMH/Surg Hx/FS Hx/Imm Hx Endocrine/Hematology History: Reports: Hx Anticoagulant Therapy - new starting yesterday, Hx Diabetes, Hx Thyroid Disease, Hx Anemia, Other Endocrine/ Hematological Disorders - Rheumatoid arthritis Denies: Hx Unexplained Bleeding Cardiovascular History: Reports: Hx Atrial Fibrillation, Hx Hypercholesterolemia , Hx Hypertension, Hx Pacemaker/ICD, Hx Valvular Heart Disease - pt states "leaky valve", Other Cardiovascular Problems/Disorders - Left BBB Denies: Hx Aneurysm, Hx Angina, Hx Angioplasty, Hx Auto Implanted Cardiovert Defib, Hx Cardiac Arrest, Hx Cardiomegaly, Hx Congenital Heart Disease, Hx Congestive Heart Failure, Hx Coronary Artery Disease, Hx Deep Vein Thrombosis, Hx Embolism, Hx Hypotension, Hx Peripheral Vascular Disease, Hx Syncope GI History: Denies: Hx Jaundice History: Denies: Hx Renal Disease Musculoskeletal History: Reports: Hx Rheumatoid Arthritis Denies: Hx Arthritis, Hx Back Problems, Hx Bursitis, Hx Fibromyalgia, Hx Gout , Hx Orthopedic Injury, Hx Osteoporosis, Hx Scoliosis, Hx Tendonitis, Other Musculoskeletal History Sensory History: Denies: Hx Cataracts, Hx Contacts or Glasses, Hx Glaucoma, Hx Hearing Aid Opthamlomology History: Denies: Hx Cataracts, Hx Contacts or Glasses, Hx Glaucoma Neurological History: Denies: Hx Headaches, Hx Seizures, Hx Transient Ischemic Attacks (TIA) Psychiatric History: Denies: Hx Anxiety, Hx Depression - Cancer History Hx Chemotherapy: No Hx Radiation Therapy: No Infectious Disease History: No Infectious Disease History: Denies: Traveled Outside the [place] in Last 30 Days - Family History Known Family History: Positive: Other - Prostate, skin and colon cancer Negative: Hypertension, Diabetes - Social History Occupation: Retired Lives: With Family Alcohol Use: Daily Alcohol Amount: 4oz wine every night with dinner Hx Substance Use: No Substance Use Type: Reports: None Hx Tobacco Use: Yes Smoking Status (MU): Former Smoker Type: Cigarettes Have You Smoked in the Last Year: No Review of Systems Constitutional: Negative Negative: Photophobia, Blurred Vision, Diplopia Negative: Epistaxis Negative: Palpitations, Chest Pain Negative: Shortness Of Breath, Cough Negative: Abdominal Pain, Vomiting, Nausea Genitourinary: Negative Musculoskeletal: Negative Skin: Other - Laceration Negative: Headache, Weakness, Paresthesia, Numbness, Syncope, Slurred Speech All Other Systems Reviewed And Are Negative: Yes Physical Exam - Summary Physical Exam Summary: GENERAL APPEARANCE: Well appearing, pleasant, alert and cooperative older adult female who appears to be in no acute distress. HEAD: Normocephalic. Approximately 3 cm laceration to the left christian that extends through the dermal layer. Bleeding controlled. EYES: Conjunctiva clear. No drainage. PERRL, EOM intact. Vision is grossly intact. EARS: External auditory canals and tympanic membranes clear, hearing grossly intact. NOSE: No nasal discharge. THROAT: Pharynx normal No tonsilar inflammation, swelling, exudate, or lesions. Uvula midline. Oral cavity normal. Teeth and gingiva in good general condition. NECK: Neck supple, non-tender without lymphadenopathy. CARDIAC: Normal S1 and S2. No S3, S4 or murmurs. Rhythm is regular. There is no peripheral edema, cyanosis or pallor. Extremities are warm and well perfused. Capillary refill is less than 2 seconds. Peripheral pulses intact. LUNGS: Clear to auscultation without rales, rhonchi, wheezing or diminished breath sounds. ABDOMEN: Positive bowel sounds. Soft, nondistended, nontender. No guarding or rebound. No masses or hepatosplenomegally. MUSKULOSKELETAL: ROM intact to all extremities. No joint erythema or tenderness. Normal muscular development. Normal gait. BACK: Examination of the spine reveals normal gait and posture, no spinal deformity or tenderness, decreased range of motion or muscular spasm. NEUROLOGICAL: CN II-XII intact. Strength and sensation symmetric and intact throughout. SKIN: Skin normal color, texture and turgor. Triage Information Reviewed: Yes Vital Signs On Initial Exam: Initial Vitals Temp Pulse Resp BP Pulse Ox 97.8 F 70 19 183/66 96 04/13/19 18:21 04/13/19 18:21 04/13/19 18:21 04/13/19 18:21 04/13/19 18:21 Vital Signs Reviewed: Yes Procedures - Procedure Summary Procedure Summary: Procedure note: Laceration repair left christian Informed consent was obtained before procedure started and the appropriate timeout was taken. The area was prepped and draped in the usual sterile fashion. Local anesthesia was achieved using 3 ml of lidocaine 1% without epinephrine. The wound was thoroughly cleansed and copiously irrigated. The wound margins were brought into good alignment and was closed using a continuous running suture for a total of 9 throws. Total length of the wound after repair was 3 cm. Estimated blood loss was minimal. A dressing was applied to the area. Anticipatory guidance, as well as standard post-procedure care was discussed with patient. Return precautions are given. The patient tolerated the procedure well without complications. Patient is to follow up in 7 days for suture removal and evaluation of the laceration. Diagnostics - Vital Signs Vital Signs Temp Pulse Resp BP Pulse Ox 04/13/19 18:21 97.8 F 70 19 183/66 96 - Laboratory Lab Statement: Any lab studies that have been ordered have been reviewed, and results considered in the medical decision making process. - CT No standard instances CT Interpretation Completed By: Radiologist Summary of CT Findings: EXAM: CT Head Without Contrast. EXAM DATE/TIME: 2018 8:19 PM. CLINICAL HISTORY: 83 years old, female; Injury or trauma; Fall; Additional info: Head injury. TECHNIQUE: Imaging protocol: Axial computed tomography images of the head without. contrast. Radiation optimization: All CT scans at this facility use at least one of. these dose optimization techniques: automated exposure control; mA and/or kV. adjustment per patient size (includes targeted exams where dose is matched to. clinical indication); or iterative reconstruction. COMPARISON: BRAIN WO CT BRAIN WO 06/06/2018 11:00 AM. FINDINGS: Brain: There is stable age-related diffuse cerebral volume loss and chronic. microvascular ischemic disease. Ventricles: Normal. No ventriculomegaly. Bones/joints: Unremarkable. No acute fracture. Sinuses: Visualized sinuses are unremarkable. No fluid levels. Mastoid air cells: Visualized mastoid air cells are well aerated. No mastoid. effusion. Soft tissues: Stable metallic shrapnel fragments of the left face and left. temporal scalp. There is likely small left frontal scalp laceration. IMPRESSION : 1. There is stable age-related diffuse cerebral volume loss and chronic. microvascular ischemic disease. 2. No acute intracranial pathology. 3. There is likely small left frontal scalp laceration. Head Injury Course/Dx Course Of Treatment: 83-year-old female presents for head injury that occurred around 3 PM this afternoon. States she was trying to squat next to a car, lost her balance, and fell forward hitting the left side of her head on concrete. Denies any loss of consciousness. Has full recollection of the event. States she did sustain a laceration to her left christian however bleeding was controlled prior to arrival. Unknown tetanus status. Patient is currently taking Eliquis. Denies headache, visual disturbances, dizziness, neck pain, nausea, vomiting, or any other injury. Afebrile. Hypertensive otherwise vital signs stable. Patient had an approximately 3 cm linear laceration to the left christian that extended through the dermal layer with bleeding controlled. She was neurologically intact and her exam is otherwise unremarkable. CT scan of the brain showed no acute intracranial pathology. Her laceration was repaired with a continuous running suture for total of 9 throws. Her tetanus was updated. She is to follow-up with her primary care provider, convenient care, or return to the emergency room in 7 days to have the sutures removed. Wound care, anticipatory guidance, and warning symptoms were reviewed with the patient. She verbalizes understanding and agrees with plan of care. - Diagnoses Differential Diagnosis/HQI/PQRI: Concussion Without LOC, Intracranial Bleed, Laceration, Skull Fracture Provider Diagnoses: Closed head injury without loss of consciousness, Facial laceration Discharge - Sign-Out/Discharge Documenting (check all that apply): Patient Departure Patient Received Moderate/Deep Sedation with Procedure: No - Discharge Plan Condition: Stable Disposition: HOME Patient Education Materials: Head Injury (ED), Facial Laceration (ED), Care For Your Stitches (ED) Referrals: Ever Wallace MD [Primary Care Provider] - Additional Instructions: The CT of your head was normal. Your facial laceration was repaired using a continuous suture. The wound will need to be cleaned with a mild soap and water at least once daily. You may shower and wash her hair is normal starting tomorrow. Apply a small amount of antibiotic ointment to the wound and keep covered with a bandage. Take acetaminophen (Tylenol) or ibuprofen (Advil, Motrin) according to directions as needed for pain. Follow-up with your primary care provider, convenient care, or return to the emergency room in 7 days to have the sutures removed. We updated her tetanus today. You will want to contact her primary care provider so that they may update your records. Watch for signs of infection including fever greater than 100.5 F, redness that spreads, increased swelling, severe pain that is not managed with pain medication, pus draining from the wound, or any worsening of symptoms. - Billing Disposition and Condition Condition: STABLE Disposition: Home
[2019-04-13 23:08] VITALS: BP 195/109
== END | disposition home or self-care (01) ==
LOC: ED 18:14
DX: S09.90XA Unspecified injury of head, initial encounter (principal); S01.81XA Laceration without foreign body of other part of head, initial encounter; W18.30XA Fall on same level, unspecified, initial encounter; Y92.9 Unspecified place or not applicable; Z23 Encounter for immunization; E11.9 Type 2 diabetes mellitus without complications; I48.91 Unspecified atrial fibrillation; Z79.01 Long term (current) use of anticoagulants; Z95.810 Presence of automatic (implantable) cardiac defibrillator; M06.9 Rheumatoid arthritis, unspecified; Z88.1 Allergy status to other antibiotic agents; Z88.0 Allergy status to penicillin; Z88.8 Allergy status to other drugs, medicaments and biological substances; Z87.891 Personal history of nicotine dependence
CPT/HCPCS: 12013; 70450; 90471; 90715; 99282

== ENCOUNTER 2019-12-16 17:33 | Emergency (ER) | payer MEDICARE, OTHER, BC ==
[2019-12-16] MEDS ORDERED: Lidocaine PATCH 5%* 1 PATCH TRANSDERM ONE (18:49)
[2019-12-16] MEDS ORDERED: Acetaminophen TAB* 325 MG PO ONE (18:49)
--- NOTE | 2019-12-16 19:11 | ED ---
Progress - Progress Note Progress Note: The pt is a sign-out from Dr. Avelar to Dr. Marquez at the 12/16/2019 1900 shift change pending femur and hip/pelvis x-ray and disposition. Femur and hip/pelvis x-ray reveal no acute processes pending official report. Course/Dx - Course Course Of Treatment: Femur and hip/pelvis x-ray reveal no acute processes pending official report. Pt will be discharged home with PCP follow up. Pt is agreeable with this plan. - Diagnoses Provider Diagnoses: Arthritis Discharge ED - Sign-Out/Discharge Documenting (check all that apply): Patient Departure - discharge - Discharge Plan Condition: Stable Disposition: HOME Prescriptions: oxyCODONE/Acetamin 5/325 MG* [Percocet 5/325 TAB*] 1 tab PO Q4H PRN #20 tab MDD 6 PRN Reason: Pain - Severe Patient Education Materials: Osteoarthritis (ED) Referrals: Ever Wallace MD [Primary Care Provider] - Additional Instructions: Rest and take the pain meds over the weekend, just keep in mind they can constipate you and make you drowsy. If not improving by Thursday, contact your doctor, you might benefit from an injection in the office (we don't do that procedure here). - Billing Disposition and Condition Condition: STABLE Disposition: Home - Attestation Statements Document Initiated by Elizabeth: Yes Documenting Scribe: Marcus Torres Provider For Whom Elizabeth is Documenting (Include Credential): Ahmet Marquez MD Scribe Attestation: Marcus Harper, scribed for Ahmet Marquez MD on 12/17/19 at 0414. Scribe Documentation Reviewed: Yes Provider Attestation: The documentation as recorded by the Marcus benavidez accurately reflects the service I personally performed and the decisions made by me, Ahmet Marquez MD Status of Scribe Document: Viewed
--- NOTE | 2019-12-16 19:16 | ED ---
Complex/Multi-Sys Presentation - HPI Summary HPI Summary: 84 year old F presenting [place] [facility] by [place] complains of a cyst in her thigh since last night 12/15/2019. Patient reports she has rheumatoid arthritis. PMHx of pacemaker, diabetes, and defibrillator use. No Hx of blood clots. The patient rates the pain 10/10 in severity. Symptoms aggravated by movement. Symptoms alleviated by nothing. - History Of Current Complaint Chief Complaint: EDExtremityLower Time Seen by Provider: 12/16/19 18:23 Hx Obtained From: Patient Onset/Duration: Lasting Hours, Still Present Timing: Hours Severity Initially: Severe Aggravating Factor(s): Movement Alleviating Factor(s): Nothing Associated Signs And Symptoms: Positive: Other - Cyst in thigh causing pain - Allergies/Home Medications Allergies/Adverse Reactions: Allergies Allergy/AdvReac Type Severity Reaction Status Date / Time ciprofloxacin Allergy Severe Rash Verified 04/13/19 18:25 atorvastatin Allergy Intermediate Leg Cramps Verified 04/13/19 18:25 ezetimibe [From Zetia] Allergy Intermediate Itching Verified 04/13/19 18:25 losartan Allergy Intermediate Rash Verified 04/13/19 18:25 ARB-Angiotensin Receptor Allergy Unknown Unknown Verified 04/13/19 18:25 Antagonist Reaction Details gold Au 198 Allergy Unknown Unknown Verified 04/13/19 18:25 Reaction Details methotrexate Allergy Unknown Unknown Verified 04/13/19 18:25 Reaction Details Penicillins Allergy Unknown Unknown Verified 04/13/19 18:25 Reaction Details pravastatin Allergy Unknown Unknown Verified 04/13/19 18:25 Reaction Details ramipril Allergy Unknown Unknown Verified 04/13/19 18:25 Reaction Details amlodipine AdvReac Intermediate Headache Verified 04/13/19 18:25 diltiazem AdvReac Intermediate See Comment Verified 04/13/19 18:25 valsartan AdvReac Intermediate Coughing Verified 04/13/19 18:25 PMH/Surg Hx/FS Hx/Imm Hx Endocrine/Hematology History: Reports: Hx Anticoagulant Therapy - new starting yesterday, Hx Diabetes, Hx Thyroid Disease, Hx Anemia, Other Endocrine/ Hematological Disorders - Rheumatoid arthritis Denies: Hx Unexplained Bleeding Cardiovascular History: Reports: Hx Atrial Fibrillation, Hx Hypercholesterolemia , Hx Hypertension, Hx Pacemaker/ICD, Hx Rheumatic Fever, Hx Valvular Heart Disease - pt states "leaky valve", Other Cardiovascular Problems/Disorders - Left BBB Denies: Hx Aneurysm, Hx Angina, Hx Angioplasty, Hx Auto Implanted Cardiovert Defib, Hx Cardiac Arrest, Hx Cardiomegaly, Hx Congenital Heart Disease, Hx Congestive Heart Failure, Hx Coronary Artery Disease, Hx Deep Vein Thrombosis, Hx Embolism, Hx Hypotension, Hx Peripheral Vascular Disease, Hx Syncope GI History: Denies: Hx Jaundice History: Denies: Hx Renal Disease Musculoskeletal History: Reports: Hx Rheumatoid Arthritis Denies: Hx Arthritis, Hx Back Problems, Hx Bursitis, Hx Fibromyalgia, Hx Gout , Hx Orthopedic Injury, Hx Osteoporosis, Hx Scoliosis, Hx Tendonitis, Other Musculoskeletal History Sensory History: Denies: Hx Cataracts, Hx Contacts or Glasses, Hx Glaucoma, Hx Hearing Aid Opthamlomology History: Denies: Hx Cataracts, Hx Contacts or Glasses, Hx Glaucoma Neurological History: Denies: Hx Headaches, Hx Seizures, Hx Transient Ischemic Attacks (TIA) Psychiatric History: Denies: Hx Anxiety, Hx Depression - Cancer History Hx Chemotherapy: No Hx Radiation Therapy: No - Immunization History Date of Influenza Vaccine: 08/2019 Infectious Disease History: No Infectious Disease History: Denies: Traveled Outside the [place] in Last 30 Days - Family History Known Family History: Positive: Other - Prostate, skin and colon cancer Negative: Hypertension, Diabetes - Social History Alcohol Use: Daily Alcohol Amount: 4oz wine every night with dinner Hx Substance Use: No Substance Use Type: Reports: None Hx Tobacco Use: Yes Smoking Status (MU): Former Smoker Type: Cigarettes Have You Smoked in the Last Year: No Review of Systems Negative: Fever Positive: Other - Cyst in thigh All Other Systems Reviewed And Are Negative: Yes Physical Exam - Summary Physical Exam Summary: Constitutional: Well-developed, Well-nourished, Alert. (-) Distressed Skin: Warm, Dry HENT: Normocephalic; Atraumatic Eyes: Conjunctiva normal Neck: Musculoskeletal ROM normal neck. (-) JVD, (-) Stridor, (-) Tracheal deviation Cardio: Rhythm regular, rate normal, Heart sounds normal; Intact distal pulses; The pedal pulses are 2+ and symmetric. Radial pulses are 2+ and symmetric. (-) Murmur Pulmonary/Chest wall: Effort normal. (-) Respiratory distress, (-) Wheezes, (-) Rales Abd: Soft, (-) tenderness, (-) Distension, (-) Guarding, (-) Rebound Musculoskeletal: tender over right hip, no erythema or contusion, no deformity, no swelling or calf tenderness, NV intact Lymph: (-) Cervical adenopathy Neuro: Alert, Oriented x3 Psych: Mood and affect Normal Triage Information Reviewed: Yes Vital Signs On Initial Exam: Initial Vitals Temp Pulse Resp BP Pulse Ox 98.5 F 70 16 156/72 98 12/16/19 17:55 12/16/19 17:55 12/16/19 17:55 12/16/19 17:55 12/16/19 17:55 Vital Signs Reviewed: Yes Procedures - Sedation Patient Received Moderate/Deep Sedation with Procedure: No Diagnostics - Vital Signs Vital Signs Temp Pulse Resp BP Pulse Ox 12/16/19 17:55 98.5 F 70 16 156/72 98 - Laboratory Lab Results: Lab Results 12/16/19 Range/Units 17:59 POC Glucose (mg/dL) 232 H (70-100) mg/dL Lab Statement: Any lab studies that have been ordered have been reviewed, and results considered in the medical decision making process. Complex Multi-Symp Course/Dx Course Of Treatment: 84 year old F presenting to [facility] complains of a cyst in her thigh since last night 12/15/2019. Physical exam findings: tender over right hip, no erythema or contusion, no deformity, no swelling or calf tenderness, NV intact. Bloodwork results with no significant abnormalities except for H POC Glucose. In the ED course, the patient was given 650 mg acetominophen, 1 patch transdermal lidocaine was applied. Patient signed out to Dr. Marquez at 0700 pending femur and hip X-rays. - Diagnoses Provider Diagnoses: Arthritis Discharge ED - Sign-Out/Discharge Documenting (check all that apply): Sign-Out Patient - Sign out to at 0700 pending femur and hip X-ray. Signing out patient TO: Ahmet Marquez - Discharge Plan Condition: Stable Disposition: HOME Prescriptions: oxyCODONE/Acetamin 5/325 MG* [Percocet 5/325 TAB*] 1 tab PO Q4H PRN #20 tab MDD 6 PRN Reason: Pain - Severe Patient Education Materials: Osteoarthritis (ED) Referrals: Eevr Wallace MD [Primary Care Provider] - Additional Instructions: Rest and take the pain meds over the weekend, just keep in mind they can constipate you and make you drowsy. If not improving by Thursday, contact your doctor, you might benefit from an injection in the office (we don't do that procedure here). - Billing Disposition and Condition Condition: STABLE Disposition: Home - Attestation Statements Document Initiated by Rukhsanaibmartin: Yes Documenting Scribe: Trav Galarza Provider For Whom Rukhsanaibe is Documenting (Include Credential): Mark Avelar DO Scribe Attestation: I, Trav Galarza, scribed for Mark Avelar DO on 12/17/19 at 0726. Scribe Documentation Reviewed: Yes Provider Attestation: The documentation as recorded by the Trav benavidez accurately reflects the service I personally performed and the decisions made by me, Mark Avelar DO Status of Scribe Document: Viewed
[2019-12-16] MEDS ORDERED: oxyCODONE TAB* 5 MG TAB PO ONE (20:01)
[2019-12-16] MEDS ORDERED: Lidocaine Patch REMOVE* 1 NOTE MISC SCH (21:00)
[2019-12-16 21:28] VITALS: BP 123/74
== END 2019-12-16 21:25 | disposition home or self-care (01) ==
LOC: ED 17:33
DX: M19.90 Unspecified osteoarthritis, unspecified site (principal); M16.11 Unilateral primary osteoarthritis, right hip; M17.11 Unilateral primary osteoarthritis, right knee; E11.9 Type 2 diabetes mellitus without complications; E07.9 Disorder of thyroid, unspecified; D64.9 Anemia, unspecified; M06.9 Rheumatoid arthritis, unspecified; I48.91 Unspecified atrial fibrillation; E78.00 Pure hypercholesterolemia, unspecified; I10 Essential (primary) hypertension; Z87.891 Personal history of nicotine dependence; Z95.810 Presence of automatic (implantable) cardiac defibrillator; Z88.1 Allergy status to other antibiotic agents; Z88.0 Allergy status to penicillin; Z88.8 Allergy status to other drugs, medicaments and biological substances
CPT/HCPCS: 99282; A9270-GY

== ENCOUNTER 2019-12-17 13:19 | Inpatient (IN) | payer MEDICARE, BC ==
--- NOTE | 2019-12-17 13:29 | ED ---
Lower Extremity - HPI Summary HPI Summary: This patient is an 84 year old female presenting to [facility] with a chief complaint of right leg pain. She states she has there was no trauma and her pain worsening 2 days ago. She states her physician states she had a lot of arthritis and was surprised she was ambulating. She states the pain is located from the hip down to the knee. She came here yesterday and her XR was negative for fractures. She states she is having increased pain today. She uses a walker but does not use it very often. 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 She is on blood thinners. She denies numbness and tingling in her leg at her current position. Medications reviewed, allergies noted. - History of Current Complaint Stated Complaint: LEG PAIN Time Seen by Provider: 12/17/19 13:22 Hx Obtained From: Patient Onset of Pain: Days Timing: Constant - Allergies/Home Medications Allergies/Adverse Reactions: Allergies Allergy/AdvReac Type Severity Reaction Status Date / Time ciprofloxacin Allergy Severe Rash Verified 04/13/19 18:25 atorvastatin Allergy Intermediate Leg Cramps Verified 04/13/19 18:25 ezetimibe [From Zetia] Allergy Intermediate Itching Verified 04/13/19 18:25 losartan Allergy Intermediate Rash Verified 04/13/19 18:25 ARB-Angiotensin Receptor Allergy Unknown Unknown Verified 04/13/19 18:25 Antagonist Reaction Details gold Au 198 Allergy Unknown Unknown Verified 04/13/19 18:25 Reaction Details methotrexate Allergy Unknown Unknown Verified 04/13/19 18:25 Reaction Details Penicillins Allergy Unknown Unknown Verified 04/13/19 18:25 Reaction Details pravastatin Allergy Unknown Unknown Verified 04/13/19 18:25 Reaction Details ramipril Allergy Unknown Unknown Verified 04/13/19 18:25 Reaction Details amlodipine AdvReac Intermediate Headache Verified 04/13/19 18:25 diltiazem AdvReac Intermediate See Comment Verified 04/13/19 18:25 valsartan AdvReac Intermediate Coughing Verified 04/13/19 18:25 PMH/Surg Hx/FS Hx/Imm Hx Endocrine/Hematology History: Reports: Hx Anticoagulant Therapy - new starting yesterday, Hx Diabetes, Hx Thyroid Disease, Hx Anemia, Other Endocrine/ Hematological Disorders - Rheumatoid arthritis Denies: Hx Unexplained Bleeding Cardiovascular History: Reports: Hx Atrial Fibrillation, Hx Hypercholesterolemia , Hx Hypertension, Hx Pacemaker/ICD, Hx Rheumatic Fever, Hx Valvular Heart Disease - pt states "leaky valve", Other Cardiovascular Problems/Disorders - Left BBB Denies: Hx Aneurysm, Hx Angina, Hx Angioplasty, Hx Auto Implanted Cardiovert Defib, Hx Cardiac Arrest, Hx Cardiomegaly, Hx Congenital Heart Disease, Hx Congestive Heart Failure, Hx Coronary Artery Disease, Hx Deep Vein Thrombosis, Hx Embolism, Hx Hypotension, Hx Peripheral Vascular Disease, Hx Syncope GI History: Denies: Hx Jaundice History: Denies: Hx Renal Disease Musculoskeletal History: Reports: Hx Rheumatoid Arthritis Denies: Hx Arthritis, Hx Back Problems, Hx Bursitis, Hx Fibromyalgia, Hx Gout , Hx Orthopedic Injury, Hx Osteoporosis, Hx Scoliosis, Hx Tendonitis, Other Musculoskeletal History Sensory History: Denies: Hx Cataracts, Hx Contacts or Glasses, Hx Glaucoma, Hx Hearing Aid Opthamlomology History: Denies: Hx Cataracts, Hx Contacts or Glasses, Hx Glaucoma Neurological History: Denies: Hx Headaches, Hx Seizures, Hx Transient Ischemic Attacks (TIA) Psychiatric History: Denies: Hx Anxiety, Hx Depression - Cancer History Hx Chemotherapy: No Hx Radiation Therapy: No - Immunization History Date of Influenza Vaccine: 08/2019 - Family History Known Family History: Positive: Other - Prostate, skin and colon cancer Negative: Hypertension, Diabetes - Social History Alcohol Use: Daily Alcohol Amount: 4oz wine every night with dinner Hx Substance Use: No Substance Use Type: Reports: None Hx Tobacco Use: Yes Smoking Status (MU): Former Smoker Type: Cigarettes Have You Smoked in the Last Year: No Review of Systems Negative: Fever Positive: Other - Right leg pain Negative: Paresthesia, Numbness All Other Systems Reviewed And Are Negative: Yes Physical Exam - Summary Physical Exam Summary: Constitutional: Well-developed, Well-nourished, Alert. (-) Distressed Skin: Warm, Dry HENT: Normocephalic; Atraumatic Eyes: Conjunctiva normal Neck: Musculoskeletal ROM normal neck. (-) JVD, (-) Stridor, (-) Tracheal deviation Cardio: Rhythm regular, rate normal, Heart sounds normal; Intact distal pulses; Radial pulses are 2+ and symmetric. (-) Murmur Pulmonary/Chest wall: Effort normal. (-) Respiratory distress, (-) Wheezes, (-) Rales Abd: Soft, (-) tenderness, (-) Distension, (-) Guarding, (-) Rebound Musculoskeletal: (-) Edema. Tenderness from the right hip joint down to the knee. She can raise the right leg up about 6 inches off the bed. She can move it about one foot on passive ROM. DP pulses 2+. Lymph: (-) Cervical adenopathy Neuro: Alert, Oriented x3 Psych: Mood and affect Normal Triage Information Reviewed: Yes Vital Signs Reviewed: Yes Procedures - Sedation Patient Received Moderate/Deep Sedation with Procedure: No Diagnostics - Laboratory Result Diagrams: 12/17/19 13:46 12/17/19 13:46 Lab Statement: Any lab studies that have been ordered have been reviewed, and results considered in the medical decision making process. - CT Lower Extremity CT Interpretation Completed By: Radiologist Summary of CT Findings: 1. Osteopenia. 2.Osteoarthriits. 3. No appreciable loculated fluid collection to suggest abscess. No significant joint effusions or bursal collections. 4. Again noted is a complex cystic solid lesion of the right ovary. The differential includes ovarian neoplasm. ED Provider has reviewed this report. Lower Extremity Course/Dx - Course Course Of Treatment: Patient is here with pain in her right hip to her knee. Patient seen here yesterday where x-rays were performed and negative. Patient does have a history of rheumatoid arthritis alert was performed. Patient has elevated CRP were compared to prior lab testing October. Patient has an ESR roughly at her baseline. Patient had a CT scan of her lower extremity which showed no obvious acute melanocyte a small effusion on the right knee. Patient does have a right ovarian cyst which could be cancerous in nature. Given the fact she had high inflammatory markers and was refusing to move her leg, orthopedic surgery was called and evaluated the patient bedside. They do not think this represents septic arthritis as she had a similar presentation in January for rheumatoid arthritis flare. Patient was admitted to the hospitalist for pain control - Diagnoses Provider Diagnoses: Rheumatoid arthritis, Hip pain - Physician Notifications Discussed Care Of Patient With: Maninder Barros - Orthopedics Time Discussed With Above Provider: 15:48 - Recommends admission for pain control, does not believe there is an infection Instructed by Provider To: MD Will See In ED Discharge ED - Sign-Out/Discharge Documenting (check all that apply): Patient Departure - Admission, accepted by Dr. Bolivar, Hospitalist - Discharge Plan Condition: Stable Disposition: ADMITTED TO [facility] Referrals: Ever Wallace MD [Primary Care Provider] - - Billing Disposition and Condition Condition: STABLE Disposition: Admitted to [facility] - Attestation Statements Document Initiated by Elizabeth: Yes Documenting Scribe: Edgar Real Provider For Whom Elizabeth is Documenting (Include Credential): Mor Carpio MD Scribe Attestation: Edgar Harper, scribed for Mor Carpio MD on 12/17/19 at 1847. Scribe Documentation Reviewed: Yes Provider Attestation: The documentation as recorded by the Edgar benavidez accurately reflects the service I personally performed and the decisions made by me, Mor Carpio MD Status of Scribe Document: Viewed
[2019-12-17] MEDS ORDERED: Morphine 4 MG/ML VIAL (1 ml) 4 MG/ML VIAL IV ONE (13:36)
[2019-12-17] MEDS ORDERED: NS 0.9% 1000 ML** 1,000 ML IV ONE (13:36)
--- OUTSIDE RECORDS SUMMARY | 2019-12-17 13:45 | XMS REPORT | Continuity of Care Document ---
:1935 External Reference #:[id number] Author Name Meet Greene M.D. (transmitted by agent of provider Givoanna Ward) Address [address] [place] [address] Care Team Providers Name Role Phone Ever Wallace MD - Endocrinology, Care Team Information Restaurant Mgr Diabetes & Metabolism Meet Greene MD - Rheumatology Care Team Information Restaurant Mgr [phone] Problems Active Problems Provider Date Left bundle branch block Miles Alicia M.D. Onset: 02/04/2012 Primary cardiomyopathy Miles Alicia M.D. Onset: 02/04/2012 Mitral valve disorder Miles Alicia M.D. Onset: 02/04/2012 Type 2 diabetes mellitus Miles Alicia M.D. Onset: 02/04/2012 Essential hypertension Miles Alicia M.D. Onset: 08/29/2014 Disturbance in sleep behavior Daphne Howard MD Onset: 06/09/2016 Hypoxemia Daphne Howard MD Onset: 06/09/2016 Obstructive sleep apnea syndrome Daphne Howard MD Onset: 07/22/2016 Paroxysmal atrial fibrillation BRYCE Gusman Onset: 03/01/2019 Social History Type Date Description Comments Sex Unknown Tobacco Use Start: Unknown End: Former Cigarette Smoker Unknown Smoking Status Reviewed: 11/29/19 Former Cigarette Smoker ETOH Use Consumes 1 glass of 4oz wine per day Tobacco Use Start: Unknown End: Patient is a former Unknown smoker Recreational Drug Use Denies Drug Use Exercise Type/Frequency Exercises regularly Started physical therapy 07/04/19 Allergies, Adverse Reactions, Alerts Active Allergies Reaction [...] rash and pruritis 09/03/2018 Ciprofloxacin ithching 10/12/2018 Gold leg edema, rash 05/03/2019 Leflunomide Diarrhea 05/03/2019 Medications Active Medications SIG Qnty Indications Ordering Date Provider Xeljanz 1 by mouth twice a 60tabs Meet Greene, 11/29/2019 5mg Tablets day M.D. Eliquis 1 by mouth [facility] 5mg Tablets day N.P. Aldactone 2 by mouth every 180tabs Alesia Sarah Wilmot, 07/14/2016 25mg Tablets day N.P. Lasix 2 tablets by mouth 90tabs [facility], 05/09/2016 20mg Tablets once a week N.P. Coreg take 2 tablets [facility]tabs [facility], 04/29/2016 12.5mg Tablets every morning, and N.P. 1 tablet every evening by mouth Vitamin B-12 1 by mouth every 100tabs Miles Wolf 04/17/2015 1000mcg day Beata Alicia Tablets Sub multivitamin one po qd Miles Wolf 09/09/2004 Beata Alicia Folic Acid 1 tablet by mouth 100tabs Meet Greene, 09/09/2004 1mg Tablets every 4 days M.D. Probiotic 1 by mouth every Unknown Capsules day Iron 65 MG 1 tablet every Unknown other day after dinner Sulfasalazine 2 tablets by mouth Unknown 500mg twice daily Tablets Calcium With Vitamin Calcium 600 mg Unknown D Vitamin D3 800 iu 1 tablet by mouth daily Vitamin C-Macy [place]ips 1 tablet by mouth [...] Seed Meal 2 tablespoons per Unknown day Immunizations CPT Code Status Date Vaccine Lot # [id number] Given 10/06/2007 Influenza Virus 3Yrs & Over [id number] Given 10/06/2007 Influenza Virus 3Yrs & Over [id number] Vital Signs Date Vital Result Comment 11/29/2019 11:58am Height 61 inches 5'1" Weight 162.00 lb Heart Rate 62 /min BP Systolic Sitting 136 mmHg BP Diastolic Sitting 72 mmHg Body Temperature 97.2 F Pain Level 6 O2 % BldC Oximetry 96 % BMI (Body Mass Index) 30.6 kg/m2 07/22/2019 9:04am Height 61 inches 5'1" Weight 155.12 lb Heart Rate 67 /min BP Systolic 127 mmHg BP Diastolic 61 mmHg Body Temperature 96.4 F O2 % BldC Oximetry 95 % BMI (Body Mass Index) 29.3 kg/m2 Results Test Acquired Date Facility Test Result H/L Range Note Laboratory test 11/02/2019 [facility] Erythrocyte Sed 79 mm/Hr High 0-[address] [place] [address] [phone] Comp Metabolic 11/02/2019 [facility] Sodium 134 mmol/L Low 135 -[address] [place] [address] [phone] Potassium 4.1 mmol/L Normal 3.5-5.0 Chloride 100 mmol/L Low 101-111 Co2 Carbon Dioxide 28 mmol/L Normal 22-32 Anion Gap 6 mmol/L Normal 2-11 Glucose 145 mg/dL High 70-100 Blood Urea Nitrogen 14 mg/dL Normal 6-24 Creatinine 0.85 mg/dL Normal 0.51-0.95 BUN/Creatinine Ratio 16.5 Normal 8-20 Calcium 9.4 mg/dL Normal 8.6-10.3 Total Protein 7.3 g/dL Normal 6.4-8.9 Albumin 4.0 g/dL Normal 3.2-5.2 Globulin 3.3 g/dL Normal 2-4 Albumin/Globulin Ratio 1.2 Normal 1-3 Total Bilirubin 0.40 mg/dL Normal 0.2-1.0 Alkaline Phosphatase 78 U/L Normal 34-104 Alt 12 U/L Normal 7-52 Ast 19 U/L Normal 13-39 Egfr Non- 63.6 >60 Egfr 76.9 >60 1 Laboratory test 11/02/2019 [facility] C Reactive 8.64 mg/L High <8.[address] [place] [address] [phone] CBC Auto Diff 11/02/2019 [facility] White Blood 4.5 Normal 3.5 -10.[address] Count 10^3/[place] [address] [phone] Red Blood Count 2.76 10^6/uL Low 3.70-4.87 Hemoglobin 8.9 g/dL Low 12.0-16.0 Hematocrit 27 % Low 35-47 Mean Corpuscular Volume 97 fL Normal 80-97 Mean Corpuscular Hemoglobin 32 pg High 27-31 Mean Corpuscular HGB Conc 33 g/dL Normal 31-36 Red Cell Distribution Width 17 % High 10-15 Platelet Count 271 10^3/uL Normal 150-450 Mean Platelet Volume 8.0 fL Normal 7.4-10.4 Abs Neutrophils 2.9 10^3/uL Normal 1.5-7.7 Abs Lymphocytes 1.1 10^3/uL Normal 1.0-4.8 Abs Monocytes 0.5 10^3/uL Normal 0-0.8 Abs Eosinophils 0.0 10^3/uL Normal 0-0.6 Abs Basophils 0.0 10^3/uL Normal 0-0.2 Abs Nucleated RBC 0.0 10^3/uL Granulocyte % 64.8 % Lymphocyte % 24.1 % Monocyte % 10.3 % Eosinophil % 0.1 % Basophil % 0.7 % Nucleated Red Blood Cells % 0.1 Iron & Iron Binding 11/02/2019 [facility] Iron 84 g/dL Normal 50-[address] [place] [address] [phone] Unsaturated Iron Binding < 320 g/dL Total Iron Binding Capacity 335 g/dL Normal 250-450 Transferrin 239 mg/dL Normal 203-362 % Iron Saturation 25 % Normal 15-55 Vitamin B12 11/02/2019 [facility] Vitamin B12 442 pg/mL Normal 180-9[address] [place] [address] [phone] Folic Acid (Folate) > 20.00 ng/mL >3.99 Laboratory test 07/14/2019 [facility] C Reactive 6.55 mg/L Normal <8.[address] [place] [address] [phone] CBC Auto Diff 07/14/2019 [facility] White Blood 4.2 Normal 3.5 -10.[address] Count 10^3/[place] [address] [phone] Red Blood Count 3.83 10^6/uL Normal 3.70-4.87 Hemoglobin 10.5 g/dL Low 12.0-16.0 Hematocrit 33 % Low 35-47 Mean Corpuscular Volume 86 fL Normal 80-97 Mean Corpuscular Hemoglobin 27 pg Normal 27-31 Mean Corpuscular HGB Conc 32 g/dL Normal 31-36 Red Cell Distribution Width 19 % High 10-15 Platelet Count 288 10^3/uL Normal 150-450 Mean Platelet Volume 7.6 fL Normal 7.4-10.4 Abs Neutrophils 2.7 10^3/uL Normal 1.5-7.7 Abs Lymphocytes 0.9 10^3/uL Low 1.0-4.8 Abs Monocytes 0.5 10^3/uL Normal 0-0.8 Abs Eosinophils 0.0 10^3/uL Normal 0-0.6 Abs Basophils 0.0 10^3/uL Normal 0-0.2 Abs Nucleated RBC 0.0 10^3/uL Granulocyte % 64.3 % Lymphocyte % 22.2 % Monocyte % 12.5 % Eosinophil % 0.1 % Basophil % 0.9 % Nucleated Red Blood Cells % 0.1 Comp Metabolic Panel 07/14/2019 [facility] Sodium 134 mmol/L Low 135-[address] [place] [address] [phone] Potassium 4.4 mmol/L Normal 3.5-5.0 Chloride 99 mmol/L Low 101-111 Co2 Carbon Dioxide 29 mmol/L Normal 22-32 Anion Gap 6 mmol/L Normal 2-11 Glucose 206 mg/dL High 70-100 Blood Urea Nitrogen 9 mg/dL Normal 6-24 Creatinine 0.86 mg/dL Normal 0.51-0.95 BUN/Creatinine Ratio 10.5 Normal 8-20 Calcium 9.4 mg/dL Normal 8.6-10.3 Total Protein 6.7 g/dL Normal 6.4-8.9 Albumin 3.5 g/dL Normal 3.2-5.2 Globulin 3.2 g/dL Normal 2-4 Albumin/Globulin Ratio 1.1 Normal 1-3 Total Bilirubin 0.40 mg/dL Normal 0.2-1.0 Alkaline Phosphatase 84 U/L Normal 34-104 Alt 11 U/L Normal 7-52 Ast 18 U/L Normal 13-39 Egfr Non- 62.9 >60 Egfr 76.1 >60 3 1 Because ethnic data is not always [...] 5 Kidney failure <15 (or dialysis) 2 Normal Range 180 to 914 Indeterminate Range 145 to 180 Deficient Range <145 3 Because ethnic data is not always readily [...] 15-29 5 Kidney failure <15 (or dialysis) Procedures Date Code Description Status 11/18/2019 24789 Interrogation Device Eval Remote Up To 30 Days Completed Analysis,Rev,RP 11/18/2019 16919 Icd Eval Sing,Dual,Multi Lead Remote Recpt Transm Tech Completed Rev Tech S 11/18/2019 46329 Icd Check Remote Up To 90 Days Single,Dual,Multiple Completed Lead 08/30/2019 64318 Interrogation Implant Cardiovasc Monitor System Incl Completed Analysis Int 08/30/2019 74822 Interrogation Implant Cardiovasc Monitor System Incl Completed Analysis Int 08/30/2019 70434 Icd Eval With Iterative Adjustmt Multiple Lead System Completed 08/30/2019 52928 Icd Eval With Iterative Adjustmt Multiple Lead System Completed 08/19/2019 09641 Icd Check Remote Up To 90 Days Single,Dual,Multiple Completed Lead 08/19/2019 21022 Icd Check Remote Up To 90 Days Single,Dual,Multiple Completed Lead 08/19/2019 99420 Icd Eval Sing,Dual,Multi Lead Remote Recpt Transm Tech Completed Rev Tech S 08/19/2019 74478 Icd Eval Sing,Dual,Multi Lead Remote Recpt Transm Tech Completed Rev Tech S 08/19/2019 07249 Interrogation Device Eval Remote Up To 30 Days Completed Analysis,Rev,RP 08/19/2019 90728 Interrogation Device Eval Remote Up To 30 Days Completed Analysis,Rev,RP 06/21/2019 84006 Icd Eval Sing,Dual,Multi Lead Remote Recpt Transm Tech Completed Rev Tech S 06/21/2019 18303 Icd Check Remote Up To 90 Days Single,Dual,Multiple Completed Lead 01/14/2019 889876188 Diabetic Retinal Eye Exam Completed 12/25/2016 241706384 Diabetic Retinal Eye Exam Completed Medical Devices Description No Information Available Encounters Type Date Location Provider Dx Diagnosis Office Visit 07/22/2019 Rheumatology Meet Greene, M05.751 Rheu arthritis w 9:[facility] factor of right hip w/o org/sys involv Z79.899 Other long chain beamer (current) drug therapy R79.82 Elevated C-reactive protein (CRP) D64.9 Anemia, unspecified Office Visit 07/04/2019 3:30p [facility] Alesia Segovia I48.0 Paroxysmal atrial Foster, N.P. fibrillation I42.9 Cardiomyopathy, unspecified I49.5 Sick sinus syndrome Z95.810 Presence of automatic (implantable) cardiac defibrillator I34.0 Nonrheumatic mitral (valve) insufficiency R60.9 Edema, unspecified Assessments Date Code Description Provider 11/29/2019 M05.751 Rheumatoid arthritis with rheumatoid Meet Greene M.D. factor of right hip wit 11/29/2019 Z79.899 Other long chain beamer (current) drug therapy Meet Greene M.D. 11/29/2019 R79.82 Elevated C-reactive protein (CRP) Meet Greene M.D. 11/29/2019 D64.9 Anemia, unspecified Meet Greene M.D. 11/21/2019 I48.0 Paroxysmal atrial fibrillation Remote Device Checks 11/21/2019 I42.9 Cardiomyopathy, unspecified Remote Device Checks 11/21/2019 I49.5 Sick sinus syndrome Remote Device Checks 11/21/2019 Z95.810 Presence of automatic (implantable) Remote Device Checks cardiac defibrillator 11/18/2019 I48.0 Paroxysmal atrial fibrillation Miles Alicia M.D. 11/18/2019 I42.9 Cardiomyopathy, unspecified Miles Alicia M.D. 11/18/2019 I49.5 Sick sinus syndrome Miles Alicia M.D. 11/18/2019 Z95.810 Presence of automatic (implantable) Miles Alicia M.D. cardiac defibrillator 08/30/2019 I48.0 Paroxysmal atrial fibrillation Ica Pacer Schedule 08/30/2019 I42.9 Cardiomyopathy, unspecified Miles Alicia M.D. 08/30/2019 I42.9 Cardiomyopathy, unspecified Ica Pacer Schedule 08/30/2019 I49.5 Sick sinus syndrome Ica Pacer Schedule 08/30/2019 Z95.810 Presence of automatic (implantable) Miles Alicia M.D. cardiac defibrillator 08/30/2019 Z95.810 Presence of automatic (implantable) Ica Pacer Schedule cardiac defibrillator 08/19/2019 I48.0 Paroxysmal atrial fibrillation Miles Alicia M.D. 08/19/2019 I48.0 Paroxysmal atrial fibrillation Remote Device Checks 08/19/2019 I42.9 Cardiomyopathy, unspecified Miles Alicia M.D. 08/19/2019 I42.9 Cardiomyopathy, unspecified Remote Device Checks 08/19/2019 I49.5 Sick sinus syndrome Miles Alicia M.D. 08/19/2019 I49.5 Sick sinus syndrome Remote Device Checks 08/19/2019 Z95.810 Presence of automatic (implantable) Miles Alicia M.D. cardiac defibrillator 08/19/2019 Z95.810 Presence of automatic (implantable) Remote Device Checks cardiac defibrillator 07/22/2019 M05.751 Rheumatoid arthritis with rheumatoid Meet Greene M.D. factor of right hip wit 07/22/2019 Z79.899 Other long chain beamer (current) drug therapy Meet Greene M.D. 07/22/2019 R79.82 Elevated C-reactive protein (CRP) Meet Greene M.D. 07/22/2019 D64.9 Anemia, unspecified Meet Greene M.D. 07/04/2019 I48.0 Paroxysmal atrial fibrillation Alesia Alvarado, N.P. 07/04/2019 I42.9 Cardiomyopathy, unspecified Alesia S. Christiano, N.P. 07/04/2019 I49.5 Sick sinus syndrome Alesia SSarah Alvarado, N.P. 07/04/2019 Z95.810 Presence of automatic (implantable) Alesia Mason. Christiano, N.P. cardiac defibrillator 07/04/2019 I34.0 Nonrheumatic mitral (valve) insufficiency Alesia SSarah Alvarado, N.P. 07/04/2019 R60.9 Edema, unspecified Alesia S. Foster, N.P. 06/21/2019 I42.9 Cardiomyopathy, unspecified Miles Alicia M.D. 06/21/2019 I48.0 Paroxysmal atrial fibrillation Miles Alicia M.D. 06/21/2019 I49.5 Sick sinus syndrome Miles Alicia M.D. 06/21/2019 Z95.810 Presence of automatic (implantable) Miles Alicia M.D. cardiac defibrillator Plan of Treatment Future Appointment(s):01/06/2020 11:40 am - Meet Greene M.D. at [facility]01/09/2020 3:30 pm - Ica Pacer Schedule at [facility]01/09/2020 3:40 pm - Miles Alicia M.D. at [facility] 10:45 am - Daphne Howard MD at [facility] - Meet Greene M.D.M05.751 Rheumatoid arthritis with rheumatoid factor of right hip witFollow up:Follow up in 5 weeks or sooner if [id number] Other fdc (current) drug gehtyerQ60.82 Elevated C-reactive protein (CRP)D64.9 Anemia, unspecifiedReferral:Braden Marcos MD, Hematology/ Phys/Osteo Functional Status Description No Information Available Mental Status Description No Information Available Referrals Refer to Dr Reason for Referral Status Appt Date Braden Marcos MD Please evaluate and treat progressive anemia Sent from [facility] [address] [place] [address] [phone] Ever aWllace MD [address] [place] [address] [phone]
[2019-12-17 13:54] LABS: ABS Lymphocytes 0.9 10^3/ul (1.0-4.8); ABS Neutrophils 5.9 10^3/ul (1.5-7.7); Hematocrit 25 % (35-47); Hemoglobin 8.3 g/dL (12.0-16.0); Lymphocyte % 11.7 %; Mean Corpuscular HGB Conc 33 g/dL (31-36); Mean Corpuscular Hemoglobin 32 pg (27-31); Mean Corpuscular Volume 97 fL (80-97); Mean Platelet Volume 7.9 fL (7.4-10.4); Platelet Count 234 10^3/uL (150-450); Red Blood Count 2.58 10^6 /uL (3.70-4.87); Red Cell Distribution Width 18 % (10-15); White Blood Count 7.8 10^3/uL (3.5-10.8)
[2019-12-17 14:10] LABS: Albumin 3.8 g/dL (3.2-5.2); Albumin/Globulin Ratio 1.2 (1-3); C Reactive Protein 165.24 mg/L (<8.01); Calcium 9.5 mg/dL (8.6-10.3); EGFR African American 63.8 (>60); EGFR Non-African American 52.7 (>60); Globulin 3.2 g/dL (2-4); Total Bilirubin 0.5 mg/dL (0.2-1.0)
[2019-12-17] MEDS ORDERED: Iodixanol 320 (CONTRAST) 100 ML SDV IV ONE (15:19)
[2019-12-17 15:27] LABS: Erythrocyte Sed Rate 96 mm/Hr (0-29)
[2019-12-17] MEDS ORDERED: Ketorolac INJ* 30 MG/ML 1 ML VIAL IV ONE (17:49)
[2019-12-17] MEDS ORDERED: oxyCODONE/Acetamin 5/325 MG* TAB PO PRN ×2 (20:00→20:01)
[2019-12-17] MEDS ORDERED: Dextrose 50% Syringe 50 ML* 25 GM/50 ML SYRINGE IV PUSH PRN (20:03)
[2019-12-17] MEDS ORDERED: Insulin GLARGINE(*) 1 UNITS UNIT SUBCUT SCH (21:00)
--- NOTE | 2019-12-17 21:35 | CONS ---
CONSULTATION REPORT: DATE OF CONSULT: 12/17/19 REASON FOR CONSULTATION: Right thigh pain. HISTORY: The patient is an 84-year-old woman with rheumatoid arthritis and known osteoarthritis of the right hip, and poorly controlled diabetes mellitus, who presented to the ER today on 12/17/19 with right thigh pain. When I first spoke with the patient, her , and her son, she told me she had never had pain of this magnitude. She described a baseline of zero right hip and right knee pain. She described using a walker at home but not using an assist device when leaving the home. She described leaving the home to volunteer twice a week and also leaves the home for doctor's appointments. Looking through her records in our computer, it appears that the patient was actually seen in the emergency room and admitted for also the exact symptoms in January of 2019, 10 months ago. At that time, she volunteered 1 day and developed significant right thigh pain. She was admitted, seen by Orthopedic Surgery and thought to have a right hip osteoarthritic flare. Her primary care Dr. Beckford saw her at that time. The patient received some pain medication, the pain improved, and she was allowed to be discharged home. At the time of that admission, her CRP and ESR were greatly elevated. Presumably this was secondary to a flare of rheumatoid and/or osteoarthritis. There was no concern noted at that time of infection. Orthopedic Surgery at that time recommended a followup with orthopedic surgery team as an outpatient for treatment of right hip osteoarthritis. She did not follow up with Orthopedic Surgery in the clinic. The patient is seen by Dr. Greene of Rheumatology and is on sulfasalazine for her rheumatoid arthritis. Of note, the patient is also on Eliquis for a variety of thromboembolic risk factors including an implantable defibrillator. The story behind this current episode of pain is that the patient states that she was at her baseline until . She volunteered on , 2 days ago. She came home and had much pain about the right thigh. I asked her repeatedly if she fell or if there was any clear antecedent trauma. The patient denied a fall or any sort of trigger or antecedent trauma. The patient states that the hip hurts, 06/09. She was seen in the emergency room yesterday, 12/16/19. She was diagnosed with osteoarthritis and discharged home with Percocet to take as needed for pain and told to follow up with her primary care physician Dr. beckford. The patient went home and continued to have pain. She describes pain with or without weightbearing. The pain medicine was only mildly helpful. The patient presented today because she is having difficulty ambulating, moving around at all. The patient was asked repeatedly about fevers, sweats, chills, and denies them. The patient otherwise feels in her normal state of health. The family including the patient's son had some questions about ovarian cyst by CT scan today despite the fact that on at least 1 CT scan in the past including in January 2019, this same right ovarian cyst had been noted and thought to be incidental. PAST MEDICAL HISTORY: Atrial fibrillation with pacemaker defibrillator, on Eliquis; diabetes, insulin dependent; rheumatoid arthritis; leaky mitral valve; left bundle-branch block; obstructive sleep apnea, on a CPAP machine. MEDICATIONS: 1. Eliquis. 2. Calcium with vitamin D. 3. Carvedilol. 4. Vitamin B12. 5. Lasix. 6. Insulin Lantus. 7. Ferrous sulfate. 8. Folic acid. 9. Insulin lispro. 10. Synthroid. 11. Spironolactone. 12. Sulfasalazine. ALLERGIES: ATORVASTATIN, EZETIMIBE, LOSARTAN, GOLD, METHOTREXATE, PENICILLINS, PRAVASTATIN, RAMIPRIL, AMLODIPINE, DILTIAZEM, VALSARTAN. FAMILY HISTORY: Noncontributory. SOCIAL HISTORY: Lives with her . Leaves the home without assist device several days a week. Walk with walker at home. Wine every night. REVIEW OF SYSTEMS: The patient denies currently fever, sweats, or chills. Otherwise, feels in her normal state of health today. Describes right groin and anterior thigh pain. Denies abdominal or left lower extremity pain unless I am manipulating her. Review of systems was otherwise negative. PHYSICAL EXAMINATION: No acute distress. The patient is nontoxic appearing. Alert and oriented, appropriate mood and affect, appropriate dress and hygiene, well-coordinated bilateral upper and lower extremities. The patient told many different stories throughout our encounter. When reminded of her symptoms in January 2019 being essentially exactly the same as her current symptoms, she agreed that this might be the case, although her current symptom is worse. No significant diaphoresis. Abdomen is soft, nondistended. It is obese. The patient had some mild tenderness to palpation in all 4 quadrants, but no severe tenderness to palpation. Left lower extremity: Manipulation of hip, knee, and ankle produced no significant pain, although perhaps passive range of motion of the left hip produced some generalized right lower extremity discomfort. The patient was lying on a stretcher with a bump under her knee keeping her right hip in a flexed position. Any movement of the right lower extremity at first caused pain. Symptoms seemed to vary significantly during the course of the encounter. Sometimes just placing my hand on her ankle or lower leg produced significant pain, other times it did not. At times, the patient had no pain whatsoever with passive range of motion of the right knee from 0 to 30 degrees of flexion. No effusion in right knee. Pain with a log-roll maneuver right lower extremity. Pain with any passive range of motion in any direction of the right hip. The patient certainly did not tolerate that. The patient had some tenderness to palpation about the right anterior hip joint, also about the right thigh. No soft tissue swelling of the thigh. Compartment soft. No bruising. Good pulse dorsalis pedis right foot. Warm, well perfused. LABORATORY DATA: White blood cell count taken today was 7.8 with a neutrophil percentage of 75.7%. Hematocrit noted to only be 25. She had a value obtained on 12/07/19 that was 25 and on 11/02/19 that was 27, so there is some element of chronic anemia. An ESR today was noted to be 96, although in October it was 79 and in April it was 78, so this seems not far off her baseline. CRP today was elevated at 165, although at her hospitalization on 02/20/19, it reached 114. I do not see a hemoglobin A1c performed. I do not see a urinalysis performed. Blood glucose values from yesterday 12/16/19 were 229 and 232. Values at the January admission in 2019 were as high as 387. IMAGING: I reviewed hip and femur x-rays from yesterday right side and CT scan of the right hip through knee obtained today. X-rays demonstrate [id number] hip joint osteoarthritis as well as some osteopenia. No fracture visualized. The hip joint narrowing is not as severe on the left side as on the right. No fracture on the femur films. CT scan shows significant loss of joint space and articular cartilage. It also shows some very large bone cysts, subchondral cysts both in the femoral head and in the acetabulum. ASSESSMENT: 1. Right hip joint osteoarthritis exacerbation. 2. Rheumatoid arthritis. 3. Diabetes mellitus, likely poorly controlled. PLAN: 1. The patient's family is concerned because she is unable to walk and they feel she will be unable to get around at home due to the severity of her right hip pain. Therefore, admission seems reasonable for this. I recommended to the emergency room staff that the patient be admitted to hospitalist service for pain management of right hip osteoarthritis as well as management of diabetes mellitus. 2. I spoke about the spectrum of treatment of hip osteoarthritis with the family including physical therapy, cortisone injection, total joint arthroplasty. 3. The patient is welcome to follow up with me as an outpatient for a possible cortisone injection or discussion with one of my partners who performs regularly total hip arthroplasty surgeries. 4. With regard to the patient's diabetes, blood sugar control, I do not see any hemoglobin A1c in the computer, although her blood glucose is elevated in the emergency room now and had been in previous admission in January, so some improvement in that management might be helpful. 5. Given that the patient is a diabetic with elevated inflammatory markers and severe pain, a joint infection is always a possibility. However, given the lack of fever, lack of neutrophil percentage elevation, lack of white blood cell count elevation, and the patient's nontoxic appearance along with a similar episode 10 months ago, I do not think that at this time a hip joint aspiration is required to rule out an infection. If the patient's pain persists , this could be revisited by Orthopedic Surgery. 6. I recommend weightbearing as tolerated right lower extremity. The patient can use an assist device as needed, cane or walker. 7. Given the large size of the patient's subchondral cysts in the right femur and acetabulum, it is not surprising that she has significant pain with her arthritis. It is also possible that the patient is getting small microfractures adjacent to the cysts given that they take up a lot of volume especially in the femoral head. However, I would not treat that any differently than a hip joint osteoarthritic flare with weightbearing as tolerated. 8. Notes from the January admission describe Toradol as being particularly effective. We do not want to give many doses of this given that the patient is on Eliquis, but I requested that the emergency room staff provide a single dose of Toradol now to see how it will work. If it does not, hospitalist admission might be considered. [id number]/[facility] #: [id number] EVAN
--- NOTE | 2019-12-17 21:52 | HP ---
CC: Dr. Greene; Dr. Wallace * HOSPITAL MEDICINE HISTORY AND PHYSICAL: DATE OF ADMISSION: 12/17/19 ATTENDING PHYSICIAN: Dr. Yaa Xiao * (dictation provided by Kelley Shafer NP ) CHIEF COMPLAINT: Right hip and leg pain. HISTORY OF PRESENT ILLNESS: Ms. Tatum is an 84-year-old female with a past medical history of rheumatoid arthritis; atrial fibrillation with pacemaker defibrillator, on Eliquis; insulin-dependent diabetes; obstructive sleep apnea with CPAP, who today presents to the hospital with concern for right hip pain. Ms. Tatum states that her pain started on , she states the pain came on suddenly and was very acute and severe. She is not aware of any injury and certainly had no traumatic fall, etc that precipitated this pain. She came in to the emergency room on 12/16/19 and was evaluated for this pain and at that time she had a pelvis x-ray and a femur x-ray, which showed no acute abnormalities and she was discharged to home. She was started on oxycodone. She has taken 1 tab has not noted any improvement in her pain. Today, she returned to the ED because she simply could not ambulate at all due to the severity of pain. She states the pain seems to be originating in the right hip and radiating throughout the right leg. There does not seem to be any discrete pain about the right knee. She denies any weakness. She denies any back pain. She denies any fever, chills, nausea, vomiting, diarrhea, abdominal pain. She has had no chest pain, no shortness of breath. In the emergency room, Ms. Tatum had labs, which were consistent with some of her previous labs including a hyponatremia with a sodium of 131 and elevated ESR at 93; however, I will note that her CRP is elevated to 165.24 and this is unusual in her based on review of past records. Her hemoglobin is low at 8.3, which is consistent with her history of anemia. Her ESR is 96, again this is consistent with her history of rheumatoid arthritis. The patient had a low extremity CT that did not show any significant abnormalities and was read as follows, "osteopenia, osteoarthritis, no appreciable loculated fluid collection to suggest abscess. No significant joint effusions, bursa collections. Again, noted is a complex cystic and solid lesion of the right ovary. Differential includes ovarian neoplasm." PAST MEDICAL HISTORY: 1. Rheumatoid arthritis with inability to tolerate most medications per Dr. Greene and the patient. 2. Atrial fibrillation with pacemaker defibrillator, on Eliquis. 3. Insulin-dependent type 2 diabetes. 4. Leaky mitral valve. 5. Left bundle-branch block. 6. ZABRINA with CPAP. 7. Hypertension. 8. Hypothyroidism. OUTPATIENT MEDICATIONS: 1. Apixaban 5 mg p.o. b.i.d. 2. Multivitamin with mineral 1 tab p.o. daily. 3. Levothyroxine 75 mcg p.o. daily. 4. NovoLog insulin 3 to 10 units t.i.d. with meals. 5. Lantus insulin 12 units subcutaneously q.p.m. 6. Folic acid 1 tab p.o. daily. 7. Ferrous sulfate 325 mg p.o. every other day. 8. Cyanocobalamin 1000 mcg p.o. daily. 9. Carvedilol 25 mg in the a.m. and 12.5 mg p.o. q.p.m. 10. Calcium with vitamin D 1 tab p.o. at bedtime. 11. Ascorbic acid 500 mg p.o. daily. 12. Sulfasalazine 1000 mg in the a.m. and 500 to 1000 mg in the p.m. 13. Oxycodone/acetaminophen 5/325 one tab p.o. q.4 hours p.r.n. pain. 14. Spironolactone 50 mg p.o. daily. ALLERGIES: CIPROFLOXACIN, ATORVASTATIN, ZETIA, LOSARTAN, GOLD AU 198, METHOTREXATE, PENICILLINS, PRAVASTATIN, RAMIPRIL, AMLODIPINE, DILTIAZEM, VALSARTAN. FAMILY HISTORY: The patient's mother at age 40 due to pulmonary embolism. Father related to an accident at a young age. SOCIAL HISTORY: The patient lives at home with her . She quit smoking about 40 or more years ago. She drinks about 4 ounces of alcohol every night. Her healthcare proxy is her , [place], and she is a full code. REVIEW OF SYSTEMS: A 14-point review of systems was completed with Ms. Tatum, and all those not mentioned above were negative. PHYSICAL EXAMINATION GENERAL: Ms. Tatum is lying in the bed. She is in no acute distress, but the family is at the bedside. VITAL SIGNS: Temperature 98.3, pulse rate 91, respiratory rate 18, O2 saturation 91% on room air, blood pressure 176/66. LUNGS: Clear to auscultation bilaterally with no accessory muscle use and good aeration. HEART: S1, S2. No murmur, rub, or gallop and regular. EXTREMITIES: No cyanosis, no edema. NEUROLOGIC: She is alert. She is oriented x3. She moves all extremities equally, though movement of the right leg is limited by pain. There is no facial asymmetry or focal weakness. Extraocular movements are intact. The patient is able to dorsiflex the foot. She reports pain with lifting the leg off the bed. Pain with flexion and pressure applied to the foot. SKIN: Intact. DIAGNOSTIC STUDIES/LAB DATA: WBC 7.8, hemoglobin 8.3, hematocrit 25, platelet count 18, ESR 96. Sodium 131, potassium 4.0, chloride 99, serum bicarbonate 24 , BUN 20, creatinine 1.00, glucose 284, CRP 165.24. ASSESSMENT: Ms. Tatum is an 84-year-old female with a past medical history of rheumatoid arthritis, type 2 diabetes, which is insulin dependent and atrial fibrillation, on Eliquis, who presents today to the hospital with right hip pain. 1. Right hip pain. The patient had similar presentation back in January where she had pain in the hip, which was also attributed to rheumatoid arthritis and responded well to NSAID therapy. I appreciate the consultation from Orthopedic Surgery who does not feel currently that there is any evidence of infection. I note that her CRP is elevated, which could point towards infection but her WBC is normal and she has no fever. To further evaluate for infection, I am adding on blood cultures x2 and we will monitor those closely. Otherwise, I agree this is most likely a flare of her rheumatoid arthritis. This has been reviewed with Dr. Greene as well and he recommends that we start steroids. I have started prednisone at 40 mg daily, which I am hoping that we can quickly taper off for her given that she has diabetes, which is insulin dependent. We will adjust her insulin medication regimen as needed. In the past, she responded well to NSAID therapy. I am hesitant to use that tonight, but there could be consideration of that given tomorrow with her primary care physician, Dr. Wallace or their team. She will also have pain medications p.r.n. I am ordering for physical therapy. 2. Type 2 diabetes. The patient states she has not eaten much at all today. Her blood sugar is running a little over 200, we will continue with her normal Lantus this evening, but anticipating adding more Lantus in the a.m. to cover for the steroid-induced hyperglycemia. She will have a consistent carbohydrate diet. 3. Atrial fibrillation, continue apixaban and carvedilol. 4. Hypertension, continue carvedilol, continue spironolactone. 5. Hypothyroidism, continue levothyroxine. 6. Code status is full code. This was reviewed with the patient at the bedside. 7. DVT prophylaxis: Eliquis. TIME SPENT: Approximately 60 minutes was spent on the admission of this, more than half time was spent with the patient at the bedside reviewing the events leading up to this hospitalization, performing the physical examination, and reviewing my plan of care. KELLEY SHAFER NP [id number]/CPS #: [id number] EVAN
[2019-12-17] MEDS: Apixaban* 5 MG TAB PO SCH (22:53)
[2019-12-17] MEDS ORDERED: Insulin LISPRO* 1 UNITS UNIT SUBCUT ONE ×2 (23:07→23:15)
[2019-12-18] MEDS: Levothyroxine TAB* 75 MCG TAB PO SCH (05:36)
[2019-12-18] MEDS ORDERED: Insulin LISPRO* 1 UNITS UNIT SUBCUT SCH (07:30)
[2019-12-18] MEDS ORDERED: Insulin LISPRO* 1 UNITS UNIT SUBCUT ONE ×3 (08:45→19:00)
[2019-12-18] MEDS: Folic Acid TAB* 1 MG PO SCH (09:49)
[2019-12-18] MEDS: Apixaban* 5 MG TAB PO SCH (09:49)
[2019-12-18] MEDS: Carvedilol TAB* 25 MG PO SCH (09:49)
[2019-12-18] MEDS: Spironolactone TAB* 25 MG PO SCH (09:50)
[2019-12-18] MEDS: Ascorbic Acid TAB* 500 MG PO SCH (09:50)
[2019-12-18] MEDS: sulfaSALAzine TAB* 500 MG PO SCH (09:50)
--- NOTE | 2019-12-18 10:25 | PN ---
Progress Note - Progress Note Date of Service: 12/18/19 SOAP: Subjective: Patient slept well. The pain is improved. She reports not taking narcotics today, which is a change from yesterday in the ER when her pain required narcotics. She says that she has no pain at rest now, which is an improvement compared with yesterday. She still has pain with ROM hip and does not think that she can weight bear yet. She was started on high dose Prednisone oral yesterday by Hospitalist per Jc 's recommendations. Dr. Wallace is soon to see her today. Objective: Non-toxic appearing. Abdomen S/ND/NT, an improvement since yesterday LLE: - no pain with ROM hip, an improvement since yesterday RLE: - pain with log roll and PROM hip - I was able to get her to actively range the hip 0-70 degrees of flexion slowly, which was not impossible yesterday Selected Entries 12/17/19 12/18/19 12/18/19 22:12 02:57 07:42 Temperature 98.5 F 97.9 F 97.4 F Pulse Rate 73 Respiratory 17 Rate Blood Pressure 130/37 (mmHg) O2 Sat by Pulse 97 Oximetry Laboratory Tests 12/17/19 12/18/19 22:33 07:19 POC Glucose (mg/dL) 360 H > 444 H* Assessment: HD 2 R hip osteoarthritis, rheumatoid arthritis flare Diabetes mellitus Plan: - Continue high dose steroids oral - Physical therapy when can tolerate it - Diabetes management per Dr. Wallace - As she is improving so much without antibiotics, I don't think that an aspiration of hip joint under ultrasound or radiography is required at this time. If she stops improving or there is a particular reason for concern, that would be the next step for an infection work-up. It would be worth trending CRP , CBC just in case. - WBAT, activity as tolerated
--- NOTE | 2019-12-18 11:08 | PN ---
Subjective - Subjective Reason for Note: Progress Note History: Rafaela Tatum is a primary care patient and also a diabetic patient at my medical office. She tells me she developed sudden onset of right hip and thigh pain on night (today Thursday). This worsened rapidly. She was unable to weight bear and hence came to the [facility]. She had a similar admission in January and responded dramatically to IV ketorelac. At present she is being given prednisone 40 mg daily orally. As a result she has had a spike in her blood glucose levels. This morning she no longer has rest pain - but any slight movement of her hip exacerbates the pain that is in her hip, thigh and radiates down her right leg. Active Problems: Active Problems Acute right hip pain (Acute) M25.551 Steroid-induced hyperglycemia (Acute) R73.9, T38.0X5A Atrial fibrillation (Chronic) I48.91 Cardiomyopathy (Chronic) I42.9 Chronic anticoagulation (Chronic) Z79.01 Diabetes mellitus with insulin therapy (Chronic) E11.9, Z79.4 Essential hypertension (Chronic) I10 Heart block (Chronic) I45.9 Hypercholesteremia (Chronic) E78.00 Mitral regurgitation (Chronic) Primary hypothyroidism (Chronic) E03.9 Rheumatoid arthritis (Chronic) M06.9 Type 2 diabetes mellitus (Chronic) Current Medications: Current Medications Apixaban (Eliquis*) 5 mg PO BID [facility] Last Admin: 12/18/19 09:49 Dose: 5 mg Ascorbic Acid (Vitamin C Tab*) 500 mg PO DAILY [facility] Last Admin: 12/18/19 09:50 Dose: 500 mg Carvedilol (Coreg Tab*) 12.5 mg PO QPM [facility] Carvedilol (Coreg Tab*) 25 mg PO QAM [facility] Last Admin: 12/18/19 09:49 Dose: 25 mg Dextrose (D50w Syringe 50 Ml*) 12.5 gm IV PUSH .FOR FS < 60 - SS PRN PRN Reason: FS < 60 Ferrous Sulfate (Ferrous Sulfate Tab*) 325 mg PO EVERY OTHER DAY [facility] Folic Acid (Folvite Tab*) 1 mg PO DAILY [facility] Last Admin: 12/18/19 09:49 Dose: 1 mg Insulin Glargine (Lantus(*)) 12 units SUBCUT 2100 [facility] Last Admin: 12/17/19 22:54 Dose: 12 unit Insulin Human Lispro (Humalog*) 0 units SUBCUT [facility]; Protocol Last Admin: 12/18/19 09:48 Dose: Not Given Levothyroxine Sodium (Synthroid Tab*) 75 mcg PO DAILY@0600 [facility] Last Admin: 12/18/19 05:36 Dose: 75 mcg Oxycodone/Acetaminophen (Percocet 5/325 Tab*) 1 tab PO Q4H PRN PRN Reason: PAIN - MODERATE Oxycodone/Acetaminophen (Percocet 5/325 Tab*) 2 tab PO Q4H PRN PRN Reason: PAIN - SEVERE Prednisone (Deltasone 20 Mg Tab) 40 mg PO DAILY [facility] Last Admin: 12/18/19 09:50 Dose: 40 mg Spironolactone (Aldactone Tab*) 50 mg PO DAILY [facility] Last Admin: 12/18/19 09:50 Dose: 50 mg Sulfasalazine (Azulfidine Tab*) 1,000 mg PO QAM [facility] Last Admin: 12/18/19 09:50 Dose: 1,000 mg Sulfasalazine (Azulfidine Tab*) 500 mg PO QPM [facility] - Review of Systems Pulmonary: Negative: Cough, Sputum, Respiratory Distress Cardiology: Negative: Chest Pain, Shortness of Breath, Palpitations, Swelling of Ankles Gastroenterology: Negative: Abdominal Pain, Vomiting, Change in Bowel Habits Genital - Urinary: Negative: Dysuria, Polyuria Musculoskeletal: Positive: Joint Pain Negative: Joint Stiffness - She has had no exacerbation of her rhematoid A. Her shoulders hurt as usual Neurology: Negative: Headache Home Medications: Home Medications Medication Instructions Recorded Confirmed Type Apixaban* [Eliquis*] 5 mg PO BID 05/08/16 12/17/19 History Multivitamin [Multivitamins] 1 cap PO DAILY 05/08/16 12/17/19 History sulfaSALAzine TAB* [Azulfidine 1,000 mg PO QAM 07/17/16 12/17/19 History TAB*] Cyanocobalamin (Vitamin B-12) 1,000 mcg PO DAILY #0 02/18/19 12/17/19 History [Vitamin B-12] Ascorbic Acid TAB* [Vitamin C 500 mg PO DAILY 12/16/19 12/17/19 History TAB*] Calcium Carbonate/Vitamin D3 1 tab PO BEDTIME 12/16/19 12/17/19 History [Calcium 1000 + D] Carvedilol TAB* [Coreg TAB*] 12.5 mg PO QPM 12/16/19 12/17/19 History Carvedilol TAB* [Coreg TAB*] 25 mg PO QAM 12/16/19 12/17/19 History Ferrous Sulfate TAB* 325 mg PO EVERY OTHER DAY 12/16/19 12/17/19 History Folic Acid TAB* [Folvite TAB*] 1 mg PO DAILY 12/16/19 12/17/19 History Insulin Aspart [Novolog Penfill 3 - 10 units SUBCUT TID WITH MEALS 12/16/19 History 100 units/ml 5 ml x 3 pens] Insulin Glargine,Hum.rec.anlog 12 units SUBCUT QPM 12/16/19 12/17/19 History [Lantus Solostar 100 units/ml 3 ml x 5 PENS] Levothyroxine TAB* [Synthroid TAB*] 75 mcg PO DAILY 12/16/19 12/17/19 History Spironolactone TAB* [Aldactone 50 mg PO DAILY 12/16/19 12/17/19 History TAB*] oxyCODONE/Acetamin 5/325 MG* 1 tab PO Q4H PRN #20 tab MDD 6 12/16/19 12/17/19 Rx [Percocet 5/325 TAB*] sulfaSALAzine TAB* [Azulfidine 500 - 1,000 mg PO QPM 12/16/19 12/17/19 History TAB*] Allergies: Allergies Allergy/AdvReac Type Severity Reaction Status Date / Time ciprofloxacin Allergy Severe Rash Verified 04/13/19 18:25 atorvastatin Allergy Intermediate Leg Cramps Verified 04/13/19 18:25 ezetimibe [From Zetia] Allergy Intermediate Itching Verified 04/13/19 18:25 losartan Allergy Intermediate Rash Verified 04/13/19 18:25 ARB-Angiotensin Receptor Allergy Unknown Unknown Verified 04/13/19 18:25 Antagonist Reaction Details gold Au 198 Allergy Unknown Unknown Verified 04/13/19 18:25 Reaction Details methotrexate Allergy Unknown Unknown Verified 04/13/19 18:25 Reaction Details Penicillins Allergy Unknown Unknown Verified 04/13/19 18:25 Reaction Details pravastatin Allergy Unknown Unknown Verified 04/13/19 18:25 Reaction Details ramipril Allergy Unknown Unknown Verified 04/13/19 18:25 Reaction Details amlodipine AdvReac Intermediate Headache Verified 04/13/19 18:25 diltiazem AdvReac Intermediate See Comment Verified 04/13/19 18:25 valsartan AdvReac Intermediate Coughing Verified 04/13/19 18:25 Objective - Vital Signs Vital Signs: Vital Signs 12/17/19 12/17/19 12/17/19 13:25 13:28 13:36 Temperature 98.3 F Pulse Rate 68 72 73 Respiratory 20 Rate Blood Pressure 163/66 163/66 (mmHg) O2 Sat by Pulse 95 96 98 Oximetry 12/17/19 12/17/19 12/17/19 14:00 14:06 14:36 Temperature Pulse Rate 66 67 76 Respiratory Rate Blood Pressure 164/68 169/69 (mmHg) O2 Sat by Pulse 94 94 97 Oximetry 12/17/19 12/17/19 12/17/19 14:48 15:20 15:33 Temperature Pulse Rate 73 70 Respiratory 18 Rate Blood Pressure 148/53 (mmHg) O2 Sat by Pulse 92 97 Oximetry 12/17/19 12/17/19 12/17/19 15:36 18:22 20:40 Temperature Pulse Rate 73 91 73 Respiratory 18 18 Rate Blood Pressure 150/65 176/66 134/96 (mmHg) O2 Sat by Pulse 91 98 Oximetry 12/17/19 12/17/19 12/17/19 21:40 21:53 22:12 Temperature 99.3 F 98.5 F 98.5 F Pulse Rate 72 73 73 Respiratory 20 16 16 Rate Blood Pressure 170/63 132/44 132/44 (mmHg) O2 Sat by Pulse 95 95 95 Oximetry 12/18/19 12/18/19 12/18/19 02:57 07:42 08:00 Temperature 97.9 F 97.4 F Pulse Rate 71 73 Respiratory 18 17 17 Rate Blood Pressure 135/48 130/37 (mmHg) O2 Sat by Pulse 95 97 Oximetry - Intake and Output Intake and Output: Intake & Output 12/15/19 12/16/19 12/17/19 12/18/19 11:59 11:59 11:59 11:59 Intake Total 1000 Balance 1000 Weight 159 lb Intake: IV Fluids 1000 Oral 0 Other: Estimated Void Small # Voids 1 ADLs: Meal Record Start: 12/17/19 21: 53 Freq: DAILY@0900,1400,1800 Status: Active Protocol: Created 12/17/19 21:53 System (Rec: 12/17/19 21:53 System [id number]) Intake and Output Start: 12/17/19 13: 48 Freq: Status: Active Protocol: Created 12/17/19 13:48 System (Rec: 12/17/19 13:48 System [id number]) Intake and Output Start: 12/17/19 21: 53 Freq: DAILY@0600,1400,2200 Status: Active Protocol: Created 12/17/19 21:53 System (Rec: 12/17/19 21:53 System MED-C11) Document 12/17/19 22:00 [id number] (Rec: 12/17/19 22:23 [id number] [id number]) Document 12/18/19 04:51 [id number] (Rec: 12/18/19 04:52 [id number] MED-C11) - Physical Exam General Physical Exam Comment: She has no swelling, warmth or discoloration around her right hip, thigh or calf. Her feet are normal (deformed by rheumatoid arthritis, but no ulceration, infection or callouses). Otherwise, she is afrebrile and in no acute distress. General: No Cyanosis, No Anemia, No Jaundice, No Clubbing Lungs and Chest: Yes: Chest Expansion Full, Chest Expansion Symetrica, Percussion Note Resonant, Vessicular Breath Sounds. No: Crackles, Wheezes, Respiratory Distress, Use of Accessory Muscles Heart Rate and Rhythm: Regular JVP: Not Elevated Additional Cardiovascular: Yes: Normal Heart Sounds. No: Heart Murmur, Pedal Edema Abdominal Exam: Yes: Soft, Bowel Sounds Present. No: Distention, Hepatomegaly, Splenomegaly, Abdominal Tenderness Results - Results Lab Results: Laboratory Results - last 24 hr 12/17/19 12/17/19 12/17/19 13:46 13:46 22:33 WBC 7.8 RBC 2.58 L Hgb 8.3 L Hct 25 L MCV 97 MCH 32 H MCHC 33 RDW 18 H Plt Count 234 MPV 7.9 Neut % (Auto) 75.7 Lymph % (Auto) 11.7 [place] % (Auto) 12.4 Eos % (Auto) 0.0 Baso % (Auto) 0.2 Absolute Neuts (auto) 5.9 Absolute Lymphs (auto) 0.9 L Absolute Monos (auto) 1.0 H Absolute Eos (auto) 0.0 Absolute Basos (auto) 0.0 Absolute Nucleated RBC 0.0 Nucleated RBC % 0.0 ESR 96 H Sodium 131 L Potassium 4.0 Chloride 99 L Carbon Dioxide 24 Anion Gap 8 BUN 20 Creatinine 1.00 H Est GFR ( Amer) 63.8 Est GFR (Non-Af Amer) 52.7 BUN/Creatinine Ratio 20.0 Glucose 284 H POC Glucose (mg/dL) 360 H Glucose Meter Confirm Calcium 9.5 Total Bilirubin 0.50 AST 18 ALT 11 Alkaline Phosphatase 70 C-Reactive Protein 165.24 H Total Protein 7.0 Albumin 3.8 Globulin 3.2 Albumin/Globulin Ratio 1.2 12/18/19 12/18/19 07:19 07:46 WBC RBC Hgb Hct MCV MCH MCHC RDW Plt Count MPV Neut % (Auto) Lymph % (Auto) [place] % (Auto) Eos % (Auto) Baso % (Auto) Absolute Neuts (auto) Absolute Lymphs (auto) Absolute Monos (auto) Absolute Eos (auto) Absolute Basos (auto) Absolute Nucleated RBC Nucleated RBC % ESR Sodium Potassium Chloride Carbon Dioxide Anion Gap BUN Creatinine Est GFR ( Amer) Est GFR (Non-Af Amer) BUN/Creatinine Ratio Glucose POC Glucose (mg/dL) > 444 H* Glucose Meter Confirm 442 H Calcium Total Bilirubin AST ALT Alkaline Phosphatase C-Reactive Protein Total Protein Albumin Globulin Albumin/Globulin Ratio Radiology Results: Patient Name: RAFAELA TATUM Medical Record#: [id number] Ordering Physician: Mor Carpio MD Acct.#: [id number] : 1935 Age: 84 Sex: F Location: EMERGENCY DEPARTMENT Exam Date: 12/17/19 1335 ADM Status: REG ER Order Information: CT EXTREMITY LOWER RIGHT W Accession Number: [id number] CPT: 73402 HISTORY: eval for hip pain. Rule out abscess and effusion COMPARISONS: Radiograph dated December 16, 2019, CT of the pelvis dated January TECHNIQUE: Multiple contiguous axial CT images are obtained of the right femur, with coronal and sagittal multiplanar reconstructions, with intravenous contrast administration. FINDINGS: BONE DENSITY: There is diffuse osteopenia. BONES: There is no displaced fracture. JOINTS: There is moderate to advanced tricompartmental osteoarthritis of the right knee. There is moderate to advanced osteoarthritis of the right hip. There are no significant joint effusions or bursal collections. MUSCULATURE: Unremarkable ALIGNMENT: There is no dislocation. SOFT TISSUES: Unremarkable. OTHER FINDINGS: Again noted is a complex cystic and solid lesion of the right ovary currently measuring 5.3 x 3.5 cm transversely. This is similar in size to February 18, 2019 IMPRESSION: 1. OSTEOPENIA. 2. OSTEOARTHRITIS. 3. NO APPRECIABLE LOCULATED FLUID COLLECTION TO SUGGEST ABSCESS. NO SIGNIFICANT JOINT EFFUSIONS OR BURSAL COLLECTIONS. 4. AGAIN NOTED IS A COMPLEX CYSTIC AND SOLID LESION OF THE RIGHT OVARY. THE DIFFERENTIAL INCLUDES OVARIAN NEOPLASM <Electronically signed by Charanjit Stinson MD in [place]> 12/17/19 1544 Dictated By: Charanjit Stinson MD Dictated Date/Time: 12/17/191539 Transcribed Date/Time: 12/17/191539 Copy to: Assessment - Problem List Assessment: Patient Problems Acute right hip pain (Acute) Steroid-induced hyperglycemia (Acute) Atrial fibrillation (Chronic) Cardiomyopathy (Chronic) Chronic anticoagulation (Chronic) Diabetes mellitus with insulin therapy (Chronic) Essential hypertension (Chronic) Heart block (Chronic) Hypercholesteremia (Chronic) Mitral regurgitation (Chronic) Primary hypothyroidism (Chronic) Rheumatoid arthritis (Chronic) Type 2 diabetes mellitus (Chronic) Pacemaker (Chronic) Plan: Acute right hip pain (Acute) Rheumatoid arthritis (Chronic) This is a similar presentation to her admission in January 2019 with hip pain. As on that occasion , her CRP has had a dramatic increase. Her ESR is elevated. However, her neutrophil% is not elevated. She has no signs of systemic infection. I think this is confined to her hip. Differential diagnosis: * Acute flare of rheumatoid arthritis affecting her right hip * Acute bursitis * Acute gout * Acute pyrophosphate arthritis. * Infected arthritis of the right hip I note that she improved rapidly last time with ketorelac and steroids. She has no generalized signs of a rheumatoid arthritis flare - her other joints are not affected. There is obvious fluid collection on CT scan. I appreciate Dr. Maninder Barros's input. I will treat her with ketorelac and steroids Comorbidities: Type 2 diabetes mellitus (Chronic)/Diabetes mellitus with insulin therapy ( Chronic)/Steroid-induced hyperglycemia (Acute) Pain also likely contributes to this hyperglycemia - I will increase her basal insulin as well as her bolues Secondary diagnoses: Atrial fibrillation (Chronic) Cardiomyopathy (Chronic) Chronic anticoagulation (Chronic) Essential hypertension (Chronic) Heart block (Chronic) Hypercholesteremia (Chronic) Mitral regurgitation (Chronic) Primary hypothyroidism (Chronic) Pacemaker (Chronic) Her and son were present at the consultation - they all agree with the therapeutic plan.
[2019-12-18] MEDS ORDERED: Dextrose 50% Syringe 50 ML* 25 GM/50 ML SYRINGE IV PUSH PRN (11:21)
[2019-12-18 12:24] LABS: ABS Lymphocytes 0.7 10^3/ul (1.0-4.8); ABS Monocytes 0.7 10^3/ul (0-0.8); ABS Neutrophils 6.2 10^3/ul (1.5-7.7); Eosinophil % 0.1 %; Hematocrit 27 % (35-47); Hemoglobin 8.6 g/dL (12.0-16.0); Lymphocyte % 8.7 %; Mean Corpuscular HGB Conc 32 g/dL (31-36); Mean Corpuscular Hemoglobin 32 pg (27-31); Mean Corpuscular Volume 100 fL (80-97); Mean Platelet Volume 8.6 fL (7.4-10.4); Platelet Count 250 10^3/uL (150-450); Red Blood Count 2.67 10^6 /uL (3.70-4.87); Red Cell Distribution Width 19 % (10-15); White Blood Count 7.6 10^3/uL (3.5-10.8)
[2019-12-18 12:32] LABS: C Reactive Protein 223.23 mg/L (<8.01); Uric Acid 6.2 mg/dL (2.3-6.6)
[2019-12-18] MEDS: Insulin LISPRO* 1 UNITS UNIT SUBCUT SCH ×4 (12:57→18:55)
[2019-12-18 13:10] LABS: % Iron Saturation 10 % (15-55); Iron 29 ug/dL (50-212); Total Iron Binding Capacity 279 mcg/dL (250-450); Transferrin 199 mg/dL (203-362)
[2019-12-18] MEDS: Ketorolac INJ* 30 MG/ML 1 ML VIAL IM SCH ×2 (13:16→22:09)
[2019-12-18] MEDS ORDERED: sulfaSALAzine TAB* 500 MG PO SCH (18:00)
[2019-12-18] MEDS ORDERED: Carvedilol TAB* 6.25 MG PO SCH (18:00)
[2019-12-18] MEDS: Apixaban* 2.5 MG TAB PO SCH (22:08)
[2019-12-18] MEDS: Insulin GLARGINE(*) 1 UNITS UNIT SUBCUT SCH (22:10)
[2019-12-19] MEDS: Ketorolac INJ* 30 MG/ML 1 ML VIAL IM SCH ×2 (04:03→13:51)
[2019-12-19] MEDS: Levothyroxine TAB* 75 MCG TAB PO SCH (05:38)
[2019-12-19 06:23] LABS: ABS Monocytes 0.6 10^3/ul (0-0.8); ABS Neutrophils 4.5 10^3/ul (1.5-7.7); Hematocrit 23 % (35-47); Hemoglobin 7.5 g/dL (12.0-16.0); Lymphocyte % 16.6 %; Mean Corpuscular HGB Conc 33 g/dL (31-36); Mean Corpuscular Hemoglobin 32 pg (27-31); Mean Corpuscular Volume 97 fL (80-97); Platelet Count 228 10^3/uL (150-450); Red Blood Count 2.35 10^6 /uL (3.70-4.87); Red Cell Distribution Width 18 % (10-15); White Blood Count 6.2 10^3/uL (3.5-10.8)
[2019-12-19 06:41] LABS: BUN/Creatinine Ratio 27.6 (8-20); C Reactive Protein 143.55 mg/L (<8.01); Calcium 9.3 mg/dL (8.6-10.3); EGFR African American 36.3 (>60); Potassium 4.6 mmol/L (3.5-5.0)
--- NOTE | 2019-12-19 08:00 | PN ---
Subjective - Subjective Reason for Note: Discharge Note History: Contingent discharge note She is feeling improved. Her right hip and thigh are less painful and she was able to walk to the commode and back. She would like to go home. However, she continues to have out of control diabetes due to the prednisone 40 mg daily. Active Problems: Active Problems Acute right hip pain (Acute) M25.551 Steroid-induced hyperglycemia (Acute) R73.9, T38.0X5A Atrial fibrillation (Chronic) I48.91 Cardiomyopathy (Chronic) I42.9 Chronic anticoagulation (Chronic) Z79.01 Diabetes mellitus with insulin therapy (Chronic) E11.9, Z79.4 Essential hypertension (Chronic) I10 Heart block (Chronic) I45.9 Hypercholesteremia (Chronic) E78.00 Mitral regurgitation (Chronic) Primary hypothyroidism (Chronic) E03.9 Rheumatoid arthritis (Chronic) M06.9 Type 2 diabetes mellitus (Chronic) Current Medications: Current Medications Apixaban (Eliquis*) 2.5 mg PO BID [facility] Last Admin: 12/18/19 22:08 Dose: 2.5 mg Ascorbic Acid (Vitamin C Tab*) 500 mg PO DAILY [facility] Last Admin: 12/18/19 09:50 Dose: 500 mg Carvedilol (Coreg Tab*) 12.5 mg PO QPM [facility] Last Admin: 12/18/19 18:27 Dose: 12.5 mg Carvedilol (Coreg Tab*) 25 mg PO QAM [facility] Last Admin: 12/18/19 09:49 Dose: 25 mg Dextrose (D50w Syringe 50 Ml*) 12.5 gm IV PUSH .FOR FS < 60 - SS PRN PRN Reason: FS < 60 Ferrous Sulfate (Ferrous Sulfate Tab*) 325 mg PO EVERY OTHER DAY [facility] Folic Acid (Folvite Tab*) 1 mg PO DAILY [facility] Last Admin: 12/18/19 09:49 Dose: 1 mg Insulin Glargine (Lantus(*)) 12 units SUBCUT BID [facility] Last Admin: 12/18/19 22:10 Dose: 12 units Insulin Human Lispro (Humalog*) 0 units SUBCUT [facility]; Protocol Last Admin: 12/18/19 18:55 Dose: Not Given Insulin Human Lispro (Humalog*) 0 units SUBCUT AC [facility]; Protocol Last Admin: 12/18/19 18:21 Dose: 4 units Ketorolac Tromethamine (Toradol Inj*) 30 mg IM Q8H [facility] Stop: 12/23/19 11:15 Last Admin: 12/19/19 04:03 Dose: 30 mg Levothyroxine Sodium (Synthroid Tab*) 75 mcg PO DAILY@0600 [facility] Last Admin: 12/19/19 05:38 Dose: 75 mcg Oxycodone/Acetaminophen (Percocet 5/325 Tab*) 1 tab PO Q4H PRN PRN Reason: PAIN - MODERATE Oxycodone/Acetaminophen (Percocet 5/325 Tab*) 2 tab PO Q4H PRN PRN Reason: PAIN - SEVERE Prednisone (Deltasone 20 Mg Tab) 40 mg PO DAILY [facility] Last Admin: 12/18/19 09:50 Dose: 40 mg Spironolactone (Aldactone Tab*) 50 mg PO DAILY [facility] Last Admin: 12/18/19 09:50 Dose: 50 mg Sulfasalazine (Azulfidine Tab*) 1,000 mg PO QAM [facility] Last Admin: 12/18/19 09:50 Dose: 1,000 mg Sulfasalazine (Azulfidine Tab*) 500 mg PO QPM [facility] Last Admin: 12/18/19 18:27 Dose: 500 mg Home Medications: Home Medications Medication Instructions Recorded Confirmed Type Apixaban* [Eliquis*] 5 mg PO BID 05/08/16 12/17/19 History Multivitamin [Multivitamins] 1 cap PO DAILY 05/08/16 12/17/19 History sulfaSALAzine TAB* [Azulfidine 1,000 mg PO QAM 07/17/16 12/17/19 History TAB*] Cyanocobalamin (Vitamin B-12) 1,000 mcg PO DAILY #0 02/18/19 12/17/19 History [Vitamin B-12] Ascorbic Acid TAB* [Vitamin C 500 mg PO DAILY 12/16/19 12/17/19 History TAB*] Calcium Carbonate/Vitamin D3 1 tab PO BEDTIME 12/16/19 12/17/19 History [Calcium 1000 + D] Carvedilol TAB* [Coreg TAB*] 12.5 mg PO QPM 12/16/19 12/17/19 History Carvedilol TAB* [Coreg TAB*] 25 mg PO QAM 12/16/19 12/17/19 History Ferrous Sulfate TAB* 325 mg PO EVERY OTHER DAY 12/16/19 12/17/19 History Folic Acid TAB* [Folvite TAB*] 1 mg PO DAILY 12/16/19 12/17/19 History Insulin Aspart [Novolog Penfill 3 - 10 units SUBCUT TID WITH MEALS 12/16/19 History 100 units/ml 5 ml x 3 pens] Insulin Glargine,Hum.rec.anlog 12 units SUBCUT QPM 12/16/19 12/17/19 History [Lantus Solostar 100 units/ml 3 ml x 5 PENS] Levothyroxine TAB* [Synthroid TAB*] 75 mcg PO DAILY 12/16/19 12/17/19 History Spironolactone TAB* [Aldactone 50 mg PO DAILY 12/16/19 12/17/19 History TAB*] oxyCODONE/Acetamin 5/325 MG* 1 tab PO Q4H PRN #20 tab MDD 6 12/16/19 12/17/19 Rx [Percocet 5/325 TAB*] sulfaSALAzine TAB* [Azulfidine 500 - 1,000 mg PO QPM 12/16/19 12/17/19 History TAB*] Allergies: Allergies Allergy/AdvReac Type Severity Reaction Status Date / Time ciprofloxacin Allergy Severe Rash Verified 04/13/19 18:25 atorvastatin Allergy Intermediate Leg Cramps Verified 04/13/19 18:25 ezetimibe [From Zetia] Allergy Intermediate Itching Verified 04/13/19 18:25 losartan Allergy Intermediate Rash Verified 04/13/19 18:25 ARB-Angiotensin Receptor Allergy Unknown Unknown Verified 04/13/19 18:25 Antagonist Reaction Details gold Au 198 Allergy Unknown Unknown Verified 04/13/19 18:25 Reaction Details methotrexate Allergy Unknown Unknown Verified 04/13/19 18:25 Reaction Details Penicillins Allergy Unknown Unknown Verified 04/13/19 18:25 Reaction Details pravastatin Allergy Unknown Unknown Verified 04/13/19 18:25 Reaction Details ramipril Allergy Unknown Unknown Verified 04/13/19 18:25 Reaction Details amlodipine AdvReac Intermediate Headache Verified 04/13/19 18:25 diltiazem AdvReac Intermediate See Comment Verified 04/13/19 18:25 valsartan AdvReac Intermediate Coughing Verified 04/13/19 18:25 Objective - Vital Signs Vital Signs: Vital Signs 12/18/19 12/18/19 12/18/19 08:00 12:23 16:40 Temperature 98.6 F 98.1 F Pulse Rate 67 62 Respiratory 17 18 20 Rate Blood Pressure 125/38 126/37 (mmHg) O2 Sat by Pulse 99 98 Oximetry 12/18/19 12/18/19 12/18/19 19:41 20:00 23:38 Temperature 97.5 F 98.0 F Pulse Rate 73 60 Respiratory 18 18 18 Rate Blood Pressure 120/48 145/38 (mmHg) O2 Sat by Pulse 97 100 Oximetry - Intake and Output Intake and Output: Intake & Output 12/16/19 12/17/19 12/18/19 12/19/19 11:59 11:59 11:59 11:59 Intake Total 1000 720 Balance 1000 720 Weight 159 lb Intake: IV Fluids 1000 Oral 0 720 Other: Estimated Void Small # Voids 1 ADLs: Meal Record Start: 12/17/19 21: 53 Freq: DAILY@0900,1400,1800 Status: Active Protocol: Created 12/17/19 21:53 System (Rec: 12/17/19 21:53 System MED-C11) Document 12/18/19 18:00 [id number] (Rec: 12/18/19 21:42 [id number] MED-C07) Intake and Output Start: 12/17/19 13: 48 Freq: Status: Active Protocol: Created 12/17/19 13:48 System (Rec: 12/17/19 13:48 System [id number]) Intake and Output Start: 12/17/19 21: 53 Freq: DAILY@0600,1400,2200 Status: Active Protocol: Created 12/17/19 21:53 System (Rec: 12/17/19 21:53 System MED-C11) Document 12/17/19 22:00 [id number] (Rec: 12/17/19 22:23 [id number] MED-C11) Document 12/18/19 04:51 [id number] (Rec: 12/18/19 04:52 [id number] MED-C11) Document 12/18/19 14:00 [id number] (Rec: 12/18/19 14:29 [id number] MED-C11) Document 12/18/19 22:00 [id number] (Rec: 12/18/19 22:35 [id number] MED-C11) Document 12/19/19 06:00 [id number] (Rec: 12/19/19 06:05 [id number] TELE-M19) Document 12/19/19 06:00 [id number] (Rec: 12/19/19 06:10 [id number] MED-C12) - Physical Exam General: No Cyanosis, No Anemia, No Jaundice, No Clubbing Lungs and Chest: Yes: Chest Expansion Full, Chest Expansion Symetrica, Percussion Note Resonant, Vessicular Breath Sounds. No: Crackles, Wheezes Heart Rate and Rhythm: Regular Additional Cardiovascular: Yes: Normal Heart Sounds, Heart Murmur, Pedal Edema Abdominal Exam: Yes: Soft, Bowel Sounds Present. No: Distention, Splenomegaly Results - Results Lab Results: Laboratory Results - last 24 hr 12/18/19 12/18/19 12/18/19 07:46 11:43 12:08 WBC 7.6 RBC 2.67 L Hgb 8.6 L Hct 27 L MCV 100 H MCH 32 H MCHC 32 RDW 19 H Plt Count 250 MPV 8.6 Neut % (Auto) 81.3 Lymph % (Auto) 8.7 [place] % (Auto) 9.6 Eos % (Auto) 0.1 Baso % (Auto) 0.3 Absolute Neuts (auto) 6.2 Absolute Lymphs (auto) 0.7 L Absolute Monos (auto) 0.7 Absolute Eos (auto) 0.0 Absolute Basos (auto) 0.0 Absolute Nucleated RBC 0.0 Nucleated RBC % 0.0 Sodium Potassium Chloride Carbon Dioxide Anion Gap BUN Creatinine Est GFR ( Amer) Est GFR (Non-Af Amer) BUN/Creatinine Ratio Glucose POC Glucose (mg/dL) > 444 H* Glucose Meter Confirm 442 H Uric Acid Calcium Iron TIBC % Saturation Unsat Iron Binding Transferrin C-Reactive Protein Vitamin B12 12/18/19 12/18/19 12/18/19 12:08 12:08 12:08 WBC RBC Hgb Hct MCV MCH MCHC RDW Plt Count MPV Neut % (Auto) Lymph % (Auto) [place] % (Auto) Eos % (Auto) Baso % (Auto) Absolute Neuts (auto) Absolute Lymphs (auto) Absolute Monos (auto) Absolute Eos (auto) Absolute Basos (auto) Absolute Nucleated RBC Nucleated RBC % Sodium Potassium Chloride Carbon Dioxide Anion Gap BUN Creatinine Est GFR ( Amer) Est GFR (Non-Af Amer) BUN/Creatinine Ratio Glucose POC Glucose (mg/dL) Glucose Meter Confirm 424 H Uric Acid 6.2 Calcium Iron 29 L TIBC 279 % Saturation 10 L Unsat Iron Binding < 264 Transferrin 199 L C-Reactive Protein 223.23 H Vitamin B12 12/18/19 12/18/19 12/18/19 17:10 17:22 22:52 WBC RBC Hgb Hct MCV MCH MCHC RDW Plt Count MPV Neut % (Auto) Lymph % (Auto) [place] % (Auto) Eos % (Auto) Baso % (Auto) Absolute Neuts (auto) Absolute Lymphs (auto) Absolute Monos (auto) Absolute Eos (auto) Absolute Basos (auto) Absolute Nucleated RBC Nucleated RBC % Sodium Potassium Chloride Carbon Dioxide Anion Gap BUN Creatinine Est GFR ( Amer) Est GFR (Non-Af Amer) BUN/Creatinine Ratio Glucose POC Glucose (mg/dL) > 444 H* Glucose Meter Confirm 403 H 379 H Uric Acid Calcium Iron TIBC % Saturation Unsat Iron Binding Transferrin C-Reactive Protein Vitamin B12 12/19/19 12/19/19 12/19/19 06:15 06:15 07:33 WBC 6.2 RBC 2.35 L Hgb 7.5 L Hct 23 L MCV 97 MCH 32 H MCHC 33 RDW 18 H Plt Count 228 MPV 8.0 Neut % (Auto) 73.4 Lymph % (Auto) 16.6 [place] % (Auto) 9.7 Eos % (Auto) 0.0 Baso % (Auto) 0.3 Absolute Neuts (auto) 4.5 Absolute Lymphs (auto) 1.0 Absolute Monos (auto) 0.6 Absolute Eos (auto) 0.0 Absolute Basos (auto) 0.0 Absolute Nucleated RBC 0.0 Nucleated RBC % 0.0 Sodium 130 L Potassium 4.6 Chloride 99 L Carbon Dioxide 24 Anion Gap 7 BUN 45 H Creatinine 1.63 H Est GFR ( Amer) 36.3 Est GFR (Non-Af Amer) 30.0 BUN/Creatinine Ratio 27.6 H Glucose 420 H POC Glucose (mg/dL) > 444 H* Glucose Meter Confirm Uric Acid Calcium 9.3 Iron TIBC % Saturation Unsat Iron Binding Transferrin C-Reactive Protein 143.55 H Vitamin B12 1021 H Assessment - Problem List Assessment: Patient Problems Acute right hip pain (Acute) Steroid-induced hyperglycemia (Acute) Atrial fibrillation (Chronic) Cardiomyopathy (Chronic) Chronic anticoagulation (Chronic) Diabetes mellitus with insulin therapy (Chronic) Essential hypertension (Chronic) Heart block (Chronic) Hypercholesteremia (Chronic) Mitral regurgitation (Chronic) Primary hypothyroidism (Chronic) Rheumatoid arthritis (Chronic) Type 2 diabetes mellitus (Chronic) Pacemaker (Chronic) Plan: Acute right hip pain (Acute) She has had relief from parenteral ketorelac, plus prednisone. I will taper the prednisone. She would like to go home. Comorbidities: Diabetes mellitus with insulin therapy (Chronic)Type 2 diabetes mellitus ( Chronic)Steroid-induced hyperglycemia (Acute) She is usually very insulin sensitive, now she has marked insulin resistance. I will taper the steroids and increase her insulin. This is now the major barrier to discharge Secondary diagnoses: Atrial fibrillation (Chronic) Cardiomyopathy (Chronic) Chronic anticoagulation (Chronic)= Essential hypertension (Chronic) Heart block (Chronic) Hypercholesteremia (Chronic) Mitral regurgitation (Chronic) Primary hypothyroidism (Chronic) Rheumatoid arthritis (Chronic) Pacemaker (Chronic) I explained the above to Katheryn Tatum. We will give her the opportunity of mobilizing today. I will discharge her if she is safely mobilizing and also if her glucose is more under control.
[2019-12-19] MEDS ORDERED: Insulin LISPRO* 1 UNITS UNIT SUBCUT ONE (08:01)
[2019-12-19] MEDS ORDERED: Dextrose 50% Syringe 50 ML* 25 GM/50 ML SYRINGE IV PUSH PRN (08:01)
[2019-12-19] MEDS: Insulin GLARGINE(*) 1 UNITS UNIT SUBCUT SCH (08:22)
[2019-12-19] MEDS: Spironolactone TAB* 25 MG PO SCH (08:31)
[2019-12-19] MEDS: sulfaSALAzine TAB* 500 MG PO SCH (08:31)
[2019-12-19] MEDS: Carvedilol TAB* 25 MG PO SCH (08:31)
[2019-12-19] MEDS: Folic Acid TAB* 1 MG PO SCH (08:31)
[2019-12-19] MEDS: Apixaban* 2.5 MG TAB PO SCH (08:31)
[2019-12-19] MEDS: Ascorbic Acid TAB* 500 MG PO SCH (08:31)
--- NOTE | 2019-12-19 08:38 | PN ---
Progress Note - Progress Note Date of Service: 12/19/19 Note: Addendum: Anemia: She has a chronic anemia and this is exacerbated with a Hgb 7.5. She is iron deficient - her B12 is normal. It is possible this is due to the acute phase reaction. I will check fecal occult blood. I will start her on a course of parenteral iron - starting with venofer 200 mg today. I discussed this with the patient and her .
--- NOTE | 2019-12-19 08:54 | PN ---
Progress Note - Progress Note Date of Service: 12/19/19 SOAP: Subjective: []Pt seen and examined at bedside. Reports decreased right hip pain. She was able to tolerate stand and pivot to the commode, as well as sitting on the commode without hip pain. Denies fever, chills. Objective: []NAD, Non-toxic appearing. LLE: no pain with active f/e at the hip, negative log roll RLE: Skin envelope intact, no erythema, nontender over the hip. No pain with active f/e 0-90, no pain with log roll and PROM hip Assessment: HD 3 R hip osteoarthritis, rheumatoid arthritis flare. Low suspicion for hip infection Diabetes mellitus Plan: - Continue steroids, dose reduction per Dr Wallace due to hyperglycemia >400. Toradol also helpful with pain, limit use due to eliquis - Physical therapy, WBAT, activity as tolerated - Continued improvement in labs and exam today, condition consistent with occurrence 10 months ago. Cont trending CRP, CBC while in house. - ready for DC from ortho standpoint, infectious workup if lack of continued improvement Vital Signs Temp 98.0 F 12/18/19 23:38 Pulse 60 12/18/19 23:38 Resp 18 12/18/19 23:38 BP 145/38 12/18/19 23:38 Pulse Ox 100 12/18/19 23:38 Intake & Output 12/18/19 12/19/19 12/19/19 18:59 06:59 18:59 Intake Total 700 20 Balance 700 20 Intake: Oral 700 20 Laboratory Last Values WBC 6.2 10^3/uL (3.5-10.8) 12/19/19 06:15 RBC 2.35 10^6 /uL (3.70-4.87) L 12/19/19 06:15 Hgb 7.5 g/dL (12.0-16.0) L 12/19/19 06:15 Hct 23 % (35-47) L 12/19/19 06:15 MCV 97 fL (80-97) 12/19/19 06:15 MCH 32 pg (27-31) H 12/19/19 06:15 MCHC 33 g/dL (31-36) 12/19/19 06:15 RDW 18 % (10-15) H 12/19/19 06:15 Plt Count 228 10^3/uL (150-450) 12/19/19 06:15 MPV 8.0 fL (7.4-10.4) 12/19/19 06:15 Neut % (Auto) 73.4 % 12/19/19 06:15 Lymph % (Auto) 16.6 % 12/19/19 06:15 [place] % (Auto) 9.7 % 12/19/19 06:15 Eos % (Auto) 0.0 % 12/19/19 06:15 Baso % (Auto) 0.3 % 12/19/19 06:15 Absolute Neuts (auto) 4.5 10^3/ul (1.5-7.7) 12/19/19 06:15 Absolute Lymphs (auto) 1.0 10^3/ul (1.0-4.8) 12/19/19 06:15 Absolute Monos (auto) 0.6 10^3/ul (0-0.8) 12/19/19 06:15 Absolute Eos (auto) 0.0 10^3/ul (0-0.6) 12/19/19 06:15 Absolute Basos (auto) 0.0 10^3/ul (0-0.2) 12/19/19 06:15 Absolute Nucleated RBC 0.0 10^3/ul 12/19/19 06:15 Nucleated RBC % 0.0 12/19/19 06:15 ESR 96 mm/Hr (0-29) H 12/17/19 13:46 Sodium 130 mmol/L (135-145) L 12/19/19 06:15 Potassium 4.6 mmol/L (3.5-5.0) 12/19/19 06:15 Chloride 99 mmol/L (101-111) L 12/19/19 06:15 Carbon Dioxide 24 mmol/L (22-32) 12/19/19 06:15 Anion Gap 7 mmol/L (2-11) 12/19/19 06:15 BUN 45 mg/dL (6-24) H 12/19/19 06:15 Creatinine 1.63 mg/dL (0.51-0.95) H 12/19/19 06:15 Est GFR ( Amer) 36.3 (>60) 12/19/19 06:15 Est GFR (Non-Af Amer) 30.0 (>60) 12/19/19 06:15 BUN/Creatinine Ratio 27.6 (8-20) H 12/19/19 06:15 Glucose 420 mg/dL (70-100) H 12/19/19 06:15 POC Glucose (mg/dL) > 444 mg/dL (70-100) H* 12/19/19 07:33 Glucose Meter Confirm 464 mg/dL (70-100) H 12/19/19 07:57 Uric Acid 6.2 mg/dL (2.3-6.6) 12/18/19 12:08 Calcium 9.3 mg/dL (8.6-10.3) 12/19/19 06:15 Iron 29 ug/dL (50-212) L 12/18/19 12:08 TIBC 279 mcg/dL (250-450) 12/18/19 12:08 % Saturation 10 % (15-55) L 12/18/19 12:08 Unsat Iron Binding < 264 ug/dL 12/18/19 12:08 Transferrin 199 mg/dL (203-362) L 12/18/19 12:08 Total Bilirubin 0.50 mg/dL (0.2-1.0) 12/17/19 13:46 AST 18 U/L (13-39) 12/17/19 13:46 ALT 11 U/L (7-52) 12/17/19 13:46 Alkaline Phosphatase 70 U/L (34-104) 12/17/19 13:46 C-Reactive Protein 143.55 mg/L (<8.01) H 12/19/19 06:15 Total Protein 7.0 g/dL (6.4-8.9) 12/17/19 13:46 Albumin 3.8 g/dL (3.2-5.2) 12/17/19 13:46 Globulin 3.2 g/dL (2-4) 12/17/19 13:46 Albumin/Globulin Ratio 1.2 (1-3) 12/17/19 13:46 Vitamin B12 1021 pg/mL (180-914) H 12/19/19 06:15
[2019-12-19] MEDS ORDERED: Iron Sucrose* 200 MG in NS 0.9% 100 ML* 100 ML IVPB ONE (09:00)
[2019-12-19] MEDS ORDERED: Ferrous Sulfate TAB* 325 MG PO SCH (09:00)
[2019-12-19] MEDS: Insulin LISPRO* 1 UNITS UNIT SUBCUT SCH ×4 (09:11→13:50)
[2019-12-19 15:37] VITALS: BP 140/50
== END 2019-12-19 16:40 | disposition home health service (06) | DRG 546 ==
LOC: ED 13:19 → MED 19:55 → OBSVTOIN 12-18 09:00
PROVIDERS: ADMIT Nurse Practitioner Acute Care; ATTEND Internal Medicine
PROC: 5A09357 Assistance with Respiratory Ventilation, Less than 24 Consecutive Hours, Continuous Positive Airway Pressure (ICD-10-PCS; principal; 2019-12-18)
DX: M06.851 Other specified rheumatoid arthritis, right hip (principal); E87.1 Hypo-osmolality and hyponatremia; I42.9 Cardiomyopathy, unspecified; M16.11 Unilateral primary osteoarthritis, right hip; I48.91 Unspecified atrial fibrillation; G47.33 Obstructive sleep apnea (adult) (pediatric); E03.9 Hypothyroidism, unspecified; T38.0X5A Adverse effect of glucocorticoids and synthetic analogues, initial encounter; E78.00 Pure hypercholesterolemia, unspecified; I44.7 Left bundle-branch block, unspecified; I34.0 Nonrheumatic mitral (valve) insufficiency; I45.9 Conduction disorder, unspecified; D50.9 Iron deficiency anemia, unspecified; E11.65 Type 2 diabetes mellitus with hyperglycemia; I10 Essential (primary) hypertension; Z88.1 Allergy status to other antibiotic agents; Z88.8 Allergy status to other drugs, medicaments and biological substances; Z88.0 Allergy status to penicillin; Z87.891 Personal history of nicotine dependence; Z95.0 Presence of cardiac pacemaker; Y92.9 Unspecified place or not applicable
CPT/HCPCS: 36415; 80048; 80053; 82272; 82607; 82947; 83540; 83550; 84550; 85025; 85652; 86140; 86304; 86305; 87040; 94660; 96361; 96374; 96375; 99284; A9270-GY; G0378; J1756; J1815; J1885; J2270; J7512; Q9967